=== PATIENT | male | born 1935 | race Caucasian/White ===

== ENCOUNTER → 2016-11-08 | Outpatient (CLI) | payer MEDICARE ==
--- NOTE | 2016-11-08 12:42 | REP ---
RIGHT FOOT SERIES: Four views. HISTORY: Pain and swelling 1st MCP joint. Redness. No comparison radiographs. FINDINGS: There is a moderate to marked hallux valgus deformity. Vascular calcification is noted. 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 There is a surgical clip in the distal calf soft tissues. Moderate osteoarthritis is seen at the midfoot and there is plantar calcaneal spurring. IMPRESSION: Vascular calcification. Midfoot osteoarthritis. Heel spur. 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 Signed by Manish Saavedra MD 11/08/2016 01:10 P
== END ==
LOC: M WUC 12:00
PROVIDERS: ATTEND Internal Medicine
DX: M77.31 Calcaneal spur, right foot (principal)

== ENCOUNTER → 2016-11-25 | Outpatient (REF) | payer MEDICARE ==
[2016-11-25 17:13] LABS: FOLATE 13.6 NG/ML
== END ==
LOC: M LAB REF 16:06
PROVIDERS: ATTEND Nurse Practitioner Family
DX: D52.8 Other folate deficiency anemias (principal)

== ENCOUNTER → 2016-12-20 | Outpatient (REF) | payer MEDICARE ==
[2016-12-20 12:55] LABS: URIC ACID 9.8 MG/DL (3.5-7.2)
== END ==
LOC: M LAB REF 11:58
PROVIDERS: ATTEND Nurse Practitioner Adult Health
DX: M10.9 Gout, unspecified (principal); R71.8 Other abnormality of red blood cells

== ENCOUNTER 2016-12-30 07:13 | Inpatient (IN) | payer MEDICARE ==
[~2016-12-30] VITALS: Ht 167.6 cm; Wt 72.1 kg
[~2016-12-30 07:13] MED LIST: HEPARIN 1,000 UNITS/ML 10ML VIAL (FOR RADIOLOGY& DIALYSIS ONLY) As Ordered ONE; ISOVUE-300 61% 50ML VIAL (Q9967) As Ordered ONE; MIDAZOLAM INJ 2 MG/2 ML VIAL (J2250) As Ordered ONE; fentaNYL 100 MCG/2 ML INJECTION (J3010) As Ordered ONE
--- NOTE | 2016-12-30 12:35 | REP ---
Clinical: Preoperative assessment. Technique: PA and lateral. Comparison: None. Findings: Cardiomegaly is appreciated with large left lower lobe infiltrate, bibasilar atelectasis, and pleural effusions (left greater than right). Underlying interstitial edema cannot be excluded as well. No pneumothorax. Impression: Cardiomegaly Left lower lobe consolidation, bibasilar atelectasis, and pleural effusions (left greater than right). Differential diagnosis includes multifocal pneumonia as well as CHF/pulmonary edema. Signed by Arsen Lester MD 12/30/2016 12:26 P
--- NOTE | 2016-12-30 13:45 | ECGEPIP ---
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
[2016-12-30 14:00] VITALS: BP 142/63
[2016-12-30 14:22] LABS: CALCIUM LEVEL 8.6 MG/DL (8.8-10.2); CREATININE FOR GFR 1.45 MG/DL (0.70-1.30); GLOMERULAR FILTRATION RATE 49.9 (>35); POTASSIUM SERUM 4.7 MEQ/L (3.5-5.1)
[2016-12-30] MEDS: PIPERACILLIN/TAZOBACTAM SOD 3.375 GM in D5W MINI-BAG PLUS 50 ML IV SCH ×2 (15:10→21:20)
[2016-12-30] MEDS: PERCOCET 5MG/325MG TAB PO PRN (18:00)
[2016-12-30] MEDS ORDERED: SANTYL OINT 30GM TOP SCH ×2 (18:00→21:00)
[2016-12-30] MEDS ORDERED: PHYTONADIONE 5 MG TAB PO ONE (18:45)
[2016-12-30] MEDS ORDERED: MORPHINE 2 MG/ML 1ML SYRINGE As Ordered ONE (18:48)
[2016-12-30] MEDS: MORPHINE 2 MG/ML 1ML SYRINGE IV PRN ×2 (18:51→23:05)
[2016-12-30] MEDS ORDERED: NITR4TASL SL (20:05)
[2016-12-30] MEDS ORDERED: WARF-23 PO (20:05)
[2016-12-30] MEDS ORDERED: ASPI81TA24 PO (20:05)
[2016-12-30] MEDS ORDERED: HYDR-3713 PO (20:05)
[2016-12-30] MEDS ORDERED: SANT250O8 TOP (20:05)
[2016-12-30] MEDS ORDERED: TORS20TA2 PO (20:05)
[2016-12-30] MEDS ORDERED: ATOR40TA75 PO (20:05)
[2016-12-30] MEDS ORDERED: WARF-18 PO (20:05)
[2016-12-30] MEDS ORDERED: ENTR1TAB PO (20:05)
[2016-12-30] MEDS ORDERED: METO1TAB32 PO (20:05)
[2016-12-30 22:00] VITALS: BP 135/58
[2016-12-30] MEDS ORDERED: NITROGLYCERIN 0.4 MG SUBL TABLET SL PRN (22:00)
[2016-12-30] MEDS: ENTRESTO 24-26MG TABLET (SACUBITRIL/VALSARTAN) PO SCH (23:06)
[2016-12-30] MEDS: METOPROLOL SUCC *XL* 25MG TAB (TopROL *XL*) PO SCH (23:06)
[2016-12-31] MEDS: PERCOCET 5MG/325MG TAB PO PRN ×2 (00:59→09:58)
[2016-12-31] MEDS: PIPERACILLIN/TAZOBACTAM SOD 3.375 GM in D5W MINI-BAG PLUS 50 ML IV SCH ×4 (03:24→21:56)
[2016-12-31] MEDS: MORPHINE 2 MG/ML 1ML SYRINGE IV PRN (04:17)
[2016-12-31 06:00] VITALS: BP 127/56
[2016-12-31 06:37] LABS: INR 3.04
[2016-12-31 06:40] LABS: ADD MORPHOLOGY? YES; BASO % 0.7 % (0.0-1.0); EOS # 0.1 K/mm3 (0.0-0.50); EOS % 1.9 % (0.0-3.0); LARGE UNSTAINED CELL # 0.1 K/mm3 (0.0-0.4); LARGE UNSTAINED CELL % 2.7 % (0.0-4.0); LYMPH # 0.7 K/mm3 (1.5-4.5); LYMPH % 12.4 % (24.0-44.0); MEAN CORPUSCULAR HEMOGLOBIN 36.2 pg (27.0-33.0); MEAN CORPUSCULAR VOLUME 109.9 fl (80.0-96.0); MONO # 0.5 K/mm3 (0.0-0.8); MONO % 10.6 % (0.0-5.0); NEUTROPHILS # 3.5 K/mm3 (1.8-7.7); NEUTROPHILS % 71.7 % (36.0-66.0); PLATELET COUNT, AUTOMATED 111 k/mm3 (150-450); RED CELL DISTRIBUTION WIDTH 15.5 % (11.5-14.5); WHITE BLOOD COUNT 4.8 K/mm3 (4.0-10.0)
[2016-12-31 06:48] LABS: ALBUMIN 2.7 GM/DL (3.2-5.2); ALBUMIN/GLOBULIN RATIO 0.77 (1.00-1.93); CREATININE FOR GFR 1.52 MG/DL (0.70-1.30); GLOMERULAR FILTRATION RATE 47.2 (>35); POTASSIUM SERUM 5.1 MEQ/L (3.5-5.1); TOTAL PROTEIN 6.2 GM/DL (6.4-8.2)
[2016-12-31 07:07] LABS: ANISOCYTOSIS 1+
[2016-12-31] MEDS: TORSEMIDE 20 MG TAB PO SCH (08:52)
[2016-12-31] MEDS: ENTRESTO 24-26MG TABLET (SACUBITRIL/VALSARTAN) PO SCH ×2 (08:53→21:55)
[2016-12-31] MEDS: ASPIRIN 81 MG ENTERIC TAB PO SCH (08:53)
[2016-12-31 14:00] VITALS: BP 143/85
[2016-12-31] MEDS: METOPROLOL SUCC *XL* 25MG TAB (TopROL *XL*) PO SCH (21:56)
[2016-12-31 22:00] VITALS: BP 115/67
--- NOTE | 2016-12-31 22:09 | IPNPDOC ---
Subjective Date Seen The patient was seen on 12/31/16. Subjective Chief Complaint/HPI The patient is a 81-year-old male admitted with a reason for visit of Artery Disease. General: Denies: ROS Unobtainable, Chills, Night Sweats, Fatigue, Malaise, Normal Appetite, Other Symptoms Constitutional: Denies: Chills, Fever, Malaise, Night Sweats, Weakness, Fatigue , Weight Loss, Lethargy, Other Eyes: Denies: Pain, Vision change, Conjunctivae inflammation, Eyelid inflammation, Redness, Other ENT: Denies: Head Aches, Ear Pain, Dysphagia, Sinus Congestion, Post Nasal Drip , Sore Throat, Epistaxis, Other Symptoms Skin: Denies: Rash, Lesions, Jaundice, Bruising, Itching, Dry, Breakdown, Nail Changes, Other Pulmonary: Denies: Dyspnea, Cough, Pleuritic Chest Pain, Other Symptoms Cardiovascular: Denies: Chest Pain, Palpitations, Orthopnea, Paroxysmal Noc. Dyspnea, Edema, Lt Headedness, Other Symptoms Gastrointestinal: Denies: Nausea, Vomiting, Abdominal Pain, Diarrhea, Constipation, Melena, Hematochezia, Other Symptoms Genitourinary: Denies: Dysuria, Frequency, Incontinence, Hematuria, Retention, Other Symptoms Hematologic: Denies: Bruising, Bleeding Excessively, Petecchia, Purpura, Enlarged Lymph Nodes, Other Hematologic Endocrine: Denies: Polydipsia, Polyphagia, Polyuria, Heat Intolerance, Cold Intolerance, Other Endocrine Sx Musculoskeletal: Denies: Neck Pain, Back Pain, Shoulder Pain, Arm Pain, Hand Pain, Leg Pain, Foot Pain, Joint Pain, Muscle Pain, Spasms, Other Symptoms Neurological: Denies: Weakness, Numbness, Incoordination, Change in speech, Confusion, Seizures, Other Symptoms Psych: Denies: Mood Normal, Anxiety, Depression, Memory Issues, Thoughts of Self Harm, Anger, Thoughts of Harming Other, Other Psych Objective Physical Examination General Exam: Positive: Alert, Mild Distress Neck Exam: Positive: Supple, +2 carotid pulse wo bruit Chest Exam: Positive: Clear to auscultation, Normal air movement Heart Exam: Positive: Rate Normal Abdomen Exam: Positive: Normal bowel sounds Extremity Exam: Positive: Tenderness Skin Exam: Positive: Nl turgor and temperature Neuro Exam: Positive: Normal Gait Psych Exam: Positive: Mental status NL Assessment /Plan Problems (1) Ischemia of foot Status: Acute (2) Ischemic foot ulcer due to atherosclerosis of [place] artery of limb Status: Acute Problem Text: Patient with severe atherosclerotic disease with popliteal artery occlusion on the right and reconstitution of the posterior tibial distally. Patient will require a femoral to posterior tibial artery bypass graft. Awaiting normalization of patient's INR at which point heparin will be started patient will be scheduled for surgery Monday or Monday pending clearance. Plan/VTE VTE Prophylaxis Ordered?: Yes VS, I&O, 24H, Fishbone Vital Signs/I&O Vital Signs Date Time Temp Pulse Resp B/P (MAP) Pulse Ox O2 Delivery O2 Flow Rate FiO2 12/31/16 21:56 83 115/67 12/31/16 19:56 Room Air 12/31/16 14:00 97.1 16 96 12/30/16 18:10 2.0 I&O- Last 24 Hours up to 6 AM 12/31/16 06:00 Intake Total 870 ml Output Total 375 ml Balance 495 ml Laboratory Data 24H LABS Laboratory Tests 2 12/31/16 06:03: White Blood Count 4.8, Red Blood Count 3.52L, Hemoglobin 12.8L, Hematocrit 38.7L , Mean Corpuscular Volume 109.9H, Mean Corpuscular Hemoglobin 36.2H, Mean Corpuscular Hemoglobin Concent 33.0, Red Cell Distribution Width 15.5H, Platelet Count 111L, Neutrophils (%) (Auto) 71.7H, Lymphocytes (%) (Auto) 12.4L , Monocytes (%) (Auto) 10.6H, Eosinophils (%) (Auto) 1.9, Basophils (%) (Auto) 0.7, Neutrophils # (Auto) 3.5, Lymphocytes # (Auto) 0.7L, Monocytes # (Auto) 0.5 , Eosinophils # (Auto) 0.1, Basophils # (Auto) 0.0, Large Unclassified Cells % 2.7, Large Unclassified Cells # 0.1, Platelet Estimate DECREASED, Anisocytosis 1 +, Macrocytosis 2+, Prothrombin Time 32.8H, Prothromb Time International Ratio 3.04, Anion Gap 9, Glomerular Filtration Rate 47.2, Blood Urea Nitrogen 52H, Creatinine 1.52H, Sodium Level 137, Potassium Level 5.1, Chloride Level 106, Carbon Dioxide Level 22, Calcium Level 8.0L, Aspartate Amino Transf (AST/SGOT) 34, Alanine Aminotransferase (ALT/SGPT) 21, Alkaline Phosphatase 191H, Total Bilirubin 1.0, Total Protein 6.2L, Albumin 2.7L, Albumin/Globulin Ratio 0.77L CBC/BMP Laboratory Tests 12/31/16 06:03 Red Blood Count 3.52 L, Mean Corpuscular Volume 109.9 H, Mean Corpuscular Hemoglobin 36.2 H, Mean Corpuscular Hemoglobin Concent 33.0, Red Cell Distribution Width 15.5 H, Neutrophils (%) (Auto) 71.7 H, Lymphocytes (%) (Auto ) 12.4 L, Monocytes (%) (Auto) 10.6 H, Eosinophils (%) (Auto) 1.9, Basophils (% ) (Auto) 0.7, Neutrophils # (Auto) 3.5, Lymphocytes # (Auto) 0.7 L, Monocytes # (Auto) 0.5, Eosinophils # (Auto) 0.1, Basophils # (Auto) 0.0, Calcium Level 8.0 L, Aspartate Amino Transf (AST/SGOT) 34, Alanine Aminotransferase (ALT/SGPT) 21 , Alkaline Phosphatase 191 H, Total Bilirubin 1.0, Total Protein 6.2 L, Albumin 2.7 L Benedict Vang MD Dec 31, 2016 22:09
[2017-01-01] MEDS: PERCOCET 5MG/325MG TAB PO PRN ×2 (02:10→11:26)
[2017-01-01] MEDS: PIPERACILLIN/TAZOBACTAM SOD 3.375 GM in D5W MINI-BAG PLUS 50 ML IV SCH ×4 (02:10→20:26)
[2017-01-01 06:00] VITALS: BP 121/65
[2017-01-01 06:47] LABS: INR 1.7
[2017-01-01] MEDS: SANTYL OINT 30GM TOP SCH (08:28)
[2017-01-01] MEDS: ENTRESTO 24-26MG TABLET (SACUBITRIL/VALSARTAN) PO SCH ×2 (08:28→20:26)
[2017-01-01] MEDS: ASPIRIN 81 MG ENTERIC TAB PO SCH (08:28)
[2017-01-01] MEDS: TORSEMIDE 20 MG TAB PO SCH (08:28)
[2017-01-01] MEDS ORDERED: HEPARIN (FLUSH) 100 UNITS in SODIUM CHLORIDE 0.45% 99 ML IV SCH (10:45)
[2017-01-01] MEDS ORDERED: HEPARIN DRIP 25,000 UNITS in APPROPRIATE DILUENT 1 EA IV SCH (10:45)
[2017-01-01] MEDS ORDERED: HEPARIN SOD (PORCINE) 5000 UNITS/ML VIAL IV ONE ×2 (10:45)
[2017-01-01] MEDS ORDERED: HEPARIN SOD (PORCINE) 5000 UNITS/ML VIAL IV PRN (10:45)
[2017-01-01 11:38] LABS: MEAN CORPUSCULAR HEMOGLOBIN 35.5 pg (27.0-33.0); MEAN CORPUSCULAR HGB CONC 31.6 g/dl (32.0-36.5); MEAN CORPUSCULAR VOLUME 112.3 fl (80.0-96.0); RED CELL DISTRIBUTION WIDTH 15.2 % (11.5-14.5); WHITE BLOOD COUNT 5.5 K/mm3 (4.0-10.0)
[2017-01-01 14:00] VITALS: BP 126/63
--- NOTE | 2017-01-01 18:07 | IPNPDOC ---
Date Seen The patient was seen on 01/01/17. Progress Note SUBJECTIVE: Patient has continued pain in his right foot. Denies any chest pain , shortness of breath, TIAs, amaurosis fugax, paralysis or paresis of extremity. OBJECTIVE PHYSICAL EXAMINATION: VITAL SIGNS: Please see below. GENERAL: Awake alert oriented x3 with no focal deficits HEENT: Normal CARDIOVASCULAR: Regular rate and rhythm. RESPIRATORY: Clear to auscultation bilaterally no rhonchi wheezes or crackles. ABDOMINAL: Soft nontender nondistended with no palpable pulsatile masses EXTREMITIES: No clubbing cyanosis or edema. Right lower extremity shows dependent rubor and cellulitic changes. NEUROLOGICAL: Awake alert oriented x3 with no focal deficits PSYCHOLOGICAL: Mood stable no suicidal ideation LABORATORY DATA: Please see below. MICROBIOLOGY: Please see below. IMAGING: No new imaging Echocardiogram: Echo from Dr. Camarena close office is in the chart.. DVT prophylaxis ordered?: Patient on a heparin drip ASSESSMENT AND PLAN: This is a 81-year-old white male with right lower extremity ischemia secondary to occlusion of his right below-knee popliteal artery. The patient has reconstitution of the posterior tibial artery distally. PROBLEMS: 1. right lower extremity ischemia: Patient will undergo a right femoral to posterior tibial artery bypass graft. Patient was discussed with Dr. Nicol wilson who states the patient recently had an nuclear stress test which showed no reversible lesions. Dr. Nicol wilson states the patient is intermediate risk and is cleared for right femoral to posterior tibial artery bypass grafting 2. atrial fibrillation: Patient was on Coumadin as an outpatient and pedis been started on a heparin drip with normalization of his INR. VS, I&O, [facility] Vital Signs/I&O Vital Signs Date Time Temp Pulse Resp B/P (MAP) Pulse Ox O2 Delivery O2 Flow Rate FiO2 01/01/17 11:56 14 01/01/17 10:18 Room Air 01/01/17 06:00 97.7 74 121/65 (83) 96 12/30/16 18:10 2.0 I&O- Last 24 Hours up to 6 AM 01/01/17 06:00 Intake Total 1530 ml Output Total 825 ml Balance 705 ml Laboratory Data 24H LABS Laboratory Tests 2 01/01/17 06:25: Prothrombin Time 20.5H, Prothromb Time International Ratio 1.70 01/01/17 11:08: Activated Partial Thromboplast Time 40.4H 01/01/17 17:17: CBC/BMP Laboratory Tests 01/01/17 11:08 Red Blood Count 3.81 L, Mean Corpuscular Volume 112.3 H, Mean Corpuscular Hemoglobin 35.5 H, Mean Corpuscular Hemoglobin Concent 31.6 L, Red Cell Distribution Width 15.2 H Benedict Vang MD Jan 01, 2017 18:07
[2017-01-01] MEDS: ATORVASTATIN 20 MG TAB PO SCH (20:26)
[2017-01-01] MEDS: METOPROLOL SUCC *XL* 25MG TAB (TopROL *XL*) PO SCH (21:04)
[2017-01-01 22:00] VITALS: BP 134/64
[2017-01-02] VITALS (21 sets, daily range): BP systolic 86–160; BP diastolic 47–116
[2017-01-02] MEDS: PERCOCET 5MG/325MG TAB PO PRN ×2 (00:27→05:30)
[2017-01-02] MEDS: PIPERACILLIN/TAZOBACTAM SOD 3.375 GM in D5W MINI-BAG PLUS 50 ML IV SCH ×4 (03:09→22:55)
[2017-01-02] MEDS: D5W/0.45% SODIUM CHLORIDE 1,000 ML IV SCH ×2 (04:10→22:55)
[2017-01-02 06:29] LABS: MEAN CORPUSCULAR HEMOGLOBIN 36.2 pg (27.0-33.0); MEAN CORPUSCULAR HGB CONC 32.5 g/dl (32.0-36.5); MEAN CORPUSCULAR VOLUME 111.3 fl (80.0-96.0); RED CELL DISTRIBUTION WIDTH 15.7 % (11.5-14.5); WHITE BLOOD COUNT 4.9 K/mm3 (4.0-10.0)
[2017-01-02 06:35] LABS: INR 1.75
[2017-01-02 06:50] LABS: CALCIUM LEVEL 8.5 MG/DL (8.8-10.2); CREATININE FOR GFR 1.83 MG/DL (0.70-1.30); POTASSIUM SERUM 4.9 MEQ/L (3.5-5.1)
[2017-01-02] MEDS: ASPIRIN 81 MG ENTERIC TAB PO SCH (09:49)
[2017-01-02] MEDS: TORSEMIDE 20 MG TAB PO SCH (09:49)
[2017-01-02] MEDS: ENTRESTO 24-26MG TABLET (SACUBITRIL/VALSARTAN) PO SCH ×2 (09:49→21:00)
--- NOTE | 2017-01-02 13:06 | IPNPDOC ---
Date Seen The patient was seen on 01/02/17. Progress Note SUBJECTIVE: Patient without complaints. Has continued pain in the right foot. Patient had a fall last night resulting in a contusion to his right forehead and loss of his left upper incisor. OBJECTIVE PHYSICAL EXAMINATION: VITAL SIGNS: Please see below. GENERAL: Awake alert no apparent distress HEENT: Normal. Site of the left upper incisor loss is without bleeding. CARDIOVASCULAR: Irregular. RESPIRATORY: Clear to auscultation bilaterally decreased breath sounds.. ABDOMINAL: Soft nontender nondistended with no palpable pulsatile mass EXTREMITIES: Both lower extremities show perfusion. The right large family shows dependent rubor. NEUROLOGICAL: Awake alert oriented x3 no focal deficits PSYCHOLOGICAL: Normal LABORATORY DATA: Please see below. MICROBIOLOGY: Please see below. IMAGING: Angiogram performed Monday shows occlusion of the popliteal artery at the knee joint with reconstitution of the posterior tibial artery distally. DVT prophylaxis ordered?: Patient on heparin drip and Coumadin. ASSESSMENT AND PLAN: This is a 82-year-old white male with ischemia of the right lower extremity and popliteal and tibioperoneal arterial occlusive disease which was not amenable to endovascular intervention. PROBLEMS: 1. right lower extremity ischemia and rest pain: Patient is scheduled for a right femoral to posterior tibial artery bypass graft today.. 2. fall: Patient is awake alert oriented x3 with no focal deficits patient did lose a left upper incisor during the fall and has a contusion to the right head. The patient's heparin was stopped at the time of the fall last evening. 3. coronary artery disease: Patient was discussed with his swatch clerk Dr. Nicol wilson who states the patient is cleared for the upcoming surgery.. DISPOSITION: Operating room today for right femoral to posterior tibial artery bypass grafting. VS, I&O, [facility], [facility] Vital Signs/I&O Vital Signs Date Time Temp Pulse Resp B/P (MAP) Pulse Ox O2 Delivery O2 Flow Rate FiO2 01/02/17 07:50 Room Air 01/02/17 06:19 16 01/02/17 06:00 98.8 85 120/72 (88) 94 12/30/16 18:10 2.0 I&O- Last 24 Hours up to 6 AM 01/02/17 06:00 Intake Total 620 ml Output Total 200 ml Balance 420 ml Laboratory Data 24H LABS Laboratory Tests 2 01/01/17 17:17: Activated Partial Thromboplast Time > 240.0*H 01/01/17 19:12: Activated Partial Thromboplast Time > 240.0*H 01/01/17 22:48: Activated Partial Thromboplast Time 59.2H 01/02/17 06:04: Prothrombin Time 21.0H, Prothromb Time International Ratio 1.75, Anion Gap 8, Glomerular Filtration Rate 38.0, Blood Urea Nitrogen 49H, Creatinine 1.83H, Sodium Level 136, Potassium Level 4.9, Chloride Level 107, Carbon Dioxide Level 21, Calcium Level 8.5L, B-Type Natriuretic Peptide 1980H CBC/BMP Laboratory Tests 01/02/17 06:04 Red Blood Count 3.62 L, Mean Corpuscular Volume 111.3 H, Mean Corpuscular Hemoglobin 36.2 H, Mean Corpuscular Hemoglobin Concent 32.5, Red Cell Distribution Width 15.7 H, Calcium Level 8.5 L Benedict Vang MD Jan 02, 2017 13:06
--- NOTE | 2017-01-02 13:28 | HPEPDOC ---
Medical History and Physical Date of Admission Dec 30, 2016 at 12:20 History and Physical PRIMARY CARE PROVIDER: Leo Donnelly M.D. ATTENDING: Benedict Vang MD CHIEF COMPLAINT: Right foot pain and ischemia HISTORY OF PRESENT ILLNESS: Patient is an 81-year-old male with severe pain in his right lower extremity who was evaluated and initially treated for gout and was subsequently found to have severe arterial insufficiency and ischemia of the right lower extremity. Patient denies any claudication or rest pain prior to the recent in symptoms in his right foot. Patient does have a history of gout and with his severe arterial insufficiency this most likely initiated as an flareup of gout which resulted and metabolic commands on the right foot which led to arterial ulceration due to his severe insufficiency. Patient denies any TIAs, amaurosis fugax, paralysis or paresis of the extremity, dysarthria, chest pain, or shortness of breath. Patient does acknowledge having an episode of chest pain on evening which was not relieved with nitroglycerin and spontaneously resolved and was most likely gastrointestinal in origin. PAST MEDICAL HISTORY: 1. hypertension. 2. peripheral arterial disease. 3. coronary artery disease. 4. atrial fibrillation. 5. Gout PAST SURGICAL HISTORY: 1. coronary artery bypass grafting x2. 2. carotid endarterectomy. 3. aortic valve replacement with bovine valve. 4. cholecystectomy. 5. Mitral valve repair 6. Tonsillectomy and adenoidectomy as a child SOCIAL HISTORY: Marital status: . Employment: Retired Tobacco use: Denies ETOH: Occasional with dinner Illicit drug use: Denies Tattoos done unprofessionally: Denies. IV drug use: Denies Other relevant social factors: Negative FAMILY HISTORY: Father: with a history of coronary artery disease Mother: with a history of cerebrovascular accident Siblings: One sister who is and has coronary artery disease Children: No significant medical problems Hereditary Diseases: None Unexpected deaths due to medical reasons: None ALLERGIES: Please see below. REVIEW OF SYSTEMS: CONSTITUTIONAL: Negative denies any weight loss. HEENT: Negative. CARDIOVASCULAR: Does acknowledge chest pain evening before presenting for his angiogram but this was not relieved with nitroglycerin and was most likely reflux. The patient was discussed with Dr. Moseley who states patient had a nuclear stress test which showed no reversible defects. RESPIRATORY: Denies. GASTROINTESTINAL: Reflux disease. GENITOURINARY: Denies. SKIN: Denies. MUSCULOSKELETAL: Gout. NEUROLOGICAL: Denies. PSYCHIATRIC: Denies. ENDOCRINE: Denies. HEMATOLOGIC/LYMPHATIC: Denies. HOME MEDICATIONS: Please see below. PHYSICAL EXAMINATION: VITAL SIGNS: Temperature 98.4, pulse 83, respiratory rate 14, blood pressure 136 /82, pulse oximetry 99% room air. GENERAL APPEARANCE: Well-nourished well-developed male in no apparent distress. HEENT: Normal. Neck is supple with no carotid bruits. CARDIOVASCULAR: Irregular. LUNGS: Clear to auscultation bilaterally. ABDOMEN: Soft nontender nondistended with no palpable pulsatile masses. MUSCULOSKELETAL: Normal. EXTREMITIES: Upper tremor showed 2+ brachial radial and ulnar pulses. Lower extremities show nonpalpable popliteal and dorsalis pedis and posterior tibial pulses. These are obtainable with Doppler. Patient has 2+ femoral pulses bilaterally. NEUROLOGICAL: Awake alert oriented x3 with no focal deficits. PSYCHIATRIC: Negative. SKIN no obvious masses or lesions Lymphatic no lymphadenopathy in the cervical axillary or inguinal regions LABORATORY DATA: See below. IMAGING: Right lower extremity angiogram shows occlusion of the popliteal artery with reconstitution of the posterior tibial distally, the anterior tibial and peroneal arteries are showed severely diseased MICROBIOLOGY: Please see below. ASSESSMENT: Patient is an 81-year-old male with severe atherosclerotic arterial occlusive disease in the popliteal and tibioperoneal vessels in the right lower extremity. The patient has rest pain and critical limb ischemia with arterial ulcers in the right foot. . PLAN: Patient will be admitted to the hospital undergo a preoperative evaluation and plan for a right femoral to posterior tibial artery bypass graft. The patient is on Coumadin for atrial fibrillation and will need to have his Coumadin reversed and be placed on a heparin drip. An EKG and echo will be ordered. Vital Signs Vital Signs Date Time Temp Pulse Resp B/P (MAP) Pulse Ox O2 Delivery O2 Flow Rate FiO2 01/02/17 07:50 Room Air 01/02/17 06:19 16 01/02/17 06:00 98.8 85 120/72 (88) 94 12/30/16 18:10 2.0 Laboratory Data Labs 24H Laboratory Tests 2 01/01/17 17:17: Activated Partial Thromboplast Time > 240.0*H 01/01/17 19:12: Activated Partial Thromboplast Time > 240.0*H 01/01/17 22:48: Activated Partial Thromboplast Time 59.2H 01/02/17 06:04: Prothrombin Time 21.0H, Prothromb Time International Ratio 1.75, Anion Gap 8, Glomerular Filtration Rate 38.0, Blood Urea Nitrogen 49H, Creatinine 1.83H, Sodium Level 136, Potassium Level 4.9, Chloride Level 107, Carbon Dioxide Level 21, Calcium Level 8.5L, B-Type Natriuretic Peptide 1980H CBC/BMP Laboratory Tests 01/02/17 06:04 Red Blood Count 3.62 L, Mean Corpuscular Volume 111.3 H, Mean Corpuscular Hemoglobin 36.2 H, Mean Corpuscular Hemoglobin Concent 32.5, Red Cell Distribution Width 15.7 H, Calcium Level 8.5 L Home Medications Scheduled Aspirin (Aspirin EC) 81 Mg Tab, 81 MG PO DAILY Atorvastatin Calcium (Atorvastatin Calcium) 40 Mg Tab, 40 MG PO Q2D TAKES AT HS Collagenase (Santyl) 250 Unit/Gm Oin, 1 DOSE TOP Q2D APPLY TO FOOT Metoprolol Succinate (Metoprolol Succinate ER) 25 Mg Tab, 25 MG PO QHS Sacubitril/Valsartan (Entresto 24-26 mg) 1 Tab Tab, 1 TAB PO BID Torsemide (Torsemide) 20 Mg Tab, 20 MG PO DAILY Warfarin Sod (Warfarin Sodium) 5 Mg Tab, 5 MG PO 6XWK QHS: MON, MON, TUES, THURS, FRI, SAT Warfarin Sod (Warfarin Sodium) 2.5 Mg Tab, 2.5 MG PO 1XWK QHS: MONDAY Scheduled PRN Acetaminophen/Hydrocodone (Hydrocodone/Acetaminophen 5-325 mg) 1 Tab Tab, 1 TAB PO Q6H PRN for PAIN Nitroglycerin (Nitrostat) 0.4 Mg Subl, 0.4 MG SL Q5MP PRN for CHEST PAIN Allergies Coded Allergies: No Known Allergies (Unverified , 12/30/16) Benedict Vang MD Jan 02, 2017 13:28
[2017-01-02] MEDS ORDERED: HEPARIN SOD (PORCINE) 5000 UNITS/ML VIAL As Ordered ONE ×2 (14:20→16:13)
[2017-01-02] MEDS ORDERED: CLINDAMYCIN INJ 900MG/6ML VIAL As Ordered ONE (14:20)
[2017-01-02] MEDS ORDERED: THROMBIN SOLN 20,000 UNITS KIT As Ordered ONE (14:20)
[2017-01-02] MEDS ORDERED: PROPOFOL 200 MG/20 ML VIAL As Ordered ONE (14:29)
[2017-01-02] MEDS ORDERED: ROCURONIUM BROMIDE 50 MG/5 ML VIAL/SYRINGE As Ordered ONE (14:29)
[2017-01-02] MEDS ORDERED: LIDOCAINE 2% INJ 100 MG/5 ML SDV (FOR ANES.) As Ordered ONE (14:29)
[2017-01-02] MEDS ORDERED: MIDAZOLAM INJ 2 MG/2 ML VIAL (J2250) As Ordered ONE (14:30)
[2017-01-02] MEDS ORDERED: fentaNYL 250 MCG/5 ML INJECTION (J3010) As Ordered ONE (14:30)
[2017-01-02] MEDS ORDERED: ETOMIDATE INJ 20MG/10ML VIAL As Ordered ONE (14:55)
[2017-01-02] MEDS ORDERED: ZOSYN 3.375 GM VIAL (J2543) As Ordered ONE (15:17)
[2017-01-02] MEDS ORDERED: ESMOLOL INJ 100MG/10ML VIAL As Ordered ONE (15:25)
[2017-01-02] MEDS ORDERED: PHENYLEPHRINE INJ 10MG/ML VIAL (J2370) As Ordered ONE ×2 (15:36→21:04)
[2017-01-02] MEDS ORDERED: ePHEDrine SULFATE 25 MG/5 ML(5MG/ML) SYRINGE As Ordered ONE (16:13)
[2017-01-02] MEDS ORDERED: dexameTHASONE 4 MG/ML 1ML VIAL (J1100) As Ordered ONE (16:50)
[2017-01-02] MEDS ORDERED: BACITRACIN OINT 30GM As Ordered ONE (17:44)
[2017-01-02] MEDS ORDERED: GLYCOPYRROLATE INJ 0.2 MG/ML 2 ML VIAL As Ordered ONE (17:45)
[2017-01-02] MEDS ORDERED: NEOSTIGMINE 1MG/ML 5 ML SYRINGE (J2710) As Ordered ONE (17:45)
[2017-01-02] MEDS ORDERED: BACITRACIN OINT 30GM ONE (17:45)
[2017-01-02] MEDS ORDERED: fentaNYL 100 MCG/2 ML INJECTION (J3010) IV PRN (18:45)
[2017-01-02] MEDS ORDERED: LR 250 ML IV SCH (18:45)
[2017-01-02] MEDS ORDERED: LR 1,000 ML IV SCH (18:45)
[2017-01-02] MEDS ORDERED: ONDANSETRON 4MG/2ML VIAL (J2405) IV PRN (18:45)
[2017-01-02] MEDS ORDERED: PERCOCET 5MG/325MG TAB PO PRN (18:45)
[2017-01-02] MEDS ORDERED: PHENYLEPHRINE INJ 10MG/ML VIAL (J2370) IV SCH (18:45)
[2017-01-02 18:51] LABS: MEAN CORPUSCULAR HEMOGLOBIN 35.9 pg (27.0-33.0); MEAN CORPUSCULAR HGB CONC 32.8 g/dl (32.0-36.5); MEAN CORPUSCULAR VOLUME 109.7 fl (80.0-96.0); RED CELL DISTRIBUTION WIDTH 17.6 % (11.5-14.5); WHITE BLOOD COUNT 6.3 K/mm3 (4.0-10.0)
[2017-01-02 19:04] LABS: CREATININE FOR GFR 1.79 MG/DL (0.70-1.30); POTASSIUM SERUM 4.4 MEQ/L (3.5-5.1)
[2017-01-02] MEDS: METOPROLOL SUCC *XL* 25MG TAB (TopROL *XL*) PO SCH (21:00)
[2017-01-02] MEDS: PHENYLEPHRINE HCL INJ 50 MG in D5W 500 ML IV SCH (22:56)
--- NOTE | 2017-01-02 23:44 | ROOPDOC ---
[facility] Report Of Operation Report of Operation DATE OF PROCEDURE: 01/02/17 PREPROCEDURE DIAGNOSES: Right foot and nonhealing ulcers. Superficial femoral popliteal and tibioperoneal arterial occlusive disease. Chronic renal insufficiency. Critical limb ischemia with rest pain in the right lower extremity. POSTPROCEDURE DIAGNOSES:Right foot and nonhealing ulcers. Superficial femoral popliteal and tibioperoneal arterial occlusive disease. Chronic renal insufficiency. Critical limb ischemia with rest pain in the right lower extremity. PROCEDURE: Redo right common femoral, superficial femoral and profunda femoris artery exploration. Right external iliac artery, right common femoral artery, right superficial femoral artery, and right profunda femoris artery endarterectomies with patch angioplasty with biologic patch. Repair of common femoral vein venotomy. INDICATION: Patient is an 82-year-old male with nonhealing ulcers of the right foot and severe arterial occlusive disease in the right lower extremity. Patient underwent angiography showed occlusion of his right popliteal artery with reconstitution of his distal posterior tibial artery. The patient also has extensive atherosclerotic disease in the common femoral superficial femoral arterial junction. Patient will undergo revascularization of the right lower extremity with a femoral to posterior tibial artery bypass graft. Risks benefits and alternative treatment options were discussed with the patient. Alternative treatment options included but were not limited to no intervention. Risks included but were not limited to infection, bleeding, renal failure requiring dialysis, possible need for further surgical intervention, cerebrovascular accident, myocardial infarction, pulmonary embolus, DVT, loss of limb, loss of weight, and poor outcome. The patient understands and accepts these risks and consents to proceed. Patient has had previous surgery and a right femoral artery with his mitral valve and aortic valve replacements. Patient's questions were answered and the patient agrees to proceed. SURGEON: Dr. Justin Vang MD BRASS RECLAIMER: None ANESTHESIA: Gen. endotracheal. ESTIMATED BLOOD LOSS: Approximately 2000 mL. COMPLICATIONS: None. REMARKS: IV fluids are 2100 cc of crystalloid 2 units of packed red blood cells. Urine output 600 cc via Simmons catheter Specimen: Right external iliac, right common femoral, right superficial femoral and right profunda femoris artery plaque. Implants: Xenosure biologic patch PROCEDURE NOTE: The patient was taken to the operating room and placed supine on the operating room table and prepped and draped in a standard surgical fashion. An incision was made obliquely in the inguinal region overlying the right common femoral artery. The common femoral superficial femoral profunda femoris and extra iliac artery were all sharply dissected free and encircled with a vessel loop. The section of the common femoral superficial femoral artery were redo dissections and during the dissection there was severe adhesions between the common femoral artery superficial femoral artery and common femoral vein. A small venotomy was made in the common femoral vein which was repaired with 6-0 Prolene suture in interrupted fashion. The patient was given heparin and the extra iliac artery profunda femoris artery and superficial femoral artery were clamped using vascular clamps. A arteriotomy was made with an 11 blade scalpel, this was elongated with pot scissors and then the endarterectomy of the external iliac artery, common femoral artery, superficial femoral artery, and profunda femoris artery were performed. The arteriotomy was then closed using a Xenosure biologic patch and 6 Prolene suture in running continuous fashion. Hemostasis was obtained with thrombin and Gelfoam. There was good flow noted in the common femoral superficial femoral and profunda femoris arterys with Doppler ultrasound evaluation. A second incision had been made longitudinally in the thigh for access to the superficial femoral artery and superficial femoral vein. Due to the high-grade stenosis in the femoral artery and the amount of blood loss secondary to the common femoral vein venotomy only a femoral endarterectomy was performed. There was good perfusion of the right lower extremity with endarterectomy alone and the bypass was not performed. The incisions were then closed using 2-0 Vicryl to reapproximate the deeper layers and caleb to approximate the skin. Dressings were applied. All instrument sponge and needle counts are correct at the end of the case. There were no complications. Dr. Vang was present for and directed the entire case. Patient was transferred to the recovery room awake alert extubated and in stable condition. Benedict Vang MD Jan 02, 2017 23:44
[2017-01-03] VITALS (74 sets, daily range): BP systolic 64–138; BP diastolic 33–88
[2017-01-03] MEDS: PERCOCET 5MG/325MG TAB PO PRN (04:22)
[2017-01-03] MEDS: PIPERACILLIN/TAZOBACTAM SOD 3.375 GM in D5W MINI-BAG PLUS 50 ML IV SCH ×4 (04:23→21:32)
[2017-01-03 05:09] LABS: MEAN CORPUSCULAR HEMOGLOBIN 33.7 pg (27.0-33.0); MEAN CORPUSCULAR HGB CONC 32.1 g/dl (32.0-36.5); MEAN CORPUSCULAR VOLUME 105.1 fl (80.0-96.0); RED CELL DISTRIBUTION WIDTH 17.9 % (11.5-14.5); WHITE BLOOD COUNT 6.5 K/mm3 (4.0-10.0)
[2017-01-03 05:36] LABS: CALCIUM LEVEL 8.1 MG/DL (8.8-10.2); CREATININE FOR GFR 1.81 MG/DL (0.70-1.30); GLOMERULAR FILTRATION RATE 38.5 (>35)
[2017-01-03 05:40] LABS: POTASSIUM SERUM 5.2 MEQ/L (3.5-5.1)
[2017-01-03 05:42] LABS: INR 1.69
[2017-01-03] MEDS: SANTYL OINT 30GM TOP SCH (09:00)
--- NOTE | 2017-01-03 09:06 | RO ---
DATE OF PROCEDURE: 12/30/2016 PREPROCEDURE DIAGNOSES: Chronic renal insufficiency, critical limb ischemia of right lower extremity, nonhealing right foot ulcers with ulcerations at the base of the first toe anteriorly and posteriorly at the base of the second, third, and fourth toes. There is also ischemia of the tip of the fourth toe. POSTPROCEDURE DIAGNOSES: Chronic renal insufficiency, critical limb ischemia of right lower extremity, nonhealing right foot ulcers with ulcerations at the base of the first toe anteriorly and posteriorly at the base of the second, third, and fourth toes. There is also ischemia of the tip of the fourth toe plus femoral, popliteal, and tibioperoneal arterial atherosclerotic occlusive disease. PROCEDURE: Aortogram, iliofemoral angiogram, selective right common femoral artery catheter placement with right lower extremity angiogram, selective right superficial femoral artery catheter placement and right lower extremity angiogram, selective right popliteal artery catheter placement, right lower extremity angiogram, Mynx closure of the left common femoral arteriotomy. SURGEON: Benedict Vang MD SUPERVISOR FERTILIZER: ANESTHESIA: Local with sedation with 2 mg of Versed, 100 mcg of Fentanyl and 10 mL of 2% lidocaine. ESTIMATED BLOOD LOSS: FLUOROSCOPY TIME: 9.7 minutes. CONTRAST: 12 mL SEDATION TIME: 8:23 a.m. to 9:10 a.m. with the sedation and cardiopulmonary monitoring performed by the nurse in the room under my direct supervision. I was present for and directed the entire case. COMPLICATIONS: None. DRAINS: None. SPECIMENS: None. IMPLANT: Left common femoral arteriotomy closure with a Mynx closure device. INDICATION: The patient is an 81-year-old male with severe ischemia of the right lower extremity with rest pain and arterial ulcerations who has nonpalpable pulses and will undergo angiography with possible angioplasty and/or stent. The patient has chronic renal insufficiency and is aware of the risks of contrast induced nephropathy. Risks, benefits, and alternative treatment options were discussed with the patient. Alternative treatment options, included but were not limited to no intervention. Risks included but were not limited to infection, bleeding, renal failure requiring hemodialysis, possible need for open surgical intervention, retroperitoneal hematoma, cerebrovascular accident, myocardial infarction, pulmonary embolism, deep vein thrombosis (DVT), loss of limb, loss of life, and poor outcome. The patient understands, accepts these risks and consents to proceed. DESCRIPTION OF PROCEDURE: The patient was taken to the angiography suite, placed supine on the angiography room table and then prepped and draped in a standard surgical fashion. A time out was performed confirming the appropriate procedure and patient, after which the left common femoral artery was cannulated with a micropuncture needle after anesthetizing the overlying skin with 1% lidocaine. The micropuncture wire was advanced through the micropuncture needle, which was upsized to a micropuncture sheath. A [employer] wire was advanced through the micropuncture sheath, which was upsized to a #5-Vietnamese sheath. An Omniflush catheter was placed in aorta and aortogram was performed. Catheter was pulled down to the level of the bifurcation of the iliac arteries and an iliofemoral angiogram was performed. The catheter was directed over the bifurcation of the iliac arteries, placed in the right common femoral artery, and a right lower extremity angiogram was performed. Catheter was advanced into the superficial femoral artery and a right lower extremity angiogram was performed. The catheter was further directed into the popliteal artery and right lower extremity angiography completed. Catheters and wires were then removed and a Mynx closure device was used to close the arteriotomy in the left common femoral artery with an additional 15 minutes of adjunctive pressure for hemostasis. Dressings were then applied. Patient tolerated the procedure well. All instrument, sponge and needle counts were correct at the end of the case. There were no complications. Dr. Vang was present for and directed the entire case. Patient was transferred to the holding area and subsequently admitted to the hospital for definitive revascularization of the right lower extremity. RADIOLOGIC SUPERVISION INTERPRETATION: The initial aortogram showed the aorta to be widely patent. The infrarenal aorta was patent, as well as the descending thoracic aorta. The superior mesenteric and celiac arteries were patent, as well as the renal arteries. The left common iliac artery, external and internal iliac arteries were patent. The left common femoral and proximal superficial femoral and profunda femoris arteries were patent as well. There was no visualization of the left lower extremity below the puncture site. The right common iliac artery was large in caliber and showed some calcific disease. The right internal iliac artery was not visualized well and was small in caliber. The right external iliac artery was patent, as well as the right common femoral artery. There was some calcific occlusive disease in the proximal superficial femoral artery shortly after the take-off from the common femoral artery, the right profunda femoris artery was patent. The remainder of the superficial femoral artery showed diffuse calcific plaquing along its course with no significant disease. The catheter was then advanced into the superficial femoral artery and angiogram was performed showing the superficial femoral artery being patent into the popliteal artery. The catheter was advanced into the popliteal artery and a selective popliteal artery angiogram was performed. There was diffuse calcific occlusive disease on the course of the popliteal and superficial femoral arteries. The selective popliteal artery angiogram showed occlusion of the popliteal artery at the knee joint with collaterals reconstituting the posterior tibial artery distally in the mid calf region. The anterior tibial and peroneal arteries were not visualized. The posterior tibial artery was patent into the foot. A Mynx closure device was then used to close the arteriotomy in the left common femoral artery.
[2017-01-03] MEDS: ENTRESTO 24-26MG TABLET (SACUBITRIL/VALSARTAN) PO SCH ×2 (09:09→21:31)
[2017-01-03] MEDS: ASPIRIN 81 MG ENTERIC TAB PO SCH (09:09)
[2017-01-03] MEDS: TORSEMIDE 20 MG TAB PO SCH (09:10)
--- NOTE | 2017-01-03 12:16 | IPNPDOC ---
Date Seen The patient was seen on 01/03/17. Progress Note SUBJECTIVE: Patient with minimal complaints of pain in the right foot. Patient states the pain is much improved since undergoing surgery. Patient denies chest pain or shortness of breath. Patient is also already questioning about possibly going home tomorrow. OBJECTIVE PHYSICAL EXAMINATION: VITAL SIGNS: Please see below. GENERAL: Awake alert oriented with no apparent distress HEENT: Normal CARDIOVASCULAR: Irregular. RESPIRATORY: Clear to auscultation bilaterally with decreased breath sounds at the bases. ABDOMINAL: Soft nontender nondistended with no palpable pulsatile masses EXTREMITIES: Both lower extremities are well-perfused the right foot shows significant improvement with capillary refill and coloration. The inguinal incisions are clean dry and intact. NEUROLOGICAL: Awake alert oriented x3 with no focal deficits PSYCHOLOGICAL: Normal LABORATORY DATA: Please see below. MICROBIOLOGY: Please see below. DVT prophylaxis ordered?: Patient is on Coumadin. ASSESSMENT AND PLAN: This is a 82-year-old white male with right lower extremity ischemia who underwent a right femoral endarterectomy with resulting in good perfusion to the right lower extremity. PROBLEMS: 1. right lower extremity atherosclerotic arterial occlusive disease: Patient has significantly improved perfusion after undergoing a right external iliac artery, femoral artery endarterectomy wounds on the right foot we'll continue with Santyl dressing.. 2. coronary artery disease: Patient is doing well postoperatively he had an elevated BNP prior to the surgery and his CK and MB are slightly elevated. Plan will be to recheck his BMP and his cardiac enzymes with a troponin. Will ask Dr. Moseley to see the patient. DISPOSITION: Patient will require another 24 hours of ICU care. VS, I&O, 24H, [place] Vital Signs/I&O Vital Signs Date Time Temp Pulse Resp B/P (MAP) Pulse Ox O2 Delivery O2 Flow Rate FiO2 01/03/17 08:31 90 103/49 (67) 98 01/03/17 08:01 98.1 18 Nasal Cannula 2.0 I&O- Last 24 Hours up to 6 AM 01/03/17 05:59 Intake Total 3168 ml Output Total 3035 ml Balance 133 ml Laboratory Data 24H LABS Laboratory Tests 2 01/02/17 18:31: Anion Gap 9, Glomerular Filtration Rate 39.0, Blood Urea Nitrogen 44H, Creatinine 1.79H, Sodium Level 139, Potassium Level 4.4, Chloride Level 108H, Carbon Dioxide Level 22, Calcium Level 8.0L, Total Creatine Kinase 71, Creatine Kinase MB 2.0, Creatine Kinase MB Relative Index 2.81, Troponin I 0.05 01/03/17 01:02: Bedside Glucose (Misc Panel) 141H 01/03/17 05:02: Anion Gap 9, Glomerular Filtration Rate 38.5, Blood Urea Nitrogen 42H, Creatinine 1.81H, Sodium Level 139, Potassium Level 5.2H, Chloride Level 108H, Carbon Dioxide Level 22, Calcium Level 8.1L, Total Creatine Kinase 88, Creatine Kinase MB 6.4H, Creatine Kinase MB Relative Index 7.27H, Prothrombin Time 20.4H , Prothromb Time International Ratio 1.69 CBC/BMP Laboratory Tests 01/02/17 18:31 Red Blood Count 3.32 L, Mean Corpuscular Volume 109.7 H, Mean Corpuscular Hemoglobin 35.9 H, Mean Corpuscular Hemoglobin Concent 32.8, Red Cell Distribution Width 17.6 H, Calcium Level 8.0 L, Total Creatine Kinase 71 01/03/17 05:02 Red Blood Count 3.66 L, Mean Corpuscular Volume 105.1 H, Mean Corpuscular Hemoglobin 33.7 H, Mean Corpuscular Hemoglobin Concent 32.1, Red Cell Distribution Width 17.9 H, Calcium Level 8.1 L, Total Creatine Kinase 88 Benedict Vang MD Jan 03, 2017 12:16
[2017-01-03] MEDS: WARFARIN SOD 5 MG TAB PO SCH (17:22)
[2017-01-03] MEDS: METOPROLOL SUCC *XL* 25MG TAB (TopROL *XL*) PO SCH (21:00)
[2017-01-03] MEDS: ATORVASTATIN 20 MG TAB PO SCH (21:31)
[2017-01-03] MEDS: CALCIUM CARBONATE 500 MG CHEW U/D PO PRN (23:25)
[2017-01-03] MEDS: PHENYLEPHRINE HCL INJ 50 MG in D5W 500 ML IV SCH (23:25)
[2017-01-04] VITALS (58 sets, daily range): BP systolic 74–147; BP diastolic 35–67
[2017-01-04] MEDS: PIPERACILLIN/TAZOBACTAM SOD 3.375 GM in D5W MINI-BAG PLUS 50 ML IV SCH ×4 (03:43→21:18)
[2017-01-04] MEDS: CALCIUM CARBONATE 500 MG CHEW U/D PO PRN (03:43)
[2017-01-04 04:52] LABS: MEAN CORPUSCULAR HEMOGLOBIN 34.4 pg (27.0-33.0); MEAN CORPUSCULAR HGB CONC 31.9 g/dl (32.0-36.5); MEAN CORPUSCULAR VOLUME 107.9 fl (80.0-96.0); RED CELL DISTRIBUTION WIDTH 18.3 % (11.5-14.5); WHITE BLOOD COUNT 11.3 K/mm3 (4.0-10.0)
[2017-01-04 04:56] LABS: INR 1.88
[2017-01-04 05:03] LABS: CALCIUM LEVEL 8.4 MG/DL (8.8-10.2); CREATININE FOR GFR 2.45 MG/DL (0.70-1.30); GLOMERULAR FILTRATION RATE 27.1 (>35); POTASSIUM SERUM 4.9 MEQ/L (3.5-5.1)
[2017-01-04] MEDS ORDERED: MAALOX 30 ML SUSP *UDC PO ONE (06:00)
[2017-01-04] MEDS ORDERED: PANTOPRAZOLE 40MG INJ (PROTONIX) (C9113) IV ONE (06:00)
[2017-01-04] MEDS ORDERED: FUROSEMIDE 40 MG/4 ML VIAL (J1940) IV ONE (06:00)
--- NOTE | 2017-01-04 08:09 | IPNPDOC ---
Date Seen The patient was seen on 01/04/17. Progress Note SUBJECTIVE: Patient has complaints of epigastric pain which is relieved with TUMS and Maalox. Denies any chest pain or shortness of breath. He does acknowledge that his belly is distended and has some mild nausea. OBJECTIVE PHYSICAL EXAMINATION: VITAL SIGNS: Please see below. GENERAL: Awake alert lying in bed with only minimal distress noted on moving HEENT: Normal CARDIOVASCULAR: Regular rate and rhythm. RESPIRATORY: Clear to auscultation with decreased breath sounds at the bases.. ABDOMINAL: Soft nontender, distended and tympanitic. Decreased bowel sounds noted. EXTREMITIES: Right lower extremity is well-perfused with good capillary refill and significant warmth of the right foot with better perfusion noted. Wounds are clean and show signs of healing. NEUROLOGICAL: Awake alert oriented x3 with no focal deficits. PSYCHOLOGICAL: Normal LABORATORY DATA: Please see below. MICROBIOLOGY: Please see below. DVT prophylaxis ordered?: Patient is on Coumadin ASSESSMENT AND PLAN: This is a 82-year-old white male with critical limb ischemia of the right foot with ulceration. The patient underwent a right external iliac artery, common femoral artery, superficial femoral artery and profunda femoris artery endarterectomy with patch angioplasty but significant improvement with perfusion to the right foot. The patient has required meal postoperatively and has had troponin which are trending up the most recent was 1.36. The patient also has increasing creatinine which has risen to 2.45 this morning. PROBLEMS: 1. right lower extremity arterial insufficiency: Patient has undergone revascularization of the right lower C with significant improvement in perfusion. 2. chronic renal insufficiency with acute renal failure: Patient's creatinine has risen to 2.45. The patient has baseline chronic renal insufficiency and nephrology has been consult for evaluation and treatment. 3. coronary artery disease: The patient's troponins had increased slightly and appeared to be peaking. Plan will be to obtain an EKG and echo. I have discussed the patient's condition with Dr. Cordova, his uptwist spinner, who recommended continued conservative management and aggressive medical therapy. He states that the patient has had an nuclear stress test recently which showed no reversible defects and the patient does not require intervention with cardiac catheterization. Plan will be to continue to trend his troponin levels and continued supportive medical management. Patient is currently on low-dose lida-and we will continue this with attempts to slowly wean him off the nail. 4. Postoperative ileus: Patient has reflux and distended abdomen and will continue with conservative management. Patient will take TUMS and Maalox when necessary for his indigestion. Protonix IV has been started. DISPOSITION: The patient requires continued ICU care.. VS, I&O, 24H, Fishbone Vital Signs/I&O Vital Signs Date Time Temp Pulse Resp B/P (MAP) Pulse Ox O2 Delivery O2 Flow Rate FiO2 01/04/17 06:16 88 103/52 (69) 95 Room Air 01/04/17 04:01 98.4 17 01/03/17 08:01 2.0 I&O- Last 24 Hours up to 6 AM 01/04/17 06:00 Intake Total 1993 ml Output Total 250 ml Balance 1743 ml Laboratory Data 24H LABS Laboratory Tests 2 01/03/17 12:25: Total Creatine Kinase 102, Creatine Kinase MB 7.2H, Creatine Kinase MB Relative Index 7.05H, Troponin I 1.32#H 01/03/17 19:52: Total Creatine Kinase 85, Creatine Kinase MB 5.5H, Creatine Kinase MB Relative Index 6.47H, Troponin I 1.36H 01/04/17 04:23: Prothrombin Time 22.2H, Prothromb Time International Ratio 1.88, Anion Gap 8, Glomerular Filtration Rate 27.1L, Blood Urea Nitrogen 53H, Creatinine 2.45H, Sodium Level 135L, Potassium Level 4.9, Chloride Level 102, Carbon Dioxide Level 25, Calcium Level 8.4L CBC/BMP Laboratory Tests 01/04/17 04:23 Red Blood Count 3.36 L, Mean Corpuscular Volume 107.9 H, Mean Corpuscular Hemoglobin 34.4 H, Mean Corpuscular Hemoglobin Concent 31.9 L, Red Cell Distribution Width 18.3 H, Calcium Level 8.4 L Benedict Vang MD Jan 04, 2017 08:09
[2017-01-04] MEDS: ENTRESTO 24-26MG TABLET (SACUBITRIL/VALSARTAN) PO SCH (09:00)
[2017-01-04] MEDS: ASPIRIN 81 MG ENTERIC TAB PO SCH (09:21)
[2017-01-04] MEDS: TORSEMIDE 20 MG TAB PO SCH (09:22)
[2017-01-04] MEDS ORDERED: SANTYL OINT 30GM TOP SCH (12:15)
[2017-01-04] MEDS: SANTYL OINT 30GM TOP SCH (12:30)
--- NOTE | 2017-01-04 14:49 | REP ---
REASON: Acute renal failure. COMPARISON: None. The right kidney measures 10.6 x 4.7 x 5.6 cm. The renal cortical echoes are within normal limits. Cortical medullary differentiation is preserved. There is, however, renal cortical thinning with increased renal sinus echoes due to increased adipose tissue. There are no cystic or solid masses. The left kidney measures 11.1 x 5.1 x 6.1 cm. The renal cortical echoes are within normal limits and cortical medullary differentiation is preserved, although there is renal cortical thinning and increased renal sinus echoes consistent with increased adipose tissue. There is no hydronephrosis. IMPRESSION: Bilateral renal cortical thinning and other findings as described above. Signed by Luis Carlos Senior DO 01/05/2017 09:03 A
[2017-01-04] MEDS: WARFARIN SOD 5 MG TAB PO SCH (16:23)
[2017-01-04 16:27] LABS: CALCIUM LEVEL 8.4 MG/DL (8.8-10.2); CREATININE FOR GFR 2.84 MG/DL (0.70-1.30); GLOMERULAR FILTRATION RATE 22.9 (>35)
[2017-01-04] MEDS: PERCOCET 5MG/325MG TAB PO PRN (16:57)
[2017-01-04] MEDS: METOPROLOL SUCC *XL* 25MG TAB (TopROL *XL*) PO SCH (21:00)
[2017-01-04] MEDS: PHENYLEPHRINE HCL INJ 50 MG in D5W 500 ML IV SCH (21:18)
[2017-01-04] MEDS: PANTOPRAZOLE 40MG INJ (PROTONIX) (C9113) IV SCH (21:18)
--- NOTE | 2017-01-04 21:50 | ECGEPIP ---
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 No significant change compared with 12/30/2016. Electronically Signed On 01-04-2017 21:50:31 EDT by Red Cordova
[2017-01-04] MEDS ORDERED: zolPIDEM TARTRATE 10MG TAB PO ONE (22:00)
--- NOTE | 2017-01-04 23:11 | CR ---
DATE OF CONSULTATION: 01/04/2017 REASON FOR CONSULTATION: Acute renal failure. Is acute renal failure. HISTORY OF PRESENT ILLNESS: Mr. Finn is an 82-year-old gentleman who was admitted to [facility] on December 30 due to right foot pain. He was felt to have ischemia and underwent vascular procedure by Dr. Vang with an angiogram. The patient also underwent endarterectomy of his right lower extremity. He has developed acute renal failure following the procedure. His creatinine was 1.8 on January 03 and increased to 2.45 today. On admission, his creatinine was 1.45 and then it leveled off at about 1.80. PAST MEDICAL AND SURGICAL HISTORY: Significant for: 1. History of coronary artery disease, status post coronary artery bypass graft (CABG). 2. Hyperlipidemia. 3. Peripheral vascular disease. 4. Hypertension. 5. Atrial fibrillation. 6. Gout. Past surgical history is significant for: 1. Coronary artery bypass surgery, 2. Carotid endarterectomy. 3. Aortic valve replacement with bovine valve. 4. Cholecystectomy. 5. Mitral valve repair. 6. Tonsillectomy. 7. Adenoidectomy in childhood. MEDICATIONS: His home medications include: - aspirin 81 mg daily - Lipitor 40 mg daily - metoprolol 25 mg at bedtime - Entresto 24/26 mg 1 tablet twice a day - torsemide 20 mg daily - Coumadin 5 mg 6 days a week and 2.5 mg 1 day a week. - He also takes Tylenol and hydrocodone as needed for pain. - Nitroglycerin 0.4 mg as needed for chest pain ALLERGIES: The patient has NO KNOWN DRUG ALLERGIES. PERSONAL AND SOCIAL HISTORY: The patient is and lives with his family. Does not smoke or drink. FAMILY HISTORY: Noncontributory and there is no family history for end-stage renal disease. REVIEW OF SYSTEMS: The patient denies any fever or chills. He is sitting in the chair at the time of my visit. His main complaint is acid reflux and abdominal pain. He denies any vomiting. Ears, nose and throat are unremarkable. Cardiovascular system is significant for coronary artery disease and atrial fibrillation. He did have an episode of chest pain. Respiratory system is negative for cough or hemoptysis. GI system is significant for gastroesophageal reflux disease. He reports epigastric area discomfort and poor appetite. There is no history of rectal bleeding or black colored stools. system is significant for decreased urine output. He does not have a Simmons catheter. He denies any dysuria or hematuria. Musculoskeletal system is significant for history of gout. He had right foot ischemia due to which he underwent angioplasty and endarterectomy. Endocrine system is negative for diabetes or thyroid problems. Hematological system is significant for chronic anticoagulation with Coumadin due to atrial fibrillation. Neurological system is negative for seizures or stroke. Psychosocial system is negative for depression or anxiety. Skin is negative for any generalized rash. PHYSICAL EXAMINATION: The patient is awake and alert sitting in the chair. Temperature is 98 degrees Fahrenheit, heart rate 90 per minute and respiratory rate 22 per minute. Blood pressure is now 101/51 mmHg while earlier it was as low as 74/39 mmHg. Oxygen saturation is 95% on room air. Head: Is atraumatic. Neck is supple and without jugular venous distention (JVD) or thyroid enlargement. Oral mucosa is moist and healthy. Pupils equal and reactive to light. Sclera is anicteric. Heart: Sounds are irregular in rhythm. Lungs with moderate bilateral air entry. Abdomen: Soft, somewhat full, but nontender. Bowel sounds are present. There is no palpable organomegaly. Extremities: Have no cyanosis or clubbing. Right foot is in the dressing. There is no peripheral edema. Neurologically, he is awake, alert and oriented times three. LABORATORY DATA: On admission BUN was 50 and creatinine 1.45. On January 02, BUN 44 and creatinine 1.79. January 03, BUN was 42 and creatinine 1.82. Sodium was 139 and potassium 5.2. Today's sodium is 135, potassium 4.9, BUN 53 and creatinine 2.45. Calcium level 8.4. His troponin has been 1.32, 1.36 and 0.92 respectively. CPK has been 88, 102, 85, 86. PROBLEMS: 1. Acute renal failure superimposed on chronic kidney disease. The patient seems to have baseline stage III of chronic kidney disease, which is probably hypertensive vascular in origin. Acute renal failure is most likely related to hypotension and radiocontrast dye as the patient required angiogram for acute ischemia of his right foot. At present, he is non oliguric. His blood pressure has improved and he has been on Phenylephrine due to hypotension. I suggest to avoid any more diuretics. I am also stopping his Entresto for now due to acute renal failure. Will get a renal ultrasound today to rule out any possibility of obstruction in view of his advanced age. 2. Hypotension. His blood pressure has been low in 70s and it has now improved. He did receive a dose of Lasix and torsemide today. I would not give him any more diuretic. Will also stop the Entresto and monitor his blood pressure as the patient seems to be relatively asymptomatic now. Should his blood pressure go down then we can give him a fluid bolus of normal saline. 3. Elevated troponin. The patient did have slight increase in his troponins with acute foot ischemia. His CPK remained within normal range. At present, he is asymptomatic and will continue to monitor closely. The patient remains on chronic anticoagulation. 4. History of gout. The patient does have history of gout and initially he was treated for gout of his right foot. We will get a serum uric acid level tomorrow. He is not on any uric acid lowering therapy so far. Depending upon his uric acid level, we will make further adjustments. I thank you for involving me in the care of Mr. Finn. I will follow him along with you.
[2017-01-05] VITALS (53 sets, daily range): BP systolic 65–154; BP diastolic 34–70
[2017-01-05] MEDS: PIPERACILLIN/TAZOBACTAM SOD 3.375 GM in D5W MINI-BAG PLUS 50 ML IV SCH ×4 (03:29→21:27)
[2017-01-05 06:06] LABS: MEAN CORPUSCULAR HEMOGLOBIN 34.3 pg (27.0-33.0); MEAN CORPUSCULAR HGB CONC 32.5 g/dl (32.0-36.5); MEAN CORPUSCULAR VOLUME 105.4 fl (80.0-96.0); RED CELL DISTRIBUTION WIDTH 17.9 % (11.5-14.5); WHITE BLOOD COUNT 8.1 K/mm3 (4.0-10.0)
[2017-01-05 06:11] LABS: INR 2.73
[2017-01-05 06:18] LABS: CALCIUM LEVEL 8.2 MG/DL (8.8-10.2); CREATININE FOR GFR 3.06 MG/DL (0.70-1.30); URIC ACID 8.7 MG/DL (3.5-7.2)
[2017-01-05 06:22] LABS: POTASSIUM SERUM 5.5 MEQ/L (3.5-5.1)
[2017-01-05] MEDS: PANTOPRAZOLE 40MG INJ (PROTONIX) (C9113) IV SCH ×2 (08:14→21:27)
[2017-01-05] MEDS: ASPIRIN 81 MG ENTERIC TAB PO SCH (08:14)
[2017-01-05] MEDS: SANTYL OINT 30GM TOP SCH (08:15)
[2017-01-05] MEDS: PERCOCET 5MG/325MG TAB PO PRN ×2 (10:30→19:42)
[2017-01-05] MEDS: DOBUTamine HCL 500,000 MCG in APPROPRIATE DILUENT 1 EA IV SCH (10:42)
[2017-01-05] MEDS: FUROSEMIDE injection 250 MG in D5W 225 ML IV SCH (10:42)
[2017-01-05] MEDS ORDERED: FEBUXOSTAT 40 MG TABLET (ULORIC) PO ONE (10:45)
[2017-01-05] MEDS: MORPHINE 2 MG/ML 1ML SYRINGE IV PRN ×2 (11:18→20:23)
[2017-01-05] MEDS: PHENYLEPHRINE HCL INJ 50 MG in D5W 500 ML IV SCH (12:45)
--- NOTE | 2017-01-05 13:15 | REP ---
IMAGES DURING ABDOMINAL AORTOGRAM AND RIGHT LOWER EXTREMITY ANGIOGRAM: Multiple images obtained during abdominal aortogram and right lower extremity angiogram. The abdominal aorta is visualized as well as the right lower extremity arterial system down to the right calf. 9.7 minutes fluoroscopy time utilized for the procedure. Signed by Tao Grullon MD 01/05/2017 03:57 P
--- NOTE | 2017-01-05 15:03 | ECHO ---
DATE OF PROCEDURE: 01/05/2017 REFERRING PHYSICIAN: Dr. Alfred Rodriguez INDICATION: Hypotension. HEIGHT: 168 cm. WEIGHT: 82 kg. MEASUREMENTS: Left atrium - 5.8 cm Ventricular septum - 1.29 cm Posterior wall - 1.20 cm Aortic root - 3.3 cm Inferior vena cava - 2.3 cm DOPPLER MEASUREMENTS: Moderate aortic regurgitation. No aortic stenosis. Peak aortic valve velocity - 250 cm/s Peak aortic valve gradient - 25 mmHg Mean aortic valve gradient - 16 mmHg LVOT velocity - 66.7 cm/s LVOT VTI - 12.6 cm Mitral E velocity (continuous wave) 192 cm/s Mean aortic mitral valve gradient - 6 mmHg Moderate tricuspid regurgitation. Estimated right ventricle systolic pressure - 52 mmHg Estimated right atrial pressure of 20 mmHg based on inferior vena cava plethora with reduced respiratory variation. Mild pulmonic regurgitation. Pulmonary artery systolic pressure 52 mmHg by pulmonary acceleration time method. DESCRIPTION: Image quality was adequate. Rhythm was atrial fibrillation with controlled ventricular response. This is a 2D, M mode, color flow Doppler and pulsed wave Doppler examination including mitral annular tissue Doppler. CONCLUSIONS: 1. Normal left ventricle internal and diastolic dimension. Mild focal hypertrophy of the basal anterior ventricular septum. Paradoxical septal motion involving the anteroseptal and inferoseptal segments from base to apex. Akinesis of the basal and mid and apical anterior segments. Hypokinesis of the basal, mid, and apical anterolateral inferolateral, and inferior LV segments. Hypokinesis of the apical cap segment. No LV thrombus. Severe reduction in overall LV systolic function. LVEF 25% by visual estimate. 2. Status post aortic valve replacement with bioprosthesis which is well seated. Mild focal thickening of some of the aortic cusps. No aortic stenosis. Moderate aortic regurgitation. 3. Well seated and normally functioning mitral valve bioprosthesis. No mitral stenosis or mitral regurgitation. 4. Severe left atrial dilatation. 5. Suggestive of moderate elevation of pulmonary artery systolic pressure (52 mmHg) and estimated right ventricle systolic pressure (52 mmHg). Normal right ventricle size and systolic function. At least mild right atrial dilatation. Inferior vena cava plethora suggestive of elevated central venous pressure of at least 20 mmHg. 6. Unable to assess LV diastolic function in the present of atrial fibrillation and status post mitral valve replacement with bioprosthesis. 7. Very small pericardial effusion. No diastolic chamber collapse. 8. Left pleural effusion.
[2017-01-05] MEDS: WARFARIN SOD 5 MG TAB PO SCH (17:08)
[2017-01-05] MEDS: ACETAMINOPHEN TAB 650MG DOSE (2X325MG) PO PRN (17:13)
[2017-01-05] MEDS ORDERED: SOD POLYSTYRENE SULFONATE SUSP 15 GM/60 ML UD PO ONE (19:00)
[2017-01-05] MEDS: METOPROLOL SUCC *XL* 25MG TAB (TopROL *XL*) PO SCH (21:00)
--- NOTE | 2017-01-05 21:12 | IPN ---
DATE: 01/05/2017 Mr. Finn was seen this morning on his bedside in intensive care unit. He remains very weak, however has been sitting in the chair. I did get him back in the bed which was significant exertion for him. He did get quite short of breath just during the process of transferring from chair to bed. He denies any chest pain. There is no nausea, vomiting or diarrhea. There is no fever or chills. He has been on phenylephrine drip due to hypotension. PHYSICAL EXAMINATION: Temperature 97.5 degrees Fahrenheit, heart rate 96 per minute and respiratory rate 24 per minute. Blood pressure 100/56 mmHg and oxygen saturation 92% on room air. Head: Is atraumatic. Oral mucosa is moist and healthy. Ears, nose and throat are unremarkable. Neck veins are distended about 8-9 cm above sternal angle. There is no thyroid enlargement. Heart: Sounds are irregular in rhythm with systolic murmur grade 2/6. Lungs with diminished breath sounds and bibasilar rales. Abdomen: Soft and nontender. Bowel sounds are present. There is no palpable organomegaly. Extremities: Have no cyanosis or clubbing. He has significant edema on lower extremities. Right foot is wrapped in dressing. Neurologically he is awake, alert and oriented times three. Intake and output records from yesterday showed total intake 1324 and output 380. Today he weighs 81.8 kg while his admission weight was 74 kg. Today's labs show WBC count 8.1, hemoglobin 11.4 and hematocrit 34.9. Platelets 120. Sodium 135 and potassium 5.5. BUN 57 and creatinine 3.06. Calcium level 8.2 and uric acid is 8.7. PROBLEMS: 1. Acute renal failure superimposed on chronic kidney disease. Most likely related to hypotension, congestive heart failure and radiocontrast dye. The patient is still oliguric. His blood pressure remains low and he has been on phenylephrine drip. We will try to diurese him with intravenous (IV) Lasix drip and dobutamine drip today. At present he does not have any uremic symptoms and there is no emergent indication for dialysis. 2. Hyperkalemia related to acute renal failure and oliguria. We will start him on IV Lasix drip. The patient is being placed on 2 grams potassium restriction in his diet. 3. Gout. The patient has history of gout with uric acid level 8.7. I am going to start him on Uloric 40 mg with first dose today. 4. Congestive heart failure and atrial fibrillation. The patient is decompensated significantly. He is being started on dobutamine drip 2.5 mcg/kg per hour. We will monitor his urine output as he is also being started on IV Lasix drip at 10 mg per hour. 5. Peripheral vascular disease. The patient underwent angioplasty and endarterectomy of his right lower extremity. He remains on Coumadin for his chronic atrial fibrillation.
[2017-01-05] MEDS: ATORVASTATIN 20 MG TAB PO SCH (21:27)
--- NOTE | 2017-01-05 22:38 | IPNPDOC ---
Date Seen The patient was seen on 01/05/17. Progress Note SUBJECTIVE: Patient has complaints of pain in the right groin, some shortness of breath and generalized weakness and overall discomforts. No chest pain, no nausea, no fevers, no chills. OBJECTIVE PHYSICAL EXAMINATION: VITAL SIGNS: Please see below. GENERAL: Lying in bed with mild distress HEENT: Normal CARDIOVASCULAR: Irregular rate and rhythm. RESPIRATORY: Decreased breath sounds at the bases some coarse breath sounds as well. ABDOMINAL: Soft nontender nondistended EXTREMITIES: Right lower extremity is well-perfused, wounds are clean, femoral incision is soft with good signs of healing. NEUROLOGICAL: Awake alert oriented x3 PSYCHOLOGICAL: Normal DVT prophylaxis ordered?: Patient therapeutic on Coumadin ASSESSMENT AND PLAN: This is a 82-year-old white male with acute on chronic renal failure, congestive heart failure, limb threatening right lower extremity ischemia who is status post right femoral endarterectomy with patch angioplasty. The postoperative course has been complicated by acute renal failure with decreased urine output and now with hyperkalemia and congestive heart failure.. PROBLEMS: 1. acute on chronic renal failure: The patient is being managed by Dr. Rodriguez 2. right lower extremity ischemia and arterial ulcerations: Right lower extremity is well-perfused arterial ulcerations or showing good signs of healing , we will continue with Santyl to the foot wounds. 3. congestive heart failure: Dr. Rodriguez is managing the patient, the patient has been discussed with Dr. Cordova who recommends conservative management with continued aggressive medical management.. DISPOSITION: Patient will require continued ICU care. VS, I&O, 24H, Fishbone Vital Signs/I&O Vital Signs Date Time Temp Pulse Resp B/P (MAP) Pulse Ox O2 Delivery O2 Flow Rate FiO2 01/05/17 21:00 76 96/53 01/05/17 20:33 20 01/05/17 18:15 95 Room Air 01/05/17 17:30 1.0 01/05/17 12:00 97.4 I&O- Last 24 Hours up to 6 AM 01/05/17 06:00 Intake Total 1057.9 ml Output Total 480 ml Balance 577.9 ml Laboratory Data 24H LABS Laboratory Tests 2 01/04/17 23:55: Urine Appearance CLOUDYH, Urine Color YELLOW, Urine pH 5.0, Urine Specific Dinosaur 1.019, Urine Protein NEGATIVE, Urine Glucose (UA) NEGATIVE, Urine Ketones NEGATIVE, Urine Urobilinogen 0.2, Urine Bilirubin NEGATIVE, Urine Leukocyte Esterase NEGATIVE, Urine Blood 2+H, Urine Nitrite NEGATIVE, Urine WBC (Auto) 3, Urine RBC (Auto) 23H, Urine Hyaline Casts (Auto) 0, Urine Bacteria ( Auto) NEGATIVE, Urine Squamous Epithelial Cells 0, Urine Sperm (Auto) SMALLH 01/05/17 05:43: Prothrombin Time 30.1H, Prothromb Time International Ratio 2.73, Anion Gap 7L, Glomerular Filtration Rate 21.0L, Uric Acid 8.7H, Blood Urea Nitrogen 57H, Creatinine 3.06H, Sodium Level 135L, Potassium Level 5.5H, Chloride Level 103, Carbon Dioxide Level 25, Calcium Level 8.2L CBC/BMP Laboratory Tests 01/05/17 05:43 Calcium Level 8.2 L 01/05/17 05:44 Red Blood Count 3.31 L, Mean Corpuscular Volume 105.4 H, Mean Corpuscular Hemoglobin 34.3 H, Mean Corpuscular Hemoglobin Concent 32.5, Red Cell Distribution Width 17.9 H Benedict Vang MD Jan 05, 2017 22:38
[2017-01-06] VITALS (45 sets, daily range): BP systolic 69–135; BP diastolic 36–87
[2017-01-06] MEDS: PIPERACILLIN/TAZOBACTAM SOD 3.375 GM in D5W MINI-BAG PLUS 50 ML IV SCH ×2 (03:41→09:42)
[2017-01-06 05:36] LABS: INR 4.36
[2017-01-06 05:39] LABS: MEAN CORPUSCULAR HEMOGLOBIN 34.4 pg (27.0-33.0); MEAN CORPUSCULAR HGB CONC 32.5 g/dl (32.0-36.5); MEAN CORPUSCULAR VOLUME 105.8 fl (80.0-96.0); RED CELL DISTRIBUTION WIDTH 17.8 % (11.5-14.5); WHITE BLOOD COUNT 5.2 K/mm3 (4.0-10.0)
[2017-01-06 05:40] LABS: CALCIUM LEVEL 7.8 MG/DL (8.8-10.2); CREATININE FOR GFR 4.03 MG/DL (0.70-1.30); GLOMERULAR FILTRATION RATE 15.3 (>35)
[2017-01-06 05:43] LABS: POTASSIUM SERUM 5.2 MEQ/L (3.5-5.1)
[2017-01-06] MEDS: PANTOPRAZOLE 40MG INJ (PROTONIX) (C9113) IV SCH ×2 (09:42→21:21)
[2017-01-06] MEDS: ASPIRIN 81 MG ENTERIC TAB PO SCH (09:43)
[2017-01-06] MEDS: FEBUXOSTAT 40 MG TABLET (ULORIC) PO SCH (09:43)
[2017-01-06] MEDS: SANTYL OINT 30GM TOP SCH (10:57)
[2017-01-06] MEDS: FUROSEMIDE injection 250 MG in D5W 225 ML IV SCH (11:12)
[2017-01-06] MEDS: MORPHINE 2 MG/ML 1ML SYRINGE IV PRN (11:13)
[2017-01-06] MEDS: PHENYLEPHRINE HCL INJ 50 MG in D5W 500 ML IV SCH (14:30)
[2017-01-06] MEDS: DOBUTamine HCL 500,000 MCG in APPROPRIATE DILUENT 1 EA IV SCH (14:33)
[2017-01-06] MEDS: PIPERACILLIN/TAZOBACTAM SOD 2.25 GM in D5W MINI-BAG PLUS 50 ML IV SCH (16:16)
[2017-01-06] MEDS: METOPROLOL SUCC *XL* 25MG TAB (TopROL *XL*) PO SCH (21:00)
[2017-01-06] MEDS: PERCOCET 5MG/325MG TAB PO PRN (21:22)
--- NOTE | 2017-01-06 23:22 | IPNPDOC ---
Date Seen The patient was seen on 01/06/17. Progress Note SUBJECTIVE: Patient continues to have pain in his right inguinal region. Denies any chest pain and only mild shortness of breath with exertion. OBJECTIVE PHYSICAL EXAMINATION: VITAL SIGNS: Please see below. GENERAL: Awake alert lying in bed in mild distress HEENT: Normal CARDIOVASCULAR: Irregular. RESPIRATORY: Decreased breath sounds at the bases otherwise clear. ABDOMINAL: Soft nontender nondistended EXTREMITIES: Right lower extremities well perfused. Femoral incisions are clean dry and intact. Right foot is well perfused, ulcerations are clean. NEUROLOGICAL: Awake alert oriented x3 with no focal deficits PSYCHOLOGICAL: Normal LABORATORY DATA: Please see below. MICROBIOLOGY: Please see below. DVT prophylaxis ordered?: Patient is currently therapeutic on Coumadin ASSESSMENT AND PLAN: This is a 82-year-old white male with a limb threatening ischemia of the right lower extremity who underwent a right femoral endarterectomy and now has good perfusion of the right foot. The patient has developed renal failure postoperatively. Patient also had filled out a mild form and Dr. Cordova's office and the patient's has brought a form in to the hospital which states the patient is a DNR/DNI. PROBLEMS: 1. acute on chronic renal failure: Patient is currently being managed by Dr. Rodriguez with regards to his renal function. 2. 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 The wounds will continue to undergo dressings with Santyl. Patient will follow up with Dr. Christensen as an outpatient. 3. congestive heart failure: Patient is on a dobutamine drip and being managed along with his renal fire by Dr. Rodriguez. DISPOSITION: Patient Lucila requires continued ICU care. VS, I&O, 24H, Fishbone Vital Signs/I&O Vital Signs Date Time Temp Pulse Resp B/P (MAP) Pulse Ox O2 Delivery O2 Flow Rate FiO2 01/06/17 21:53 110 108/53 (71) 93 01/06/17 21:52 18 01/06/17 21:22 Room Air 01/06/17 19:53 97.8 01/05/17 17:30 1.0 I&O- Last 24 Hours up to 6 AM 01/06/17 06:00 Intake Total 1698.4 ml Output Total 102 ml Balance 1596.4 ml Laboratory Data 24H LABS Laboratory Tests 2 01/06/17 04:49: Prothrombin Time 44.0H, Prothromb Time International Ratio 4.36, Anion Gap 11, Glomerular Filtration Rate 15.3L, Blood Urea Nitrogen 66H, Creatinine 4.03H, Sodium Level 131L, Potassium Level 5.2H, Chloride Level 100, Carbon Dioxide Level 20L, Calcium Level 7.8L CBC/BMP Laboratory Tests 01/06/17 04:49 Red Blood Count 2.95 L, Mean Corpuscular Volume 105.8 H, Mean Corpuscular Hemoglobin 34.4 H, Mean Corpuscular Hemoglobin Concent 32.5, Red Cell Distribution Width 17.8 H, Calcium Level 7.8 L Benedict Vang MD Jan 06, 2017 23:22
[2017-01-07] VITALS (57 sets, daily range): BP systolic 80–145; BP diastolic 36–98
[2017-01-07] MEDS: PIPERACILLIN/TAZOBACTAM SOD 2.25 GM in D5W MINI-BAG PLUS 50 ML IV SCH ×3 (01:06→17:42)
[2017-01-07 04:57] LABS: MEAN CORPUSCULAR HEMOGLOBIN 35.5 pg (27.0-33.0); MEAN CORPUSCULAR HGB CONC 33.5 g/dl (32.0-36.5); RED CELL DISTRIBUTION WIDTH 17.7 % (11.5-14.5); WHITE BLOOD COUNT 5.5 K/mm3 (4.0-10.0)
[2017-01-07 05:02] LABS: INR 4.89
[2017-01-07 05:08] LABS: CREATININE FOR GFR 4.9 MG/DL (0.70-1.30); GLOMERULAR FILTRATION RATE 12.2 (>35); POTASSIUM SERUM 5.1 MEQ/L (3.5-5.1)
[2017-01-07] MEDS: PANTOPRAZOLE 40MG INJ (PROTONIX) (C9113) IV SCH ×2 (08:42→20:33)
[2017-01-07] MEDS: ASPIRIN 81 MG ENTERIC TAB PO SCH (08:43)
[2017-01-07] MEDS: FEBUXOSTAT 40 MG TABLET (ULORIC) PO SCH (08:43)
[2017-01-07] MEDS: PERCOCET 5MG/325MG TAB PO PRN ×2 (09:35→15:12)
[2017-01-07] MEDS ORDERED: fentaNYL 100 MCG/2 ML INJECTION (J3010) As Ordered ONE (10:58)
[2017-01-07] MEDS ORDERED: MIDAZOLAM INJ 2 MG/2 ML VIAL (J2250) As Ordered ONE (10:58)
[2017-01-07] MEDS ORDERED: HEPARIN 1,000 UNITS/ML 10ML VIAL (FOR RADIOLOGY& DIALYSIS ONLY) XX ONE (11:00)
[2017-01-07] MEDS: FUROSEMIDE injection 250 MG in D5W 225 ML IV SCH ×2 (11:00→17:42)
[2017-01-07] MEDS ORDERED: HEPARIN 1,000 UNITS/ML 10ML VIAL (FOR RADIOLOGY& DIALYSIS ONLY) IV ONE (11:00)
[2017-01-07] MEDS ORDERED: LIDOCAINE 1% SDV INJ 30 ML VIAL As Ordered ONE (11:29)
[2017-01-07] MEDS ORDERED: BUPIVACAINE HCL 0.5% 30 ML VIAL As Ordered ONE (11:29)
--- NOTE | 2017-01-07 12:26 | ROOPDOC ---
[facility] Report Of Operation Report of Operation DATE OF PROCEDURE: 01/07/17 PREOPERATIVE DIAGNOSES: Acute renal failure requiring hemodialysis. POSTOPERATIVE DIAGNOSES: Acute renal failure requiring hemodialysis. PROCEDURE: Right internal jugular vein ultrasound and fluoroscopic guided 19 cm tip to cuff PermCath insertion. SURGEON: Dr. Justin Vang MD [employer]: None INDICATION:Patient is a 82-year-old male who has acute renal failure on top of chronic renal insufficiency who has now progressed to an urea and requires catheter placement for access for hemodialysis. Patient will undergo placement of a right internal jugular vein PermCath. Risks, benefits and alternative treatment options were discussed with the patient. Alternative treatment options included no intervention with continued conservative management. Risks included but were not limited to infection, bleeding, renal failure requiring hemodialysis, possible need for further open surgical intervention, cerebrovascular accident, myocardial infarction, pulmonary and was, DVT, loss of limb, loss of life, prolonged hospitalization and poor outcome. Patient's questions were answered, and patient agrees to proceed with a right internal jugular vein PermCath insertion ANESTHESIA: Local monitored anesthesia care. SEDATION TIME: None FLOURO TIME: 4 seconds CONTRAST: None IVF: None ESTIMATED BLOOD LOSS:Approximately 20 mL. HEPARIN: None PROTAMINE: None COMPLICATIONS: None DRAINS: None SPECIMENS: None IMPLANTS: 19 cm tip to cuff PermCath in the right internal jugular vein FINDINGS: Normal anatomy DESCRIPTION OF PROCEDURE: Patient was taken to the operating room, placed supine on the operating room table, and after performing a surgical timeout confirming the correct patient and procedure, the patient was prepped and draped in a standard surgical fashion. Ultrasound is used to evaluate the right internal jugular vein which was noted to be widely patent easily compressible and free of thrombus. The also was used to guide cannulation of the right internal jugular vein with an micro-puncture needle. The micro-puncture was advanced through the micropuncture needle which subsides to micropuncture sheath. An Amplatz wire was advanced through the micropuncture sheath. A 19 cm tip to cuff catheter was tunneled through a puncture wound in the right chest area and brought out through a puncture wound at the right internal jugular vein entry site after anesthetizing the overlying skin with 1% lidocaine mixed with half percent Marcaine. The right internal jugular vein was then sequentially dilated under fluoroscopic guidance, an introducer sheath was placed, and then the catheter was advanced through the introducer sheath which was peeled away and removed. Catheter was positioned with the tip in the superior vena cava right atrial junction. Both ports were aspirated noted to aspirate easily and then flushed with heparinized saline. Catheter was secured to the anterior chest wall using 2-0 Prolene suture after anesthetizing the overlying skin with 1% lidocaine mixed with half percent Marcaine. The puncture wound in the right neck was closed using 4-0 Monocryl suture in inverted interrupted fashion. Dressings were applied, patient tolerated the procedure well, SHE was once needle counts were correct at the end of the case, there were no complications, and Dr. Vang was present for and directed the entire case. Patient was transferred to the recovery room awake, alert, extubated and in stable condition. RADIOLOGIC SUPERVISION AND INTERPRETATION: The initial ultrasound of the right internal jugular vein showed leading to be widely patent easily compressible and free of thrombus. Ultrasound was used to guide cannulation of the right internal jugular vein with a hardcopy image preserved. The right internal jugular vein was sequentially dilated under fluoroscopic guidance. Catheter was positioned with the tip in the superior vena cava right atrial junction. Final fluoroscopic image showed the catheter to be in good position and good alignment with no pneumo or hemothorax noted. Catheter is stable for use for hemodialysis access. Benedict Vang MD Jan 07, 2017 12:26
[2017-01-07] MEDS: DOBUTamine HCL 500,000 MCG in APPROPRIATE DILUENT 1 EA IV SCH (12:28)
[2017-01-07] MEDS: PHENYLEPHRINE HCL INJ 50 MG in D5W 500 ML IV SCH (12:29)
[2017-01-07] MEDS ORDERED: NOREPINEPHRINE 4 MG/4 ML AMP As Ordered ONE (13:05)
[2017-01-07] MEDS ORDERED: NOREPINEPHRINE BITARTRATE 8 MG in D5W 500 ML IV SCH (13:30)
[2017-01-07] MEDS: MORPHINE 2 MG/ML 1ML SYRINGE IV PRN (15:52)
--- NOTE | 2017-01-07 17:30 | IPN ---
DATE: 01/07/2017 SUBJECTIVE: Mr. Finn is seen this morning on his bedside. He is sitting in the chair and did have a bowel movement earlier. He remains weak and complains of discomfort due to Simmons catheter and at the surgical site in his right groin. He has been anuric despite intravenous (IV) Lasix drip and dobutamine drip. He has no fever or chills at this point. PHYSICAL EXAMINATION: VITAL SIGNS: Temperature 97.5 degrees Fahrenheit, heart rate 120 per minute and respiratory rate 20 per minute. Blood pressure 92/55 mmHg and oxygen saturation 94% on two liters oxygen. Intake and output records from yesterday showed total intake 1800 and output only 82 mL. There is minimal blood-tinged urine in the Simmons catheter tube. HEAD/NECK: His head is atraumatic. Neck veins are markedly distended. Oral mucosa is moist and healthy. Pupils equal and reactive to light and sclerae are anicteric. CARDIAC: Heart sounds are irregular and tachycardiac. LUNGS: With diminished breath sounds at bases, more on the left than right. ABDOMEN: Soft and bowel sounds are present. Surgical incisions in right groin area are clean. EXTREMITIES: Have no cyanosis or clubbing. Lower extremity edema has increased to at least 3+. NEUROLOGIC: He is awake, alert and oriented times three. LABORATORY DATA: Today's labs show WBC count 5.5, hemoglobin 10.4 and hematocrit 31.2. Platelets 106. Sodium 128 and potassium 5.1. BUN 69 and creatinine 4.9. Calcium level 8.0. PROBLEMS: 1. Anuric acute renal failure superimposed on chronic kidney disease. The patient has not responded to IV Lasix drip and dobutamine drip. I have discussed with him once again this morning about need for dialysis and he has consented. I have requested Dr. Vang to place a dialysis catheter. 2. Hyponatremia. This is related to acute renal failure and congestive heart failure. This will be corrected with hemodialysis. The patient has not responded to diuretics. 3. Hyperkalemia. Potassium level has corrected and still high-normal range. We will use 2.0 mEq potassium bath for dialysis today. 4. Congestive heart failure and atrial fibrillation. The patient is known to have systolic congestive heart failure with ejection fraction of 25%. He remains on dobutamine drip and Lasix drip without significant urine output so far. His anuric renal failure is related to possible contrast nephropathy, and we are hoping that his kidney function will improve and urine output will improve over next few days. At this point will try to remove about 1.5 liters of fluid with hemodialysis today. 5. Hypotension. Blood pressure has been low despite Yves-Synephrine drip. The patient will be started on Levophed drip once we have a central line in place. Will continue with the pressors until his blood pressure is stabilized.
--- NOTE | 2017-01-07 17:31 | IPN ---
DATE: 01/07/2017 SUBJECTIVE: Mr. Finn was seen this afternoon again. I had seen him earlier this morning. Since then, he went to operating room and had a right internal jugular vein hemodialysis catheter placed and left internal jugular vein central line placed for medications. I had already ordered Levophed drip and his Yves-Synephrine drip has been stopped. Now his blood pressure has improved. The patient is currently being dialyzed in his room. On physical exam, his heart rate is in 120s. Temperature 97.6 degrees Fahrenheit and respiratory rate 20 per minute. Blood pressure 127/70 mmHg. The patient is tolerating dialysis treatment well. We are anticipating to remove about 1.5 liters of fluid. He is tolerating it well so far. We will continue to monitor his blood pressure closely and adjust the pressors as needed.
[2017-01-07] MEDS: METOPROLOL SUCC *XL* 25MG TAB (TopROL *XL*) PO SCH (18:55)
[2017-01-07] MEDS: ATORVASTATIN 20 MG TAB PO SCH (20:33)
--- NOTE | 2017-01-07 20:42 | IPNPDOC ---
Date Seen The patient was seen on 01/07/17. Progress Note SUBJECTIVE: Patient is status post hemodialysis catheter placement and a triple- lumen catheter. Patient has undergone hemodialysis and tolerated it well. Patient states he feels slightly better, but continues to have pain in the right femoral incision region. Patient denies any chest pain or shortness of breath. OBJECTIVE PHYSICAL EXAMINATION: VITAL SIGNS: Please see below. GENERAL: Awake alert lying in bed in no apparent distress HEENT: Normal CARDIOVASCULAR: Irregular. RESPIRATORY: Decreased breath sounds at the bases. ABDOMINAL: Soft nontender nondistended EXTREMITIES: The extremities are well-perfused right femoral incisions are clean and dry and intact, right lower extremity is well-perfused. Right foot wounds are stable. NEUROLOGICAL: Awake alert oriented x3 with no focal deficits PSYCHOLOGICAL: Normal LABORATORY DATA: Please see below. MICROBIOLOGY: Please see below. DVT prophylaxis ordered?: Patient is therapeutic on Coumadin. ASSESSMENT AND PLAN: This is a 82-year-old white male with right lower extremity ischemia and underwent a right femoral endarterectomy who developed acute on chronic renal failure postoperatively. The patient's right lower extremity is well-perfused and his wounds are healing. PROBLEMS: 1. acute on chronic renal failure: Patient underwent placement of a PermCath and initiation of hemodialysis per nephrology. 2. right lower extremity arterial atherosclerotic disease: is improve perfusion of the right lower extremity requires no further intervention at this time. The right foot wounds are clean and showed signs of healing and we will continue with collagenase dressings. 3. atrial fibrillation: Patient is therapeutic on Coumadin. DISPOSITION: Patient will retire require continued ICU care. VS, I&O, 24H, [facility] Vital Signs/I&O Vital Signs Date Time Temp Pulse Resp B/P (MAP) Pulse Ox O2 Delivery O2 Flow Rate FiO2 01/07/17 18:00 107 20 104/53 (70) 94 Nasal Cannula 2.0 01/07/17 16:02 97.6 I&O- Last 24 Hours up to 6 AM 01/07/17 06:00 Intake Total 1705.0 ml Output Total 117 ml Balance 1588.0 ml Laboratory Data 24H LABS Laboratory Tests 2 01/07/17 04:23: Prothrombin Time 48.3H, Prothromb Time International Ratio 4.89, Anion Gap 11, Glomerular Filtration Rate 12.2L, Blood Urea Nitrogen 69H, Creatinine 4.90H, Sodium Level 128L, Potassium Level 5.1, Chloride Level 97L, Carbon Dioxide Level 20L, Calcium Level 8.0L 01/07/17 10:40: CBC/BMP Laboratory Tests 01/07/17 04:23 Red Blood Count 2.94 L, Mean Corpuscular Volume 106.0 H, Mean Corpuscular Hemoglobin 35.5 H, Mean Corpuscular Hemoglobin Concent 33.5, Red Cell Distribution Width 17.7 H, Calcium Level 8.0 L Benedict Vang MD Jan 07, 2017 20:42
[2017-01-08] VITALS (57 sets, daily range): BP systolic 65–151; BP diastolic 39–82
[2017-01-08] MEDS: PIPERACILLIN/TAZOBACTAM SOD 2.25 GM in D5W MINI-BAG PLUS 50 ML IV SCH ×3 (00:08→17:15)
[2017-01-08] MEDS: PERCOCET 5MG/325MG TAB PO PRN ×2 (00:53→17:31)
[2017-01-08] MEDS: NOREPINEPHRINE BITARTRATE 8 MG in D5W 500 ML IV SCH ×2 (02:32→18:31)
[2017-01-08] MEDS: MORPHINE 2 MG/ML 1ML SYRINGE IV PRN (04:46)
[2017-01-08 04:54] LABS: INR 4.53
[2017-01-08 04:55] LABS: MEAN CORPUSCULAR HEMOGLOBIN 34.6 pg (27.0-33.0); MEAN CORPUSCULAR HGB CONC 32.7 g/dl (32.0-36.5); MEAN CORPUSCULAR VOLUME 105.8 fl (80.0-96.0); RED CELL DISTRIBUTION WIDTH 17.8 % (11.5-14.5); WHITE BLOOD COUNT 5.2 K/mm3 (4.0-10.0)
[2017-01-08 05:01] LABS: CALCIUM LEVEL 8.1 MG/DL (8.8-10.2); CREATININE FOR GFR 3.95 MG/DL (0.70-1.30); GLOMERULAR FILTRATION RATE 15.6 (>35); POTASSIUM SERUM 4.6 MEQ/L (3.5-5.1)
[2017-01-08] MEDS: PANTOPRAZOLE 40MG INJ (PROTONIX) (C9113) IV SCH ×2 (09:31→21:48)
[2017-01-08] MEDS: ASPIRIN 81 MG ENTERIC TAB PO SCH (09:31)
[2017-01-08] MEDS: FEBUXOSTAT 40 MG TABLET (ULORIC) PO SCH (09:31)
[2017-01-08] MEDS: SANTYL OINT 30GM TOP SCH ×2 (09:32→23:58)
[2017-01-08] MEDS: ACETAMINOPHEN TAB 650MG DOSE (2X325MG) PO PRN ×2 (11:17→23:56)
[2017-01-08] MEDS: FUROSEMIDE injection 250 MG in D5W 225 ML IV SCH (17:00)
[2017-01-08] MEDS: METOPROLOL SUCC *XL* 25MG TAB (TopROL *XL*) PO SCH (21:00)
--- NOTE | 2017-01-08 21:55 | IPN ---
DATE: 01/08/2017 SUBJECTIVE: Mr. Finn is seen this morning on his bedside. He underwent hemodialysis yesterday afternoon which he tolerated reasonably well. He was placed on Levophed which helped to maintain his blood pressure and we were able to remove about 1.5 liters fluid. This morning he has been off Levophed drip and maintaining his systolic blood pressure above 100 mmHg. The patient has complained of pain in his neck and reports that suprapubic and right groin area pain has resolved. PHYSICAL EXAMINATION His temperature is 98.2 degrees Fahrenheit, heart rate 110 per minute and respiratory rate 20 per minute. Blood pressure 120/54 mmHg and oxygen saturation 93% on two liters oxygen. He remains oliguric with only 50 mL urine output so far in the last eight hours. His head is atraumatic. Neck veins are distended at about 8-9 cm above sternal angle. He has a dialysis catheter right internal jugular vein and a central line in the left internal jugular vein. His heart sounds are irregular and tachycardiac. Lungs with diminished breath sounds at lower one half bilaterally with basilar rales. Abdomen soft and nontender. Bowel sounds are normal. Extremities without cyanosis or clubbing. Lower extremity edema is at least 3+. Neurologically he is awake, alert and oriented times three. LABORATORY DATA: Today's labs show WBC count 5.2, hemoglobin 10.1 and hematocrit 30.9. Platelets are 73,000. Sodium 131 and potassium 4.6. BUN 43 and creatinine 3.95. PROBLEMS: 1. Acute renal failure superimposed on chronic kidney disease. The patient remains anuric. He was dialyzed yesterday and he did tolerate dialysis treatment well. At present he remains on intravenous (IV) Lasix drip, though he is still oliguric. We will continue to monitor and reassess for further dialysis needs tomorrow. 2. Hyponatremia. Sodium level has improved though not completely resolved. We will continue to monitor electrolytes. At present his sodium level is likely to improve either with dialysis or diuresis if his kidney function improves. So far he has not responded to diuretics. 3. Acute on chronic systolic congestive heart failure. His ejection fraction is only 25%. The patient remains on dobutamine drip and will continue with the same. He is also on Lasix drip, but not responding so far due to acute tubular necrosis and acute renal failure. 4. Anemia. His anemia is stable and does not need any intervention at this point. 5. Peripheral vascular disease, status post right lower extremity endarterectomy. The patient has been doing well and his symptoms have improved. International normalized ratio (INR) today is 4.5. Coumadin has been stopped. 6. Gout. The patient remains on Uloric 40 mg daily.
[2017-01-09] VITALS (48 sets, daily range): BP systolic 68–139; BP diastolic 39–97
--- NOTE | 2017-01-09 00:11 | IPNPDOC ---
Date Seen The patient was seen on 01/08/17. Progress Note SUBJECTIVE: Patient with continued complaints of pain in the right groin area, but states that he feels better overall after undergoing dialysis. OBJECTIVE PHYSICAL EXAMINATION: VITAL SIGNS: Please see below. GENERAL: Sitting in bed in no apparent distress HEENT: Normal CARDIOVASCULAR: Irregular. RESPIRATORY: Regular to auscultation bilaterally. ABDOMINAL: Soft nontender nondistended EXTREMITIES: Right lower extremities well perfused incisions are clean dry and intact ulcerations are clean. NEUROLOGICAL: Awake alert oriented x3 with no focal deficits PSYCHOLOGICAL: Normal LABORATORY DATA: Please see below. MICROBIOLOGY: Please see below. 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 The postoperative course is complicated by acute on chronic renal failure and the patient has required dialysis due to an urinary. PROBLEMS: 1. renal failure: Managed by Dr. Rodriguez. 2. right lower extremity arterial ulcerations with atherosclerotic arterial occlusive disease: The right lower extremity is significantly improved with perfusion after undergoing a right femoral endarterectomy. The wounds on the foot are showing good signs of healing. Plan will be to continue with Santyl dressings for the ulcers on the right foot. DISPOSITION: Patient requires continued ICU care. VS, I&O, 24H, [facility] Vital Signs/I&O Vital Signs Date Time Temp Pulse Resp B/P (MAP) Pulse Ox O2 Delivery O2 Flow Rate FiO2 01/08/17 18:31 71/39 01/08/17 18:01 18 01/08/17 16:00 Room Air 01/08/17 16:00 98.6 109 93 2.0 I&O- Last 24 Hours up to 6 AM 01/09/17 05:59 Intake Total 808.8 ml Balance 808.8 ml Laboratory Data 24H LABS Laboratory Tests 2 01/08/17 04:37: Prothrombin Time 45.4H, Prothromb Time International Ratio 4.53, Anion Gap 10, Glomerular Filtration Rate 15.6L, Blood Urea Nitrogen 43H, Creatinine 3.95H, Sodium Level 131L, Potassium Level 4.6, Chloride Level 98, Carbon Dioxide Level 23, Calcium Level 8.1L CBC/BMP Laboratory Tests 01/08/17 04:37 Red Blood Count 2.93 L, Mean Corpuscular Volume 105.8 H, Mean Corpuscular Hemoglobin 34.6 H, Mean Corpuscular Hemoglobin Concent 32.7, Red Cell Distribution Width 17.8 H, Calcium Level 8.1 L Benedict Vang MD Jan 09, 2017 00:11
[2017-01-09] MEDS: PIPERACILLIN/TAZOBACTAM SOD 2.25 GM in D5W MINI-BAG PLUS 50 ML IV SCH ×3 (01:11→17:43)
[2017-01-09 05:16] LABS: MEAN CORPUSCULAR HGB CONC 33.3 g/dl (32.0-36.5); MEAN CORPUSCULAR VOLUME 105.1 fl (80.0-96.0); RED CELL DISTRIBUTION WIDTH 17.5 % (11.5-14.5); WHITE BLOOD COUNT 6.6 K/mm3 (4.0-10.0)
[2017-01-09 05:22] LABS: INR 4.25
[2017-01-09] MEDS: DOBUTamine HCL 500,000 MCG in APPROPRIATE DILUENT 1 EA IV SCH (05:37)
[2017-01-09 05:56] LABS: CREATININE FOR GFR 4.82 MG/DL (0.70-1.30); GLOMERULAR FILTRATION RATE 12.4 (>35); POTASSIUM SERUM 4.6 MEQ/L (3.5-5.1)
[2017-01-09] MEDS: NOREPINEPHRINE BITARTRATE 8 MG in D5W 500 ML IV SCH ×2 (07:28→20:54)
[2017-01-09] MEDS: FEBUXOSTAT 40 MG TABLET (ULORIC) PO SCH (08:58)
[2017-01-09] MEDS: PANTOPRAZOLE 40MG INJ (PROTONIX) (C9113) IV SCH ×2 (08:58→19:57)
[2017-01-09] MEDS: ASPIRIN 81 MG ENTERIC TAB PO SCH (09:00)
--- NOTE | 2017-01-09 09:02 | IPN ---
DATE: 01/06/2017 Mr. Finn is seen this morning in intensive care unit. He was seen initially for acute renal failure following angiogram and endarterectomy of his right lower extremity. He has been oliguric and yesterday he could not void at all. Last evening, Simmons catheter was placed however, urine output has been minimal. The patient also has been persistently hypotensive and has required pressors. He has known history of systolic congestive heart failure. A repeat echocardiogram was done yesterday which showed ejection fraction of only about 25%. We have started him on dobutamine drip since yesterday along with Lasix drip. However, so far his urine output has been minimal. Phenylephrine drip is in progress due to persistent hypotension. PHYSICAL EXAMINATION: Temperature 98.3 degrees Fahrenheit, heart rate 107 per minute and respiratory rate 18 per minute. Blood pressure 104/55 mmHg and oxygen saturation is 96% on room air. Intake and output records from yesterday showed total intake 1556 and output only 177 ml. Today urine output is only 40 mL so far. Head is atraumatic. Neck veins are about 9 to 10 cm above sternal angle. Oral mucosa is moist and healthy. Pupils equal and reactive to light and sclera is anicteric. Heart sounds are irregular in rhythm. Lungs with diminished breath sounds and bibasilar rales. Abdomen soft and nontender. Bowel sounds are normal and there is no palpable organomegaly. Surgical incisions in right inguinal area are clean and without any evidence of infection. Neurologically, the patient is awake and able to answer questions appropriately. He has no focal deficit. Today's labs show white blood cell count (WBC) 5.2, hemoglobin 10.1 and hematocrit 31.2. Platelets 88,000. Sodium 131 and potassium 5.2. CO2 20, BUN 66 and creatinine 4.03. Glucose 108 and calcium 7.8. PROBLEMS: 1. Oliguric acute renal failure. This is most likely result of contrast nephropathy and persistent hypotension with cardiorenal syndrome. The patient remains oligoanuria. We will continue our efforts to improve his hemodynamics and try to diurese him with Lasix drip. So far he has not responded well. Renal ultrasound has already been done and it did not show any evidence of hydronephrosis. He has a Simmons catheter with minimal urine output. I have discussed with the patient and his on the bedside about potential need for dialysis. At this point, we will wait until tomorrow and the patient seems to be agreeable for dialysis at this point. 2. Systolic congestive heart failure and hypotension. His blood pressure remains low requiring pressors. We do not have a central line so only phenylephrine is being used. The patient remains on dobutamine drip and systolic blood pressure is mostly about 100 mmHg now. 3. Hyperkalemia. Potassium level was 5.5 yesterday and we gave him one dose of Kayexalate 15 grams last evening. Today, potassium level has improved to 5.2. We will recheck his electrolytes tomorrow morning. He is likely to require dialysis in next 24 hours. 4. Hyponatremia related to congestive heart failure and acute renal failure. The patient is already on limited fluid intake. We will continue to monitor his electrolytes and without intervention. This will be corrected with dialysis unless he starts to respond to diuretic drip. 5. Anemia and thrombocytopenia. His anemia is stable. Platelets are slightly lower than yesterday. He has no active bleeding at this point.
[2017-01-09] MEDS ORDERED: HEPARIN 1,000 UNITS/ML 10ML VIAL (FOR RADIOLOGY& DIALYSIS ONLY) IV ONE (10:15)
[2017-01-09] MEDS: ACETAMINOPHEN TAB 650MG DOSE (2X325MG) PO PRN ×2 (10:29→14:45)
[2017-01-09 12:23] LABS: HEPATITIS B SURFACE ANTIBODY NEGATIVE (POSITIVE)
[2017-01-09] MEDS: FUROSEMIDE injection 250 MG in D5W 225 ML IV SCH (15:15)
[2017-01-09] MEDS: METOPROLOL SUCC *XL* 25MG TAB (TopROL *XL*) PO SCH (19:56)
[2017-01-09] MEDS: ATORVASTATIN 20 MG TAB PO SCH (19:56)
[2017-01-09] MEDS: PERCOCET 5MG/325MG TAB PO PRN (19:59)
--- NOTE | 2017-01-09 20:18 | IPN ---
DATE: 01/09/2017 SUBJECTIVE: The patient was seen and examined at the bedside today in the morning in the intensive care unit (ICU). The patient is awake and alert, but he continues to be on two pressors, dobutamine and Levophed at this time. He is also on Lasix drip. The patient is still relatively oliguric at this time. I got the bedside CVP done today, morning; it is still 15 at this time. REVIEW OF SYSTEMS: The patient denies any fever, chills, rigors, headache, nausea, vomiting or chest pain. The patient reports feeling very thirst with dry mouth. He denies any chest pain, palpitations or shortness of breath. The patient reports that he does not have a good urine output at this time. He denies any pain in abdomen, constipation or diarrhea. He reports that his legs are feeling very heavy and reports lower extremity edema. The rest of the review of systems is negative. OBJECTIVE: VITAL SIGNS: Temperature is 98 degrees Fahrenheit, blood pressure is 117/54, pulse is 108, respiratory rate of 16, saturating 91% on room air. INTAKE/OUTPUT: Urine output recorded as 175 mL yesterday. Urine output recorded today is 525 mL. Weight on the bed scale is 83.3 kg. PHYSICAL EXAMINATION: GENERAL: The patient is awake, alert, oriented times three, laying in bed, currently on two pressors but otherwise able to communicate. HEAD AND NECK EXAM: Extraocular muscles intact. Pupils equally round and reactive to light. Mucous membranes are dry. Neck is supple. There is no jugular venous distention (JVD). The patient has a right IJ tunneled hemodialysis catheter, and he has a left IJ triple lumen catheter. CARDIOVASCULAR: S1, S2, tachycardia. No murmur, rub or gallop. RESPIRATORY: Chest is clear to auscultation bilaterally. Bilateral equal air entry. No rales or rhonchi. ABDOMEN: Abdomen is soft. Positive bowel sounds. Nontender. No ascites. No organomegaly. The patient has surgical caleb in the right groin and in the right leg. MUSCULOSKELETAL: The patient has 1+ edema of the bilateral lower extremities. No clubbing or cyanosis. CENTRAL NERVOUS SYSTEM: No focal neurological deficit. Power is 5/5 in bilateral upper extremities. PSYCHIATRIC: Normal mood and affect. LAB REVIEW: CBC showed a WBC of 6.6, hemoglobin 10.4, platelets are 95. BMP showed sodium 130, potassium is 4.6, chloride 94, bicarbonate is 20, BUN 52, creatinine is 4.8; it was 3.9 yesterday. Calcium is 8. CURRENT INPATIENT MEDICATIONS: The patient's medications were all reviewed by me. He continues to be on IV Lasix drip, IV Levophed, IV dobutamine. There is no change in the medications today as compared with yesterday. ASSESSMENT: An 82-year-old male with acute oliguric renal failure, acute decompensated systolic congestive heart failure and status post right femoral endarterectomy during this admission. PLAN: 1. Acute oliguric renal failure. The patient continues to be oliguric despite dobutamine, Lasix drip at this time. The patient will be dialyzed again with the pressors. We shall try to do an ultrafiltration of 2 liters as tolerated by his blood pressure. The patient is still slightly fluid overloaded. CVP is 15 as done by the RN today at the bedside. 2. Acute decompensated systolic congestive heart failure and hypotension. The patient's baseline blood pressure is systolic of 90. He is currently requiring Levophed and dobutamine. Try to maintain a systolic blood pressure of around 90. Continue the Lasix drip at this time, and we shall do further ultrafiltration with hemodialysis. 3. Hyponatremia. Hyponatremia secondary to hypervolemia. Sodium is 130. It is expected to improve with hemodialysis and ultrafiltration. 4. Metabolic acidosis. It is secondary to acute renal failure. Acidosis is expected to improve with hemodialysis. 5. Anemia and thrombocytopenia. The patient's hemoglobin is above 10 at this time. No need of Aranesp administration or blood transfusion at this time. Platelet count is 95, which is acceptable. 6. Supratherapeutic international normalized ratio (INR). The patient's INR is 4.25 today. He will be given a dose of vitamin K if the INR stays high. There is no active bleeding at this time. The plan of care was discussed with the patient's RN at the bedside and with the dialysis nurse. The patient will be dialyzed in the afternoon.
--- NOTE | 2017-01-09 23:29 | IPNPDOC ---
Date Seen The patient was seen on 01/09/17. Progress Note SUBJECTIVE: Patient with minimal complaints. Patient still has some discomfort in his right femoral wounds but this is improving. Patient denies any pain in his right foot. Patient denies any chest pain or shortness of breath. OBJECTIVE PHYSICAL EXAMINATION: VITAL SIGNS: Please see below. GENERAL: Lying in bed in no apparent distress HEENT: Normal CARDIOVASCULAR: Irregular. RESPIRATORY: Clear to auscultation with decreased breath sounds at the bases. ABDOMINAL: Soft nontender nondistended EXTREMITIES: Right lower extremity is well-perfused there is some mild edema secondary to reperfusion. The femoral incisions are clean with no signs of infection. The right foot wounds are healing well. NEUROLOGICAL: Awake alert oriented x3 with no focal deficits PSYCHOLOGICAL: Normal LABORATORY DATA: Please see below. MICROBIOLOGY: Please see below. IMAGING: None Echocardiogram: None. DVT prophylaxis ordered?: Patient therapeutic on Coumadin ASSESSMENT AND PLAN: This is a 82-year-old white male with limb threatening ischemia of the right lower extremity and ulceration of the right foot who underwent a right femoral endarterectomy with patch angioplasty. The patient's postoperative course was complicated by acute on chronic renal failure requiring hemodialysis and heart failure. PROBLEMS: 1. right lower extremity atherosclerotic arterial occlusive disease: Agents right lower extremity is well-perfused after right femoral endarterectomy. Right foot wounds are healing well and we'll continue with Santyl dressing. 2. acute on chronic renal failure: Patient is being monitored and treated by Dr. Rodriguez and his team. DISPOSITION: Patient requires continued ICU monitoring. [facility] Vital Signs Date Time Temp Pulse Resp B/P (MAP) Pulse Ox O2 Delivery O2 Flow Rate FiO2 01/09/17 20:54 98.3 111 16 104/51 95 Room Air 01/08/17 16:00 2.0 I&O- Last 24 Hours up to 6 AM 01/09/17 06:00 Intake Total 1300.5 ml Output Total 250 ml Balance 1050.5 ml Laboratory Data 24H LABS Laboratory Tests 2 01/09/17 05:00: Prothrombin Time 43.1H, Prothromb Time International Ratio 4.25 01/09/17 05:01: Anion Gap 16, Glomerular Filtration Rate 12.4L, Blood Urea Nitrogen 52H, Creatinine 4.82H, Sodium Level 130L, Potassium Level 4.6, Chloride Level 94L, Carbon Dioxide Level 20L, Calcium Level 8.0L CBC/BMP Laboratory Tests 01/09/17 05:01 Red Blood Count 2.96 L, Mean Corpuscular Volume 105.1 H, Mean Corpuscular Hemoglobin 35.0 H, Mean Corpuscular Hemoglobin Concent 33.3, Red Cell Distribution Width 17.5 H, Calcium Level 8.0 L Benedict Vang MD Jan 09, 2017 23:29
[2017-01-10] VITALS (34 sets, daily range): BP systolic 69–115; BP diastolic 40–70
[2017-01-10] MEDS: PIPERACILLIN/TAZOBACTAM SOD 2.25 GM in D5W MINI-BAG PLUS 50 ML IV SCH ×3 (01:34→17:06)
[2017-01-10] MEDS: PERCOCET 5MG/325MG TAB PO PRN ×3 (01:36→21:26)
[2017-01-10 05:55] LABS: MEAN CORPUSCULAR HEMOGLOBIN 34.3 pg (27.0-33.0); MEAN CORPUSCULAR HGB CONC 33.1 g/dl (32.0-36.5); MEAN CORPUSCULAR VOLUME 103.6 fl (80.0-96.0); RED CELL DISTRIBUTION WIDTH 17.7 % (11.5-14.5); WHITE BLOOD COUNT 5.7 K/mm3 (4.0-10.0)
[2017-01-10 06:05] LABS: INR 2.75
[2017-01-10 06:20] LABS: CALCIUM LEVEL 7.7 MG/DL (8.8-10.2); CREATININE FOR GFR 2.96 MG/DL (0.70-1.30); GLOMERULAR FILTRATION RATE 21.8 (>35); POTASSIUM SERUM 3.7 MEQ/L (3.5-5.1)
[2017-01-10] MEDS: PANTOPRAZOLE 40MG INJ (PROTONIX) (C9113) IV SCH ×2 (09:50→21:23)
[2017-01-10] MEDS: SANTYL OINT 30GM TOP SCH (09:51)
[2017-01-10 13:07] LABS: CENTRAL VEN BASE EXCESS -0.2; CENTRAL VEN O2 SATURATION 42.1 %; CENTRAL VEN PARTL PRESSURE CO2 41.4 mmHg; CENTRAL VEN PARTL PRESSURE O2 25.9 mmHg; CENTRAL VEN STANDARD HCO3 23.3 MEQ/L; CENTRAL VEN TOTAL CO2 25.9 MEQ/L; CENTRAL VENOUS HCO3 24.7 MEQ/L; CENTRAL VENOUS PH 7.393 UNITS
--- NOTE | 2017-01-10 13:39 | IPN ---
DATE: 01/10/2017 SUBJECTIVE: The patient was seen and examined at the bedside today in the morning in the intensive care unit (ICU). He continues to be on IV Levophed at 8 mcg and IV dobutamine infusion at 2.4 mcg per kg per minute. Overnight shift tried to wean off the Levophed, but the patient's blood pressure dropped to 60s and 70s. The patient is otherwise awake and alert. He is responding well to the IV Lasix drip. Urine output is almost 700 mL overnight. REVIEW OF SYSTEMS: The patient denies any fever, chills, rigors, headache. He reports that his tongue is very dry. He denies any chest pain or shortness of breath. He denies any pain in the abdomen or constipation. The patient reports severe pain in the right thigh surgical site. The rest of the review of systems is negative. OBJECTIVE: VITAL SIGNS: Temperature is 98 degrees Fahrenheit, blood pressure is 98/44, pulse is 107, respiratory rate of 18, saturating 91% on room air. INTAKE/OUTPUT: Urine output recorded as 775 mL yesterday and 700 mL so far today since overnight. Weight on the bed scale is 80.7 kg. PHYSICAL EXAMINATION: GENERAL: The patient is awake, alert, oriented times three, laying in bed, currently on two pressors but otherwise he is able to communicate well. HEAD AND NECK EXAM: Extraocular muscles intact. Pupils equally round and reactive to light. Mucous membranes are very dry. Neck is supple. There is no jugular venous distention (JVD). The patient has a right IJ tunneled hemodialysis catheter and left IJ triple lumen catheter. CARDIOVASCULAR: S1, S2, slightly tachycardic. No murmur, rub or gallop. RESPIRATORY: Chest is clear to auscultation bilaterally. Bilateral equal air entry. No rales or rhonchi. ABDOMEN: Abdomen is soft. Positive bowel sounds. Nontender. No ascites. No organomegaly. The patient has surgical caleb in the right groin, in the right thigh region. MUSCULOSKELETAL: The patient has 1+ edema of the bilateral lower extremities. The patient has tenderness in the right thigh area. CENTRAL NERVOUS SYSTEM: No focal neurological deficit. Power is 5/5 in bilateral upper extremities. The patient follows commands. LAB REVIEW: CBC showed a WBC of 5.7, hemoglobin 9.3, platelets are 60. INR is 2.7. BMP showed sodium 133, potassium is 3.7, chloride 97, bicarbonate is 25, BUN 26, creatinine is 2.9, calcium 7.7. CURRENT INPATIENT MEDICATIONS: The patient's medications were all reviewed by me. I have stopped the patient's dobutamine at this time. He continues to be on IV Lasix drip and IV Levophed at this time. ASSESSMENT: An 82-year-old male with acute oliguric renal failure, acute decompensated systolic congestive heart failure and status post right femoral endarterectomy during this admission. PLAN: 1. Acute oliguric renal failure. The patient continues to be on IV dobutamine and Lasix drip. I have stopped the dobutamine at this time. I will continue the Lasix at this time. I will continue to monitor the creatinine trend in hemodialysis sessions. The patient has about 700 mL of urine output with the Lasix drip at this time. 2. Acute decompensated systolic congestive heart failure and hypotension. The patient's baseline systolic blood pressure is in the 90s. He is currently requiring Levophed and dobutamine. I have stopped the dobutamine at this time. I am going to do the next venous oxygen from the central line to assess the cardiac failure at this time. 3. Hyponatremia. The patient has hypervolemic hyponatremia. Sodium is up to 133 now with hemodialysis and ultrafiltration. Sodium level is expected to further improve with diuresis and hemodialysis. 4. Metabolic acidosis. Bicarbonate level improved to 25 today after dialysis. Acidosis will be managed with hemodialysis for now. 5. Anemia and thrombocytopenia. The patient's aspirin has been held now. Hemoglobin is 9.3. No urgent need of blood transfusion at this time. Decision to do platelets transfusion is up to the surgical team.
[2017-01-10] MEDS: NOREPINEPHRINE BITARTRATE 8 MG in D5W 500 ML IV SCH (14:49)
[2017-01-10] MEDS: FUROSEMIDE injection 250 MG in D5W 225 ML IV SCH (15:22)
[2017-01-10] MEDS ORDERED: SODIUM CHLORIDE 0.9% INJ 10 ML SYR IV PRN (18:30)
[2017-01-10] MEDS ORDERED: SLF 3 ML SYR IV PRN (18:30)
[2017-01-10] MEDS: METOPROLOL SUCC *XL* 25MG TAB (TopROL *XL*) PO SCH (21:22)
[2017-01-10] MEDS: SODIUM CHLORIDE 0.9% INJ 10 ML SYR IV SCH (21:23)
[2017-01-10] MEDS: SLF 3 ML SYR IV SCH (21:23)
[2017-01-10] MEDS: zolPIDEM TARTRATE 10MG TAB PO PRN (21:26)
--- NOTE | 2017-01-10 23:20 | IPNPDOC ---
Date Seen The patient was seen on 01/10/17. Progress Note SUBJECTIVE: Patient without complaints. Pain in the right groin has improved. Losing from the permacath exit site has slowed to almost stopped. OBJECTIVE PHYSICAL EXAMINATION: VITAL SIGNS: Please see below. GENERAL: Lying in bed sleeping in no apparent distress HEENT: Normal CARDIOVASCULAR: Regular. RESPIRATORY: Decreased breath sounds at the bases. ABDOMINAL: Soft nontender nondistended EXTREMITIES: Well perfused. The ulcers on the right foot are clean and showed signs of healing. NEUROLOGICAL: Alert oriented x3 with no focal deficits PSYCHOLOGICAL: Normal LABORATORY DATA: Please see below. MICROBIOLOGY: Please see below. DVT prophylaxis ordered?: Patient therapeutic on Coumadin with an INR of 2.75 today ASSESSMENT AND PLAN: This is a 82-year-old white well with congestive heart failure, acute on chronic renal failure, and right lower extremity limb threatening ischemia who underwent a right femoral endarterectomy with patch angioplasty. The postoperative course was complicated by acute renal failure requiring hemodialysis and heart failure. PROBLEMS: 1. acute renal failure and congestive heart failure: Patient is being monitored and managed by the nephrology team. Patient has started to make more urine, and the dobutamine was DC'd PER nephrology today.. 2. right lower extremity atherosclerotic arterial occlusive disease with limb threatening ischemia: The right lower extremity is well-perfused the ulcers are showing signs of healing and the incisions in the right thigh and groin are healing well. DISPOSITION: Patient required requires continued ICU care. VS, [facility]&O, [facility]I&O Vital Signs Date Time Temp Pulse Resp B/P (MAP) Pulse Ox O2 Delivery O2 Flow Rate FiO2 01/10/17 21:56 101 16 90/53 90 Room Air 01/10/17 21:26 98.3 01/08/17 16:00 2.0 I&O- Last 24 Hours up to 6 AM 01/10/17 06:00 Intake Total 2017 ml Output Total 3150 ml Balance -1133 ml Laboratory Data 24H LABS Laboratory Tests 2 01/10/17 05:41: Prothrombin Time 30.3H, Prothromb Time International Ratio 2.75, Anion Gap 11, Glomerular Filtration Rate 21.8L, Blood Urea Nitrogen 26H, Creatinine 2.96H, Sodium Level 133L, Potassium Level 3.7, Chloride Level 97L, Carbon Dioxide Level 25, Calcium Level 7.7L 01/10/17 13:00: Central Line Venous O2 Saturation 42.1 CBC/BMP Laboratory Tests 01/10/17 05:41 Red Blood Count 2.72 L, Mean Corpuscular Volume 103.6 H, Mean Corpuscular Hemoglobin 34.3 H, Mean Corpuscular Hemoglobin Concent 33.1, Red Cell Distribution Width 17.7 H, Calcium Level 7.7 L Microbiology Microbiology 01/10/17 Clostridium difficile (PCR) - Final, Complete Benedict Vang MD Jan 10, 2017 23:20
[2017-01-11] VITALS (24 sets, daily range): BP systolic 80–130; BP diastolic 40–68
[2017-01-11] MEDS: NOREPINEPHRINE BITARTRATE 8 MG in D5W 500 ML IV SCH (03:56)
[2017-01-11] MEDS: SODIUM CHLORIDE 0.9% INJ 10 ML SYR IV SCH ×3 (05:59→21:39)
[2017-01-11] MEDS: SLF 3 ML SYR IV SCH ×3 (06:00→21:39)
[2017-01-11 06:18] LABS: INR 1.86
[2017-01-11 06:20] LABS: MEAN CORPUSCULAR HEMOGLOBIN 34.3 pg (27.0-33.0); MEAN CORPUSCULAR HGB CONC 32.9 g/dl (32.0-36.5); MEAN CORPUSCULAR VOLUME 104.1 fl (80.0-96.0); RED CELL DISTRIBUTION WIDTH 17.4 % (11.5-14.5); WHITE BLOOD COUNT 6.4 K/mm3 (4.0-10.0)
[2017-01-11 06:22] LABS: CALCIUM LEVEL 8.2 MG/DL (8.8-10.2); CREATININE FOR GFR 3.12 MG/DL (0.70-1.30); GLOMERULAR FILTRATION RATE 20.5 (>35); POTASSIUM SERUM 3.8 MEQ/L (3.5-5.1)
[2017-01-11] MEDS: PANTOPRAZOLE 40MG INJ (PROTONIX) (C9113) IV SCH ×2 (09:42→21:39)
[2017-01-11] MEDS: PIPERACILLIN/TAZOBACTAM SOD 2.25 GM in D5W MINI-BAG PLUS 50 ML IV SCH ×4 (09:42→17:29)
[2017-01-11] MEDS ORDERED: HEPARIN 1,000 UNITS/ML 10ML VIAL (FOR RADIOLOGY& DIALYSIS ONLY) XX ONE (12:00)
--- NOTE | 2017-01-11 12:33 | IPN ---
DATE: 01/11/2017 SUBJECTIVE: Patient was seen and examined at the bedside today morning in the intensive care unit (ICU). He is sitting up in the bed and getting his breakfast today morning. His dobutamine was stopped yesterday. He continues to be on IV Levophed at 2 mcg. He is hemodynamically stable. Mixed venous O2 done today morning is better at 78%, however, there is no improvement in the renal function. Creatinine continues to trend up in-between hemodialysis sessions but he is responding well to IV Lasix drip. REVIEW OF SYSTEMS: Patient denies any fevers, chills, rigors, headache, nausea, vomiting or chest pain. He reports mild shortness of breath. Patient reports that he has dry tongue and feels thirsty. He denies any pain in abdomen or constipation. He reports right leg pain at the surgical site and difficulty in walking. The rest of review of system is negative. OBJECTIVE: Vital signs: Temperature is 98.2 degree Fahrenheit, blood pressure is 97/53, pulse is 100, respiratory rate of 18, saturating 94% on room air. Intake and output: Urine output recorded as 1150 mL yesterday, 525 mL so far today since overnight. Weight on the bed scale is 79.9 kg. PHYSICAL EXAMINATION: General: Patient is awake, alert, oriented times three, sitting in bed, no apparent distress. Head and neck exam: Extraocular muscles intact. Pupils equally round and reactive to light. Mucous membranes are dry. Neck is supple. There is mildly elevated jugular venous distention (JVD). Patient has a right IJ tunneled hemodialysis catheter and left IJ triple lumen catheter. Cardiovascular: S1, S2. Tachycardic with some irregularly irregular pulse rate. No murmur, rub or gallop. Respiratory: Mildly decreased breath sounds in the bases with mild crepitations on deep inspiration. Otherwise bilateral equal air entry. Abdomen: Soft, positive bowel sounds, nontender, no ascites, no organomegaly. Patient has caleb in the right groin and right thigh endarterectomy region. Musculoskeletal: Patient has 1+ edema of the bilateral lower extremities and he has tenderness in the right thigh. Otherwise no clubbing or cyanosis. Central nervous system: No focal neurological defect. Power is 5/5 in bilateral upper extremities. Psych: Normal mood and affect. LAB REVIEW: CBC showed WBC 6.4, hemoglobin 9.6, platelets are 75. Mixed venous O2 is 78.7% today morning. BMP done today morning showed sodium 132, potassium 3.8, chloride 96, bicarbonate 26, BUN 32, creatinine is 3.1. Calcium 8.2. CURRENT INPATIENT MEDICATIONS: Patient's medications are all reviewed by me. He continues to be on IV Lasix infusion and IV Levophed but Levophed dose is at 2 mcg at this time. Dobutamine has been stopped. Metoprolol was also stopped because patient has not been receiving it at this time. ASSESSMENT: 82-year-old male with acute oliguric renal failure, acute decompensated systolic congestive heart failure with cardiogenic shock and status post right femoral endarterectomy during this admission. PLAN: 1. Acute oliguric renal failure. Patient is currently on IV Lasix drip. He is non-oliguric at this time. Urine output was 1 liter yesterday with the Lasix drip. Dobutamine was stopped yesterday. Creatinine continues to rise in-between hemodialysis sessions. Patient will get another session of hemodialysis today. We shall try to remove about 2 kg of fluid as tolerated by his blood pressure. 2. Cardiogenic shock secondary to acute decompensated systolic congestive heart failure. Patient was requiring dobutamine and Levophed both. Dobutamine was stopped yesterday. Mixed venous O2 sat has improved as compared with yesterday. Continue the low dose of Levophed. Try to maintain a map of above 60. Continue the IV Lasix drip to keep the patient euvolemic between hemodialysis sessions. 3. Hyponatremia. Sodium is 132. Sodium level is expected to further improve after hemodialysis and ultrafiltration. 4. Anemia and thrombocytopenia. Hemoglobin is stable in mid 9s. Platelets are 75. Continue to monitor for now. No need of blood transfusion at this time. 5. Status post right femoral endarterectomy for right limb ischemia. Management is as per vascular surgery.
[2017-01-11] MEDS: PERCOCET 5MG/325MG TAB PO PRN ×2 (13:54→21:52)
--- NOTE | 2017-01-11 14:47 | IPNPDOC ---
Date Seen The patient was seen on 01/11/17. Progress Note SUBJECTIVE: Patient is without complaints. Right groin incision is with minimal tenderness right lower extremity is with minimal tenderness. OBJECTIVE PHYSICAL EXAMINATION: VITAL SIGNS: Please see below. GENERAL: Awake alert lying in bed in no apparent distress HEENT: Normal CARDIOVASCULAR: Irregular. RESPIRATORY: Clear to auscultation with decreased breath sounds at the bases. ABDOMINAL: Soft nontender nondistended no palpable pulsatile masses EXTREMITIES: Right lower extremity is well-perfused ulcers are healing well right groin incisions have some minor serosanguineous drainage but are clean with no signs of infection. NEUROLOGICAL: Awake alert oriented x3 with no focal deficits PSYCHOLOGICAL: Normal LABORATORY DATA: Please see below. MICROBIOLOGY: Please see below. DVT prophylaxis ordered?: Patient is therapeutic on Coumadin ASSESSMENT AND PLAN: This is a 82-year-old white male with right lower extremity critical limb ischemia requiring a right femoral endarterectomy. The postoperative course was completed by acute oliguric renal failure and congestive heart failure. Patient has been undergoing hemodialysis and is starting to have improved urine output and continues to require dialysis. PROBLEMS: 1. right lower extremity arterial insufficiency with arterial ulceration of the right foot: The right lower extremity is well-perfused the ulcers are healing well and we will continue with Santyl dressing to the ulcerations on the right foot.. 2. renal failure and congestive heart failure: Patient is under the consultation of the renal service who is managing his hemodialysis and treatment for his congestive heart failure. DISPOSITION: Patient requires continued ICU care. VS, I&O, 24H, Fishbone Vital Signs/I&O Vital Signs Date Time Temp Pulse Resp B/P (MAP) Pulse Ox O2 Delivery O2 Flow Rate FiO2 01/11/17 14:00 93 20 103/51 (68) 95 Nasal Cannula 2.0 01/11/17 12:00 98.4 I&O- Last 24 Hours up to 6 AM 01/11/17 06:00 Intake Total 1021 ml Output Total 1000 ml Balance 21 ml Laboratory Data 24H LABS Laboratory Tests 2 01/11/17 05:58: Prothrombin Time 22.0H, Prothromb Time International Ratio 1.86, Anion Gap 10, Glomerular Filtration Rate 20.5L, Blood Urea Nitrogen 32H, Creatinine 3.12H, Sodium Level 132L, Potassium Level 3.8, Chloride Level 96L, Carbon Dioxide Level 26, Calcium Level 8.2L 01/11/17 11:15: Central Line Venous O2 Saturation 78.7 CBC/BMP Laboratory Tests 01/11/17 05:58 Red Blood Count 2.79 L, Mean Corpuscular Volume 104.1 H, Mean Corpuscular Hemoglobin 34.3 H, Mean Corpuscular Hemoglobin Concent 32.9, Red Cell Distribution Width 17.4 H, Calcium Level 8.2 L Microbiology Microbiology 01/10/17 Clostridium difficile (PCR) - Final, Complete Benedict Vang MD Jan 11, 2017 14:47
[2017-01-11] MEDS: FUROSEMIDE injection 250 MG in D5W 225 ML IV SCH (16:22)
[2017-01-11] MEDS: WARFARIN SOD 7.5 MG TAB PO SCH (17:29)
[2017-01-11] MEDS: ATORVASTATIN 20 MG TAB PO SCH (21:39)
[2017-01-11] MEDS: zolPIDEM TARTRATE 10MG TAB PO PRN (23:17)
[2017-01-12] VITALS (22 sets, daily range): BP systolic 85–155; BP diastolic 43–115
[2017-01-12] MEDS: PIPERACILLIN/TAZOBACTAM SOD 2.25 GM in D5W MINI-BAG PLUS 50 ML IV SCH ×3 (00:56→16:49)
[2017-01-12] MEDS: NOREPINEPHRINE BITARTRATE 8 MG in D5W 500 ML IV SCH ×4 (02:43→03:27)
[2017-01-12] MEDS: SLF 3 ML SYR IV SCH ×3 (05:52→21:11)
[2017-01-12] MEDS: SODIUM CHLORIDE 0.9% INJ 10 ML SYR IV SCH ×3 (05:52→21:11)
[2017-01-12] MEDS: SANTYL OINT 30GM TOP SCH (10:22)
[2017-01-12] MEDS: PANTOPRAZOLE 40MG INJ (PROTONIX) (C9113) IV SCH ×2 (10:22→21:11)
[2017-01-12 10:44] LABS: MEAN CORPUSCULAR HEMOGLOBIN 35.6 pg (27.0-33.0); MEAN CORPUSCULAR HGB CONC 33.7 g/dl (32.0-36.5); MEAN CORPUSCULAR VOLUME 105.5 fl (80.0-96.0); WHITE BLOOD COUNT 6.1 K/mm3 (4.0-10.0)
[2017-01-12 10:53] LABS: INR 1.62
[2017-01-12] MEDS: PERCOCET 5MG/325MG TAB PO PRN (11:01)
[2017-01-12] MEDS: FUROSEMIDE 100 MG/10 ML VIAL (J1940) IV SCH ×2 (11:08→16:49)
[2017-01-12 11:35] LABS: ALBUMIN 2.3 GM/DL (3.2-5.2); CALCIUM LEVEL 8.2 MG/DL (8.8-10.2); CREATININE FOR GFR 2.57 MG/DL (0.70-1.30); GLOMERULAR FILTRATION RATE 25.7 (>35); POTASSIUM SERUM 3.8 MEQ/L (3.5-5.1)
[2017-01-12] MEDS: WARFARIN SOD 7.5 MG TAB PO SCH (16:50)
[2017-01-12] MEDS: zolPIDEM TARTRATE 10MG TAB PO PRN (21:11)
--- NOTE | 2017-01-12 23:08 | IPNPDOC ---
Date Seen The patient was seen on 01/12/17. Progress Note SUBJECTIVE: Patient is without complaints except for occasional shooting pain in the right groin area. OBJECTIVE PHYSICAL EXAMINATION: VITAL SIGNS: Please see below. GENERAL: Awake alert lying in bed in no apparent distress HEENT: Normal CARDIOVASCULAR: Irregular. RESPIRATORY: Clear to auscultation bilaterally. ABDOMINAL: Soft nontender nondistended with no palpable or pulsatile masses EXTREMITIES: Well-perfused right foot wounds are healing well right groin incisions also healing well. NEUROLOGICAL: Alert oriented x3 with no focal deficits PSYCHOLOGICAL: Normal LABORATORY DATA: Please see below. MICROBIOLOGY: Please see below. DVT prophylaxis ordered?: Subtherapeutic on Coumadin ASSESSMENT AND PLAN: This is a 82-year-old white male with right lower extremity limb threatening ischemia who underwent revascularization with postoperative renal failure and congestive heart failure. PROBLEMS: 1. acute renal failure and congestive heart failure: Agent is being managed by the nephrology team with regards to his hemodialysis, renal failure and congestive heart failure. 2. right lower extremity ischemia and ulceration: Has good perfusion of the right lower extremity, rest pain has resolved, and ulcers are healing well. 3. : . DISPOSITION: . VS, I&O, 24H, [facility] Vital Signs/I&O Vital Signs Date Time Temp Pulse Resp B/P (MAP) Pulse Ox O2 Delivery O2 Flow Rate FiO2 01/12/17 18:00 95 20 90/51 (64) 94 Room Air 01/12/17 16:00 98.1 01/12/17 06:30 2.0 I&O- Last 24 Hours up to 6 AM 01/12/17 06:00 Intake Total 720.8 ml Output Total 2300 ml Balance -1579.2 ml Laboratory Data 24H LABS Laboratory Tests 2 01/12/17 10:26: Prothrombin Time 19.7H, Prothromb Time International Ratio 1.62, Central Line Venous O2 Saturation 79.3, Blood Urea Nitrogen 24H, Creatinine 2.57H, Sodium Level 137, Potassium Level 3.8, Chloride Level 101, Carbon Dioxide Level 28, Anion Gap 8, Glomerular Filtration Rate 25.7L, Calcium Level 8.2L, Phosphorus Level 3.0, Albumin 2.3L CBC/BMP Laboratory Tests 01/12/17 10:26 Red Blood Count 2.72 L, Mean Corpuscular Volume 105.5 H, Mean Corpuscular Hemoglobin 35.6 H, Mean Corpuscular Hemoglobin Concent 33.7, Red Cell Distribution Width 18.0 H, Anion Gap 8 Microbiology Microbiology 01/10/17 Clostridium difficile (PCR) - Final, Complete Benedict Vang MD Jan 12, 2017 23:08
[2017-01-13] VITALS: BP 107/59
[2017-01-13] MEDS: PIPERACILLIN/TAZOBACTAM SOD 2.25 GM in D5W MINI-BAG PLUS 50 ML IV SCH ×3 (01:30→16:42)
[2017-01-13 04:00] VITALS: BP 120/52
[2017-01-13] MEDS: SODIUM CHLORIDE 0.9% INJ 10 ML SYR IV SCH ×3 (05:39→21:07)
[2017-01-13] MEDS: SLF 3 ML SYR IV SCH ×3 (05:39→21:07)
[2017-01-13 07:00] VITALS: BP 102/57
[2017-01-13 07:41] VITALS: BP 118/53
[2017-01-13] MEDS: FUROSEMIDE 100 MG/10 ML VIAL (J1940) IV SCH ×2 (09:00→18:26)
[2017-01-13] MEDS: MORPHINE 2 MG/ML 1ML SYRINGE IV PRN ×2 (10:05→16:42)
[2017-01-13] MEDS ORDERED: DARBEPOETIN 100 MCG/0.5 ML *DIALYSIS* SYRINGE (J0882) IV SCH (13:15)
[2017-01-13] MEDS: PANTOPRAZOLE 40MG INJ (PROTONIX) (C9113) IV SCH ×2 (13:57→21:07)
[2017-01-13] MEDS ORDERED: HEPARIN 1,000 UNITS/ML 10ML VIAL (FOR RADIOLOGY& DIALYSIS ONLY) XX ONE (14:30)
[2017-01-13] MEDS: WARFARIN SOD 7.5 MG TAB PO SCH (16:44)
[2017-01-13] MEDS: ATORVASTATIN 20 MG TAB PO SCH (21:07)
[2017-01-13 22:00] VITALS: BP 107/60
--- NOTE | 2017-01-13 22:12 | IPNPDOC ---
Date Seen The patient was seen on 01/13/17. Progress Note SUBJECTIVE: Patient is without complaints. OBJECTIVE PHYSICAL EXAMINATION: VITAL SIGNS: Please see below. GENERAL: Awake alert and in bed with no apparent distress HEENT: Normal CARDIOVASCULAR: Irregular. RESPIRATORY: Clear to auscultation. ABDOMINAL: Soft nontender nondistended EXTREMITIES: Right lower extremity well-perfused, right inguinal incisions healing well. NEUROLOGICAL: Awake alert oriented x3 with no focal deficits PSYCHOLOGICAL: Normal LABORATORY DATA: Please see below. MICROBIOLOGY: Please see below. DVT prophylaxis ordered?: Patient on Coumadin ASSESSMENT AND PLAN: This is a 82-year-old white male with acute renal failure on chronic renal failure and congestive heart failure status post right femoral endarterectomy. PROBLEMS: 1. renal failure and heart failure: Patient is improving and being monitored and treated by nephrology.. 2. right lower extremity ischemia and ulceration: Right foot is well perfused wounds are healing well. DISPOSITION: Patient is stable and no longer requires ICU care [facility] VS, I&O, 24H, Fishbone Vital Signs/I&O Vital Signs Date Time Temp Pulse Resp B/P (MAP) Pulse Ox O2 Delivery O2 Flow Rate FiO2 01/13/17 16:52 18 01/13/17 16:09 Room Air 01/13/17 07:41 106 118/53 (74) 01/13/17 04:00 98.2 97 2.0 I&O- Last 24 Hours up to 6 AM 01/13/17 06:00 Intake Total 748.9 ml Output Total 450 ml Balance 298.9 ml Laboratory Data Microbiology Microbiology 01/10/17 Clostridium difficile (PCR) - Final, Complete Benedict Vang MD Jan 13, 2017 22:12
--- NOTE | 2017-01-14 00:35 | IPN ---
DATE: 01/12/2017 SUBJECTIVE: The patient was seen and examined at the bedside today, morning, in the intensive care unit (ICU). He feels much better. The patient was sitting on the sofa. He was getting ready to eat his breakfast when I saw him. The patient is off the pressors at this time. He is hemodynamically stable. He was dialyzed yesterday. He tolerated the hemodialysis procedure well. REVIEW OF SYSTEMS: The patient denies any fever, chills, rigors, headache, nausea, vomiting, chest pain. The patient denies shortness of breath. He still reports some weakness and inability to walk around independently. He denies any pain in the abdomen, constipation or diarrhea. He reports that the right groin pain is improving. The rest of the review of systems is negative. OBJECTIVE: VITAL SIGNS: Temperature is 97.8 degrees Fahrenheit, blood pressure is 97/53, pulse is 99, respiratory rate of 18, saturating 94% on room air. INTAKE/OUTPUT: Urine output recorded yesterday 650 mL. Ultrafiltration with hemodialysis was 2 liters. Weight on the bed scale is 79.9 kg yesterday and 77.4 kg today. PHYSICAL EXAMINATION: GENERAL: The patient is awake, alert, oriented times three, sitting on the sofa, in no apparent distress. HEAD AND NECK EXAM: Extraocular muscles intact. Pupils equally round and reactive to light. Mucous membranes are moist today. Neck is supple. There is upstroke of jugular venous distention (JVD) even in sitting position. He has a right internal jugular (IJ) tunneled hemodialysis catheter and left IJ triple lumen catheter. CARDIOVASCULAR: S1, S2, irregularly irregular pulse; otherwise no murmur, rub or gallop. RESPIRATORY: Clear to auscultation bilaterally. Bilateral equal air entry. No rales or rhonchi. ABDOMEN: Abdomen is soft. Positive bowel sounds. Nontender. No ascites. No organomegaly. The patient has caleb in the right groin and right thigh, endarterectomy site. MUSCULOSKELETAL: The patient has 1+ edema of the bilateral lower extremities; otherwise no clubbing or cyanosis. CENTRAL NERVOUS SYSTEM: No focal neurological deficit. Power is 5/5 in bilateral upper extremities. PSYCHIATRIC: Normal mood and affect. LAB REVIEW: CBC showed a WBC of 6.1, hemoglobin 9.7, platelets are 55. INR is 1.6. Venous oxygen saturation today is 79.3%. BMP showed sodium of 137, potassium 3.8 , chloride 101, bicarbonate 28, BUN 24, creatinine is 2.5, calcium 8.2, phosphorus 3, albumin 2.3. CURRENT INPATIENT MEDICATIONS: The patient's medications are all reviewed by me. He continues to be on IV Zosyn. I have started the patient on Lasix 60 mg IV twice a day. IV Levophed is on hold. Protonix has been changed to 40 mg IV twice a day. The patient has been restarted on Coumadin 3.75 mg by mouth daily. There is no other change in medications today. ASSESSMENT: An 82-year-old male with acute oliguric renal failure and acute decompensated systolic congestive heart failure, along with cardiogenic shock and status post right femoral endarterectomy during this admission. PLAN: 1. Acute oliguric renal failure. The patient continues to be oliguric at this time. However, volume status is being managed with hemodialysis. I started the patient on IV Lasix 60 mg twice a day to keep him euvolemic between hemodialysis sessions. Lasix dose will be adjusted according to his diuretic response. The patient is still dialysis dependent. Last hemodialysis session was yesterday, no urgent need of hemodialysis today. Next hemodialysis will be done tomorrow. 2. Cardiogenic shock secondary to acute decompensated systolic congestive heart failure. Patient's next venous O2 has improved. He is off of dobutamine and Levophed at this time. He is hemodynamically stable. Blood pressure is stable with systolic of 90s, which is his baseline. Continue diuresis and hemodialysis for now. 3. Hyponatremia. Sodium has improved to 137 with hemodialysis and ultrafiltration. 4. Anemia and thrombocytopenia. Patient's hemoglobin is 9.7, which is stable. However, platelet count has dropped to 55. I recommend holding patient's anticoagulation at this time. The rest of the management is as per surgical service. 5. Status post right femoral endarterectomy for right limb ischemia. Limb is perfusing well at this time. The rest of the management is as per Dr. Vang from vascular surgery. It is OK to downgrade the patient out of the intensive care unit (ICU) to the progressive care unit (PCU) at this time. [facility]ITALCand[facility]
[2017-01-14] MEDS: PIPERACILLIN/TAZOBACTAM SOD 2.25 GM in D5W MINI-BAG PLUS 50 ML IV SCH ×3 (02:29→17:07)
[2017-01-14 06:00] VITALS: BP 111/75
[2017-01-14] MEDS: SLF 3 ML SYR IV SCH ×3 (06:00→20:19)
[2017-01-14] MEDS: SODIUM CHLORIDE 0.9% INJ 10 ML SYR IV SCH ×3 (06:10→20:19)
[2017-01-14] MEDS: PERCOCET 5MG/325MG TAB PO PRN ×2 (06:11→14:08)
[2017-01-14 06:39] LABS: MEAN CORPUSCULAR HEMOGLOBIN 35.1 pg (27.0-33.0); MEAN CORPUSCULAR HGB CONC 32.3 g/dl (32.0-36.5); MEAN CORPUSCULAR VOLUME 108.7 fl (80.0-96.0); RED CELL DISTRIBUTION WIDTH 18.6 % (11.5-14.5); WHITE BLOOD COUNT 7.1 K/mm3 (4.0-10.0)
[2017-01-14 06:58] LABS: CALCIUM LEVEL 8.3 MG/DL (8.8-10.2); CREATININE FOR GFR 2.82 MG/DL (0.70-1.30); GLOMERULAR FILTRATION RATE 23.1 (>35); POTASSIUM SERUM 4.4 MEQ/L (3.5-5.1)
[2017-01-14 07:08] LABS: INR 1.66
[2017-01-14] MEDS: PANTOPRAZOLE 40MG INJ (PROTONIX) (C9113) IV SCH (08:46)
[2017-01-14] MEDS: FUROSEMIDE 100 MG/10 ML VIAL (J1940) IV SCH (08:47)
[2017-01-14] MEDS: SANTYL OINT 30GM TOP SCH (08:49)
--- NOTE | 2017-01-14 09:06 | IPN ---
DATE: 01/13/2017 SUBJECTIVE: The patient was seen and examined at the bedside today morning during hemodialysis procedure. The patient was tolerating the hemodialysis procedure well. He was complaining of pain in the right groin. The patient is otherwise hemodynamically stable at this time. REVIEW OF SYSTEMS: The patient denies any fever, chills, rigors, headache, nausea, vomiting, chest pain or shortness of breath. His only complaint is severe pain in the right groin at this time. The rest of the review of systems is negative. OBJECTIVE: VITAL SIGNS: Temperature is 98.2 degrees Fahrenheit, blood pressure is 118/53, pulse is 106, respiratory rate of 18, saturating 97% on room air. INTAKE/OUTPUT: Urine output recorded as 250 mL yesterday and 200 mL so far today since overnight. Weight on the bed scale is 76.3. PHYSICAL EXAMINATION: GENERAL: The patient is awake, alert, oriented times three, laying in bed getting hemodialysis done, in moderate but painful distress at this time. HEAD AND NECK EXAM: Extraocular muscles intact. Pupils equally round and reactive to light. Mucous membranes are slightly dry. Neck is supple. There is slightly elevated jugular venous distention. The patient has a right internal jugular (IJ) tunneled hemodialysis catheter and a left IJ triple lumen catheter. CARDIOVASCULAR: S1, S2, tachycardia. Some irregular beats in between the regular rate. No murmur, rub or gallop. RESPIRATORY: Chest is clear to auscultation bilaterally. Bilateral equal air entry. No rales or rhonchi. ABDOMEN: Abdomen is soft. Positive bowel sounds. Nontender. No ascites. No organomegaly. The patient has a dressing on the right lower quadrant of the abdomen and the right groin. MUSCULOSKELETAL: The patient has 1+ edema of the bilateral lower extremities. He has tenderness on the right thigh. CENTRAL NERVOUS SYSTEM: No focal neurological deficit. Power is 5/5 in bilateral upper extremities. LAB REVIEW: CBC showed a WBC of 6.1, hemoglobin 9.7 and platelets of 55. BMP showed sodium of 137, potassium 3.8, chloride 101, bicarbonate 28, BUN 24, creatinine 2.5. These labs are from yesterday. CURRENT INPATIENT MEDICATIONS: The patient's medications were all reviewed by me. He continues to be on IV antibiotics at this time. There is no change in the medications today as compared with yesterday. ASSESSMENT: 82-year-old male with acute oliguric renal failure, acute decompensated systolic congestive heart failure and status post right femoral endarterectomy during this admission. PLAN: 1. Acute oliguric renal failure. The patient continues to be oliguric despite IV Lasix. He is still hemodialysis dependent. The patient most likely has progressed to end stage renal disease. He will continue to get acute dialysis and would wait for his renal function to improve. 2. Acute decompensated systolic congestive heart failure. The patient is out of shock at this time. He is not requiring any pressors. Volume status is being optimized with hemodialysis. 3. Anemia and thrombocytopenia. The patient's hemoglobin is 9.7 yesterday which is acceptable at this time. No need of blood transfusion. I am going to start the patient on Aranesp administration. 4. Severe pain in the right groin. The patient will be given a dose of morphine 2 mg IV with hemodialysis today. 5. Status post right femoral endarterectomy for right limb ischemia. Management is as per vascular surgery.
[2017-01-14] MEDS: WARFARIN SOD 7.5 MG TAB PO SCH (17:07)
[2017-01-15] MEDS: PIPERACILLIN/TAZOBACTAM SOD 2.25 GM in D5W MINI-BAG PLUS 50 ML IV SCH ×2 (02:22→08:42)
[2017-01-15 06:00] VITALS: BP 114/50
[2017-01-15] MEDS: SLF 3 ML SYR IV SCH ×3 (06:00→20:49)
[2017-01-15] MEDS: SODIUM CHLORIDE 0.9% INJ 10 ML SYR IV SCH ×3 (06:24→20:50)
[2017-01-15] MEDS: PERCOCET 5MG/325MG TAB PO PRN (06:37)
[2017-01-15 06:48] LABS: MEAN CORPUSCULAR HGB CONC 32.3 g/dl (32.0-36.5); MEAN CORPUSCULAR VOLUME 108.4 fl (80.0-96.0); RED CELL DISTRIBUTION WIDTH 18.9 % (11.5-14.5); WHITE BLOOD COUNT 8.4 K/mm3 (4.0-10.0)
[2017-01-15 06:50] LABS: INR 1.86
[2017-01-15 07:09] LABS: CALCIUM LEVEL 8.8 MG/DL (8.8-10.2); CREATININE FOR GFR 3.88 MG/DL (0.70-1.30); POTASSIUM SERUM 4.3 MEQ/L (3.5-5.1)
[2017-01-15] MEDS: PANTOPRAZOLE 40MG TAB (PROTONIX) PO SCH (08:41)
--- NOTE | 2017-01-15 10:22 | IPN ---
DATE: 01/14/2017 SUBJECTIVE: Patient was seen and examined at the bedside today morning. Patient reports that his pain is optimized. He was dialyzed yesterday. He tolerated the hemodialysis procedure well. Patient continues to be oliguric at this time, and there are no signs of renal improvement at this time. REVIEW OF SYSTEMS: Patient denies any fever, chills, rigors, headache, nausea, vomiting, chest pain or shortness of breath. His does report a moderate amount of pain in the right groin and right thigh surgical site area, which is optimized with oral pain medication. Rest of the review of system is negative. OBJECTIVE: VITAL SIGNS: Temperature is 97.6 degrees Fahrenheit. Blood pressure is 11/65. Pulse is 100. Respiratory rate of 18. Saturating 98% on nasal cannula at 2 liters. INTAKE AND OUTPUT: Urine output recorded as 200 mL yesterday. There is no urine output recorded today. PHYSICAL EXAMINATION: GENERAL: Patient is awake, alert, oriented times three, laying in bed, in no apparent distress. HEAD AND NECK EXAM: Extraocular muscles intact. Pupils equally round and reactive to light. Mucous membranes are slightly dry. Neck is supple. There is no jugular venous distention (JVD). Patient has a right internal jugular (IJ) tunneled hemodialysis catheter, left IJ triple lumen catheter. CARDIOVASCULAR: S1, S2, regular rate. No murmur, rub or gallop. RESPIRATORY: Chest is clear to auscultation bilaterally. Bilateral equal air entry. No rales or rhonchi. ABDOMEN: Is soft. Positive bowel sounds. Mildly tender in the right lower quadrant at the surgical site. MUSCULOSKELETAL: Patient has 1+ edema of the bilateral lower extremities. He has dressing in the right groin and moderate amount of tenderness in the right thigh. CENTRAL NERVOUS SYSTEM ([facility] OF [facility]ISTED [facility]IVING): No focal neurological deficit. Power is 5/5 in bilateral upper extremities. PSYCHIATRIC: Normal mood and affect. LABORATORY REVIEW: CBC showed a WBC of 7.1, hemoglobin 9.7, platelets of 46. INR is 1.6. BMP showed sodium 134, potassium 4.4, chloride 99, bicarbonate 29, BUN is 25, creatinine is 2.8, calcium 8.3. Heparin induced antibody is pending. CURRENT INPATIENT MEDICATIONS: Patient's medications were all reviewed by me. His Lasix was stopped today morning because of oliguria. Patient was started on Aranesp 200 mcg IV yesterday. ASSESSMENT: 82-year-old male with acute oliguric renal failure, recently recovered from acute decompensated systolic congestive heart failure and status post right femoral endarterectomy. PLAN: 1. Acute oliguric renal failure. Patient has progressed to end-stage renal disease. He is hemodialysis dependent. I do not see any signs of improvement at this time. If we plan to dialyze the patient, he will need outpatient hemodialysis placement. 2. Systolic congestive heart failure. Patient is significantly better. I have stopped IV diuretics because he does not good urine output with the IV diuretics. Volume status will be managed with hemodialysis at this time. 3. Anemia and thrombocytopenia. Hemoglobin is stable at this time. Patient will be dialyzed without heparin. Heparin induced antibodies are pending. Patient got a dose of Aranesp yesterday. I also stopped the patient's twice a day dose of Protonix and decreased the Protonix to 40 mg by mouth daily. 4. Status post right femoral endarterectomy for right limb ischemia. Patient is improving being managed by vascular surgery. He is currently on IV Zosyn. Today is day #8 of antibiotics. I will get in touch with surgery if we can stop the antibiotics.
[2017-01-15] MEDS: WARFARIN SOD 7.5 MG TAB PO SCH (16:06)
[2017-01-15] MEDS: ATORVASTATIN 20 MG TAB PO SCH (20:49)
[2017-01-15 22:00] VITALS: BP 96/66
--- NOTE | 2017-01-15 22:13 | IPNPDOC ---
Date Seen The patient was seen on 01/14/17. Progress Note SUBJECTIVE: Patient is without complaints. OBJECTIVE PHYSICAL EXAMINATION: VITAL SIGNS: Please see below. GENERAL: Resting in bed comfortably HEENT: Normal CARDIOVASCULAR: Irregular. RESPIRATORY: Clear to auscultation. ABDOMINAL: Soft nontender nondistended EXTREMITIES: Right lower extremity is well-perfused ulcerations are clean and showing signs and healing. NEUROLOGICAL: Awake alert oriented x3 with no focal deficits PSYCHOLOGICAL: Normal LABORATORY DATA: Please see below. MICROBIOLOGY: Please see below. DVT prophylaxis ordered?: Patient on Coumadin ASSESSMENT AND PLAN: This is a 82-year-old white male with critical ischemia of the right lower extremity status post right femoral endarterectomy with postoperative course complicated by acute on chronic renal failure and heart failure. PROBLEMS: 1. acute renal failure and heart failure: Managed by the nephrology team. 2. arterial insufficiency right lower extremity: Right lower extremity is well- perfused with good healing of the ulcerations in the right foot. 3. DISPOSITION: Patient will begin aggressive physical therapy and occupational therapy and undergo evaluation for possible short-term rehabilitation versus discharge to home in the near future. VS, I&O, 24H, Fishbone Vital Signs/I&O Vital Signs Date Time Temp Pulse Resp B/P (MAP) Pulse Ox O2 Delivery O2 Flow Rate FiO2 01/15/17 18:39 Room Air 01/15/17 07:30 14 01/15/17 06:00 97.6 100 114/50 (71) 98 01/14/17 20:10 2.0 I&O- Last 24 Hours up to 6 AM 01/15/17 05:59 Intake Total 1240 ml Output Total 0 ml Balance 1240 ml Laboratory Data 24H LABS Laboratory Tests 01/14/17 05:55 Red Blood Count 2.78 L, Mean Corpuscular Volume 108.7 H, Mean Corpuscular Hemoglobin 35.1 H, Mean Corpuscular Hemoglobin Concent 32.3, Red Cell Distribution Width 18.6 H, Calcium Level 8.3 L Microbiology Microbiology 01/10/17 Clostridium difficile (PCR) - Final, Complete Benedict Vang MD Jan 15, 2017 22:13
--- NOTE | 2017-01-15 22:17 | IPNPDOC ---
Date Seen The patient was seen on 01/15/17. Progress Note SUBJECTIVE: Patient is resting comfortably without complaints OBJECTIVE PHYSICAL EXAMINATION: VITAL SIGNS: Please see below. GENERAL: Asleep in bed easily arousable and comfortable. HEENT: Normal CARDIOVASCULAR: Irregular. RESPIRATORY: Clear to auscultation bilaterally. ABDOMINAL: Soft nontender nondistended EXTREMITIES: Right lower extremity well perfused, ulcerations healing well. Incisions are clean dry and intact. NEUROLOGICAL: Awake alert oriented x3 with no focal deficits PSYCHOLOGICAL: Normal LABORATORY DATA: Please see below. MICROBIOLOGY: Please see below. DVT prophylaxis ordered?: Patient on Coumadin ASSESSMENT AND PLAN: This is a 82-year-old white male with acute renal failure and congestive heart failure status post right femoral endarterectomy for limb threatening right lower extremity ischemia and arterial ulceration. PROBLEMS: 1. acute renal failure on chronic renal insufficiency and heart failure: Patient is improving slowly and is being followed closely by the nephrology team who is managing his renal failure and congestive heart failure. 2. 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 Ulcerations are healing well with Santyl dressing changes.. DISPOSITION: Patient will continue to work towards discharge to either a short- term rehabilitation facility or possibly to home with home physical therapy. VS, I&O, 24H, Fishbone Vital Signs/I&O Vital Signs Date Time Temp Pulse Resp B/P (MAP) Pulse Ox O2 Delivery O2 Flow Rate FiO2 01/15/17 18:39 Room Air 01/15/17 07:30 14 01/15/17 06:00 97.6 100 114/50 (71) 98 01/14/17 20:10 2.0 I&O- Last 24 Hours up to 6 AM 01/15/17 05:59 Intake Total 1240 ml Output Total 0 ml Balance 1240 ml Laboratory Data 24H LABS Laboratory Tests 2 01/15/17 06:34: Prothrombin Time 22.0H, Prothromb Time International Ratio 1.86, Anion Gap 11, Glomerular Filtration Rate 16.0L, Blood Urea Nitrogen 34H, Creatinine 3.88H, Sodium Level 134L, Potassium Level 4.3, Chloride Level 98, Carbon Dioxide Level 25, Calcium Level 8.8 CBC/BMP Laboratory Tests 01/15/17 06:34 Red Blood Count 2.84 L, Mean Corpuscular Volume 108.4 H, Mean Corpuscular Hemoglobin 35.0 H, Mean Corpuscular Hemoglobin Concent 32.3, Red Cell Distribution Width 18.9 H, Calcium Level 8.8 Microbiology Microbiology 01/10/17 Clostridium difficile (PCR) - Final, Complete Benedict Vang MD Jan 15, 2017 22:17
[2017-01-16 05:26] LABS: MEAN CORPUSCULAR HEMOGLOBIN 35.2 pg (27.0-33.0); MEAN CORPUSCULAR HGB CONC 32.4 g/dl (32.0-36.5); MEAN CORPUSCULAR VOLUME 108.9 fl (80.0-96.0); RED CELL DISTRIBUTION WIDTH 20.2 % (11.5-14.5); WHITE BLOOD COUNT 6.9 K/mm3 (4.0-10.0)
[2017-01-16 05:31] LABS: INR 2.29
[2017-01-16] MEDS: SLF 3 ML SYR IV SCH ×3 (05:35→22:00)
[2017-01-16 05:42] LABS: CALCIUM LEVEL 7.9 MG/DL (8.8-10.2); CREATININE FOR GFR 4.27 MG/DL (0.70-1.30); GLOMERULAR FILTRATION RATE 14.3 (>35); POTASSIUM SERUM 4.3 MEQ/L (3.5-5.1)
[2017-01-16] MEDS: PANTOPRAZOLE 40MG TAB (PROTONIX) PO SCH (05:47)
[2017-01-16] MEDS: SODIUM CHLORIDE 0.9% INJ 10 ML SYR IV SCH ×3 (05:47→22:41)
[2017-01-16 06:00] VITALS: BP 110/54
[2017-01-16] MEDS: PERCOCET 5MG/325MG TAB PO PRN ×2 (07:25→22:47)
[2017-01-16] MEDS: SANTYL OINT 30GM TOP SCH (09:42)
--- NOTE | 2017-01-16 10:39 | IPN ---
DATE: 01/15/2017 SUBJECTIVE: Patient was seen and examined at the bedside today morning. He feels much better. He is hemodynamically stable. There is no significant urine output at this time. The patient remains oliguric. REVIEW OF SYSTEMS: Patient denies any fever, chills, rigors, headache, nausea, vomiting, chest pain or shortness of breath, pain in the abdomen, constipation, or diarrhea. He reports that the right groin pain is optimized at this time. Rest of the review of system is negative. OBJECTIVE: VITAL SIGNS: Temperature is 97.6 degrees Fahrenheit. Blood pressure is 114/50, pulse is 100, respiratory rate of 18, saturating 98% on room air. Intake and output: Urine output is not recorded at this time. Weight on the bed scale is 82.8 kg. PHYSICAL EXAMINATION: GENERAL: Patient is awake, alert, oriented times three, laying in bed, in no apparent distress. HEAD AND NECK EXAM: Extraocular muscles intact. Pupils equally round and reactive to light. Mucous membranes are moist. Neck is supple. There is no jugular venous distention (JVD). Patient has a right internal jugular (IJ) tunneled hemodialysis catheter, left IJ triple lumen catheter. CARDIOVASCULAR: S1, S2, regular rate. No murmur, rub or gallop. RESPIRATORY: Chest is clear to auscultation bilaterally. Bilateral equal air entry. No rales or rhonchi. ABDOMEN: Is soft. Positive bowel sounds. Positive dressing in the right lower quadrant. Otherwise, no organomegaly. MUSCULOSKELETAL: Patient has 1+ edema of the bilateral lower extremities. He has dressing in the right thigh from the recent endarterectomy site and right thigh is mildly tender to deep palpation. CENTRAL NERVOUS SYSTEM (TANK CREWMEMBER): No focal neurological deficit. Power is 5/5 in all extremities. PSYCHIATRIC: Normal mood and affect. LABORATORY REVIEW: CBC showed a WBC of 8.4, hemoglobin 9.9, platelets of 64. BMP showed sodium 134, potassium 4.3, chloride 98, bicarbonate 25, BUN is 34, creatinine is 3.8, it was 2.8 yesterday, calcium 8.8. CURRENT INPATIENT MEDICATIONS: Patient's medications were all reviewed by me. Today is day 10 of IV Zosyn. I have stopped the IV Zosyn after discussing with surgical service. His Lasix was stopped today morning because of oliguria. Patient was started on Aranesp 200 mcg IV yesterday. ASSESSMENT: 82-year-old male with acute oliguric renal failure, and recent admission to intensive care unit (ICU) for cardiogenic shock. He is status post right femoral endarterectomy for acute right limb ischemia. PLAN: 1. Acute oliguric renal failure. Patient has progressed to end-stage renal disease. He continues to be oliguric. We need to place him for outpatient hemodialysis while we wait for recovery of his acute renal failure. It might take him a few weeks to recover. If the patient does not recover from acute renal failure then we would need to place an AV fistula for long-term hemodialysis. 2. Systolic congestive heart failure. Volume status is optimized at this time. He was oliguric. I have stopped the diuretic. Volume will be managed with hemodialysis now. 3. Anemia and thrombocytopenia. Hemoglobin is 9.9, which is acceptable at this time. Continue the Aranesp with hemodialysis. He continues to be thrombocytopenic. Anticoagulation is as per surgical service. INR is 1.8 right now. He is getting dialysis without heparin. 4. Status post right femoral endarterectomy for right limb ischemia. His ischemia is improving. Right leg pain is improving. Ulcers are healing. IV Zosyn was stopped. He has received ten days of IV antibiotics.
[2017-01-16] MEDS ORDERED: HEPARIN 1,000 UNITS/ML 10ML VIAL (FOR RADIOLOGY& DIALYSIS ONLY) XX ONE (11:00)
[2017-01-16 14:00] VITALS: BP 92/59
--- NOTE | 2017-01-16 17:00 | IPN ---
DATE: 01/16/2017 SUBJECTIVE: Patient was seen and examined at the bedside today morning during hemodialysis procedure. His blood pressure is borderline in 90s but he is tolerating the hemodialysis procedure well. REVIEW OF SYSTEMS: Patient denies any fever, chills, rigors, headache, nausea, vomiting. He reports mild shortness of breath. He denies any pain in abdomen or constipation. Patient reports right thigh pain and swelling of the leg and he feels that his legs are heavy and he reports edema. Rest of review of systems is negative. OBJECTIVE: VITAL SIGNS: Temperature is 97.5 degrees Fahrenheit, blood pressure is 110/54, pulse is 92, respiratory rate of 18, saturating 98% on nasal cannula. During hemodialysis, his systolic blood pressure is in low 90s. INTAKE and OUTPUT: Urine output is not recorded, all I see is three voids yesterday and one void today. His weight in the bed scale is 80.4 kg. PHYSICAL EXAMINATION: GENERAL: Patient is awake, alert, oriented times three, laying in bed getting hemodialysis done. No current distress. HEAD and NECK EXAM: Extraocular muscles intact. Pupils equally round and reactive to light. Mucous membranes are moist. Neck is supple. There is no jugular venous distention (JVD). ARTERIOVENOUS (AV) ACCESS: Patient has a right internal jugular (IJ) tunneled hemodialysis catheter and a left IJ triple lumen catheter. CARDIOVASCULAR: S1, S2, regular rate. No murmur, rub or gallop. RESPIRATORY: Chest is clear to auscultation bilaterally. Bilateral equal air entry. No rales or rhonchi. ABDOMEN: Is soft. Positive bowel sounds. He has a dressing in the right lower quadrant from a recent surgical site. MUSCULOSKELETAL: Patient has 1+ edema of the right lower extremity, 2+ edema of the left lower extremity and he has trace edema of the bilateral upper extremities as well. Patient has a dressing in the right thigh from the recent endarterectomy site. CENTRAL NERVOUS SYSTEM ([employer] REPA[employer] TECHNICIAN): No focal neurological deficit. Power is 5/5 in all extremities. PSYCHIATRIC: Normal mood and affect. LABORATORY REVIEW: CBC showed a WBC of 6.9, hemoglobin 9.7, platelets of 63. INR is 2.2 today. BMP showed sodium 132, potassium 4.3, chloride 97, bicarbonate 27, BUN 41, creatinine is 4.2, calcium 7.9. CURRENT INPATIENT MEDICATIONS: Patient's medications were all reviewed by me. There is no change in the medications today as compared with yesterday. ASSESSMENT: 82-year-old male with acute oliguric renal failure and systolic congestive heart failure. He is status post right femoral endarterectomy for acute right limb ischemia. PLAN: 1. Acute oliguric renal failure which has progressed to end-stage renal disease now. Patient is dialysis dependent. He is oliguric at this time, however urine output is not very accurately being monitored. I have ordered the urine output to be monitored every shift. Creatinine continues to rise in between hemodialysis sessions. I would continue to dialyze the patient on a Monday, Monday, Monday schedule for now and patient needs placement as outpatient for acute start hemodialysis. 2. Systolic congestive heart failure. Patient's diuretics have been stopped. He was not responding very well to high dosed diuretics orally. Volume status will be managed with the hemodialysis for now. Patient will probably need another session of ultrafiltration tomorrow morning as well because he has a lot of edema and his blood pressure stays in low 90s and it is very difficult to do large ultrafiltration in one hemodialysis session. 3. Anemia and thrombocytopenia. Hemoglobin is acceptable. Continue current dose of Aranesp. INR is therapeutic at this time. Warfarin anticoagulation is as per primary team. 4. Status post right femoral endarterectomy. Patient still complains of difficulty with ambulation at this time. However, ischemia has improved. Rest of the management is as per vascular surgery. Pain is being optimized with oxycodone.
[2017-01-16] MEDS ORDERED: diphenhydrAMINE 25 MG CAP PO SCH (18:00)
[2017-01-16] MEDS: WARFARIN SOD 7.5 MG TAB PO SCH (18:54)
[2017-01-16 22:00] VITALS: BP 99/56
--- NOTE | 2017-01-16 22:59 | IPNPDOC ---
Date Seen The patient was seen on 01/16/17. Progress Note SUBJECTIVE: Patient is without complaints OBJECTIVE PHYSICAL EXAMINATION: VITAL SIGNS: Please see below. GENERAL: No apparent distress HEENT: Normal CARDIOVASCULAR: Irregular. RESPIRATORY: Clear to auscultation. ABDOMINAL: Soft nontender nondistended EXTREMITIES: Right lower extremity well perfused, incisions clean dry and intact , right foot wound healing well. NEUROLOGICAL: Awake alert oriented x3 with no focal deficits PSYCHOLOGICAL: Normal LABORATORY DATA: Please see below. MICROBIOLOGY: Please see below. DVT prophylaxis ordered?: Therapeutic on Coumadin ASSESSMENT AND PLAN: This is a 82-year-old white male with end-stage real disease, right lower extremity limb threatening ischemia and heart failure. PROBLEMS: 1. renal failure: Patient continues on dialysis and will require an outpatient dialysis spot for continued dialysis until possible recover the kidneys. 2. heart failure: Patient followed and monitored by the nephrology team. 3. right lower extremity arterial insufficiency: Right lower extremity is well perfused after undergoing a right femoral endarterectomy, the wounds on the right foot are healing well. DISPOSITION: Patient is working towards discharge to his short-term rehabilitation and will require continued dialysis as an outpatient. VS, I&O, 24H, [facility] Vital Signs/I&O Vital Signs Date Time Temp Pulse Resp B/P (MAP) Pulse Ox O2 Delivery O2 Flow Rate FiO2 01/16/17 22:47 20 99 Nasal Cannula 2.0 01/16/17 14:00 97.8 86 92/59 (70) I&O- Last 24 Hours up to 6 AM 01/16/17 06:00 Intake Total 570 ml Balance 570 ml Laboratory Data 24H LABS Laboratory Tests 2 01/16/17 05:06: Prothrombin Time 26.1H, Prothromb Time International Ratio 2.29, Anion Gap 8, Glomerular Filtration Rate 14.3L, Blood Urea Nitrogen 41H, Creatinine 4.27H, Sodium Level 132L, Potassium Level 4.3, Chloride Level 97L, Carbon Dioxide Level 27, Calcium Level 7.9L CBC/BMP Laboratory Tests 01/16/17 05:06 Red Blood Count 2.76 L, Mean Corpuscular Volume 108.9 H, Mean Corpuscular Hemoglobin 35.2 H, Mean Corpuscular Hemoglobin Concent 32.4, Red Cell Distribution Width 20.2 H, Calcium Level 7.9 L Microbiology Microbiology 01/10/17 Clostridium difficile (PCR) - Final, Complete Benedict Vang MD Jan 16, 2017 22:58
[2017-01-17] MEDS: SODIUM CHLORIDE 0.9% INJ 10 ML SYR IV SCH ×2 (05:26→14:00)
[2017-01-17] MEDS: SLF 3 ML SYR IV SCH ×3 (05:26→22:27)
[2017-01-17 05:58] LABS: INR 2.45
[2017-01-17 06:00] VITALS: BP 97/51
[2017-01-17 06:10] LABS: MEAN CORPUSCULAR HEMOGLOBIN 35.9 pg (27.0-33.0); MEAN CORPUSCULAR HGB CONC 32.6 g/dl (32.0-36.5); MEAN CORPUSCULAR VOLUME 110.1 fl (80.0-96.0); RED CELL DISTRIBUTION WIDTH 20.3 % (11.5-14.5)
[2017-01-17 06:44] LABS: CALCIUM LEVEL 8.3 MG/DL (8.8-10.2); CREATININE FOR GFR 3.4 MG/DL (0.70-1.30); GLOMERULAR FILTRATION RATE 18.6 (>35)
[2017-01-17] MEDS: PANTOPRAZOLE 40MG TAB (PROTONIX) PO SCH (08:51)
[2017-01-17] MEDS: MIDODRINE 5 MG TAB PO SCH (11:45)
--- NOTE | 2017-01-17 14:42 | IPNPDOC ---
Date Seen The patient was seen on 01/17/17. Progress Note SUBJECTIVE: Patient had an episode of garbled speech and near syncopal episode during being shaved by the nurse this morning. Patient is now seen on hemodialysis and is awake alert and oriented 3 with no focal deficits and no residual defects. Patient denies any TIAs or amaurosis fugax, no dysarthria, no paralysis or paresis of an extremity, no chest pain, no shortness of breath. OBJECTIVE PHYSICAL EXAMINATION: VITAL SIGNS: Please see below. GENERAL: Patient lying in bed undergoing hemodialysis and without distress or neurologic deficit. HEENT: Normal. Neck is supple with no carotid bruits. CARDIOVASCULAR: Irregular. RESPIRATORY: Clear to auscultation bilaterally. ABDOMINAL: Soft nontender nondistended EXTREMITIES: Right lower shoulder is well perfused. Ulcers are healing well. NEUROLOGICAL: Awake alert oriented 3 with no focal deficits. PSYCHOLOGICAL: Patient is without abnormality. LABORATORY DATA: Please see below. MICROBIOLOGY: Please see below. DVT prophylaxis ordered?: Patient is therapeutic on Coumadin ASSESSMENT AND PLAN: This is a 82-year-old white male with limb threatening ischemia who underwent a right femoral endarterectomy. Postoperatively the patient developed acute on chronic renal failure requiring hemodialysis and congestive heart failure. Patient had an episode of garbled speech and near syncopal episode this morning while sitting in the chair and being shaved by the nurse. PROBLEMS: 1. Garbled speech and syncopal episode: The patient may have had a vasovagal response due to manipulation of the neck during shaving he may also have carotid artery stenosis. Plan will be to obtain a bilateral carotid artery duplex to evaluate for stenosis and possible source of TIA. Patient recovered instantaneously and has no focal neurologic deficits and at this point does not require any further evaluation with MRI or CT of the head. 2. Renal failure: And is now on hemodialysis and being followed by the nephrology team. 3. Heart Failure: Patient is currently on dialysis attempting removal of fluid and will undergo further hemodialysis tomorrow in attempt to remove more fluid. DISPOSITION: Patient will be transferred to the PCU for monitoring. VS, I&O, 24H, Fishbone Vital Signs/I&O Vital Signs Date Time Temp Pulse Resp B/P (MAP) Pulse Ox O2 Delivery O2 Flow Rate FiO2 01/17/17 08:00 98 Room Air 0.0 01/17/17 06:00 97.2 86 16 97/51 (66) I&O- Last 24 Hours up to 6 AM 01/17/17 06:00 Intake Total 600 ml Output Total 2000 ml Balance -1400 ml Laboratory Data 24H LABS Laboratory Tests 2 01/17/17 05:25: Prothrombin Time 27.6H, Prothromb Time International Ratio 2.45, Anion Gap 7L, Glomerular Filtration Rate 18.6L, Blood Urea Nitrogen 24H, Creatinine 3.40H, Sodium Level 134L, Potassium Level 4.0, Chloride Level 99, Carbon Dioxide Level 28, Calcium Level 8.3L CBC/BMP Laboratory Tests 01/17/17 05:25 Red Blood Count 2.70 L, Mean Corpuscular Volume 110.1 H, Mean Corpuscular Hemoglobin 35.9 H, Mean Corpuscular Hemoglobin Concent 32.6, Red Cell Distribution Width 20.3 H, Calcium Level 8.3 L Microbiology Microbiology 01/10/17 Clostridium difficile (PCR) - Final, Complete Benedict Vang MD Jan 17, 2017 14:42
[2017-01-17 16:30] VITALS: BP 103/58
[2017-01-17] MEDS ORDERED: WARFARIN SOD 2.5 MG TAB PO SCH (17:00)
--- NOTE | 2017-01-17 17:04 | IPN ---
DATE: 01/17/2017 SUBJECTIVE: The patient was seen and examined today, morning. He was getting ready to get his physical therapy done when I saw the patient. The patient was afebrile, hemodynamically stable. REVIEW OF SYSTEMS: The patient denies any fever, chills, rigors, headache, nausea, vomiting, chest pain, shortness of breath, pain in abdomen, constipation or diarrhea. He still reports some weakness. He has been using a walker to walk around with the help of physical therapy. OBJECTIVE: VITAL SIGNS: Temperature is 97.2 degrees Fahrenheit, blood pressure is 97/51, pulse is 86, respiratory rate of 16, saturating 98% on nasal cannula at 2 liters. INTAKE/OUTPUT: Urine output is not recorded. Hemodialysis was done yesterday; 2 liters of ultrafiltration was done. Weight on the bed scale is not available. PHYSICAL EXAMINATION: GENERAL: The patient is awake, alert, oriented times three, in no apparent distress. HEAD AND NECK EXAM: Extraocular muscles intact. Pupils equally round and reactive to light. Mucous membranes are moist. Neck is supple. There is no jugular venous distention (JVD). AV ACCESS: The patient has a right IJ tunneled hemodialysis catheter, left IJ triple lumen catheter. CARDIOVASCULAR: S1, S2, irregularly irregular rate. No murmur, rub or gallop. RESPIRATORY: Chest is clear to auscultation bilaterally. Bilateral equal air entry. No rales or rhonchi. ABDOMEN: Abdomen is soft. Positive bowel sounds. The patient has a right lower quadrant dressing. MUSCULOSKELETAL: The patient has 2+ edema of the bilateral lower extremities and 1+ edema of the bilateral upper extremities. Pulses are 2+. The patient has a dressing on the right thigh from the recent surgical site. CENTRAL NERVOUS SYSTEM: No focal neurological deficit. Power is 5/5 in all extremities. PSYCHIATRIC: Normal mood and affect. LAB REVIEW: CBC showed a WBC of 7, hemoglobin 9.7, platelets are 34. INR is 2.4. BMP showed sodium 134, potassium is 4, chloride 99, bicarbonate 28, BUN 24, creatinine is 3.4, calcium 8.3. CURRENT INPATIENT MEDICATIONS: The patient's medications were all reviewed by me. The patient has been started on midodrine 10 mg by mouth with hemodialysis for low blood pressures during hemodialysis. He continues to be on Coumadin for atrial fibrillation. ASSESSMENT: An 82-year-old male with acute oliguric renal failure, currently hemodialysis dependent, systolic congestive heart failure and status post right femoral endarterectomy for right lower limb ischemia. PLAN: 1. Acute oliguric renal failure, which has progressed to end-stage renal disease. The patient was dialyzed yesterday. He continues to be oliguric. Electrolytes are within acceptable range. Continue the Monday, Monday, Monday hemodialysis schedule. 2. Systolic congestive heart failure. The patient's diuretics were stopped because he was not having good response to the diuretics. Volume status is being managed with hemodialysis. The patient is going again for ultrafiltration, and I shall try to remove about 2 kg of fluid because the patient still has persistent lower extremity and upper extremity edema. 3. Anemia and thrombocytopenia. The patient's hemoglobin is responding well to Aranesp. Platelets are still low at 34. Heparin-induced antibody is pending. 4. Status post right femoral endarterectomy. The patient is improving now. Antibiotics have been stopped. He has started walking with the help of a walker.
[2017-01-17 20:00] VITALS: BP 92/43
[2017-01-17] MEDS: ATORVASTATIN 20 MG TAB PO SCH (22:26)
[2017-01-18] VITALS (11 sets, daily range): BP systolic 87–124; BP diastolic 40–64; O2SAT 90–98
[2017-01-18] MEDS: PERCOCET 5MG/325MG TAB PO PRN (04:55)
[2017-01-18] MEDS: SLF 3 ML SYR IV SCH ×3 (05:38→21:58)
[2017-01-18] MEDS: SODIUM CHLORIDE 0.9% INJ 10 ML SYR IV SCH ×4 (05:38→22:00)
[2017-01-18 06:17] LABS: MEAN CORPUSCULAR HEMOGLOBIN 36.1 pg (27.0-33.0); MEAN CORPUSCULAR HGB CONC 32.1 g/dl (32.0-36.5); MEAN CORPUSCULAR VOLUME 112.6 fl (80.0-96.0); RED CELL DISTRIBUTION WIDTH 21.1 % (11.5-14.5); WHITE BLOOD COUNT 6.2 K/mm3 (4.0-10.0)
[2017-01-18 06:19] LABS: INR 2.79
[2017-01-18 06:30] LABS: CALCIUM LEVEL 8.6 MG/DL (8.8-10.2); CREATININE FOR GFR 4.3 MG/DL (0.70-1.30); GLOMERULAR FILTRATION RATE 14.2 (>35)
[2017-01-18] MEDS: PANTOPRAZOLE 40MG TAB (PROTONIX) PO SCH (07:36)
[2017-01-18] MEDS: MIDODRINE 5 MG TAB PO SCH (09:04)
[2017-01-18] MEDS ORDERED: HEPARIN 1,000 UNITS/ML 10ML VIAL (FOR RADIOLOGY& DIALYSIS ONLY) XX ONE (13:15)
[2017-01-18] MEDS: SANTYL OINT 30GM TOP SCH (18:01)
--- NOTE | 2017-01-18 18:49 | REP ---
CAROTID DUPLEX ULTRASOUND: 01/18/2017: Clinical history: TIA symptoms. Technologist notes the exam was limited due to the bandage from central line access in the neck on the right side and patient's inability to hold still. Comparison: 10/19/2012. Findings: Standard duplex techniques utilized. There is some intimal thickening in the right common carotid. There is some mixed plaque distally in the common carotid and bulb plaque extending the proximal ECA and ICA. The left common carotid artery shows some intimal thickening. The distal CCA end bulb obscured by shadowing from bandage overlying the neck. Some minimal plaque in the proximal ICA and ECA visible. Doppler tracings do show occasional arrhythmia with significant spectral broadening or filling in of the systolic window. Showed some mild spectral broadening with partial filling of the systolic window. CCA systolic right: 1.06 m/s CCA systolic left: 0.93 m/s ICA systolic right: 1.05 m/s ICA systolic left: 1.07 m/s ICA diastolic right: 0.26 m/s ICA diastolic left: 0.22 m/s ECA systolic right: 0.43 m/s ECA systolic left: 0.81 m/s ICA/CCA ratio: right 0.99 m/s left ICA/CCA ratio: 1.15 m/s Cranial direction of flow in the right vertebral artery. The left vertebral artery was not visible on this examination. Impression: 1. Less than 50% stenosis by velocity criteria with the bilateral internal carotid arteries. No hemodynamically significant or flow restricting lesion noted. Technically challenging exam for reasons stated above. 2. Cranial direction of flow in the right vertebral artery, left vertebral not seen. Signed by Pa Perla MD 01/18/2017 08:19 P
[2017-01-19] VITALS (11 sets, daily range): BP systolic 80–111; BP diastolic 32–60; O2SAT 93–99
[2017-01-19] MEDS: SODIUM CHLORIDE 0.9% INJ 10 ML SYR IV SCH ×3 (05:31→21:42)
[2017-01-19] MEDS: SLF 3 ML SYR IV SCH ×3 (05:31→21:42)
--- NOTE | 2017-01-19 08:58 | IPN ---
DATE: 01/18/2017 SUBJECTIVE: Patient was seen and examined today morning, getting hemodialysis procedure. He tolerated the hemodialysis procedure well. Patient was brought to the dialysis center yesterday for ultrafiltration as well; 2 liter of ultrafiltration was done and he tolerated the procedure well. REVIEW OF SYSTEMS: Patient denies any fever, chills, rigors, headache, nausea, vomiting, chest pain, shortness of breath, pain in abdomen, constipation or diarrhea. He reports that his leg edema is improving and he has been walking with the help of a walker with a physical therapist. The rest of review of system is negative. OBJECTIVE: VITAL SIGNS: Temperature is 98.1 degrees Fahrenheit. Blood pressure is 109/50. Pulse is 85. Respiratory rate of 18. Saturating 97% on nasal cannula at 2 liters. INTAKE AND OUTPUT: Urine output recorded as 150 mL so far today, since overnight. During ultrafiltration process yesterday was 2 liters. Weight on the bed scale is 75.1 kg. PHYSICAL EXAMINATION: GENERAL: Patient is awake, alert, oriented times three, sitting in the chair, getting hemodialysis done, no apparent distress. HEAD AND NECK EXAM: Extraocular muscles intact. Pupils equally round and reactive to light. Mucous membranes are moist. Neck is supple. There is no jugular venous distention (JVD). AV ACCESS: Patient has a right internal jugular (IJ) tunneled hemodialysis catheter and a left IJ triple lumen catheter. CARDIOVASCULAR: S1, S2, irregularly irregular rate. No murmur, rub or gallop. RESPIRATORY: Chest is clear to auscultation bilaterally. Bilaterally equal air entry. No rales or rhonchi. ABDOMEN: Is soft, positive bowel sounds, nontender. Patient has a right lower quadrant dressing. MUSCULOSKELETAL: Patient has 2+ edema of the bilateral lower extremities. Pulses are 2+. He has dressing on the right thigh from a recent endarterectomy surgical site. CENTRAL NERVOUS SYSTEM (WIRE WINDER): No focal neurological deficit. Power is 5/5 in all extremities. PSYCHIATRIC: Normal mood and affect. LABORATORY REVIEW: CBC showed WBC 6.2, hemoglobin 9.2. Platelets are 22. BMP showed sodium 131. Potassium is 4,chloride 96, bicarbonate 26, BUN 32. Creatinine is 4.3. Calcium is 8.6. Heparin induced antibody is positive. CURRENT INPATIENT MEDICATIONS: Patient's medications were all reviewed by me. His Percocet dose has been increased to every 4 hourly. Patient is not on any heparin at this time. However, patient is on Coumadin for anticoagulation. ASSESSMENT: 82-year-old male with acute oliguric renal failure, currently hemodialysis dependent, systolic congestive heart failure and status post right femoral endarterectomy during this admission for right lower limb ischemia. PLAN: 1. Acute oliguric renal failure. Patient has progressed to end-stage renal disease. He continues to be oliguric at this time. Continue the Midodrine prior to hemodialysis at this time. 2. Systolic congestive heart failure. It is secondary to acute renal failure and oliguria. Patient was not responding well to oral diuretics. He got an extra session of ultrafiltration yesterday. 2 liters of fluid was removed. I will try to remove another 2 kg of fluid during hemodialysis today. Volume status will be optimized with hemodialysis. 3. Anemia and thrombocytopenia. Patient has heparin-induced thrombocytopenia, antibody positive. He is not on heparin at this time. Platelets are down to 22. However, there is no active bleeding. For anemia, patient is receiving Aranesp 200 mcg IV with hemodialysis. Hemoglobin is 9.2,whis acceptable. No need of blood transfusion at this time. 4. Chronic atrial fibrillation (AFib). Patient is currently on Coumadin. His international normalized ratio (INR) is therapeutic. However, given severe thrombocytopenia, I would get in touch with vascular surgery and stop his Coumadin. MTDD
[2017-01-19] MEDS: MIDODRINE 5 MG TAB PO SCH (11:53)
[2017-01-19] MEDS ORDERED: HEPARIN 1,000 UNITS/ML 10ML VIAL (FOR RADIOLOGY& DIALYSIS ONLY) XX ONE (16:00)
[2017-01-19] MEDS: ATORVASTATIN 20 MG TAB PO SCH (21:41)
--- NOTE | 2017-01-19 22:57 | IPNPDOC ---
Date Seen The patient was seen on 01/18/17. Progress Note SUBJECTIVE: Patient is without complaints OBJECTIVE PHYSICAL EXAMINATION: VITAL SIGNS: Please see below. GENERAL: No apparent distress HEENT: Normal CARDIOVASCULAR: Regular. RESPIRATORY: Clear to auscultation. ABDOMINAL: Soft nontender nondistended EXTREMITIES: Perfused wounds healing well. NEUROLOGICAL: Awake alert oriented x3 with no focal deficits PSYCHOLOGICAL: Normal LABORATORY DATA: Please see below. MICROBIOLOGY: Please see below. IMAGING: Carotid duplex shows less than 50% stenosis bilaterally DVT prophylaxis ordered?: Patient therapeutic on Coumadin ASSESSMENT AND PLAN: This is a 82-year-old white male with acute renal failure, congestive heart failure, right lower extremity limb threatening ischemia.. PROBLEMS: 1. congestive heart failure and renal failure: is improving and these are being monitored and treated by the nephrology team. 2. right lower extremity is critical limb ischemia: Status post right femoral and neurectomy and is recovering well. 3. garbled speech with possible TIA: Carotid artery duplex shows no significant stenosis in the bilateral carotid arteries, there is antegrade flow noted in the right vertebral artery the left vertebral artery was visualized. The episode may have been secondary to vasovagal episode during shaving. There is no evidence of carotid artery stenosis and no intervention at is required at this time and the patient has had no further symptoms. DISPOSITION: Patient is stable and requires continued monitoring.. VS, I&O, 24H, Fishbone Vital Signs/I&O Vital Signs Date Time Temp Pulse Resp B/P (MAP) Pulse Ox O2 Delivery O2 Flow Rate FiO2 01/19/17 19:38 Room Air 01/19/17 19:37 99.6 87 18 94/51 (65) 96 01/19/17 11:46 I&O- Last 24 Hours up to 6 AM 01/19/17 06:00 Intake Total 840 ml Output Total 2250 ml Balance -1410 ml Laboratory Data Microbiology Microbiology 01/10/17 Clostridium difficile (PCR) - Final, Complete Benedict Vang MD Jan 19, 2017 22:57
--- NOTE | 2017-01-19 23:01 | IPNPDOC ---
Date Seen The patient was seen on 01/19/17. Progress Note SUBJECTIVE: Patient is without complaints OBJECTIVE PHYSICAL EXAMINATION: VITAL SIGNS: Please see below. GENERAL: No apparent distress sitting in a chair watching TV HEENT: Normal CARDIOVASCULAR: Irregular. RESPIRATORY: Clear to auscultation bilaterally. ABDOMINAL: Soft nontender nondistended EXTREMITIES: Right lower extremity is well-perfused incisions are healing well ulcerations in the right foot are stable and showing signs of healing. NEUROLOGICAL: Awake alert oriented x3 with no focal deficits PSYCHOLOGICAL: Normal LABORATORY DATA: Please see below. MICROBIOLOGY: Please see below. DVT prophylaxis ordered?: Patient's platelets are low and the patient is therapeutic on Coumadin. ASSESSMENT AND PLAN: This is a 82-year-old white male with acute renal failure requiring hemodialysis, congestive heart failure and status post right femoral endarterectomy due to critical ischemia in the right lower extremity.. PROBLEMS: 1. renal failure and congestive heart failure: Patient is being followed and monitored by the nephrology team. 2. right lower extremity critical ischemia: Patient is status post right femoral endarterectomy and is well-perfused in the right lower extremity, the right foot wounds are showing good signs of healing. 3. garbled speech with questionable TIA: Patient has had no recent episodes of neurologic symptoms or TIAs and the carotid artery duplex shows no significant internal carotid artery disease bilaterally. The etiology of the symptoms may been related to vasovagal and secondary to manipulation of the neck and carotid arteries during shaving. DISPOSITION: Patient is improving and will undergo possible transfer to the floor in the next 24 hours. VS, I&O, 24H, Fishbone Vital Signs/I&O Vital Signs Date Time Temp Pulse Resp B/P (MAP) Pulse Ox O2 Delivery O2 Flow Rate FiO2 01/19/17 19:38 Room Air 01/19/17 19:37 99.6 87 18 94/51 (65) 96 01/19/17 11:46 I&O- Last 24 Hours up to 6 AM 01/19/17 06:00 Intake Total 840 ml Output Total 2250 ml Balance -1410 ml Laboratory Data Microbiology Microbiology 01/10/17 Clostridium difficile (PCR) - Final, Complete Benedict Vang MD Jan 19, 2017 23:01
[2017-01-20] VITALS (12 sets, daily range): BP systolic 96–110; BP diastolic 49–57; O2SAT 94–97
[2017-01-20] MEDS: SLF 3 ML SYR IV SCH ×3 (04:49→22:00)
[2017-01-20] MEDS: SODIUM CHLORIDE 0.9% INJ 10 ML SYR IV SCH (04:50)
[2017-01-20] MEDS ORDERED: SODIUM CHLORIDE 0.9% INJ 10 ML SYR IV PRN (05:00)
[2017-01-20 05:24] LABS: MEAN CORPUSCULAR HEMOGLOBIN 35.6 pg (27.0-33.0); MEAN CORPUSCULAR VOLUME 111.3 fl (80.0-96.0); WHITE BLOOD COUNT 5.8 K/mm3 (4.0-10.0)
[2017-01-20 05:28] LABS: ALBUMIN 2.3 GM/DL (3.2-5.2); CALCIUM LEVEL 8.3 MG/DL (8.8-10.2); CREATININE FOR GFR 3.36 MG/DL (0.70-1.30); GLOMERULAR FILTRATION RATE 18.9 (>35); PHOSPHORUS LEVEL 2.8 MG/DL (2.5-4.9)
[2017-01-20] MEDS: MIDODRINE 5 MG TAB PO SCH (08:44)
[2017-01-20] MEDS: SANTYL OINT 30GM TOP SCH (16:32)
[2017-01-21] VITALS: BP 101/55
[2017-01-21 04:00] VITALS: BP 113/55
--- NOTE | 2017-01-21 06:13 | IPN ---
DATE OF SERVICE: 01/20/2017 Mr. Finn is seen this morning during hemodialysis. He underwent ultrafiltration yesterday and we removed 2 liters of fluid which he tolerated reasonably well. This morning, he is feeling good and denies any dyspnea, chest pain, nausea or vomiting. His legs are still quite swollen and weak. PHYSICAL EXAMINATION: Temperature 98.5 degrees Fahrenheit, heart rate 86 per minute and respiratory rate 18 per minute. Blood pressure 109/50 mmHg and oxygen saturation 97% on 1 liter oxygen. His urine output yesterday was only 50 mL and 2 liters were removed with hemodialysis. He weighed 73.6 kg today, which is 1.3 kg less than yesterday. On 01/15, he weighed 82.8 kg, so he has lost about 9 kg in the last 5 days. His neck veins are still moderately distended. Right internal jugular vein dialysis catheter is intact. He has no oral thrush or ulcers. Head is atraumatic and neck is supple. Heart sounds are irregular in rhythm. Lungs with diminished breath sounds at bases. Abdomen is soft and nontender and without palpable organomegaly. Bowel sounds are normal. Extremities have no cyanosis or clubbing. He has 3+ leg edema bilaterally. Today's labs show WBC count 5.8, hemoglobin 9.5 and hematocrit 29.6. Platelets are 17,000. Sodium 138 and potassium 4.0. BUN 27 and creatinine 3.36. PROBLEMS: 1. Acute anuric renal failure. The patient remains anuric and dialysis dependent. He is being dialyzed today. He is tolerating his dialysis treatment well so far. 2. Congestive heart failure and hypervolemia. His volume status remains decompensated. We removed 2 liters of fluid yesterday with ultrafiltration and two more liters are being removed today. We will plan to do another ultrafiltration again tomorrow. 3. Thrombocytopenia. The patient has heparin-induced antibodies. No heparin is being used today during dialysis at all. He is being monitored closely. We also changed the dialyzer and will continue to monitor. 4. Anemia. His anemia is stable without any active bleeding. Will continue to monitor. He will be treated with Aranesp once a week during dialysis. No other intervention is needed at this point. 5. Generalized weakness and deconditioning. The patient will continue with physical therapy. We hope that improvement in the leg edema will help him to ambulate better.
[2017-01-21] MEDS: SLF 3 ML SYR IV SCH ×3 (06:56→21:25)
[2017-01-21 07:08] LABS: MEAN CORPUSCULAR HEMOGLOBIN 36.4 pg (27.0-33.0); MEAN CORPUSCULAR HGB CONC 32.2 g/dl (32.0-36.5); MEAN CORPUSCULAR VOLUME 113.2 fl (80.0-96.0); RED CELL DISTRIBUTION WIDTH 21.9 % (11.5-14.5); WHITE BLOOD COUNT 5.4 K/mm3 (4.0-10.0)
[2017-01-21 07:27] LABS: ALBUMIN 2.5 GM/DL (3.2-5.2); CALCIUM LEVEL 8.4 MG/DL (8.8-10.2); CREATININE FOR GFR 2.86 MG/DL (0.70-1.30); GLOMERULAR FILTRATION RATE 22.7 (>35); PHOSPHORUS LEVEL 2.9 MG/DL (2.5-4.9)
[2017-01-21 08:00] VITALS: BP 121/56
[2017-01-21 12:00] VITALS: BP 115/54
[2017-01-21] MEDS: PERCOCET 5MG/325MG TAB PO PRN (13:45)
[2017-01-21 15:04] VITALS: BP 117/68
[2017-01-21] MEDS: ATORVASTATIN 20 MG TAB PO SCH (21:25)
[2017-01-21 22:00] VITALS: BP 97/52
--- NOTE | 2017-01-21 22:36 | IPNPDOC ---
Date Seen The patient was seen on 01/20/17. Progress Note SUBJECTIVE: Patient is without complaints OBJECTIVE PHYSICAL EXAMINATION: VITAL SIGNS: Please see below. GENERAL: No apparent distress HEENT: Normal CARDIOVASCULAR: Irregular. RESPIRATORY: Clear to auscultation. ABDOMINAL: Soft nontender nondistended EXTREMITIES: Right lower extremity well-perfused, wound healing. NEUROLOGICAL: Awake alert oriented x3 PSYCHOLOGICAL: Normal LABORATORY DATA: Please see below. MICROBIOLOGY: Please see below. ASSESSMENT AND PLAN: This is a 82-year-old white male with right lower extremity critical limb ischemia who underwent a right femoral endarterectomy with postoperative renal failure requiring hemodialysis and congestive heart failure. PROBLEMS: 1. right lower extremity critical limb ischemia: Right lower extremity is well- perfused wounds are healing. 2. acute renal failure requiring hemodialysis and congestive heart failure: Patient has been undergoing hemodialysis and having removal of fluid with good result patient is under the care of the nephrology team for his renal failure and congestive heart failure. DISPOSITION: Patient is improving and will be transferred out of the PCU within the next 24 hours. [facility] Vital Signs Date Time Temp Pulse Resp B/P (MAP) Pulse Ox O2 Delivery O2 Flow Rate FiO2 01/21/17 15:04 98.7 89 19 117/68 (84) 94 Room Air 01/21/17 13:45 2.0 I&O- Last 24 Hours up to 6 AM 01/21/17 06:00 Intake Total 1020 ml Output Total 2100 ml Balance -1080 ml Laboratory Data 24H LABS Laboratory Tests 2 01/21/17 06:53: Blood Urea Nitrogen 23H, Creatinine 2.86H, Sodium Level 138, Potassium Level 4.0 , Chloride Level 101, Carbon Dioxide Level 28, Anion Gap 9, Glomerular Filtration Rate 22.7L, Calcium Level 8.4L, Phosphorus Level 2.9, Albumin 2.5L CBC/BMP Laboratory Tests 01/21/17 06:53 Red Blood Count 2.73 L, Mean Corpuscular Volume 113.2 H, Mean Corpuscular Hemoglobin 36.4 H, Mean Corpuscular Hemoglobin Concent 32.2, Red Cell Distribution Width 21.9 H, Anion Gap 9 Benedict Vang MD Jan 21, 2017 22:36
--- NOTE | 2017-01-21 22:41 | IPNPDOC ---
Date Seen The patient was seen on 01/21/17. Progress Note SUBJECTIVE: Patient is without complaints. Patient is seen on dialysis. Patient states he is feeling stronger and improving. OBJECTIVE PHYSICAL EXAMINATION: VITAL SIGNS: Please see below. GENERAL: No apparent distress HEENT: Normal CARDIOVASCULAR: Irregular RESPIRATORY: Clear to auscultation bilaterally. ABDOMINAL: Soft nontender nondistended EXTREMITIES: Right lower extremity is well-perfused incisions are healing well wounds on the right foot are showing signs of granulation with no signs of infection. NEUROLOGICAL: Awake alert oriented x3 with no focal deficits PSYCHOLOGICAL: Normal LABORATORY DATA: Please see below. MICROBIOLOGY: Please see below. ASSESSMENT AND PLAN: This is a 82-year-old white male with right lower extremity critical limb ischemia who underwent a right femoral endarterectomy with postoperative renal failure and congestive heart failure. PROBLEMS: 1. right lower extremity critical limb ischemia: Right lower extremity is well- perfused after undergoing a right femoral endarterectomy. The wounds on the right foot are showing signs of healing with no infection. 2. renal failure and congestive heart failure: A she continues to undergo hemodialysis with good result and has been tolerating removal of fluid during dialysis. Patient is hemodynamically stable. 3. heparin-induced some cytopenia: Patient continues to dialyze without use of heparin and has not restarted his Coumadin due to his thrombocytopenia. DISPOSITION: Patient will require outpatient hemodialysis and placement of a rehabilitation center prior to going home. VS, I&O, 24H, Fishbone Vital Signs/I&O Vital Signs Date Time Temp Pulse Resp B/P (MAP) Pulse Ox O2 Delivery O2 Flow Rate FiO2 01/21/17 15:04 98.7 89 19 117/68 (84) 94 Room Air 01/21/17 13:45 2.0 I&O- Last 24 Hours up to 6 AM 01/21/17 06:00 Intake Total 1020 ml Output Total 2100 ml Balance -1080 ml Laboratory Data 24H LABS Laboratory Tests 2 01/21/17 06:53: Blood Urea Nitrogen 23H, Creatinine 2.86H, Sodium Level 138, Potassium Level 4.0 , Chloride Level 101, Carbon Dioxide Level 28, Anion Gap 9, Glomerular Filtration Rate 22.7L, Calcium Level 8.4L, Phosphorus Level 2.9, Albumin 2.5L CBC/BMP Laboratory Tests 01/21/17 06:53 Red Blood Count 2.73 L, Mean Corpuscular Volume 113.2 H, Mean Corpuscular Hemoglobin 36.4 H, Mean Corpuscular Hemoglobin Concent 32.2, Red Cell Distribution Width 21.9 H, Anion Gap 9 Benedict Vang MD Jan 21, 2017 22:41
--- NOTE | 2017-01-22 04:44 | IPN ---
DATE OF SERVICE: 01/21/2017 Mr. Finn is seen this morning on his bedside. He is feeling much better, though he reports that he did not sleep well last night. He is trying to take a nap now. He denies any nausea or vomiting. Does have some dyspnea, particularly on exertion. He has significant lower extremity edema. He did undergo hemodialysis yesterday and 2 liters of fluid was removed which he tolerated well. PHYSICAL EXAMINATION: Temperature 98 degrees Fahrenheit, heart rate 91 per minute and respiratory rate 18 per minute. Blood pressure 120/56 mmHg and oxygen saturation 98% on 2 liters of oxygen. His urine output is still minimal and yesterday he had only 100 mL output. 2000 mL was removed with hemodialysis. He weighed 80.4 kg on 01/16, while on 01/15 he was 82.8 kg, which is his maximum weight during this hospitalization. Today, his weight is down to 69.3. His neck veins are still markedly distended up to the angle of his jaw. He has a dialysis catheter which is intact without any bleeding in right internal jugular vein. He has no oral thrush or ulcers. Pupils are equal and reactive to light and sclera is clear. Heart sounds are irregular in rhythm. Lungs with diminished breath sounds at bases. Abdomen: Soft and nontender and bowel sounds are normal. There is no palpable organomegaly. Extremities: Have no cyanosis or clubbing. Skin has no rash or ulcers. Lower extremity edema is at least 3+ bilaterally. Neurologically, he is awake, alert and oriented times three. Today's labs show WBC count 5.4, hemoglobin 10.0, hematocrit 30.9. Platelets are up to 33,000. Sodium 138 and potassium 4.0. BUN 23 and creatinine 2.86. Albumin 2.5 and calcium 8.4. PROBLEMS: 1. Oliguric acute renal failure superimposed on chronic kidney disease. The patient remains oliguric or anuric most on the time. He has minimal urine output. He is dialysis dependent and was dialyzed yesterday. His regular next dialysis will be scheduled for Monday. 2. Congestive heart failure and decompensated volume status. This is related to severe systolic dysfunction, atrial fibrillation and oliguric acute renal failure. His volume status has improved, though still significantly decompensated. We will continue with fluid removal on almost daily basis with hemodialysis. He will have another session of ultrafiltration early this afternoon and will remove another 2 liters of fluid. 3. Anemia. His anemia is stable and he does not have any evidence of bleeding. He receives Aranesp once a week during dialysis. 4. Thrombocytopenia related to heparin-induced antibodies. He is not receiving any heparin during dialysis. His platelet count has improved since yesterday. We will continue to monitor without any intervention. Nursing staff in dialysis has been advised not to use any heparin at all even for his catheter. 5. Generalized weakness and deconditioning. The patient should continue with physical rehabilitation. Now his lower extremity edema is improving and he has a better chance for ambulating.
[2017-01-22 05:32] LABS: MEAN CORPUSCULAR HEMOGLOBIN 36.8 pg (27.0-33.0); MEAN CORPUSCULAR HGB CONC 32.4 g/dl (32.0-36.5); MEAN CORPUSCULAR VOLUME 113.8 fl (80.0-96.0); WHITE BLOOD COUNT 6.1 K/mm3 (4.0-10.0)
[2017-01-22 06:00] VITALS: BP 107/73
[2017-01-22] MEDS: SLF 3 ML SYR IV SCH ×3 (06:00→22:00)
[2017-01-22] MEDS: SANTYL OINT 30GM TOP SCH (12:14)
[2017-01-22 14:00] VITALS: BP 135/61
[2017-01-22] MEDS ORDERED: BUMETANIDE 1 MG TAB PO ONE (14:00)
--- NOTE | 2017-01-22 19:19 | IPN ---
DATE: 01/22/2017 SUBJECTIVE: Mr. Finn is seen this morning on his bedside. He reports generally feeling well. However, he felt somewhat depressed this morning. He does get some pain in his right foot. He denies any nausea or vomiting. He has no dyspnea or chest pain. He reports that he did ambulate with the physical therapist; however, over the weekend nobody helped him to walk. PHYSICAL EXAMINATION: Temperature 97.8 degrees Fahrenheit, heart rate 85 per minute and respiratory rate 18 per minute. Blood pressure 107/73 mmHg and oxygen saturation 96% on room air. Head is atraumatic. Neck veins are still elevated at about 7-8 cm above sternal angle. He has no thyroid enlargement. Ears, nose and throat are unremarkable. Dialysis catheter is intact in right upper chest. He also has a central line in left internal jugular vein. His heart sounds are irregular in rhythm. Lungs with slightly diminished breath sounds but no wheezing and no rales. Abdomen is soft and nontender. Bowel sounds are normal. Extremities have no cyanosis or clubbing. Lower extremity edema is at least 2+. Neurologically, he is awake, alert and oriented times three. LABORATORY DATA: Today's labs show WBC count 6.1, hemoglobin 10.5 and hematocrit 32.4. Platelets 45,000. He did not have any chemistry today. PROBLEMS: 1. Congestive heart failure with severe systolic dysfunction. The patient remains oliguric and dialysis dependent. His volume status is still decompensated. We have been removing fluid with hemodialysis and have made significant progress. He does seem to have increased urine output. I am going to give him a dose of Bumex 1 mg today and see if he responds. Otherwise, we have a plan to dialyze him tomorrow and will try to remove at least two liters of fluid. 2. Anuric acute renal failure. The patient has been dialysis dependent. He is feeling somewhat discouraged and I had discussed with him at length about his risks for renal failure and prognosis. He feels better after our conversation. At present he is dialysis dependent and will be scheduled for hemodialysis tomorrow. 3. Thrombocytopenia. The patient has heparin-induced antibodies and he has not received heparin for the last 2-3 days. His platelets are improving nicely. His complete blood count (CBC) will be checked again tomorrow morning. 4. Anemia. His anemia is stable at this point and we will continue to monitor closely. He receives Aranesp once a week during dialysis. 5. Deconditioning and weakness. I have encouraged the patient to walk with the help of walker and also have nursing staff accompany him when the physical therapist is not available. I feel that he should walk at least 2-3 times a day in the hallway. He can also be considered for acute rehabilitation if possible.
[2017-01-22 22:00] VITALS: BP 116/70
--- NOTE | 2017-01-22 23:27 | IPNPDOC ---
Date Seen The patient was seen on 01/22/17. Progress Note SUBJECTIVE: Patient is without complaints OBJECTIVE PHYSICAL EXAMINATION: VITAL SIGNS: Please see below. GENERAL: Lying in bed in no apparent distress HEENT: Normal CARDIOVASCULAR: Irregular. RESPIRATORY: Clear to auscultation bilaterally. ABDOMINAL: Soft nontender nondistended EXTREMITIES: Well-perfused. Right foot ulcer is healing. Right inguinal incisions healing. NEUROLOGICAL: Awake alert oriented x3 with no focal deficits PSYCHOLOGICAL: Normal LABORATORY DATA: Please see below. MICROBIOLOGY: Please see below. DVT prophylaxis ordered?: Patient with heparin-induced thrombocytopenia and decreased platelets ASSESSMENT AND PLAN: This is a 82-year-old white now with limb threatening ischemia who underwent a right femoral endarterectomy with postoperative acute on chronic renal failure who is now hemodialysis dependent. PROBLEMS: 1. right lower extremity ischemia: Right lower extremity is well-perfused and wounds are healing.. 2. renal failure: Patient is currently on hemodialysis and is renal replacement therapy is managed by the nephrology team. DISPOSITION: Patient is improving and working towards transfer to a rehabilitation unit with plans for subsequent discharged to home after attending rehabilitation. VS, I&O, 24H, Fishbone Vital Signs/I&O Vital Signs Date Time Temp Pulse Resp B/P (MAP) Pulse Ox O2 Delivery O2 Flow Rate FiO2 01/22/17 14:00 99.6 90 18 135/61 (85) 94 01/22/17 06:00 Room Air 01/21/17 13:45 2.0 I&O- Last 24 Hours up to 6 AM 01/22/17 06:00 Intake Total 1440 ml Output Total 2200 ml Balance -760 ml Laboratory Data CBC/BMP Laboratory Tests 01/22/17 05:00 Red Blood Count 2.85 L, Mean Corpuscular Volume 113.8 H, Mean Corpuscular Hemoglobin 36.8 H, Mean Corpuscular Hemoglobin Concent 32.4, Red Cell Distribution Width 22.0 H Benedict Vang MD Jan 22, 2017 23:27
[2017-01-23] MEDS: CALCIUM CARBONATE 500 MG CHEW U/D PO PRN (01:20)
[2017-01-23] MEDS: ACETAMINOPHEN TAB 650MG DOSE (2X325MG) PO PRN (05:58)
[2017-01-23] MEDS: SLF 3 ML SYR IV SCH ×3 (05:58→21:20)
[2017-01-23 06:00] VITALS: BP 104/50
[2017-01-23 06:21] LABS: MEAN CORPUSCULAR HEMOGLOBIN 36.4 pg (27.0-33.0); MEAN CORPUSCULAR HGB CONC 31.9 g/dl (32.0-36.5); MEAN CORPUSCULAR VOLUME 114.3 fl (80.0-96.0); RED CELL DISTRIBUTION WIDTH 21.7 % (11.5-14.5); WHITE BLOOD COUNT 5.3 K/mm3 (4.0-10.0)
[2017-01-23 06:32] LABS: ALBUMIN 2.5 GM/DL (3.2-5.2); CALCIUM LEVEL 8.3 MG/DL (8.8-10.2); CREATININE FOR GFR 3.02 MG/DL (0.70-1.30); GLOMERULAR FILTRATION RATE 21.3 (>35); PHOSPHORUS LEVEL 3.1 MG/DL (2.5-4.9)
[2017-01-23] MEDS: MIDODRINE 5 MG TAB PO SCH (09:00)
--- NOTE | 2017-01-23 14:24 | IPN ---
DATE OF VISIT: 01/23/2017 Mr. Finn is seen this morning during hemodialysis. He remains oliguric, though he did have slight increase in the urine output yesterday with Bumex. Today, he is being ultrafiltrated for 2 hours and 2 liters of fluid removal. He reports that he did not sleep well last night; but otherwise, he is feeling well. He denies any dyspnea, chest pain, nausea, or vomiting. His lower extremity edema is gradually improving. On physical examination, temperature 97.7 degrees Fahrenheit, heart rate 90 per minute, and respiratory rate 20 per minute. Blood pressure 104/50 mmHg and oxygen saturation 95% on room air. This morning his weight is recorded at 73 kg. Yesterday his urine output was about 300 mL. His neck veins are still about 7-8 cm above sternal angle. Head is atraumatic, and there is no thyroid enlargement. Neck is supple. Heart sounds are irregular in rhythm. Lungs are with slightly diminished breath sounds and bibasilar rales. Abdomen: Soft and nontender and without any palpable organomegaly. Bowel sounds are normal. Extremities have no cyanosis or clubbing. Lower extremity edema is at least 2+. Neurologically, he is awake, alert, and oriented times three. Today's laboratories show WBC count 5.3, hemoglobin 10.3, and hematocrit 32.3. Platelets are up to 47,000. Sodium is 137 and potassium 4.0. BUN 38 and creatinine 3.02. PROBLEMS: 1. Oliguric acute renal failure. The patient has been dialysis dependent. He was last dialyzed on Monday and will plan his regular hemodialysis tomorrow. Electrolytes are all within normal range. 2. Congestive heart failure with severe cardiomyopathy and oliguric renal failure. The patient is dialysis dependent; and currently, he is undergoing ultrafiltration; and we are trying to remove about 2 liters of fluid today. Blood pressure runs low, so he is not able to tolerate any more fluid removal than 2 liters and one session. 3. 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 He has no active bleeding and will continue to monitor closely. 4. Anemia. His anemia is stable, and he receives Aranesp 200 mcg once a week. 5. Hypotension. This is a chronic issue and he receives midodrine 10 mg before each dialysis. We may have to increase the dose to three times a day if his blood pressure remains low. 6. Chronic atrial fibrillation. Ventricular rate has been reasonably well-controlled. He is not on any anticoagulation at this point. 7. Generalized weakness and deconditioning. The patient should continue with physical therapy and rehabilitation. I have encouraged him to get up and walk with assistance from nursing staff. MARTINA
[2017-01-23] MEDS: ATORVASTATIN 20 MG TAB PO SCH (21:20)
[2017-01-23] MEDS: zolPIDEM TARTRATE 10MG TAB PO PRN (21:20)
[2017-01-23 22:00] VITALS: BP 143/63
[2017-01-24] MEDS: SLF 3 ML SYR IV SCH ×3 (05:19→20:53)
[2017-01-24 06:00] VITALS: BP 148/65
[2017-01-24] MEDS ORDERED: SODIUM CHLORIDE 0.9% INJ 10 ML SYR IV PRN (07:00)
[2017-01-24 08:36] LABS: ALBUMIN 2.7 GM/DL (3.2-5.2); CALCIUM LEVEL 8.6 MG/DL (8.8-10.2); CREATININE FOR GFR 2.77 MG/DL (0.70-1.30); GLOMERULAR FILTRATION RATE 23.6 (>35); PHOSPHORUS LEVEL 3.4 MG/DL (2.5-4.9); POTASSIUM SERUM 4.8 MEQ/L (3.5-5.1)
[2017-01-24 08:39] LABS: MEAN CORPUSCULAR HEMOGLOBIN 36.4 pg (27.0-33.0); MEAN CORPUSCULAR HGB CONC 31.5 g/dl (32.0-36.5); MEAN CORPUSCULAR VOLUME 115.6 fl (80.0-96.0); RED CELL DISTRIBUTION WIDTH 21.3 % (11.5-14.5); WHITE BLOOD COUNT 5.1 K/mm3 (4.0-10.0)
[2017-01-24] MEDS: SANTYL OINT 30GM TOP SCH (09:40)
[2017-01-24] MEDS: MIDODRINE 5 MG TAB PO SCH (13:05)
[2017-01-24] MEDS: SODIUM CHLORIDE 0.9% INJ 10 ML SYR IV SCH ×2 (18:11→20:53)
--- NOTE | 2017-01-24 21:49 | IPN ---
DATE: 01/24/2017 Mr. Finn is seen this morning on his bedside. He is sitting at the edge of bed and feels well. He is in good spirits today. He underwent hemodialysis yesterday, which he tolerated well. He reports that he walked with a physical therapist in the hallway this morning. He denies any dyspnea, chest pain, nausea or vomiting. PHYSICAL EXAMINATION: Temperature 98.3 degrees Fahrenheit, heart rate 65 per minute and respiratory rate 16 per minute. Blood pressure 148/65 mmHg and oxygen saturation 99% on room air. Head: Atraumatic. Neck is supple and jugular venous distention (JVD) is only mildly elevated above sternal angle. Right internal jugular vein hemodialysis catheter is intact. Ears, nose and throat are unremarkable. Heart sounds are irregular in rhythm. Lungs have diminished breath sounds at bases but without any wheezing or rales. Abdomen: Soft and nontender. Bowel sounds are normal. Extremities: Have 3+ edema on lower extremities. There is no cyanosis or clubbing. Skin has no rash or ulcers. Neurologically, he is awake, alert and oriented times three. Today's labs show WBC count 5.1, hemoglobin 11.9 and hematocrit 37.8. Platelets are 62,000 today. Sodium 136 and potassium 4.8, BUN 44 and creatinine 2.77. Serum albumin is 2.7. PROBLEM #1: Oliguric renal failure. The patient has been dialysis dependent and was dialyzed yesterday. So far, he has minimal urine output and will continue to monitor his kidney function. PROBLEM #2: Systolic congestive heart failure in the setting of oliguric acute renal failure. The patient remains volume overloaded with significant edema on lower extremities. We are removing about 2 liters of fluid every day with hemodialysis or ultrafiltration. He will go for ultrafiltration later this afternoon and we will try to remove another 2 liters today. Leg edema is improving only gradually. 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 Gradually his platelet count is improving, and he is not receiving any heparin during dialysis. PROBLEM #4: Anemia. His anemia has improved significantly, and we will hold off on Aranesp dose until his hemoglobin goes below 11.0. PROBLEM #5: Generalized weakness and deconditioning. The patient continues with physical therapy and started to ambulate. DISPOSITION: The patient is likely to require hemodialysis as an outpatient until his kidney function improves. Once he is medically stable from medical and surgical issues, then he can probably be discharged home and continue dialysis as an outpatient.
[2017-01-24 22:00] VITALS: BP 143/67
--- NOTE | 2017-01-24 23:03 | IPNPDOC ---
Date Seen The patient was seen on 01/24/17. Progress Note SUBJECTIVE: Patient is without complaints. Patient states his ambulating is improving and increasing and distance. OBJECTIVE PHYSICAL EXAMINATION: VITAL SIGNS: Please see below. GENERAL: Awake alert in no apparent distress HEENT: Normal CARDIOVASCULAR: Irregular. RESPIRATORY: Clear to auscultation bilaterally. ABDOMINAL: Soft nontender nondistended with no palpable pulsatile mass EXTREMITIES: Right lower extremity is well-perfused. Right foot ulcers are stable with signs of healing with good granulation tissue. NEUROLOGICAL: Awake alert oriented x3 with no focal deficits PSYCHOLOGICAL: Normal LABORATORY DATA: Please see below. MICROBIOLOGY: Please see below. ASSESSMENT AND PLAN: This is a 82-year-old white male with acute renal failure and congestive heart status post right femoral endarterectomy for limb threatening right lower extremity ischemia. PROBLEMS: 1. congestive heart failure: Patient is stable.. 2. renal failure: Patient is requiring hemodialysis and will require hemodialysis upon discharge. 3. right lower extremity ischemia: Right lower extremity is well-perfused status post right femoral endarterectomy wounds are healing. DISPOSITION: The patient is progressing towards discharge and will require rehabilitation after discharge from the hospital. VS, I&O, 24H, Fishbone Vital Signs/I&O Vital Signs Date Time Temp Pulse Resp B/P (MAP) Pulse Ox O2 Delivery O2 Flow Rate FiO2 01/24/17 22:00 100.6 100 16 143/67 (92) 99 Room Air 01/21/17 13:45 2.0 I&O- Last 24 Hours up to 6 AM 01/24/17 06:00 Intake Total 480 ml Output Total 2000 ml Balance -1520 ml Laboratory Data 24H LABS Laboratory Tests 2 01/24/17 07:43: Blood Urea Nitrogen 44H, Creatinine 2.77H, Sodium Level 136, Potassium Level 4.8 , Chloride Level 101, Carbon Dioxide Level 25, Anion Gap 10, Glomerular Filtration Rate 23.6L, Calcium Level 8.6L, Phosphorus Level 3.4, Albumin 2.7L CBC/BMP Laboratory Tests 01/24/17 07:43 Red Blood Count 3.27 L, Mean Corpuscular Volume 115.6 H, Mean Corpuscular Hemoglobin 36.4 H, Mean Corpuscular Hemoglobin Concent 31.5 L, Red Cell Distribution Width 21.3 H, Anion Gap 10 Benedict Vang MD Jan 24, 2017 23:03
--- NOTE | 2017-01-24 23:08 | IPNPDOC ---
Date Seen The patient was seen on 01/23/17. Progress Note SUBJECTIVE: Patient is without complaints. OBJECTIVE PHYSICAL EXAMINATION: VITAL SIGNS: Please see below. GENERAL: Normal HEENT: Normal CARDIOVASCULAR: Irregular. RESPIRATORY: Clear to auscultation. ABDOMINAL: Soft nontender nondistended EXTREMITIES: Right lower extremity is well-perfused incisions are clean. Pulses are strong signs of healing. NEUROLOGICAL: Awake alert oriented x3 with no focal deficits PSYCHOLOGICAL: Normal LABORATORY DATA: Please see below. MICROBIOLOGY: Please see below. ASSESSMENT AND PLAN: This is a 82-year-old white male with acute renal failure and congestive heart failure status post right femoral endarterectomy for right lower extremity critical limb ischemia. PROBLEMS: 1. renal failure: She continues on hemodialysis per the renal team. 2. congestive heart failure: Resolving. 3. right lower extremity arterial insufficiency: Wounds are healing and right lower extremity is well-perfused after undergoing a right femoral endarterectomy. DISPOSITION: Patient will require outpatient hemodialysis and is progressing towards discharge to a real rehabilitation unit. VS, I&O, 24H, Fishbone Vital Signs/I&O Vital Signs Date Time Temp Pulse Resp B/P (MAP) Pulse Ox O2 Delivery O2 Flow Rate FiO2 01/24/17 22:00 100.6 100 16 143/67 (92) 99 Room Air 01/21/17 13:45 2.0 I&O- Last 24 Hours up to 6 AM 01/24/17 06:00 Intake Total 480 ml Output Total 2000 ml Balance -1520 ml Laboratory Data 24H LABS Laboratory Tests 2 01/24/17 07:43: Blood Urea Nitrogen 44H, Creatinine 2.77H, Sodium Level 136, Potassium Level 4.8 , Chloride Level 101, Carbon Dioxide Level 25, Anion Gap 10, Glomerular Filtration Rate 23.6L, Calcium Level 8.6L, Phosphorus Level 3.4, Albumin 2.7L CBC/BMP Laboratory Tests 01/24/17 07:43 Red Blood Count 3.27 L, Mean Corpuscular Volume 115.6 H, Mean Corpuscular Hemoglobin 36.4 H, Mean Corpuscular Hemoglobin Concent 31.5 L, Red Cell Distribution Width 21.3 H, Anion Gap 10 Benedict Vang MD Jan 24, 2017 23:08
[2017-01-25] MEDS: zolPIDEM TARTRATE 10MG TAB PO PRN (00:06)
[2017-01-25] MEDS: SODIUM CHLORIDE 0.9% INJ 10 ML SYR IV SCH ×3 (05:35→21:41)
[2017-01-25] MEDS: SLF 3 ML SYR IV SCH ×3 (05:35→21:41)
[2017-01-25 06:00] VITALS: BP 138/67
[2017-01-25] MEDS: MIDODRINE 5 MG TAB PO SCH (09:02)
[2017-01-25] MEDS: PERCOCET 5MG/325MG TAB PO PRN ×2 (11:13→21:41)
[2017-01-25 14:00] VITALS: BP 117/58
[2017-01-25] MEDS: ATORVASTATIN 20 MG TAB PO SCH (21:40)
[2017-01-25 22:00] VITALS: BP 133/57
--- NOTE | 2017-01-25 23:17 | IPN ---
DATE: 01/25/2017 Mr. Finn is seen this morning on his bedside. He is sitting in the chair and doing his occupational therapy. He denies any dyspnea or chest pain at rest. However, does get short of breath on minimal exertion. He has no nausea or vomiting and reports a good appetite. There is no fever or chills at present. Last night he had a temperature of 100.6 degrees Fahrenheit. On physical exam today his temperature is 97.8 degrees Fahrenheit, heart rate 68 per minute and respiratory rate 16 per minute. Blood pressure 138/67 mmHg and oxygen saturation 93% on room air. Head: Is atraumatic. Neck veins are still abnormally distended and visible above clavicle even sitting upright. Ears, nose and throat are unremarkable. Heart: Sounds are irregular in rhythm. There is no pericardial friction rub. Lungs: With few basilar rales and diminished breath sounds. Abdomen: Soft and nontender and without a palpable organomegaly. Extremities: Have no cyanosis or clubbing. Lower extremity edema is at least 3+ extending up to the thighs. Neurologically he is awake, alert and oriented times three. The patient did not have any new labs today. PROBLEMS: 1. Oliguric acute renal failure superimposed on chronic kidney disease. The patient has only minimal urine output so far and no recovery of kidney function. He has been dialysis dependent and received his regular dialysis treatment yesterday. His next dialysis will be performed on January 26. 2. Congestive heart failure with decompensated volume status. The patient remains volume overloaded with significant lower extremity edema and dyspnea on exertion. He will be ultrafiltrated today again and 2 liters of fluid will be removed. He has made significant progress so far and has lost at least 10 kg of weight in the last 10 days. 3. Hypotension. This is a chronic issue and he receives midodrine 10 mg before each dialysis. 4. Thrombocytopenia. This is related to heparin-induced antibodies and has been gradually improving. There is no active bleeding. His CBC will be checked again tomorrow. 5. Anemia. His anemia has improved and does not need any further intervention. We will hold off on Aranesp during dialysis. DISPOSITION. From a renal standpoint, the patient can be discharged to home whenever he is cleared by physical therapy. Unfortunately, he is going to require outpatient dialysis until his kidney function improves. The patient asked me about his prognosis for renal improvement. I have informed him that only time will tell when his kidneys will improve. At this point, he has minimal urine output and we will continue to monitor.
[2017-01-26 05:52] LABS: MEAN CORPUSCULAR HEMOGLOBIN 36.3 pg (27.0-33.0); MEAN CORPUSCULAR HGB CONC 31.8 g/dl (32.0-36.5); MEAN CORPUSCULAR VOLUME 114.2 fl (80.0-96.0); RED CELL DISTRIBUTION WIDTH 21.2 % (11.5-14.5); WHITE BLOOD COUNT 5.7 K/mm3 (4.0-10.0)
[2017-01-26] MEDS: SODIUM CHLORIDE 0.9% INJ 10 ML SYR IV SCH ×3 (05:53→20:45)
[2017-01-26] MEDS: SLF 3 ML SYR IV SCH ×3 (05:53→20:45)
[2017-01-26 06:00] VITALS: BP 90/50
[2017-01-26 06:01] LABS: ALBUMIN 2.5 GM/DL (3.2-5.2); CREATININE FOR GFR 2.61 MG/DL (0.70-1.30); GLOMERULAR FILTRATION RATE 25.2 (>35); PHOSPHORUS LEVEL 3.2 MG/DL (2.5-4.9); POTASSIUM SERUM 4.4 MEQ/L (3.5-5.1)
[2017-01-26] MEDS: MIDODRINE 5 MG TAB PO SCH (08:43)
[2017-01-26] MEDS: SANTYL OINT 30GM TOP SCH (08:44)
[2017-01-26 14:00] VITALS: BP 93/54
[2017-01-26] MEDS: PERCOCET 5MG/325MG TAB PO PRN ×2 (16:03→21:52)
--- NOTE | 2017-01-26 21:27 | IPNPDOC ---
Date Seen The patient was seen on 01/25/17. Progress Note SUBJECTIVE: Patient is without complaints. Patient states he has been ambulating and feels stronger. OBJECTIVE PHYSICAL EXAMINATION: VITAL SIGNS: Please see below. GENERAL: Sitting in the chair visiting with his family in no apparent distress. HEENT: Normal CARDIOVASCULAR: Irregularly irregular. RESPIRATORY: Clear to auscultation bilaterally. ABDOMINAL: Soft nontender nondistended with no palpable pulsatile masses EXTREMITIES: Extremities are well-perfused. Right foot wounds are showing good signs of healing. Right femoral incision is healing well. NEUROLOGICAL: Awake alert oriented x3 with no focal deficits PSYCHOLOGICAL: R Amy LABORATORY DATA: Please see below. MICROBIOLOGY: Please see below. IMAGING: None Echocardiogram: None. DVT prophylaxis ordered?: Patient has heparin-induced from cytopenia and decreased dysfunctional platelets and is ambulating regularly. ASSESSMENT AND PLAN: This is a 82-year-old white male with acute renal failure on hemodialysis after undergoing a right femoral endarterectomy for critical limb ischemia of the right lower extremity and nonhealing arterial ulcers. PROBLEMS: 1. acute renal failure: Patient is starting to make some urine and continues on hemodialysis per the nephrology team. 2. congestive heart failure: Stable. 3. right lower extremity arterial insufficiency: The right lower extremity is well-perfused, the wounds are showing good signs of healing and the patient is without pain in the right lower extremity. DISPOSITION: Patient is improving and progressing towards discharge to a rehabilitation facility. Patient will also require outpatient dialysis which will need to be set up prior to discharge. VS, I&O, 24H, Fishbone Vital Signs/I&O Vital Signs Date Time Temp Pulse Resp B/P (MAP) Pulse Ox O2 Delivery O2 Flow Rate FiO2 01/26/17 16:45 18 01/26/17 14:00 97.7 93 93/54 (67) 96 01/26/17 07:47 Room Air 01/21/17 13:45 2.0 I&O- Last 24 Hours up to 6 AM 01/26/17 06:00 Intake Total 360 ml Output Total 2200 ml Balance -1840 ml Laboratory Data 24H LABS Laboratory Tests 2 01/26/17 05:32: Blood Urea Nitrogen 36H, Creatinine 2.61H, Sodium Level 135L, Potassium Level 4.4, Chloride Level 99, Carbon Dioxide Level 27, Anion Gap 9, Glomerular Filtration Rate 25.2L, Calcium Level 8.0L, Phosphorus Level 3.2, Albumin 2.5L CBC/BMP Laboratory Tests 01/26/17 05:32 Red Blood Count 3.00 L, Mean Corpuscular Volume 114.2 H, Mean Corpuscular Hemoglobin 36.3 H, Mean Corpuscular Hemoglobin Concent 31.8 L, Red Cell Distribution Width 21.2 H, Anion Gap 9 Benedict Vang MD Jan 26, 2017 21:27
--- NOTE | 2017-01-26 21:37 | IPNPDOC ---
Date Seen The patient was seen on 01/26/17. Progress Note SUBJECTIVE: Patient is without complaints. OBJECTIVE PHYSICAL EXAMINATION: VITAL SIGNS: Please see below. GENERAL: Patient is lying in bed watching TV and in no apparent distress. HEENT: Normal CARDIOVASCULAR: Irregularly irregular. RESPIRATORY: Decreased breath sounds bilaterally otherwise clear to auscultation. ABDOMINAL: Soft nontender nondistended EXTREMITIES: Lower extremities are well-perfused. Right lower extremity well- perfused. Right foot wound healing. Right inguinal incision healing well. NEUROLOGICAL: Awake alert oriented x3 with no focal deficits PSYCHOLOGICAL: Normal LABORATORY DATA: Please see below. MICROBIOLOGY: Please see below. IMAGING: None Echocardiogram: None. DVT prophylaxis ordered?: Patient has heparin-induced from cytopenia with decreased platelets which are returning to normal patient also has atrial fibrillation for which she was on anticoagulations previously and will need to restart his anticoagulation at some point. ASSESSMENT AND PLAN: This is a 82-year-old white male with right lower extremity critical limb ischemia and nonhealing ulcers due to arterial insufficiency. Acute on chronic renal failure requiring hemodialysis. Congestive heart failure. Atrial fibrillation. PROBLEMS: 1. right lower extremity limb threatening ischemia: He is status post right femoral endarterectomy with good perfusion of his right lower extremity and healing of his right foot wounds.. 2. congestive heart failure: H is stable and improving and will continue to undergo removal of fluid with hemodialysis. 3. acute on chronic renal failure: Patient is currently undergoing hemodialysis daily under the direction of the nephrology team. Patient will require outpatient hemodialysis until his kidney function returns. 4. Atrial fibrillation: Patient will require anticoagulations and is currently not anticoagulated secondary to his heparin-induced from cytopenia and risks of bleeding. Patient was previously on Coumadin and may be better suited with Eliquis for his atrial fibrillation anticoagulations. We will discuss anticoagulations with the nephrology team prior to initiating therapy. DISPOSITION: Patient is improving and from a nephrology point of view is stable for discharge area patient will require either short-term rehabilitation or nursing facility placement for continued recuperation. Patient will also require outpatient hemodialysis. VS, I&O, 24H, Fishbone Vital Signs/I&O Vital Signs Date Time Temp Pulse Resp B/P (MAP) Pulse Ox O2 Delivery O2 Flow Rate FiO2 01/26/17 16:45 18 01/26/17 14:00 97.7 93 93/54 (67) 96 01/26/17 07:47 Room Air 01/21/17 13:45 2.0 I&O- Last 24 Hours up to 6 AM 01/26/17 06:00 Intake Total 360 ml Output Total 2200 ml Balance -1840 ml Laboratory Data 24H LABS Laboratory Tests 2 01/26/17 05:32: Blood Urea Nitrogen 36H, Creatinine 2.61H, Sodium Level 135L, Potassium Level 4.4, Chloride Level 99, Carbon Dioxide Level 27, Anion Gap 9, Glomerular Filtration Rate 25.2L, Calcium Level 8.0L, Phosphorus Level 3.2, Albumin 2.5L CBC/BMP Laboratory Tests 01/26/17 05:32 Red Blood Count 3.00 L, Mean Corpuscular Volume 114.2 H, Mean Corpuscular Hemoglobin 36.3 H, Mean Corpuscular Hemoglobin Concent 31.8 L, Red Cell Distribution Width 21.2 H, Anion Gap 9 Benedict Vang MD Jan 26, 2017 21:37
[2017-01-26 22:00] VITALS: BP 99/42
--- NOTE | 2017-01-26 23:20 | IPN ---
DATE: 01/26/2017 Mr. Puente is seen this morning during hemodialysis. He underwent ultrafiltration yesterday and 2 liters of fluid was removed. Today, he is feeling much better and is in good spirits. He denies any dyspnea, chest pain, nausea or vomiting. He does get short of breath on exertion. He has no fever or chills. He reports that he has been walking with a walker and physical therapist. PHYSICAL EXAMINATION: Temperature 98.9 degrees Fahrenheit, heart rate 100 per minute and respiratory rate 14 per minute. Blood pressure 109/56 mmHg and oxygen saturation 93% on room air. Head: Is atraumatic. Neck is supple and jugular venous distention (JVD) is still elevated up to angle of the jaw. Right internal jugular vein hemodialysis catheter is intact. He also has a central line in the left side of his neck. Ears, nose and throat are unremarkable. Heart: Sounds are irregular in rhythm and tachycardiac. Lungs: Clear to auscultation. Abdomen: Soft and nontender and without palpable organomegaly. Extremities: Have no cyanosis or clubbing. Lower extremity edema has improved significantly though not completely resolved. Today's labs show WBC count 5.7, hemoglobin 10.9 and hematocrit 34.3. Platelets 74,000. Sodium 135, potassium 4.4. BUN 36 and creatinine 2.61. PROBLEMS: 1. Acute renal failure superimposed on chronic kidney disease. The patient remains anuric and dialysis dependent. He is being dialyzed today. Will plan next dialysis on Monday. 2. Congestive heart failure and decompensated volume status. Volume status has improved significantly though he still has some leg edema. We have removed at least 12 liters of fluid with hemodialysis or ultrafiltration. Today we are removing only 1 liter due to low blood pressure. 3. Hypotension. The patient receives midodrine 10 mg prior to dialysis. So far his blood pressure has been reasonably well maintained. 4. 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 No intervention is indicated at this point. DISPOSITION: From a renal standpoint, the patient is ready for discharge. He is likely to require dialysis as an outpatient until his kidney function improves. I have discussed with the nursing staff on the floor and have suggested to get the discharge planners start working on arrangements.
[2017-01-27] MEDS: SLF 3 ML SYR IV SCH ×3 (05:46→23:34)
[2017-01-27] MEDS: SODIUM CHLORIDE 0.9% INJ 10 ML SYR IV SCH ×3 (05:46→23:35)
[2017-01-27] MEDS: PERCOCET 5MG/325MG TAB PO PRN ×2 (05:54→21:08)
[2017-01-27 06:00] VITALS: BP 105/54
[2017-01-27 14:00] VITALS: BP 120/56
[2017-01-27] MEDS: ATORVASTATIN 20 MG TAB PO SCH (21:08)
[2017-01-27 22:00] VITALS: BP 127/60
--- NOTE | 2017-01-27 22:49 | IPNPDOC ---
Date Seen The patient was seen on 01/27/17. Progress Note SUBJECTIVE: Patient is without complaints OBJECTIVE PHYSICAL EXAMINATION: VITAL SIGNS: Please see below. GENERAL: Sitting in the chair with no apparent at stress or abnormalities HEENT: Normal CARDIOVASCULAR: Irregularly irregular. RESPIRATORY: Decreased breath sounds at the bases otherwise clear. ABDOMINAL: Soft nontender nondistended EXTREMITIES: Right lower extremity is well-perfused wounds are healing well NEUROLOGICAL: Awake alert oriented x3 with no focal deficits PSYCHOLOGICAL: Normal LABORATORY DATA: Please see below. MICROBIOLOGY: Please see below. ASSESSMENT AND PLAN: This is a 82-year-old white male with critical limb threatening right lower extremity ischemia who underwent a right femoral endarterectomy for reperfusion of the right lower extremity. Patient's postoperative course was complicated by acute on chronic renal flare which subsequently required hemodialysis and congestive heart failure. PROBLEMS: 1. renal failure: Patient is currently dialyzing and under the care of the nephrology team. 2. congestive heart failure: Table lysed and the patient continues to undergo removal of fluid during hemodialysis. 3. critical limb ischemia right lower extremity: Patient is well-perfused after undergoing a right femoral artery endarterectomy. The wounds in the right foot are showing signs of healing albeit slowly. DISPOSITION: Patient is clinically improving and progressing towards discharge to a short-term rehabilitation, patient will require outpatient hemodialysis. VS, I&O, 24H, Fishbone Vital Signs/I&O Vital Signs Date Time Temp Pulse Resp B/P (MAP) Pulse Ox O2 Delivery O2 Flow Rate FiO2 01/27/17 21:08 17 01/27/17 14:00 98.2 89 120/56 (77) 95 01/27/17 09:00 Room Air 01/21/17 13:45 2.0 I&O- Last 24 Hours up to 6 AM 01/27/17 05:59 Intake Total 1380 ml Output Total 1000 ml Balance 380 ml Benedict Vang MD Jan 27, 2017 22:49
[2017-01-28] MEDS: zolPIDEM TARTRATE 10MG TAB PO PRN (00:09)
[2017-01-28] MEDS: SLF 3 ML SYR IV SCH ×3 (05:57→22:00)
[2017-01-28] MEDS: SODIUM CHLORIDE 0.9% INJ 10 ML SYR IV SCH ×3 (05:57→21:29)
[2017-01-28 06:00] VITALS: BP 128/75
[2017-01-28] MEDS: SANTYL OINT 30GM TOP SCH (09:00)
[2017-01-28] MEDS: MIDODRINE 5 MG TAB PO SCH (09:14)
[2017-01-28] MEDS: PERCOCET 5MG/325MG TAB PO PRN ×3 (09:53→22:27)
--- NOTE | 2017-01-28 12:20 | IPN ---
DATE OF SERVICE: 01/27/2017 SUBJECTIVE: The patient was seen and examined at the bedside today morning. He was sitting in the sofa getting ready to get his physical therapy done. The patient got the ultrafiltration done yesterday. He tolerated the procedure well. The patient denies any active complaints today. REVIEW OF SYSTEMS: The patient denies any fever, chills, rigors, headache, nausea, vomiting, chest pain, shortness of breath, pain abdomen, constipation. The rest of review of system is negative. OBJECTIVE: VITAL SIGNS: Temperature is 98.1 degrees Fahrenheit. Blood pressure is 105/54. Pulse is 92. Respiratory rate of 16. Saturating 94% on room air. INTAKE AND OUTPUT: Urine output is not recorded today. Yesterday, it was around 100 mL. Ultrafiltration with hemodialysis was 1 liter yesterday. Weight in the bed scale is 74.6 kg. PHYSICAL EXAMINATION: GENERAL: The patient is awake, alert, oriented times three, sitting in the sofa, in no apparent distress. HEAD AND NECK EXAMINATION: Extraocular muscles are intact. Pupils equally round and reactive to light. Mucous membranes are moist. Neck is supple. There is no jugular venous distention (JVD). AV ACCESS: The patient has a right internal jugular (IJ) tunneled hemodialysis catheter, and he has a left internal jugular (IJ) triple-lumen catheter. CARDIOVASCULAR: S1, S2, irregularly irregular heart rate. No murmur, rub, and gallop. RESPIRATORY: Chest is clear to auscultation bilaterally. Bilateral equal air entry. No rales or rhonchi. ABDOMEN: Is soft, positive bowel sounds, nontender. No ascites. No organomegaly. MUSCULOSKELETAL: The patient has 1+ edema of the bilateral lower extremities. Pulses are 2+. No clubbing or cyanosis. CENTRAL NERVOUS SYSTEM (LADLER): No focal neurological deficit. Power is 5/5 in all extremities. PSYCHIATRIC: Normal mood and affect. LABORATORY REVIEW: CBC showed a WBC of 5.7, hemoglobin was 10.9, and these laboratories are from yesterday. There are no new laboratories available from today. CURRENT INPATIENT MEDICATIONS: The patient's medications were all reviewed by me. There is no new change in the medications today as compared with yesterday. ASSESSMENT: An 82-year-old male with acute renal failure during this admission that has progressed to end-stage renal disease requiring hemodialysis. The patient also has systolic congestive heart failure. The patient is status post right femoral endarterectomy during this admission. PLAN: 1. Acute renal failure, which has progressed to end-stage renal disease. The patient is dialysis dependent. He got [id number] hemodialysis and ultrafiltration over the last 4 days for fluid overload. I would give him a dialysis holiday today. Next hemodialysis session will be done tomorrow. 2. Decompensated systolic congestive heart failure. The patient's volume status is improving after sazt-tu-[id number] ultrafiltration for the last 4 days. His weight is down to 74 kg now. He still has some edema. We shall to do more ultrafiltration tomorrow during hemodialysis. 3. Hypotension. Continue current dose of midodrine 10 mg by mouth before hemodialysis on hemodialysis days. 4. Anemia in end-stage renal disease. Continue current dose of Aranesp 200 mcg intravenous (IV) with hemodialysis. Hemoglobin is optimal at this time. 5. 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 The patient's platelet is up to 74 right now. No heparin during hemodialysis. Platelet count is improving. No active bleeding or bruising at this time. DISCHARGE PLANNING: It is okay to discharge the patient from nephrology standpoint whenever he is cleared from physical therapy. The patient would need placement for outpatient hemodialysis three times a week.
[2017-01-28 14:00] VITALS: BP 95/48
[2017-01-28 22:00] VITALS: BP 122/55
[2017-01-29] MEDS: PERCOCET 5MG/325MG TAB PO PRN ×2 (03:40→21:10)
[2017-01-29] MEDS: SODIUM CHLORIDE 0.9% INJ 10 ML SYR IV SCH ×3 (05:52→20:25)
[2017-01-29 06:00] VITALS: BP 123/82
[2017-01-29 06:13] LABS: MEAN CORPUSCULAR HEMOGLOBIN 36.6 pg (27.0-33.0); MEAN CORPUSCULAR HGB CONC 31.8 g/dl (32.0-36.5); MEAN CORPUSCULAR VOLUME 115.1 fl (80.0-96.0); RED CELL DISTRIBUTION WIDTH 19.9 % (11.5-14.5)
[2017-01-29 14:00] VITALS: BP 138/58
--- NOTE | 2017-01-29 20:18 | IPN ---
DATE: 01/28/2017 SUBJECTIVE: The patient was seen and examined at the bedside today morning during hemodialysis procedure. Patient is tolerating the hemodialysis procedure well. He denies having any active complaints at this time. REVIEW OF SYSTEMS: The patient denies any fever, chills, rigors, headache, nausea, vomiting, chest pain, shortness of breath, pain in abdomen, constipation or diarrhea. The rest of review of systems is negative. OBJECTIVE: VITAL SIGNS: Temperature is 97.8 degrees Fahrenheit, blood pressure is 128/75, pulse is 109, respiratory rate of 18, saturating 94% on room air. INTAKE AND OUTPUT: Urine output is not recorded. Weight in the bed scale is 76 kg today. PHYSICAL EXAMINATION: GENERAL: The patient is awake, alert, oriented times three, sitting in the bed, in no apparent distress, getting hemodialysis done. HEAD and NECK EXAM: Extraocular muscles are intact. Pupils equally round and reactive to light. Mucous membranes are moist. Neck is supple. There is no jugular venous distention (JVD). CARDIOVASCULAR: S1, S2, irregularly irregular heart rate. No murmur, rub, or gallop. RESPIRATORY: Chest is clear to auscultation bilaterally. Bilateral equal air entry. No rales or rhonchi. ABDOMEN: Soft. Positive bowel sounds. Nontender. No organomegaly. MUSCULOSKELETAL: The patient has 2+ pitting edema of the bilateral lower extremities. No clubbing or cyanosis at this time. CENTRAL NERVOUS SYSTEM (ACTUARY MANAGER): No focal neurological deficit. Power is 5/5 in all extremities. PSYCHIATRIC: Normal mood and affect. LABORATORY REVIEW: CBC showed a WBC of 5.7, hemoglobin was 10.9, and that was on 01/26/2017, and today morning BMP is not available. CURRENT INPATIENT MEDICATIONS: The patient's medications were all reviewed by me. There is no change in the medications today. ASSESSMENT: 82-year-old male with acute renal failure, he is currently dialysis dependent, decompensated systolic heart failure, and status post right femoral endarterectomy during this admission for right limb ischemia. PLAN: 1. Acute renal failure progressed to end-stage renal disease, currently hemodialysis dependent. The patient is being dialyzed according to his regular schedule today. We shall try to remove about 2.5 liters of fluid as tolerated by his blood pressure. 2. Systolic congestive heart failure. The patient is decompensated. He required poyr-gf-vzam ultrafiltration and hemodialysis for four consecutive days for fluid removal. Volume status is being optimized at this time with hemodialysis only. Patient does not have significant urine output. 2.5 liters of ultrafiltration will be targeted today. 3. Chronic hypotension. Continue midodrine 10 mg by mouth before hemodialysis. 4. Thrombocytopenia. I do not have the latest complete blood count (CBC) from this patient, however we have stopped giving the patient heparin during hemodialysis or even in the catheter and we have also changed the dialyzer membrane during hemodialysis as well.
[2017-01-29] MEDS: ATORVASTATIN 20 MG TAB PO SCH (20:24)
--- NOTE | 2017-01-29 20:51 | IPNPDOC ---
Date Seen The patient was seen on 01/28/17. Progress Note SUBJECTIVE: Patient is without complaints OBJECTIVE PHYSICAL EXAMINATION: VITAL SIGNS: Please see below. GENERAL: No apparent distress HEENT: Normal CARDIOVASCULAR: Irregularly irregular. RESPIRATORY: Clear to auscultation bilaterally. ABDOMINAL: Soft nontender nondistended EXTREMITIES: Right lower extremities well perfused wounds are healing. NEUROLOGICAL: Alert oriented x3 with no focal deficits PSYCHOLOGICAL: Normal LABORATORY DATA: Please see below. MICROBIOLOGY: Please see below. ASSESSMENT AND PLAN: This is a 82-year-old white male with critical ischemia of the right lower extremity status post right femoral endarterectomy with postoperative renal failure and congestive heart failure.. PROBLEMS: 1. renal failure: Continues on hemodialysis. 2. congestive heart failure: Stable and improving. 3. right lower extremity critical limb ischemia: Low extremities well perfused wounds are healing.. DISPOSITION: Working towards discharge to a rehabilitation facility and will require outpatient hemodialysis chair. VS, I&O, 24H, Fishbone Vital Signs/I&O Vital Signs Date Time Temp Pulse Resp B/P (MAP) Pulse Ox O2 Delivery O2 Flow Rate FiO2 01/29/17 14:00 97.7 87 18 138/58 (84) 95 Room Air I&O- Last 24 Hours up to 6 AM 01/29/17 05:59 Intake Total 240 ml Output Total 2500 ml Balance -2260 ml Laboratory Data CBC/BMP Laboratory Tests 01/29/17 05:50 Red Blood Count 3.05 L, Mean Corpuscular Volume 115.1 H, Mean Corpuscular Hemoglobin 36.6 H, Mean Corpuscular Hemoglobin Concent 31.8 L, Red Cell Distribution Width 19.9 H Benedict Vang MD Jan 29, 2017 20:51
--- NOTE | 2017-01-29 20:55 | IPNPDOC ---
Date Seen The patient was seen on 01/29/17. Progress Note SUBJECTIVE: Patient is without complaints. Patient states he is ambulating and feels he is regaining his strength and mobility. OBJECTIVE PHYSICAL EXAMINATION: VITAL SIGNS: Please see below. GENERAL: No apparent distress HEENT: Normal CARDIOVASCULAR: Irregularly irregular. RESPIRATORY: Clear to auscultation with decreased breath sounds at the bases. ABDOMINAL: Soft nontender nondistended EXTREMITIES: Right lower extremities well-perfused, wounds are healing. NEUROLOGICAL: Awake alert oriented x3 with no focal deficits PSYCHOLOGICAL: Normal LABORATORY DATA: Please see below. MICROBIOLOGY: Please see below. ASSESSMENT AND PLAN: This is a 82-year-old white male with critical limb ischemia and nonhealing ulcers of the right lower extremity who underwent a right femoral endarterectomy with postoperative renal failure and congestive heart failure.. PROBLEMS: 1. renal failure: She continues on hemodialysis and has shown minimal signs of recovery of renal function.. 2. congestive heart failure: Stable and improving. 3. right lower extremity ischemia and arterial ulcerations: H is status post right femoral endarterectomy which is providing good perfusion to the right lower extremity. Wounds are showing signs of healing.. DISPOSITION: Patient is working towards discharge to short-term rehabilitation unit with outpatient hemodialysis. VS, I&O, 24H, Fishbone Vital Signs/I&O Vital Signs Date Time Temp Pulse Resp B/P (MAP) Pulse Ox O2 Delivery O2 Flow Rate FiO2 01/29/17 14:00 97.7 87 18 138/58 (84) 95 Room Air I&O- Last 24 Hours up to 6 AM 01/29/17 05:59 Intake Total 240 ml Output Total 2500 ml Balance -2260 ml Laboratory Data CBC/BMP Laboratory Tests 01/29/17 05:50 Red Blood Count 3.05 L, Mean Corpuscular Volume 115.1 H, Mean Corpuscular Hemoglobin 36.6 H, Mean Corpuscular Hemoglobin Concent 31.8 L, Red Cell Distribution Width 19.9 H Benedict Vang MD Jan 29, 2017 20:55
[2017-01-29 22:00] VITALS: BP 125/88
[2017-01-30] VITALS (8 sets, daily range): BP systolic 91–145; BP diastolic 45–79
[2017-01-30] MEDS: SODIUM CHLORIDE 0.9% INJ 10 ML SYR IV SCH ×3 (06:24→21:14)
--- NOTE | 2017-01-30 09:16 | IPN ---
DATE: 01/29/2017 SUBJECTIVE: The patient was seen and examined at the bedside today morning. He reports no active complaints at this time. The patient was dialyzed yesterday. He tolerated the hemodialysis procedure well. REVIEW OF SYSTEMS: The patient denies any fevers, chills, rigors, headache, nausea, vomiting, chest pain, shortness of breath. He reports mild weakness and he walks with the help of the walker. The rest of review of systems is negative. OBJECTIVE: VITAL SIGNS: Temperature is 97.8 degrees Fahrenheit. Blood pressure is 133/82, pulse is 83, respiratory rate of 18, saturating 96% on room air. Intake and output: Ultrafiltration with hemodialysis was 2.5 liters yesterday. Urine output is 100 mL overnight. Weight in the bed scale is 74.2 kg. PHYSICAL EXAMINATION: GENERAL: The patient is awake, alert and oriented times three, sitting in bed in no apparent distress. HEAD AND NECK EXAM: Extraocular muscles intact. Pupils equally round and reactive to light. Mucous membranes are moist. Neck is supple. There is no jugular venous distension (JVD). CARDIOVASCULAR: S1, S2 irregularly irregular heart rate. No murmur, rub or gallop. RESPIRATORY: Chest is clear to auscultation bilaterally. Bilateral equal air entry. No rales or rhonchi. AV ACCESS: The patient has a right internal jugular (IJ) tunnel hemodialysis catheter and left internal jugular (IJ) triple lumen catheter. ABDOMEN: Soft. Positive bowel sounds. Nontender. No ascites. No organomegaly. MUSCULOSKELETAL: The patient has 1+ edema of the bilaterally lower extremities. Pulses are 2+. No clubbing or cyanosis. CENTRAL NERVOUS SYSTEM: No focal neurological deficit. Power is 5/5 in all extremities. PSYCHIATRIC: Normal mood and affect. LABORATORY REVIEW: Complete blood count (CBC) showed a white blood count (WBC) of 5, hemoglobin 11.2, platelets are 78. Basic metabolic panel (BMP) is not available today. CURRENT INPATIENT MEDICATION: The patient's medications are all reviewed by me. There is no change in the medications today as compared with yesterday. ASSESSMENT: 82-year-old male status post right femoral endarterectomy during this admission. Hematocrit complicated by acute renal failure, which is hemodialysis dependent at this time and systolic congestive heart failure. PLAN: 1. Acute renal failure, which has progressed to end-stage renal disease. The patient is dialysis dependent. Continue three times a week hemodialysis for now. Last hemodialysis sessions was yesterday. The patient will be evaluated on Monday for the need to do extra ultrafiltration for congestive heart failure. 2. Decompensated systolic congestive heart failure. The patient is polyuric at this time. His volume status is being optimize with hemodialysis and ultrafiltration sessions. His weight is down to 74 kg, which would be at his estimated dry weight at this time. 3. Hypotension. Blood pressure is acceptable at this time. Continue midodrine 10 mg by mouth before hemodialysis sessions. 4. Anemia and end-stage renal disease. Continue current dose of Aranesp. Hemoglobin level is acceptable at this time. 5. Thrombocytopenia. The patient's platelet count has increased to 78, thus is stopping heparin and changing his dialysis filter. Continue to monitor for now.
[2017-01-30] MEDS: SANTYL OINT 30GM TOP SCH (09:52)
[2017-01-30] MEDS: MIDODRINE 5 MG TAB PO SCH (10:30)
[2017-01-30 12:41] LABS: ADD MORPHOLOGY? YES; BASO % 0.3 % (0.0-1.0); EOS # 0.1 K/mm3 (0.0-0.50); LARGE UNSTAINED CELL # 0.1 K/mm3 (0.0-0.4); LARGE UNSTAINED CELL % 1.3 % (0.0-4.0); LYMPH # 0.6 K/mm3 (1.5-4.5); LYMPH % 9.1 % (24.0-44.0); MEAN CORPUSCULAR HEMOGLOBIN 36.2 pg (27.0-33.0); MEAN CORPUSCULAR HGB CONC 31.4 g/dl (32.0-36.5); MEAN CORPUSCULAR VOLUME 115.4 fl (80.0-96.0); MONO # 0.2 K/mm3 (0.0-0.8); NEUTROPHILS # 5.9 K/mm3 (1.8-7.7); NEUTROPHILS % 84.3 % (36.0-66.0); RED CELL DISTRIBUTION WIDTH 19.4 % (11.5-14.5)
[2017-01-30 12:45] LABS: INR 1.35
[2017-01-30 13:02] LABS: ABG BASE EXCESS -1.2 (-2.0-2.0); ABG HCO3 23.2 MEQ/L (22.0-26.0); ABG PARTIAL PRESSURE CO2 38.1 mmHg (35.0-45.0); ABG PARTIAL PRESSURE O2 124.4 mmHg (75.0-100.0); ABG STANDARD HCO3 23.5 MEQ/L (22.0-26.0); ABG TOTAL CO2 24.4 MEQ/L (23.0-31.0); ABG pH (ARTERIAL) 7.403 UNITS (7.350-7.450)
[2017-01-30 13:13] LABS: ALBUMIN 2.6 GM/DL (3.2-5.2); ALBUMIN/GLOBULIN RATIO 0.58 (1.00-1.93); CALCIUM LEVEL 8.4 MG/DL (8.8-10.2); CREATININE FOR GFR 1.54 MG/DL (0.70-1.30); FREE T4 1.32 NG/DL (0.76-1.46); GLOMERULAR FILTRATION RATE 46.4 (>35); MAGNESIUM LEVEL 2.3 MG/DL (1.8-2.4); PHOSPHORUS LEVEL 2.6 MG/DL (2.5-4.9); TOTAL PROTEIN 7.1 GM/DL (6.4-8.2)
--- NOTE | 2017-01-30 13:20 | REP ---
PORTABLE CHEST: AP portable view of the chest is performed and compared to prior study of 12/30/2016. There is again cardiomegaly with bibasilar infiltrates/atelectasis and bilateral effusions, left greater than right. The findings are similar to the prior exam. Multiple sternal wires and mediastinal clips are present. There is a right sided double lumen central venous catheter with the tip in the superior vena cava. There is also placement of a left central venous catheter with tip in the superior vena cava. IMPRESSION: Bibasilar infiltrates/atelectasis and pleural effusions left greater than right. There is no change since prior study of 12/30/2016, except for placement of bilateral central venous catheters. Signed by Tao Grullon MD 01/31/2017 08:40 A
--- NOTE | 2017-01-30 13:21 | IPN ---
DATE: 01/30/2017 SUBJECTIVE: The patient was seen and examined at the bedside today morning during hemodialysis. The patient was tolerating the hemodialysis procedure well. He is hemodynamically stable. REVIEW OF SYSTEMS: The patient denies any fevers, chills, rigors, headache, nausea, vomiting, or chest pain. He does report mild shortness of breath. He is requiring a nasal cannula at this time. He denies any pain in the abdomen, constipation or diarrhea. The rest of review of systems is negative. OBJECTIVE: VITAL SIGNS: Temperature is 97.3 degrees Fahrenheit. Blood pressure is 145/66, pulse is 101, respiratory rate of 18, saturating 93% on room air. INTAKE AND OUTPUT: Urine output recorded as only 200 mL overnight. Weight on the bed scale is 73.9 kg. PHYSICAL EXAMINATION: GENERAL: The patient is awake, alert and oriented times three, laying in bed getting hemodialysis done. HEAD AND NECK EXAM: Extraocular muscles intact. Pupils equally round and reactive to light. Mucous membranes are moist. Neck is supple. There is mildly elevated jugular venous distension (JVD). CARDIOVASCULAR: S1, S2 irregularly irregular heart rate. No murmur, rub or gallop. RESPIRATORY: Chest is clear to auscultation bilaterally. Bilateral equal air entry. No rales or rhonchi. AV ACCESS: The patient has a right internal jugular (IJ) tunneled hemodialysis catheter which is being used for dialysis. ABDOMEN: Soft. Positive bowel sounds. Nontender. No ascites. No organomegaly. MUSCULOSKELETAL: No clubbing or cyanosis. Patient has 1+ pitting edema of the bilaterally lower extremities. CENTRAL NERVOUS SYSTEM: No focal neurological deficit. Power is 5/5 in all extremities. PSYCHIATRIC: Normal mood and affect. LABORATORY REVIEW: CBC showed a WBC of 5 and hemoglobin was 11.2 yesterday, platelets were 78. His BMP is not available today. ASSESSMENT: 82-year-old male status post right femoral endarterectomy during this admission. Hospital course complicated by acute renal failure. He is hemodialysis dependent at this time and patient also has decompensated systolic congestive heart failure. PLAN: 1. Acute renal failure. Patient has progressed to end-stage renal disease. He is currently dialysis dependent. There are no signs of recovery at this time. He is only making 200 mL of urine. Outpatient hemodialysis placement has been done. The patient has Monday, Monday, and Monday spot as an outpatient. 2. Decompensated systolic congestive heart failure. The patient's volume status is being optimize with hemodialysis. I shall try to do an ultrafiltration of about 2.5 liters as tolerated by his blood pressure. 3. Anemia and end-stage renal disease. The patient's hemoglobin was more than 11. No need of Aranesp at this time. 4. Thrombocytopenia. The patient's platelet count is improving with a change in the dialysis filter and stopping the heparin because he had HIT antibody positive. 5. Hypotension. Blood pressure is acceptable at this time. Continue midorine 10 mg before hemodialysis sessions.
[2017-01-30 13:33] LABS: PLATELET COUNT, AUTOMATED 27 k/mm3 (150-450)
[2017-01-30 13:36] LABS: ANISOCYTOSIS 2+
[2017-01-30 14:37] LABS: MEAN CORPUSCULAR HGB CONC 31.7 g/dl (32.0-36.5); MEAN CORPUSCULAR VOLUME 113.9 fl (80.0-96.0); RED CELL DISTRIBUTION WIDTH 19.8 % (11.5-14.5)
--- NOTE | 2017-01-30 14:38 | CR.PDOC ---
[facility] Consultation Consultation CONSULTATION REPORT FOR: Dr Vang REASON FOR CONSULTATION: Medical Management DATE OF VISIT: 01/30/17 ATTENDING: Dr. Middleton Pediatric Surgeon: Dr Rodriguez HPI: 82year oldM with a past medical history significant for ESRD, on HD who was undergoing HD today when he began to feel SOB. He was noted to have NS VTach. Pt c/o SOB and RAT was called. The Pt was given IV Amiodarone and spontaneously returned to SR. The pt was transferred for further care to ICU. Cardiology consulted. Denies any fevers, chills, weakness, fatigue, Headache, Chest Pain, Shortness of breath, cough, palpitations, abdominal pain, N/V/D or changes in bowel or bladder habits. PMHx: CAD/CABG Hyperlipidemia PVD Hypertension, recent h/o chronic hypotension Atrial fibrillation Gout PVD/PAD PSHX: CABG Carotid endarterectomy Aortic valve replacement, bovine valve Cholecystectomy MVR bioprosthetic Tonsillectomy Adenoidectomy Rt femoral endarterectomy SOCHX: Resides: , lives with family Marital Status: Tobacco use: None ETOH:None ROS: As noted in HPI, otherwise 11pt ROS of systems reviewed and remarkable only for SOB occurring in HD today. PE: GEN: 82yoM, appears stated age. Alert and oriented x 3. HEENT: Normocephalic, atraumatic. Sclera are nonicteric. Conjunctiva without injection. Nose midline. Nasal turbinates without bogginess. No facial asymmetry. Moist mucous membranes. Pharynx moist. trachea midline. CHEST: +S1, +S2 irreg irreg LUNGS:dec BS bilaterally. No wheezes, rales, or rhonchi. ABD: Round, soft, non-tender, non-distended. +Bowel sounds throughout. No rebound or guarding. No costovertebral angle tenderness. EXT: No lower extremity edema appreciated. SKIN: No rashes. NEURO: No focal deficits appreciated. TTE 01/05/17 EF 25%, status post aortic valve replacement bioprosthetic, mitral valve bioprosthesis, severe left atrial dilatation, LA 5.8 cm A&P:82year oldM with a past medical history significant for ESRD, on HD who was undergoing HD today when he began to feel SOB. He was noted to have NS VTach. Pt c/o SOB and RAT was called. The Pt was given IV Amiodarone and spontaneously returned to SR. The pt was transferred for further care to ICU. Cardiology consulted. The Pt is discussed with Dr Austyn Elizondo. The Pt will be followed by Dr Middleton. 1. NS V Tach. S/P Amiodarone IV. Currently SR as per TM. Labs are pending including CMP/Mag/CBC/BNP/Cardiac markers/LA/TFT. BC x 2 pending. CXR pending. EKG pending. Dr Mcgarry consulted and will see Pt. INR pending. Coumadin on hold related to thrombocytopenia. 2. H/O A Fib. Coumdin on hold as above. 3. ESRD. HD as per Nephrology. 4. CAD/CABG. ICU/TM. EKG pending. Serial CIP/Trop pending. Continue statin. prn SL NTG. 5. CHF, systolic. EF 25% TTE 01/09. HD mgmt as per nephrology. 6. Chronic Anemia secondary to CKD. Aranesp as per Nephrology. 7. Hypotension. Chronic. Receives Midodrine prior to HD. 8. RLE ischemia/Rt femoral endarterectomy. As per Dr Vang. Pain control/wound mgmt as per Dr Vang. 9. Thrombocytopenia. Heparin on hold. Coumadin on hold. HIT Ab pos. Plt trend has been improving. CBC pending. Thank you for your consultation. We will continue to follow along with you. Vital Signs/I&O Vital Signs Date Time Temp Pulse Resp B/P (MAP) Pulse Ox O2 Delivery O2 Flow Rate FiO2 01/30/17 06:00 97.3 101 20 145/66 (92) 93 Room Air I&O- Last 24 Hours up to 6 AM 01/30/17 05:59 Intake Total 840 ml Output Total 200 ml Balance 640 ml Laboratory Data Labs 24H Labs pending Allergies Coded Allergies: Heparin (Verified Allergy, Intermediate, 01/31/17) Heparin Induced Thrombocytopenia Unclassified Drugs (Verified Allergy, Unknown, OPTI 180 DIALYZER, 01/31/17) Home Medications Scheduled Amiodarone HCl (Amiodarone HCl) 200 Mg Tab, 400 MG PO BID, #60 BID for 12 additional days, then decrease to once daily from then on Atorvastatin Calcium (Atorvastatin Calcium) 40 Mg Tab, 40 MG PO Q2D, (Reported) TAKES AT HS Bumetanide (Bumetanide) 1 Mg Tab, 2 MG PO BID@0900,1700, #60 Collagenase (Santyl) 250 Unit/Gm Oin, 1 DOSE TOP Q2D, (Reported) APPLY TO FOOT Scheduled PRN Acetaminophen/Hydrocodone (Hydrocodone/Acetaminophen 5-325 mg) 1 Tab Tab, 1 TAB PO Q6H PRN for PAIN, (Reported) Nitroglycerin (Nitrostat) 0.4 Mg Subl, 0.4 MG SL Q5MP PRN for CHEST PAIN, ( Reported) Zolpidem Tartrate (Ambien) 10 Mg Tab, 5 MG PO QHSP PRN for INSOMNIA, #4 Sunitha Laureano Jan 30, 2017 14:01 RADHA ELIZONDO MD Feb 06, 2017 02:00
[2017-01-30] MEDS: PERCOCET 5MG/325MG TAB PO PRN ×2 (15:52→23:07)
--- NOTE | 2017-01-30 18:22 | IPN ---
DATE: 01/30/2017 RAPID RESPONSE NOTE Rapid response called at dialysis center at 12:00 noon. The patient was seen in the dialysis center. The patient is alert. Rapid response called for tachycardia. Patient's vital signs were done. The patient was hooked up to the monitor. Vital signs show a blood pressure of 140/80 and a heart rate of 150. Monitor shows wide complex tachycardia consistent with ventricular tachycardia. The patient has mild tachypnea but still alert, responsive, follows commands. Amiodarone was requested from the nursing staff and 150 mg of amiodarone was given along with magnesium 1 gram, magnesium sulfate, and in between the process, the patient converted back to narrow complex sinus tachycardia with stable vital signs. The patient was transferred to the intensive care unit (ICU). Nursing keypunch operators supervisor, Susan, has attempted to contact Dr. Vang, patient's attending, for further instructions. In the meantime, cardiology, Dr. Mcgarry, was called. The patient just received midodrine prior to dialysis and further information gathered showing the patient has an ejection fraction of 25%. The patient was moved to the ICU. EKG was done. Stat labs were ordered. EKG shows atrial fibrillation with a rate of 109. PHYSICAL EXAMINATION: VITAL SIGNS: Temperature 98.2, pulse 112, respirations 18, blood pressure 129/60, pulse oximetry 96% on room air. GENERAL: Patient comfortable, mildly tachypneic, no acute distress. HEENT: Normocephalic, atraumatic. PULMONARY: Decreased breath sounds bilaterally. No wheeze, rales or rhonchi. CARDIAC: Irregularly irregular tachycardia. ABDOMEN: Soft, nontender, positive bowel sounds. EXTREMITIES: No edema bilateral lower extremities. ASSESSMENT AND PLAN: This is an 82-year-old male patient with underlying medical history of congestive heart failure (CHF) with ejection fraction of 25%, end-stage renal disease, on hemodialysis. Rapid response called for ventricular tachycardia during dialysis, patient was given midodrine prior to dialysis, possibly due to midodrine had increased workload of the heart, subsequently inducing ventricular tachycardia. Amiodarone dose was given. Cardiology, Dr. Mcgarry, was called. The patient is currently in atrial fibrillation with a ventricular rate of 110s. Will further monitor in ICU. Patient will need further cardiology workup, possibly need automatic implantable cardioverter defibrillator (AICD). Further recommendation as per survey rodman and further anticoagulation recommendation as per survey rodman. ESTIMATED CRITICAL TIME: 30 minutes.
[2017-01-30] MEDS ORDERED: MAGNESIUM SULFATE 1 GM/100 ML D5W BAG (10MG/ML) (J3475) ONE (20:34)
[2017-01-30] MEDS ORDERED: AMIODARONE 150MG/3ML INJ (J0282) ONE (20:34)
--- NOTE | 2017-01-30 23:30 | IPNPDOC ---
Date Seen The patient was seen on 01/30/17. Progress Note SUBJECTIVE: Patient is without complaints. Patient developed hypotension, atrial fibrillation with rapid ventricular response and required a rapid response from hemodialysis today. Patient states he has no complaints at this time. OBJECTIVE PHYSICAL EXAMINATION: VITAL SIGNS: Please see below. GENERAL: Lying in pain in no apparent distress. HEENT: Normal CARDIOVASCULAR: Irregularly irregular. RESPIRATORY: Clear to auscultation with decreased breath sounds at the bases. ABDOMINAL: Soft nontender nondistended with no palpable pulsatile masses EXTREMITIES: Right lower extremity is well-perfused wounds are stable and healing slowly. NEUROLOGICAL: Awake alert oriented x3 with no focal deficits PSYCHOLOGICAL: Normal LABORATORY DATA: Please see below. MICROBIOLOGY: Please see below. ASSESSMENT AND PLAN: This is a 82-year-old white male with right lower extremity limb threatening ischemia who underwent a right femoral endarterectomy and postoperatively developed acute renal failure and congestive of heart failure. During dialysis today the patient had hypotension, atrial fibrillation with rapid ventricular response and required rapid response for treatment of his condition. PROBLEMS: 1. right lower extremity critical limb ischemia: Patient is status post right femoral endarterectomy with improve perfusion to his right lower extremity. Right foot wounds are healing albeit slowly. 2. renal failure: Patient is currently on dialysis and being followed by the nephrology team. 3. congestive heart failure: Patient had a rapid response today due to hypotension, atrial fibrillation with rapid ventricular response. Patient also has a decrease in his platelets, which were initially improving but have now decreased significantly. I've asked the medical team to take over the medical management of this patient as his surgical issues are under control and the patient continues to have multiple medical issues which require treatment by the hospitalists. They have agreed to transfer Mr. Hassan to their service. VS, I&O, 24H, Fishbone Vital Signs/I&O Vital Signs Date Time Temp Pulse Resp B/P (MAP) Pulse Ox O2 Delivery O2 Flow Rate FiO2 01/30/17 23:07 18 01/30/17 22:00 81 91/50 (64) 01/30/17 20:00 98.0 95 Room Air 01/30/17 13:00 1.0 I&O- Last 24 Hours up to 6 AM 01/30/17 05:59 Intake Total 840 ml Output Total 200 ml Balance 640 ml Laboratory Data 24H LABS Laboratory Tests 2 01/30/17 12:00: White Blood Count 7.0, Red Blood Count 3.41L, Hemoglobin 12.3L, Hematocrit 39.4L , Mean Corpuscular Volume 115.4H, Mean Corpuscular Hemoglobin 36.2H, Mean Corpuscular Hemoglobin Concent 31.4L, Red Cell Distribution Width 19.4H, Platelet Count 27*L, Neutrophils (%) (Auto) 84.3H, Lymphocytes (%) (Auto) 9.1L, Monocytes (%) (Auto) 3.0, Eosinophils (%) (Auto) 2.0, Basophils (%) (Auto) 0.3, Neutrophils # (Auto) 5.9, Lymphocytes # (Auto) 0.6L, Monocytes # (Auto) 0.2, Eosinophils # (Auto) 0.1, Basophils # (Auto) 0.0, Large Unclassified Cells % 1.3 , Large Unclassified Cells # 0.1, Platelet Estimate MARKED DECREASE, Anisocytosis 2+, Macrocytosis 2+, Anion Gap 10, Glomerular Filtration Rate 46.4 , Blood Urea Nitrogen 24H, Creatinine 1.54H, Sodium Level 139, Potassium Level 4.0, Chloride Level 104, Carbon Dioxide Level 25, Calcium Level 8.4L, Phosphorus Level 2.6, Aspartate Amino Transf (AST/SGOT) 48H, Alanine Aminotransferase (ALT/SGPT) 31, Total Creatine Kinase 45, Alkaline Phosphatase 204H, Total Bilirubin 1.0, Total Protein 7.1, Albumin 2.6L, Magnesium Level 2.3 , Creatine Kinase MB 2.3, Creatine Kinase MB Relative Index 5.11H, Troponin I 0.07, Albumin/Globulin Ratio 0.58L, Thyroid Stimulating Hormone (TSH) 2.580, Free Thyroxine 1.32, Total Triiodothyronine 78.9 01/30/17 12:24: Prothrombin Time 17.0H, Prothromb Time International Ratio 1.35, Activated Partial Thromboplast Time 40.1H, Lactic Acid Level 1.8 01/30/17 12:55: Blood Gas Bicarbonate Standard 23.5, Arterial Blood pH 7.403, Arterial Blood Partial Pressure CO2 38.1, Arterial Blood Partial Pressure O2 124.4H, Arterial Blood Total CO2 24.4, Arterial Blood HCO3 23.2, Arterial Blood Base Excess -1.2 , Arterial Blood Oxygen Saturation 98.9 01/30/17 16:23: Total Creatine Kinase 44, Creatine Kinase MB 2.7, Creatine Kinase MB Relative Index 6.13H, Troponin I 0.07 CBC/BMP Laboratory Tests 01/30/17 12:00 Red Blood Count 3.41 L, Mean Corpuscular Volume 115.4 H, Mean Corpuscular Hemoglobin 36.2 H, Mean Corpuscular Hemoglobin Concent 31.4 L, Red Cell Distribution Width 19.4 H, Neutrophils (%) (Auto) 84.3 H, Lymphocytes (%) (Auto ) 9.1 L, Monocytes (%) (Auto) 3.0, Eosinophils (%) (Auto) 2.0, Basophils (%) ( Auto) 0.3, Neutrophils # (Auto) 5.9, Lymphocytes # (Auto) 0.6 L, Monocytes # ( Auto) 0.2, Eosinophils # (Auto) 0.1, Basophils # (Auto) 0.0, Calcium Level 8.4 L , Phosphorus Level 2.6, Aspartate Amino Transf (AST/SGOT) 48 H, Alanine Aminotransferase (ALT/SGPT) 31, Total Creatine Kinase 45, Alkaline Phosphatase 204 H, Total Bilirubin 1.0, Total Protein 7.1, Albumin 2.6 L 01/30/17 14:11 Red Blood Count 3.17 L, Mean Corpuscular Volume 113.9 H, Mean Corpuscular Hemoglobin 36.0 H, Mean Corpuscular Hemoglobin Concent 31.7 L, Red Cell Distribution Width 19.8 H Microbiology Microbiology 01/30/17 Blood Culture, Received Pending 01/30/17 Blood Culture, Received Pending Benedict Vang MD Jan 30, 2017 23:30
[2017-01-31] VITALS (12 sets, daily range): BP systolic 85–159; BP diastolic 50–69
[2017-01-31 05:58] LABS: MEAN CORPUSCULAR HEMOGLOBIN 35.7 pg (27.0-33.0); MEAN CORPUSCULAR HGB CONC 30.9 g/dl (32.0-36.5); MEAN CORPUSCULAR VOLUME 115.3 fl (80.0-96.0); RED CELL DISTRIBUTION WIDTH 19.9 % (11.5-14.5); WHITE BLOOD COUNT 5.1 K/mm3 (4.0-10.0)
[2017-01-31] MEDS: SODIUM CHLORIDE 0.9% INJ 10 ML SYR IV SCH ×3 (06:00→21:13)
[2017-01-31 06:17] LABS: ALBUMIN 2.7 GM/DL (3.2-5.2); ALBUMIN/GLOBULIN RATIO 0.64 (1.00-1.93); BILIRUBIN,TOTAL 0.9 MG/DL (0.2-1.0); CALCIUM LEVEL 8.6 MG/DL (8.8-10.2); CREATININE FOR GFR 2.2 MG/DL (0.70-1.30); GLOMERULAR FILTRATION RATE 30.7 (>35); POTASSIUM SERUM 4.5 MEQ/L (3.5-5.1); TOTAL PROTEIN 6.9 GM/DL (6.4-8.2)
[2017-01-31] MEDS: AMIODARONE 200 MG TAB (PACERONE) PO SCH ×2 (09:23→21:12)
--- NOTE | 2017-01-31 13:34 | IPN ---
DATE: 01/31/2017 SUBJECTIVE: The patient tells me that he feels well today and has no complaints. He tells me that yesterday during the episode he felt very unwell and felt weak, lightheaded. OBJECTIVE: VITAL SIGNS: Temperature 98.1, pulse 92 and irregular, respiratory rate 18, blood pressure 159/69, oxygen saturation 98% on room air. GENERAL: He is an elderly, man sitting in his bed upright. He does not appear to be in any acute distress whatsoever. HEENT: He is wearing glasses. He has moist mucous membranes. He does have some elevation in central venous pressure. CARDIOVASCULAR EXAMINATION: S1, S2. Irregularly irregular. RESPIRATORY EXAM: Diminished at the bases. ABDOMINAL EXAM: Obese. Bowel sounds present. The abdomen is soft. EXTREMITIES: He has 2 to 3+ edema bilaterally. LABORATORY STUDIES: WBC 5.1, hemoglobin 11.1, hematocrit 36, platelet count 38, up from 31. Chemistry panel: Sodium 137, potassium 4.5, chloride 103, bicarbonate 27, BUN 35, creatinine 2.2. INR yesterday was 1.3. Heparin induced thrombocytopenia (HIT) antibody is times two elevated. Hepatitis panel has been negative. Microbiology: Blood cultures are negative after 24 hours. Clostridium (C.) difficile is negative from the 18th. IMAGING: The patient had a chest x-ray yesterday that revealed bibasilar infiltrates and atelectasis and pleural effusions, left greater than right, but no change since the prior study on 12/30/2016. ASSESSMENT AND PLAN: This is an 82-year-old man status post rapid assessment yesterday during hemodialysis. 1. Nonsustained ventricular tachycardia. The patient was underlying hemodialysis yesterday when he began to have shortness of breath. On the monitor, he was felt to be in stable NSVT. Rapid assessment was called. The patient is a DO NOT RESUSCITATE. He was given amiodarone times one and spontaneously returned to sinus rhythm. He was transferred to the medical/intensive care unit. A cardiology consultation was placed with Dr. Mcgarry, who agreed to see the patient. Unfortunately, it turned out that he was not this patient's primary client resource specialist. The patient normally follows with DR. Cordova. I did have the chance to speak with Dr. Cordova today, who felt that given the patient is a DO NOT RESUSCITATE, he is not a candidate for AICD and felt that he had nothing to add to the case and suggested that nitrates as blood pressure would tolerate would be best, as well as beta jose if his blood pressure could support it. At this time, I have discontinued the patient's midodrine, which was a new medication for him and started him on amiodarone 400 mg twice a day. I did discuss with the patient that he has had an arrhythmia and that give his severe systolic congestive heart failure (CHF) that he is at risk for repeat arrhythmias and sudden cardiac . At this time, he remains a DO NOT RESUSCITATE, but he will think long and hard about it and discuss further with Dr. Cordova. He did express to me that he has not had a lengthy discussion with Dr. Cordova regarding this. Dr. Cordova informed me that he did have this discussion many times in the past. This morning, the patient's potassium is optimized. His magnesium was adequate yesterday. 2. History of atrial fibrillation. The patient has been started on amiodarone. He is not requiring any rate controlling agents. He was previously on Coumadin, which has been on hold. We will continue to monitor his INR. He is thrombocytopenic. 3. Thrombocytopenia. I did discuss with Dr. Rothman, who has informed me that he feels that this is related to the dialyzer filter. We will attempt to change his dialyzer membrane. Continue to monitor his platelets daily. 4. End stage renal disease on hemodialysis, schedule as per nephrology. Their help is greatly appreciated. 5. Anemia. Likely related to renal disease. He has been started on Aranesp. As per nephrology. 6. Coronary artery disease with ischemic cardiomyopathy and systolic congestive heart failure (CHF). The patient was not tolerating hemodialysis. As such, he was recently tried on midodrine. At this time, we will discontinue this. We will attempt hemodialysis without antihypertensives. Should he become hypertensive, we will consider starting hydralazine and nitrates as per Dr. Cordova's recommendation. He has been started on amiodarone today. We will gently add these medications. He is on Lipitor. We will see if he is able to tolerate beta jose. 7. Right lower extremity ischemia and peripheral arterial disease. He is status post endarterectomy and was most recently on Dr. Vang's vascular surgery service, however, we have taken him onto the hospitalist service given the multitude of medical problems, which are active. 8. Deep vein thrombosis (DVT) prophylaxis. Sequential compression device (SCD) and TEDs. No pharmacological agents secondary to thrombocytopenia. 9. Insomnia. Continue with Ambien as needed. MTDD
[2017-01-31] MEDS: PERCOCET 5MG/325MG TAB PO PRN (15:33)
--- NOTE | 2017-01-31 18:42 | CCN ---
DATE: 01/31/2017 SUBJECTIVE: The patient was seen and examined at the bedside today morning. Last 24 hour events were noted. Patient had gotten about 1 hour of dialysis yesterday, when during dialysis he became short of breath and tachycardiac. The patient was found to have nonsustained ventricular tachycardia. He was given a dose of amiodarone 150 mg IV times one dose that converted him back into sinus rhythm. Patient was transferred to intensive care unit (ICU). Patient reports that he feels better now. He is currently in atrial fibrillation, but otherwise hemodynamically stable. Also noted during the labs done during the response, patient had a significant drop in the platelet count right after discontinuation of the dialysis, his platelet count dropped from a morning level of 78-27. Patient had been started on amiodarone by the primary team at this time. REVIEW OF SYSTEMS: Patient denies any fevers, chills, rigors, headache, nausea, vomiting, chest pain, palpitations, pain in abdomen, constipation, diarrhea. He still reports lower extremity edema and reports some weakness and he has to walk with the help of a walker. The rest of the review of systems is negative. OBJECTIVE: VITAL SIGNS: Temperature is 98.4 degrees Fahrenheit, blood pressure is 145/60, pulse is 89, respiratory rate of 16, saturating 97% on room air. INTAKE and OUTPUT: Urine output recorded yesterday is 275 mL. Ultrafiltration with hemodialysis was 335 mL. Weight in the bed scale is 70.9 kg. PHYSICAL EXAMINATION: GENERAL: Patient is awake, alert, oriented times three, sitting in the bed in no apparent distress. HEAD and NECK EXAM: Extraocular muscles intact. Pupils equally round and reactive to light. Mucous membranes are moist. Neck is supple. There is a mild elevation of jugular venous distension (JVD). CARDIOVASCULAR: S1, S2, irregularly irregular heart rate. No murmur, rub or gallop. RESPIRATORY: Chest is clear to auscultation bilaterally. Bilateral equal air entry. No rales or rhonchi. ARTERIOVENOUS (AV) ACCESS: Patient has a right internal jugular (IJ) tunneled hemodialysis catheter. ABDOMEN: Soft. Positive bowel sounds. Nontender. No ascites. No organomegaly. MUSCULOSKELETAL: No clubbing or cyanosis. Patient has 1+ pitting edema of the bilateral lower extremities up to knees. CENTRAL NERVOUS SYSTEM: No focal neurological deficit. Power is 5/5 in all extremities. PSYCHIATRIC: Normal mood and affect. SKIN: No rashes or ulcers. LABORATORY REVIEW: CBC showed a WBC of 5.1, hemoglobin 11.1, platelets are 38. INR is 1.35. BMP done today morning showed sodium 137, potassium 4.5, chloride 103, bicarbonate 27, BUN 35, creatinine is 2.2, calcium 8.6, albumin is 2.7, TSH 2.5, free T4 1.3. MICROBIOLOGY: Blood cultures drawn yesterday during dialysis are negative so far. IMAGING: Patient got a chest x-ray done yesterday which showed bibasilar infiltrates or atelectasis, pleural effusions, left greater than right. CURRENT INPATIENT MEDICATIONS: Patient's medications were all reviewed by me. His midodrine has been stopped. Patient has been started on amiodarone 400 mg by mouth twice a day. There is no other change in the medications today as compared with yesterday. ASSESSMENT: 82-year-old male with a prolonged hospitalization. He is status post right femoral endarterectomy during this admission and after that he went into cardiogenic shock along with renal failure. He was initially on pressors. His shock improved after hemodialysis and ultrafiltration. The patient is currently hemodialysis dependent at this time. The patient had an episode of nonsustained ventricular tachycardia during hemodialysis yesterday and he was transferred to intensive care unit (ICU). PLAN: 1. Central venous system (PRODUCT MANAGEMENT CONSULTANT). No acute central nervous system (PRODUCT MANAGEMENT CONSULTANT) issues. Patient is oriented times three at this time. 2. Cardiovascular: --> Patient has systolic congestive heart failure with left ventricular (LV) ejection fraction around 25%. Volume status is being optimized with hemodialysis. Patient will need another episode of ultrafiltration today in the intensive care unit (ICU). We shall try to remove about 2 to 2.5 liters of fluid as tolerated by his blood pressure. -->HFrEF: The patient has low ejection fraction. He is DO NOT RESUSCITATE. He is not a candidate for automatic implantable cardioverter defibrillator (AICD) as recommended by cardiology. However, I agree with starting the patient on amiodarone 400 mg by mouth twice a day for 2 weeks and then it can be lowered to 200 mg by mouth daily. That would help with the patient's chronic history of atrial fibrillation. However, patient is not a candidate for anticoagulation at this time because of thrombocytopenia. 4. Respiratory. The patient is stable on room air. No significant fluid overload at this time. 5. Renal. Patient has progressed to end-stage renal disease. He is hemodialysis dependent. Last hemodialysis was done yesterday, but it was terminated early because of arrhythmia. Patient will get another session of ultrafiltration today and next full hemodialysis session will be done tomorrow as per his Monday, Monday, Monday schedule. 6. Hematologic/oncologic. The patient has anemia of end-stage renal disease. Continue current dose of Aranesp. Hemoglobin is 11.1 which is acceptable at this time. 7. Thrombocytopenia. I see a trend in his platelet drop after hemodialysis. Patient is most likely allergic to Optiflux 180 dialyzer membrane. I have added this filter to one of his allergies and I have started the patient dialyzing with Exeltra 170 filter now. 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 We are not giving the patient any heparin. 8. Musculoskeletal. The patient is status post right femoral endarterectomy during this admission. Right leg ischemia has improved. The patient is getting physical therapy and he walks with the help of a walker now. The plan of care was discussed with the hospitalist, Dr. Josefa Garcia. I spent a total of 45 minutes in the critical care of this patient. MARTINA
[2017-01-31] MEDS: ATORVASTATIN 20 MG TAB PO SCH (21:12)
--- NOTE | 2017-01-31 23:44 | IPNPDOC ---
Date Seen The patient was seen on 01/31/17. Progress Note SUBJECTIVE: Patient is without complaints. OBJECTIVE PHYSICAL EXAMINATION: VITAL SIGNS: Please see below. GENERAL: Lying in bed in no apparent distress HEENT: Normal CARDIOVASCULAR: Irregularly irregular. RESPIRATORY: Clear to auscultation bilaterally. ABDOMINAL: Soft nontender nondistended EXTREMITIES: Right lower extremity is well-perfused. Right foot wounds are healing slowly. Right femoral incision site is healing well. NEUROLOGICAL: Awake alert oriented x3 with no focal deficits PSYCHOLOGICAL: Normal LABORATORY DATA: Please see below. MICROBIOLOGY: Please see below. ASSESSMENT AND PLAN: This is a 82-year-old white male with right lower extremity critical limb ischemia and nonhealing ulcerations who underwent a right femoral endarterectomy with postoperative renal failure and congestive heart failure. Patient has had a complicated postoperative course with multiple medical issues. PROBLEMS: 1. right lower extremity arterial insufficiency: Patient is doing well postoperatively from a right femoral endarterectomy with healing of the wounds in the right foot and resolution of his critical limb ischemia and rest pain. 2. renal failure requiring hemodialysis: Patient is being followed and undergoing dialysis per the nephrology team. 3. congestive heart failure: Patient is transferred to the hospitalist service for medical management. DISPOSITION: . VS, I&O, 24H, [facility] Vital Signs/I&O Vital Signs Date Time Temp Pulse Resp B/P (MAP) Pulse Ox O2 Delivery O2 Flow Rate FiO2 01/31/17 20:00 96.9 82 20 125/51 (75) 96 Room Air 01/30/17 13:00 1.0 I&O- Last 24 Hours up to 6 AM 01/31/17 06:00 Intake Total 555 ml Output Total 610 ml Balance -55 ml Laboratory Data 24H LABS Laboratory Tests 2 01/31/17 05:38: Anion Gap 7L, Glomerular Filtration Rate 30.7L, Blood Urea Nitrogen 35H, Creatinine 2.20H, Sodium Level 137, Potassium Level 4.5, Chloride Level 103, Carbon Dioxide Level 27, Calcium Level 8.6L, Aspartate Amino Transf (AST/SGOT) 50H, Alanine Aminotransferase (ALT/SGPT) 34, Alkaline Phosphatase 217H, Total Bilirubin 0.9, Total Protein 6.9, Albumin 2.7L, Albumin/Globulin Ratio 0.64L CBC/BMP Laboratory Tests 01/31/17 05:38 Red Blood Count 3.12 L, Mean Corpuscular Volume 115.3 H, Mean Corpuscular Hemoglobin 35.7 H, Mean Corpuscular Hemoglobin Concent 30.9 L, Red Cell Distribution Width 19.9 H, Calcium Level 8.6 L, Aspartate Amino Transf (AST/SGOT ) 50 H, Alanine Aminotransferase (ALT/SGPT) 34, Alkaline Phosphatase 217 H, Total Bilirubin 0.9, Total Protein 6.9, Albumin 2.7 L Microbiology Microbiology 01/30/17 Blood Culture - Preliminary, Resulted No growth after 24 hours . All specim... 01/30/17 Blood Culture - Preliminary, Resulted No growth after 24 hours . All specim... Benedict Vang MD Jan 31, 2017 23:44
[2017-02-01] VITALS (7 sets, daily range): BP systolic 90–129; BP diastolic 48–59
[2017-02-01] MEDS: zolPIDEM TARTRATE 10MG TAB PO PRN (02:37)
[2017-02-01] MEDS: SODIUM CHLORIDE 0.9% INJ 10 ML SYR IV SCH ×3 (05:16→21:25)
[2017-02-01 06:14] LABS: MEAN CORPUSCULAR HEMOGLOBIN 36.1 pg (27.0-33.0); MEAN CORPUSCULAR HGB CONC 31.7 g/dl (32.0-36.5); MEAN CORPUSCULAR VOLUME 113.7 fl (80.0-96.0); RED CELL DISTRIBUTION WIDTH 18.6 % (11.5-14.5); WHITE BLOOD COUNT 5.1 K/mm3 (4.0-10.0)
[2017-02-01 06:19] LABS: INR 1.31
[2017-02-01 06:27] LABS: CALCIUM LEVEL 8.6 MG/DL (8.8-10.2); CREATININE FOR GFR 2.48 MG/DL (0.70-1.30); GLOMERULAR FILTRATION RATE 26.8 (>35); POTASSIUM SERUM 4.7 MEQ/L (3.5-5.1)
[2017-02-01] MEDS: AMIODARONE 200 MG TAB (PACERONE) PO SCH ×2 (06:27→21:24)
[2017-02-01] MEDS: SANTYL OINT 30GM TOP SCH (10:30)
[2017-02-01] MEDS: BUMETANIDE 1 MG TAB PO SCH ×2 (12:17→17:00)
--- NOTE | 2017-02-01 13:14 | IPN ---
DATE: 02/01/2017 SUBJECTIVE: The patient tells me that he feeling tired, but otherwise feels well and has no complaints. He denies palpitations, lightheadedness, dizziness, chest pressure, shortness of breath, nausea, vomiting, diarrhea. OBJECTIVE: VITAL SIGNS: Temperature 97.5, pulse 95, respiratory rate 18, blood pressure 129/57, oxygen saturation 97% on room air. GENERAL: He is a pleasant elderly man sleeping peacefully as I enter the room, but easily arousable to verbal stimuli. He is awake, alert and oriented times three. Does not appear to be in any acute distress whatsoever, laying flat. HEENT: Cranial nerves II through XII are grossly intact. He has moist mucous membranes. He does have some elevation in central venous pressure. CARDIOVASCULAR EXAMINATION: S1, S2. Irregularly irregular. RESPIRATORY EXAM: Clear. ABDOMINAL EXAM: Bowel sounds present. The abdomen is soft. EXTREMITIES: There is 2 to 3+ edema bilaterally. LABORATORY STUDIES: WBC 5.1, hemoglobin 11.1, platelet count 46, up from 38. Chemistry panel: Sodium 137, potassium 4.7, chloride 104, bicarbonate 24, BUN 43, creatinine 2.4, up slightly from 2.2 yesterday. INR today is 1.3. Blood cultures are negative after 24 hours. No new imaging. ASSESSMENT AND PLAN: This is an 82-year-old man status post rapid assessment with nonsustained V-tach. 1. Nonsustained V-tach. The patient is a DO NOT RESUSCITATE. I did revisit this with him in the setting of his recent arrhythmia and his low ejection fraction, he does wish to remain a DNR and as such he is not a candidate for an AICD and this was discussed at length with him by myself. He has been started on amiodarone 400 mg twice a day. We will continue this for 13 more days and then taper him down to once a day dosing. His blood pressure did tolerate ultrafiltration yesterday. We will see how he does with hemodialysis today before starting any hydralazine or nitrates as per Dr. Cordova's verbal recommendations over the phone. 2. Congestive heart failure (CHF) and cardiogenic shock. The patient was see previously in the ICU on dobutamine drip. At the present time he is still volume overloaded. His volume status is being optimized via hemodialysis. Dr. Rothman started him on Bumex today. 3. Acute renal failure. Likely multifactorial in nature related to his procedure, <<2:35>> contrast, congestive heart failure (CHF), acute on chronic kidney disease. At this time he is hemodialysis dependent, although his renal function does appear to be slowly improving. He has been started on Bumex today. Nephrology's help is greatly appreciated. 4. History of atrial fibrillation. The patient has been started on amiodarone. He is not requiring any rate controlling agents. He was previously anticoagulated with Coumadin, but this is on hold secondary to thrombocytopenic. 5. Thrombocytopenia. Max to be related to his dialysis filter. His platelet functions are rising with the a change in the filter. Will continue to monitor. 6. Anemia. Likely related to renal disease. He has been started on Aranesp as per nephrology. 7. Right lower extremity ischemia status post femoral endarterectomy by Dr. Vang. The patient was previously on the vascular surgery service. We have taken him on the hospitalist as his acute issues are medical. 8. Insomnia. The patient is continued on Ambien. 9. Coronary artery disease. Patient is on a statin. He is not on a beta-jose. I would introduce his blood pressure adjust could like to be done in the outpatient setting via his asset specialist along with hydralazine and nitrates. Will start Coumadin when his platelets are greater than 100. For the time being, I would not start him on his aspirin given his thrombocytopenia. 10. Deep vein thrombosis (DVT) prophylaxis. Sequentials and thromboembolic deterrent stockings (TEDS). No pharmacological agents secondary to thrombocytopenia. DISPOSITION: Physical therapy and occupational therapy pending. Likely subacute rehab. At this time, he is a DO NOT RESUSCITATE. After lengthy discussions he is at risk for sudden cardiac but is aware of this. He is medically stable for transfer to medical/surgical floor.
[2017-02-01] MEDS: PERCOCET 5MG/325MG TAB PO PRN ×2 (15:55→21:25)
--- NOTE | 2017-02-01 16:23 | IPN ---
DATE: 02/01/2017 SUBJECTIVE: Patient was seen and examined at the bedside today morning. He feels much better as compared to yesterday. He has been downgraded from intensive care unit (ICU). He was dialyzed yesterday. Two liters of fluid was removed. Patient is hemodynamically stable at this time. There are no new episodes of ventricular tachycardia, and he was started on amiodarone yesterday. REVIEW OF SYSTEMS: Patient denies any fevers, chills, rigors, headache, nausea, vomiting, chest pain, shortness of breath, palpitations, pain in abdomen, constipation, or diarrhea. Rest of review of systems is negative. OBJECTIVE: Vital signs: Temperature is 97.6 degrees Fahrenheit, blood pressure is 90/51, pulse is 89, respiratory rate of 18, saturating 92% on room air. Intake and output: Urine output is not recorded. Weight in the bed scale is 68.2 kg yesterday. Ultrafiltration with hemodialysis was 2 liters. PHYSICAL EXAMINATION: GENERAL: Patient is awake, alert, oriented times three, sitting in the bed. No apparent distress. HEAD AND NECK: Extraocular muscles intact. Pupils are equally round and reactive to light. Mucous membranes are moist. Neck is supple. There is mildly elevated jugular venous distention (JVD). CARDIOVASCULAR: S1, S2, with irregularly irregular heart rate. No murmur, rub, or gallop. RESPIRATORY: Chest is clear to auscultation bilaterally. Bilateral equal air entry. No rales or rhonchi. AV ACCESS: Patient has a right internal jugular (IJ) tunneled hemodialysis catheter, and he has a left IJ triple-lumen catheter. ABDOMEN: Soft. Positive bowel sounds. Nontender. No ascites. No organomegaly. MUSCULOSKELETAL: Patient has no clubbing or cyanosis. Patient has 1+ pitting edema of the bilateral lower extremities up to knees. CENTRAL NERVOUS SYSTEM: No focal neurological deficit. Power is 5/5 in all extremities. PSYCHIATRIC: Normal mood and affect. SKIN: No rashes or ulcers. LABORATORY REVIEW: CBC showed a WBC 5.1, hemoglobin 11.1, platelets are 46. BMP showed sodium 137, potassium 4.7, chloride 104, bicarbonate 23, BUN is 10, creatinine is 2.4, calcium 8.6. CURRENT INPATIENT MEDICATIONS: Patient's medications were all reviewed by me. He is currently on amiodarone 400 mg by mouth twice a day, which was started yesterday. Morphine has been stopped. I also started him on Bumex 2 mg by mouth twice a day. There is no other change in the medications today. ASSESSMENT: An 82-year-old male with past medical history of congestive heart failure with reduced ejection fraction who has refused automatic implantable cardioverter-defibrillator (AICD) in the past. He has had prolonged hospitalization at this time. He was initially admitted with a right leg ischemia, status post right femoral endarterectomy. He went into cardiogenic shock and acute renal failure after that. Patient is hemodialysis dependent, and he was again admitted to intensive care unit (ICU) because of nonsustained ventricular tachycardia during hemodialysis session. Patient is stable at this time. PLAN: 1. Acute renal failure, which has progress to end-stage renal disease. I see that patient's creatinine is slowly going up between hemodialysis sessions. It was 2.2 yesterday, 2.48 today. Patient is still dialysis dependent; however, I am going to do a bladder scan on the patient to see if he is holding any urine, and I am going to start the patient on Bumex 2 mg by mouth twice a day to help improve his volume status. I will continue to monitor the patient for improvement of renal function. 2. Decompensated systolic congestive heart failure. Patient's volume status is being optimized with hemodialysis. Patient is going to need another session of ultrafiltration to remove more fluid. Patient's outpatient dialysis schedule is Monday, Monday, Monday, so he will get hemodialysis and ultrafiltration today as per his outpatient schedule. 3. Thrombocytopenia. It is most likely secondary to reaction to [employer] Opti 180 dialyzer filter membrane. He is being dialyzed with Exeltra 170 filter, and platelet count is slowly coming up. 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 4. History of chronic atrial fibrillation. Patient is currently on amiodarone, which will control his heart rate. At the same, because of the history of reduced ejection fraction and congestive heart failure, it would prevent further arrhythmias as well. He is not a candidate for anticoagulation at this time because of severe thrombocytopenia. 5. Right lower extremity [place], status post right femoral endarterectomy. Patient is significantly improving. Vascular surgery has transferred the patient under the care of the hospitalist service at this time. 6. Anemia and end-stage renal disease. Hemoglobin is acceptable at 11.1 now. I am going to hold the Aranesp at this time. It will be restarted if hemoglobin drops below 10. MTDD
--- NOTE | 2017-02-01 21:41 | ECGEPIP ---
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 : [id number] Requested By: DAVID CERVANTES Order Number: [id number] Reading MD: Rigo Burns Measurements Intervals [place] Rate: 102 P: NE: 0 QRS: 90 QRSD: 130 T: 262 QT: 389 QTc: 508 Interpretive Statements ATRIAL FIBRILLATION WITH RAPID VENTRICULAR RESPONSE WITH ABERRANT CONDUCTION OR VENTRICULAR PREMATURE COMPLEXES POSSIBLE ANTEROSEPTAL MYOCARDIAL INFARCTION, OF INDETERMINATE AGE ST DEVIATION AND MODERATE T-WAVE ABNORMALITY, CONSIDER ISCHEMIA COMPARED TO THE LAST 2 TRACINGS IN THE SYSTEM, NO SIGNIFICANT CHANGES BUT HEART RATE IS NOW FASTER Electronically Signed On 02-01-2017 21:40:59 EDT by Rigo Burns
--- NOTE | 2017-02-01 22:10 | IPNPDOC ---
Date Seen The patient was seen on 02/01/17. Progress Note SUBJECTIVE: Patient is without complaints, no pain in the right lower extremity. OBJECTIVE PHYSICAL EXAMINATION: VITAL SIGNS: Please see below. GENERAL: Lying in bed and appears comfortable. HEENT: Normal CARDIOVASCULAR: Irregularly irregular. RESPIRATORY: Clear to auscultation bilaterally with decreased breath sounds at the bases. ABDOMINAL: Soft nontender nondistended EXTREMITIES: Lower extremities well perfused. Right foot ulcers are clean with some granulation tissue. NEUROLOGICAL: Awake alert oriented x3 PSYCHOLOGICAL: Normal LABORATORY DATA: Please see below. MICROBIOLOGY: Please see below. ASSESSMENT AND PLAN: This is a 82-year-old white male with right lower extremity arterial insufficiency with ulcerations and critical limb ischemia and was underwent a right femoral endarterectomy with postoperative acute on chronic renal failure and decompensated congestive heart failure. Patient has had multiple setbacks with prolonged hospitalization due to multiple medical problems. PROBLEMS: 1. right lower extremity arterial insufficiency with ulceration of the right foot: Right lower extremity is well-perfused status post a right femoral endarterectomy. 2. acute on chronic renal failure: Patient is hemodialysis dependent and renal replacement therapy is being directed by the nephrology team. 3. decompensated congestive heart failure and nonsustained ventricular tachycardia: Patient has been transferred to the hospitalist service for management of his acute medical issues. [facility]&O Vital Signs Date Time Temp Pulse Resp B/P (MAP) Pulse Ox O2 Delivery O2 Flow Rate FiO2 02/01/17 21:57 20 02/01/17 20:21 119/59 (79) 02/01/17 19:55 99.5 84 96 Room Air 01/30/17 13:00 1.0 I&O- Last 24 Hours up to 6 AM 02/01/17 05:59 Intake Total 750 ml Output Total 2000 ml Balance -1250 ml Laboratory Data 24H LABS Laboratory Tests 2 02/01/17 05:55: Prothrombin Time 16.6H, Prothromb Time International Ratio 1.31, Anion Gap 10, Glomerular Filtration Rate 26.8L, Blood Urea Nitrogen 43H, Creatinine 2.48H, Sodium Level 137, Potassium Level 4.7, Chloride Level 104, Carbon Dioxide Level 23, Calcium Level 8.6L CBC/BMP Laboratory Tests 02/01/17 05:55 Red Blood Count 3.09 L, Mean Corpuscular Volume 113.7 H, Mean Corpuscular Hemoglobin 36.1 H, Mean Corpuscular Hemoglobin Concent 31.7 L, Red Cell Distribution Width 18.6 H, Calcium Level 8.6 L Microbiology Microbiology 01/30/17 Blood Culture - Preliminary, Resulted No Growth after 48 hours. All Specime... 01/30/17 Blood Culture - Preliminary, Resulted No Growth after 48 hours. All Specime... Benedict Vang MD Feb 01, 2017 22:10
[2017-02-02 04:00] VITALS: BP 105/55
[2017-02-02] MEDS: SODIUM CHLORIDE 0.9% INJ 10 ML SYR IV SCH ×3 (04:06→21:04)
[2017-02-02 07:00] LABS: MEAN CORPUSCULAR HEMOGLOBIN 35.8 pg (27.0-33.0); MEAN CORPUSCULAR HGB CONC 31.4 g/dl (32.0-36.5); MEAN CORPUSCULAR VOLUME 114.2 fl (80.0-96.0); RED CELL DISTRIBUTION WIDTH 19.4 % (11.5-14.5); WHITE BLOOD COUNT 4.8 K/mm3 (4.0-10.0)
[2017-02-02 07:03] LABS: INR 1.34
[2017-02-02 07:11] LABS: CALCIUM LEVEL 7.9 MG/DL (8.8-10.2); CREATININE FOR GFR 2.36 MG/DL (0.70-1.30); GLOMERULAR FILTRATION RATE 28.3 (>35); POTASSIUM SERUM 4.2 MEQ/L (3.5-5.1)
[2017-02-02 08:00] VITALS: BP 116/56
[2017-02-02] MEDS: BUMETANIDE 1 MG TAB PO SCH ×2 (08:13→16:26)
[2017-02-02] MEDS: AMIODARONE 200 MG TAB (PACERONE) PO SCH ×2 (08:14→21:04)
[2017-02-02 10:35] VITALS: BP 120/59
--- NOTE | 2017-02-02 13:16 | IPN ---
DATE: 02/02/2017 SUBJECTIVE: The patient today is restless. He did not sleep well last night. He is frustrated with being in the hospital and having been here for so long. He is eager to leave the hospital. He denies any pain, palpitations, lightheadedness, dizziness, nausea, vomiting, or diarrhea. OBJECTIVE: VITAL SIGNS: Temperature 98.2, pulse 81, respiratory rate 18, blood pressure 116/56 oxygen saturation 96% on room air. GENERAL: He is a pleasant elderly man lying in bed. He does not appear to be in any acute distress. HEENT: Cranial nerves II through XII are grossly intact. Moist mucous membranes. Some mild elevation in central venous pressure. CARDIOVASCULAR EXAMINATION: S1, S2. Irregularly irregular. RESPIRATORY EXAM: Fairly clear. ABDOMINAL EXAM: Benign. EXTREMITIES: There is 1+ edema bilaterally, significantly improved from previous day. LABORATORY STUDIES: WBC 4.8, hemoglobin 11.3, platelet count 54, up from 46. Chemistry panel: Sodium 135, potassium 4.2, chloride 101, bicarbonate 24, BUN 30, creatinine 2.6, INR is 1.3. No new imaging. Microbiology is negative thus far. ASSESSMENT AND PLAN: This is an 82-year-old man status post rapid assessment with nonsustained V-tach. 1. Nonsustained V-tach. The patient is a DO NOT RESUSCITATE. This was revisited with him. He does not wish to be evaluated for an AICD at this time. He may reconsider in the future. Will discuss further with his grape pruner, Dr. Cordova. He has a low ejection fraction, 25%, and is aware that he is at risk for sudden cardiac . He will be continued on amiodarone 40 mg twice a day for 12 additional days and then titrate down to once a day dosing. 2. Decompensated systolic congestive heart failure (CHF) and cardiogenic shock. His cardiogenic shock is resolved. His blood pressure is stable. He is no longer on a dobutamine drip. He is still somewhat decompensated but volume status is being optimized via hemodialysis. Dr. Rothman has also started him on Bumex. He is much more stable and his volume status is improving every day. 3. Acute renal failure. Likely multifactorial in nature. He is dialysis dependent. He has also been started on Bumex. Nephrology's help is greatly appreciated. 4. Atrial fibrillation. He is on amiodarone. He does not require any other rate controlling agents prior to this. He was previously anticoagulated with Coumadin, which is on hold secondary to thrombocytopenia. 5. Thrombocytopenia. [place] to be an allergic reaction to his dialysis filter. He is improving now that this has been changed. Continue to monitor. Consider reinitiating Coumadin once his platelets are greater than 100. 6. Anemia. Likely related to renal disease. He is on Aranesp as per nephrology. This is on hold given that his anemia is mild. 7. Right lower extremity ischemia. He is status post femoral endarterectomy by Dr. Vang. He appears to be recovering well. He was working with physical therapy (PT) and felt to be safe for subacute rehabilitation. We are currently seeking placement for him. 8. Insomnia. The patient is continued on Ambien. 9. Coronary artery disease. The patient is on a statin. His blood pressure could not tolerate a beta-jose. When able, recommend starting hydralazine and nitrate should his blood pressure be able to tolerate it. He is not on an aspirin given his thrombocytopenia. He should have close followup with his grape pruner, Dr. Cordova. 10. Deep vein thrombosis (DVT) prophylaxis. Sequentials and thromboembolic deterrent stockings (TEDS). No pharmacological agents secondary to thrombocytopenia. DISPOSITION: He is a DO NOT RESUSCITATE. Awaiting placement in subacute rehabilitation.
[2017-02-02 14:00] VITALS: BP 106/49
--- NOTE | 2017-02-02 17:34 | IPN ---
DATE: 02/02/2017 SUBJECTIVE: Patient was seen and examined at the bedside today morning. He is feeling better. Patient got hemodialysis done. He tolerated the hemodialysis procedure well. He is afebrile and hemodynamically stable at this time. REVIEW OF SYSTEMS: Patient denies any fevers, chills, rigors, headache, nausea, vomiting, chest pain, shortness of breath. He does report lower extremity edema and weakness, and he needs to walk with the help of a walker. Rest of review of systems is negative. OBJECTIVE: Vital signs: Temperature is 98.2 degrees Fahrenheit, blood pressure is 116/56, pulse is 90, respiratory rate of 18, saturating 96% on room air. Intake and output: Urine output recorded is only 150 mL. Ultrafiltration with hemodialysis was 2 liters yesterday. Weight in the bed scale is 68 kg. PHYSICAL EXAMINATION: GENERAL: Patient is awake, alert, oriented times three, sitting in the bed. No apparent distress. HEAD AND NECK: Extraocular muscles intact. Pupils equally round and reactive to light. Mucous membranes are moist. Neck is supple. There is no jugular venous distention (JVD). CARDIOVASCULAR: S1, S2, irregularly irregular heart rate. No murmur, rub, or gallop. RESPIRATORY: Chest is clear to auscultation bilaterally. Bilateral equal air entry. No rales or rhonchi. AV ACCESS: Patient has a right internal jugular (IJ) tunneled hemodialysis catheter. left IJ triple-lumen catheter has been removed. ABDOMEN: Soft. Positive bowel sounds. Nontender. No ascites. No organomegaly. MUSCULOSKELETAL: Patient has no clubbing or cyanosis. He has 1+ pitting edema of the bilateral lower extremities. CENTRAL NERVOUS SYSTEM: No focal neurological deficit. Power is 5/5 in all extremities. PSYCHIATRIC: Patient is frustrated at this time. He wants to get out of the hospital. SKIN: No rashes or ulcers. LABORATORY REVIEW: CBC showed a WBC 4.8, hemoglobin 11.3, platelets are 54, which is improving. BMP showed sodium 135, potassium 4.2, chloride 101, bicarbonate 26, BUN 30, creatinine is 2.3, calcium 7.9. CURRENT INPATIENT MEDICATIONS: Patient's medications were all reviewed by me. He was started on Bumex 2 mg by mouth twice a day to help increase his urine output and keep him euvolemic in between hemodialysis sessions. ASSESSMENT: An 82-year-old male with past medical history of congestive heart failure with reduced ejection fraction. He refused automatic implantable cardioverter-defibrillator (AICD) placement in the past. Prolonged hospitalization this time. Initially he was admitted with right leg ischemia status post right femoral endarterectomy. Patient has developed end-stage renal disease during this hospitalization. He is currently hemodialysis dependent. Patient also has history of atrial fibrillation. PLAN: 1. Acute renal failure progressed to end-stage renal disease at this time. No significant urine output at this time. Patient was started on Bumex 2 mg p twice a day. Continue to monitor creatinine in between hemodialysis session. Patient is currently hemodialysis dependent. Continue the Monday, Monday, Monday hemodialysis for now. Patient is allergic to Opti 180 dialyzer. He is being dialyzed with Exeltra 170. 2. Decompensated systolic congestive heart failure. Patient's volume status is being optimized with hemodialysis and ultrafiltration sessions. His weight has decreased down to 68 kg now. He was started on Bumex to help with diuresis and keep him euvolemic between hemodialysis sessions. 3. Thrombocytopenia. Patient is allergic to [employer] Opti 180 dialyzer filter membrane. His dialyzer has been changed to Exeltra 170. Platelet count is slowly coming up. 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 4. History of chronic atrial fibrillation and systolic congestive heart failure. Patient has been started on amiodarone, and heart rate is controlled at this time. Not a candidate of anticoagulation because of thrombocytopenia. 5. Anemia and end-stage renal disease. Patient's hemoglobin is 11.3. Aranesp has been stopped. 6. Status post right femoral endarterectomy for right leg ischemia. Patient is getting physical therapy. Ischemia has improved. Ulcers have healed. Rest of the management as per vascular surgery.
[2017-02-02] MEDS: ATORVASTATIN 20 MG TAB PO SCH (21:04)
[2017-02-02] MEDS: zolPIDEM TARTRATE 10MG TAB PO PRN (21:17)
--- NOTE | 2017-02-02 23:34 | IPNPDOC ---
Date Seen The patient was seen on 02/02/17. Progress Note SUBJECTIVE: Patient is without complaints. OBJECTIVE PHYSICAL EXAMINATION: VITAL SIGNS: Please see below. GENERAL: Lying in bed in no apparent distress. HEENT: Normal CARDIOVASCULAR: Irregularly irregular. RESPIRATORY: Clear to auscultation. ABDOMINAL: Soft nontender nondistended EXTREMITIES: Right lower extremities well perfused. Right foot ulcers are healing slowly. NEUROLOGICAL: Awake alert oriented x3 PSYCHOLOGICAL: Normal LABORATORY DATA: Please see below. MICROBIOLOGY: Please see below. ASSESSMENT AND PLAN: This is a 82-year-old white male with a limb threatening critical ischemia in the right lower extremity and nonhealing right foot ulcers with rest pain who underwent right femoral endarterectomy with postoperative cardiogenic shock, congestive heart failure and acute on chronic renal failure which resulted in requiring hemodialysis. PROBLEMS: 1. right lower extremity critical limb ischemia: Patient's right foot is better perfused after undergoing a right femoral endarterectomy and his wounds are healing slowly. VS, I&O, 24H, Fishbone Vital Signs/I&O Vital Signs Date Time Temp Pulse Resp B/P (MAP) Pulse Ox O2 Delivery O2 Flow Rate FiO2 02/02/17 14:00 97.4 76 16 106/49 (68) 93 Room Air 01/30/17 13:00 1.0 I&O- Last 24 Hours up to 6 AM 02/02/17 06:00 Intake Total 1040 ml Output Total 2150 ml Balance -1110 ml Laboratory Data 24H LABS Laboratory Tests 2 02/02/17 06:13: Prothrombin Time 16.9H, Prothromb Time International Ratio 1.34, Anion Gap 10, Glomerular Filtration Rate 28.3L, Blood Urea Nitrogen 30H, Creatinine 2.36H, Sodium Level 135L, Potassium Level 4.2, Chloride Level 101, Carbon Dioxide Level 24, Calcium Level 7.9L 02/02/17 11:52: Bedside Glucose (Misc Panel) 137H 02/02/17 21:16: Bedside Glucose (Misc Panel) 122H CBC/BMP Laboratory Tests 02/02/17 06:13 Red Blood Count 3.16 L, Mean Corpuscular Volume 114.2 H, Mean Corpuscular Hemoglobin 35.8 H, Mean Corpuscular Hemoglobin Concent 31.4 L, Red Cell Distribution Width 19.4 H, Calcium Level 7.9 L Microbiology Microbiology 01/30/17 Blood Culture - Preliminary, Resulted No Growth after 72 hours. All specime... 01/30/17 Blood Culture - Preliminary, Resulted No Growth after 72 hours. All specime... Benedict Vang MD Feb 02, 2017 23:34
[2017-02-03] MEDS: SODIUM CHLORIDE 0.9% INJ 10 ML SYR IV SCH ×4 (06:33→21:40)
[2017-02-03 07:14] LABS: MEAN CORPUSCULAR HEMOGLOBIN 35.3 pg (27.0-33.0); MEAN CORPUSCULAR HGB CONC 31.3 g/dl (32.0-36.5); MEAN CORPUSCULAR VOLUME 112.7 fl (80.0-96.0); RED CELL DISTRIBUTION WIDTH 18.9 % (11.5-14.5); WHITE BLOOD COUNT 6.2 K/mm3 (4.0-10.0)
[2017-02-03 07:23] LABS: CALCIUM LEVEL 8.4 MG/DL (8.8-10.2); CREATININE FOR GFR 2.79 MG/DL (0.70-1.30); GLOMERULAR FILTRATION RATE 23.4 (>35); POTASSIUM SERUM 4.4 MEQ/L (3.5-5.1)
[2017-02-03 07:29] LABS: INR 1.31
[2017-02-03] MEDS ORDERED: BUME1TA PO (08:27)
[2017-02-03] MEDS ORDERED: AMIO200T PO (08:27)
[2017-02-03] MEDS ORDERED: AMBI10TA PO (08:27)
[2017-02-03] MEDS: SANTYL OINT 30GM TOP SCH (09:05)
[2017-02-03] MEDS: PERCOCET 5MG/325MG TAB PO PRN ×3 (09:05→21:34)
[2017-02-03] MEDS: AMIODARONE 200 MG TAB (PACERONE) PO SCH ×2 (09:05→21:34)
[2017-02-03] MEDS: BUMETANIDE 1 MG TAB PO SCH (09:06)
--- NOTE | 2017-02-03 11:45 | REP ---
RIGHT ELBOW, FOUR VIEWS: HISTORY: Fall. There is no acute fracture or dislocation. There is narrowing of the joint space. An osteophyte is present on the ulna. IMPRESSION: There is no acute fracture or dislocation. Signed by Diego Pimentel MD 02/03/2017 11:53 A
--- NOTE | 2017-02-03 11:47 | REP ---
RIGHT SHOULDER, THREE VIEWS: HISTORY: Fall. COMPARISON: 01/05/2009. There is no acute fracture or dislocation. There is narrowing of the joint spaces with associated osteophyte formation. IMPRESSION: There is no acute fracture or dislocation. Signed by Diego Pimentel MD 02/03/2017 11:53 A
--- NOTE | 2017-02-03 11:49 | REP ---
RIGHT HIP, ONE VIEW: HISTORY: Fall. There is no acute fracture or dislocation. There is narrowing of the joint space with associated osteophyte formation. IMPRESSION: There is no acute fracture or dislocation. Signed by Diego Pimentel MD 02/03/2017 11:53 A
[2017-02-03] MEDS: ACETAMINOPHEN TAB 650MG DOSE (2X325MG) PO PRN (12:18)
--- NOTE | 2017-02-03 17:02 | IPN ---
DATE: 02/03/2017 SUBJECTIVE: Patient was seen and examined at the bedside today morning. Patient reports no active complaints at this time. He is afebrile, hemodynamically stable. I was told by the primary team that patient is ready to be discharged to subacute rehabilitation today. REVIEW OF SYSTEMS: Patient denies any fevers, chills, rigors, headache, nausea, vomiting, chest pain, shortness of breath. Rest of review of systems is negative. OBJECTIVE: Vital signs: Temperature is 97.4 degrees Fahrenheit, blood pressure is 106/49, pulse is 76, respiratory rate of 16, saturating 93% on room air. Intake and output: There is no significant urine output recorded at this time. Urine output was 150 mL overnight. Weight in the bed scale is stable at 68 kg. PHYSICAL EXAMINATION: GENERAL: Patient is awake, alert, oriented times three, sitting in the bed. No apparent distress. HEAD AND NECK: Extraocular muscles intact. Pupils equally round and reactive to light. Mucous membranes are moist. Neck is supple. There is no jugular venous distention (JVD). CARDIOVASCULAR: S1, S2, irregularly irregular heart rate. No murmur, rub, or gallop. RESPIRATORY: Chest is clear to auscultation bilaterally. Bilateral equal air entry. No rales or rhonchi. AV ACCESS: Patient has a right internal jugular (IJ) tunneled hemodialysis catheter. ABDOMEN: Soft. Positive bowel sounds. Nontender. No ascites. No organomegaly. MUSCULOSKELETAL: Patient has no clubbing or cyanosis. He has 1+ pitting edema of the bilateral lower extremities. CENTRAL NERVOUS SYSTEM: No focal neurological deficit. Power is 5/5 in all extremities. PSYCHIATRIC: Normal mood and affect. LABORATORY REVIEW: CBC showed a WBC 6.2, hemoglobin 11.2, platelets are 64. BMP showed sodium 135, potassium 4.4, chloride 101, bicarbonate 23, BUN 44, creatinine is 2.7, calcium 8.4. CURRENT INPATIENT MEDICATIONS: Patient's medications were all reviewed by me. I have stopped his Bumex, because he is not having any good diuretic response to diuretics. Tums has been stopped as well. There is no other change in the medications today as compared with yesterday. ASSESSMENT: An 82-year-old male with past medical history of congestive heart failure with reduced ejection fraction. No automatic implantable cardioverter-defibrillator (AICD) because he refused in the past. Prolonged hospitalization at this time. He is status post a right femoral endarterectomy during this admission. Patient has developed renal failure during this admission. He is dialysis dependent at this time. PLAN: 1. Acute renal failure progressed to end-stage renal disease. Patient is currently dialysis dependent. His outpatient schedule for dialysis is Monday, Monday, Monday at 3 p.m. Patient will be dialyzed as outpatient today according to his schedule. 2. Systolic congestive heart failure. Patient's volume status is being optimized with hemodialysis. Further ultrafiltration will be done during hemodialysis today as outpatient. I am stopping the Bumex, because patient is not responding well to the diuretics. 3. Thrombocytopenia. Patient is allergic to [employer]ius Opti 180 dialyzer filter membrane. He will be dialyzed as outpatient with Exeltra 170 filter. 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 4. History of chronic atrial fibrillation and systolic congestive heart failure (CHF) with low ejection fraction. Patient is currently on amiodarone. Heart rate is well controlled. No anticoagulation because of thrombocytopenia. 5. Status post right femoral endarterectomy. Patient is being sent to subacute rehabilitation. He will continue his physical therapy over there. It is okay to discharge the patient from nephrology standpoint. The plan of care was discussed the hospitalist, Dr. Josefa Garcia. I have informed the outpatient dialysis center about patient's discharge today. Most recent dry weight and orders were sent to the center.
[2017-02-03] MEDS: zolPIDEM TARTRATE 10MG TAB PO PRN (21:34)
[2017-02-03 22:00] VITALS: BP 117/66
--- NOTE | 2017-02-03 22:52 | IPNPDOC ---
Date Seen The patient was seen on 02/03/17. Progress Note SUBJECTIVE: Patient is without complaints OBJECTIVE PHYSICAL EXAMINATION: VITAL SIGNS: Please see below. GENERAL: Lying in bed comfortably HEENT: Normal CARDIOVASCULAR: Irregularly irregular. RESPIRATORY: Clear to auscultation bilaterally. ABDOMINAL: Soft nontender nondistended EXTREMITIES: Right lower extremity is well-perfused. Right foot wounds are healing. NEUROLOGICAL: Awake alert oriented x3 PSYCHOLOGICAL: Normal LABORATORY DATA: Please see below. MICROBIOLOGY: Please see below. ASSESSMENT AND PLAN: This is a 82-year-old white male with right lower extremity critical limb ischemia and arterial ulcerations who underwent a right femoral endarterectomy with postoperative renal failure and congestive heart failure. PROBLEMS: 1. renal failure: The patient is currently on hemodialysis and is under the care of the nephrology team for his renal replacement therapy. 2. 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 DISPOSITION: Patient is in the process of being discharged to a subacute rehabilitation. Patient should followup with myself in 5-7 days. Patient should followup up with Dr. Christensen for outpatient wound care. VS, I&O, [facility] Vital Signs/I&O Vital Signs Date Time Temp Pulse Resp B/P (MAP) Pulse Ox O2 Delivery O2 Flow Rate FiO2 02/03/17 22:05 18 02/03/17 12:47 Room Air 02/02/17 14:00 97.4 76 106/49 (68) 93 01/30/17 13:00 1.0 I&O- Last 24 Hours up to 6 AM 02/03/17 06:00 Intake Total 600 ml Output Total 100 ml Balance 500 ml Laboratory Data 24H LABS Laboratory Tests 2 02/03/17 06:51: Prothrombin Time 16.6H, Prothromb Time International Ratio 1.31, Anion Gap 11, Glomerular Filtration Rate 23.4L, Blood Urea Nitrogen 44H, Creatinine 2.79H, Sodium Level 135L, Potassium Level 4.4, Chloride Level 101, Carbon Dioxide Level 23, Calcium Level 8.4L 02/03/17 11:38: Bedside Glucose (Misc Panel) 123H CBC/BMP Laboratory Tests 02/03/17 06:51 Red Blood Count 3.18 L, Mean Corpuscular Volume 112.7 H, Mean Corpuscular Hemoglobin 35.3 H, Mean Corpuscular Hemoglobin Concent 31.3 L, Red Cell Distribution Width 18.9 H, Calcium Level 8.4 L Microbiology Microbiology 01/30/17 Blood Culture - Preliminary, Resulted No Growth after 72 hours. All specime... 01/30/17 Blood Culture - Preliminary, Resulted No Growth after 72 hours. All specime... Benedict Vang MD Feb 03, 2017 22:52
--- NOTE | 2017-02-03 23:40 | DSES ---
DATE OF ADMISSION: 12/30/2016 DATE OF DISCHARGE: DISCHARGE DIAGNOSIS: Cardiogenic shock. SECONDARY DIAGNOSES: 1. Acute renal failure on chronic hemodialysis. 2. Nonsustained ventricular tachycardia. 3. Atrial fibrillation. 4. Right lower extremity ischemia. 5. Peripheral arterial disease. 6. Thrombocytopenia. 7. Anemia. 8. Insomnia. 9. Coronary artery disease. 10. Systolic congestive heart failure, decompensated. HOSPITAL COURSE: The patient had a long and tumultuous hospital course mostly on the vascular surgery service beginning with admission greater than 34 days ago. At that time, the patient had right foot pain and ischemia. The patient did undergo femoral posterior tibial artery bypass graft. His Coumadin was reversed and he was placed on a heparin drip. Patient was seen in consultation by Dr. Rodriguez and Dr. Rothman of nephrology who managed his cardiogenic shock in the medical intensive care unit postoperatively. Surprisingly, he was not seen by his group therapist throughout his entire stay despite his numerous cardiac issues. The patient's acute renal failure was felt to be related to hypotension, congestive heart failure, radiocontrast dye. He was on a phenylephrine drip and dobutamine, as well as a Lasix drip postoperatively. He was initiated on hemodialysis and his volume status did improve. After he was weaned from his pressors and sent out to the medical/surgical floor, during hemodialysis he was found to be hypotensive and was started on midodrine. Shortly thereafter during hemodialysis session he did have a rapid assessment called where he went into what was believed to be nonsustained ventricular tachycardia. He did receive amiodarone times one and spontaneously converted back into a sinus rhythm. The patient is DO NOT RESUSCITATE. We revisited with him his code status and he wished to remain a DO NOT RESUSCITATE and had no interest in automatic implantable cardioverter-defibrillator (AICD) despite his known risk of sudden cardiac given his poor ejection fraction. He was followed closely by the vascular surgery service throughout his hospitalization and nephrology. At this time, the patient is still dialysis dependent, medically stable for discharge to subacute rehabilitation as per physical therapy (PT) recommendations. SUBJECTIVE: The patient is eager to leave the hospital. He has been here for greater than a month. He has no complaints whatsoever. OBJECTIVE: VITAL SIGNS: Temperature 98.2, pulse 93, respiratory rate 15, blood pressure 120/59, oxygen saturation 94% on room air. GENERAL: He is a pleasant, elderly man sleeping, but easily arousable to verbal stimuli. He does not appear to be in any acute distress. HEENT: Cranial nerves II-XII are grossly intact. He has moist mucous membranes. No elevation of central venous pressure (CVP). CARDIOVASCULAR EXAMINATION: S1, S2, irregularly irregular. He has hemodialysis catheter in place. ABDOMINAL EXAMINATION: Benign. EXTREMITIES: No clubbing, cyanosis. His edema is 1+, markedly improved from previous day's exam. RESPIRATORY EXAMINATION: Clear. LABORATORY STUDIES: WBC 6.2, hemoglobin 11.2, platelet count 54, continues to trend upwards. Chemistry panel: Sodium 135, potassium 4.4, chloride 101, bicarbonate 23, BUN 44, creatinine 2.7. During his stay, the patient did have a heparin-induced antibody, which was positive on two occasions. ASSESSMENT AND PLAN: This is an 82-year-old man with an ischemic lower extremity status post intervention with postoperative period complicated by cardiogenic shock, acute renal failure and nonsustained ventricular tachycardia. 1. Decompensated systolic congestive heart failure and cardiogenic shock, resolved. Postoperatively, he was in the intensive care unit (ICU) with phenylephrine, dobutamine. As well he was started on dialysis and his volume status was optimized. Dr. Rothman's and Dr. Rodriguez's help is greatly appreciated. At this time, he is continued on dialysis Monday, Monday, Monday. He will have outpatient dialysis today. He has also been started on Bumex. 2. Nonsustained ventricular tachycardia. He is a DO NOT RESUSCITATE, not a candidate for an automatic implantable cardioverter-defibrillator (AICD). He has been started on amiodarone 400 mg twice a day for 12 additional days and then he will be titrated down to once a day dosing. He should followup with his group therapist regarding this. 3. Atrial fibrillation. He is on amiodarone. He does not require any other rate controlling agents. He is not anticoagulated secondary to his significant thrombocytopenia. His group therapist should resume him on Coumadin when his platelets are greater than 100. 4. Thrombocytopenia. Allergic reaction related to the dialysis filter. It does appear to be improving at this time. May continue to trend upward. 5. Coronary artery disease. The patient is on a statin. His blood pressure cannot tolerate a beta jose at the present time. May want to start hydralazine or nitrates once he is seen in followup. He is not on an aspirin secondary to his thrombocytopenia. He should have close followup with his group therapist, Dr. Cordova. 6. Insomnia. He is continued on Ambien. 7. Right lower extremity ischemia. He is status post femoral endarterectomy by Dr. Vang. He is recovering well. He is medically stable for discharge to subacute rehabilitation at [facility]) today. 8. Anemia. Likely related to renal disease. It has improved. He was on Aranesp during the stay. 9. Deep venous thrombosis (DVT) prophylaxis. Sequentials and thromboembolism deterrent stockings (TEDS). No pharmacological agents secondary to thrombocytopenia. DISPOSITION: The patient is being discharged to [facility] subacute rehabilitation. He is to followup with his primary care provider (PCP) within 7 days. Followup with his group therapist within [address] Vang within 2 weeks. Followup with his regularly scheduled hemodialysis today. His activity is as tolerated. His diet is a renal diet. MEDICATIONS: At the time of discharge: - amiodarone 400 mg twice a day for 12 days, then decrease to once daily from then on - Bumex 2 mg twice a day - Ambien 5 mg nightly - hydrocodone/acetaminophen 5/325 one tablet every 6 hours as needed for pain - atorvastatin 40 mg every 2 days - collagenase topically every 2 days to the foot - Nitrostat 0.4 mg sublingually every 5 minutes as needed for chest pain Greater than 30 minutes spent organizing disposition.
[2017-02-04] MEDS ORDERED: BISACODYL 5 MG TAB PO ONE (02:30)
[2017-02-04] MEDS ORDERED: SENNA 8.6 MG TAB (SENOKOT) PO PRN (02:30)
[2017-02-04] MEDS: PERCOCET 5MG/325MG TAB PO PRN (04:07)
[2017-02-04] MEDS: SODIUM CHLORIDE 0.9% INJ 10 ML SYR IV SCH (04:13)
[2017-02-04 06:00] VITALS: BP 120/58
[2017-02-04 06:44] LABS: INR 1.35
[2017-02-04 06:53] LABS: MEAN CORPUSCULAR HEMOGLOBIN 35.8 pg (27.0-33.0); MEAN CORPUSCULAR HGB CONC 31.4 g/dl (32.0-36.5); MEAN CORPUSCULAR VOLUME 114.3 fl (80.0-96.0); RED CELL DISTRIBUTION WIDTH 19.2 % (11.5-14.5); WHITE BLOOD COUNT 6.1 K/mm3 (4.0-10.0)
[2017-02-04 06:58] LABS: CALCIUM LEVEL 8.7 MG/DL (8.8-10.2); CREATININE FOR GFR 2.29 MG/DL (0.70-1.30); GLOMERULAR FILTRATION RATE 29.3 (>35); POTASSIUM SERUM 4.2 MEQ/L (3.5-5.1)
[2017-02-04] MEDS ORDERED: MOM 30ML SUSPENSION UDC PO PRN (08:30)
[2017-02-04] MEDS: AMIODARONE 200 MG TAB (PACERONE) PO SCH (08:54)
--- NOTE | 2017-02-05 13:25 | DSES ---
DATE OF ADMISSION: 12/30/2016 DATE OF DISCHARGE: 02/04/2017 ADDENDUM: Please note that the patient remained in the hospital for an additional evening after sliding out of a chair and landing on his right side. X-rays were obtained. The patient has full range of motion. No evidence of trauma. No evidence of fracture. At this time, the patient is being discharged as previously outlined with no other changes to previously dictated discharge summary.
== END 2017-02-04 09:12 | DRG 270 ==
LOC: M IRPRO 07:13 → M MS5PR 12:20 → M PCU 01-02 18:10 → M ICU 01-02 19:07 → M MS5PR 01-13 15:15 → M PCU 01-17 14:45 → M MS5PR 01-21 14:58 → M ICU 01-30 12:14 → M PCU 01-31 23:42 → M MS5PR 02-02 10:23
PROVIDERS: ADMIT Surgery Vascular Surgery; ATTEND Internal Medicine
PROC: 04CK0ZZ Extirpation of Matter from Right Femoral Artery, Open Approach (ICD-10-PCS; 2017-01-02)
PROC: 04UK0KZ Supplement Right Femoral Artery with Nonautologous Tissue Substitute, Open Approach (ICD-10-PCS; 2017-01-02)
PROC: 30233N1 Transfusion of Nonautologous Red Blood Cells into Peripheral Vein, Percutaneous Approach (ICD-10-PCS; 2017-01-02)
PROC: 04CH0ZZ Extirpation of Matter from Right External Iliac Artery, Open Approach (ICD-10-PCS; principal; 2017-01-02 08:41)
PROC: 05HM33Z Insertion of Infusion Device into Right Internal Jugular Vein, Percutaneous Approach (ICD-10-PCS; 2017-01-07)
PROC: 5A1D60Z (ICD-10-PCS; 2017-01-07)
PROC: B513ZZA Fluoroscopy of Right Jugular Veins, Guidance (ICD-10-PCS; 2017-01-09)
PROC: B543ZZA Ultrasonography of Right Jugular Veins, Guidance (ICD-10-PCS; 2017-01-09)
DX: I70.235 Atherosclerosis of native arteries of right leg with ulceration of other part of foot (principal); R57.0 Cardiogenic shock; I50.23 Acute on chronic systolic (congestive) heart failure; N18.6 End stage renal disease; N17.9 Acute kidney failure, unspecified; K56.7 Ileus, unspecified; I13.2 Hypertensive heart and chronic kidney disease with heart failure and with stage 5 chronic kidney disease, or end stage renal disease; E87.1 Hypo-osmolality and hyponatremia; E87.2 Acidosis; I47.2 Ventricular tachycardia; I70.221 Atherosclerosis of native arteries of extremities with rest pain, right leg; L97.519 Non-pressure chronic ulcer of other part of right foot with unspecified severity; I77.1 Stricture of artery; L97.411 Non-pressure chronic ulcer of right heel and midfoot limited to breakdown of skin; I48.2 Chronic atrial fibrillation; G47.00 Insomnia, unspecified; I25.10 Atherosclerotic heart disease of native coronary artery without angina pectoris; Z66 Do not resuscitate; D63.1 Anemia in chronic kidney disease; Z79.899 Other long term (current) drug therapy; M10.9 Gout, unspecified; Z95.2 Presence of prosthetic heart valve; Z79.82 Long term (current) use of aspirin; E87.5 Hyperkalemia; D75.82 Heparin induced thrombocytopenia (HIT); I95.9 Hypotension, unspecified

== ENCOUNTER → 2017-02-09 | Outpatient (CLI) | payer MEDICARE, OTHER ==
[~2017-02-09] MED LIST changes: +ACET1TAB17 PO; +AMBI10TA PO; +AMIO200T PO; +AMIO400T; +ASPI81TA24 PO; +ATOR40TA75 PO; +BISA10SU4 PR; +BUME1TA PO; +BUME2TAB PO; +ENEM1ENE4 PR; +ENEMENE16 PR; +ENTR1TAB PO; -HEPARIN 1,000 UNITS/ML 10ML VIAL (FOR RADIOLOGY& DIALYSIS ONLY) As Ordered ONE; +HYDR-3713 PO; -ISOVUE-300 61% 50ML VIAL (Q9967) As Ordered ONE; +MELA3TAB; +METO1TAB32 PO; -MIDAZOLAM INJ 2 MG/2 ML VIAL (J2250) As Ordered ONE; +MIDO5TA; +NEPRLIQ3 PO; +NEUR100C PO; +NITR0.4S14; +NITR4TASL SL; +SANT250O8 TOP; +SENN8.6C PO; +SENN8.6T7 PO; +TORS20TA2 PO; +WARF-18 PO; +WARF-23 PO; +ZOLP5TAB PO; +ZOSY1SOL4 IV; -fentaNYL 100 MCG/2 ML INJECTION (J3010) As Ordered ONE
--- NOTE | 2017-02-09 14:59 | REP ---
Bilateral lower extremity Duplex Doppler venous ultrasound: Real time compression and duplex Doppler interrogation of the bilateral lower extremity deep venous system is performed. Bilaterally, the common femoral, superficial femoral and popliteal veins are fully compressible with transducer pressure and demonstrate normal spontaneous and phasic flow, without evidence of deep venous thrombosis. Impression: No evidence of deep venous thrombosis of the bilateral lower extremity femoral popliteal venous system. There appears to be a hematoma in the right proximal thigh medially measuring 12.7 x 3.9 x 4.2 cm. Signed by Tao Grullon MD 02/09/2017 02:51 P
== END ==
LOC: M RAD 13:12
PROVIDERS: ATTEND Physician Assistant
DX: I48.91 Unspecified atrial fibrillation (principal); R26.81 Unsteadiness on feet; M62.81 Muscle weakness (generalized)

== ENCOUNTER → 2017-02-14 | Outpatient (REF) | payer MEDICARE ==
[2017-02-14 11:24] LABS: MEAN CORPUSCULAR HEMOGLOBIN 35.6 pg (27.0-33.0); MEAN CORPUSCULAR HGB CONC 31.6 g/dl (32.0-36.5); MEAN CORPUSCULAR VOLUME 112.8 fl (80.0-96.0); RED CELL DISTRIBUTION WIDTH 17.7 % (11.5-14.5); WHITE BLOOD COUNT 6.6 K/mm3 (4.0-10.0)
[2017-02-14 11:56] LABS: CALCIUM LEVEL 8.3 MG/DL (8.8-10.2); CREATININE FOR GFR 2.92 MG/DL (0.70-1.30); GLOMERULAR FILTRATION RATE 22.2 (>35); POTASSIUM SERUM 3.6 MEQ/L (3.5-5.1)
== END ==
PROVIDERS: ATTEND Internal Medicine
DX: I48.91 Unspecified atrial fibrillation (principal)

== ENCOUNTER → 2017-02-16 | Outpatient (REF) ==
--- NOTE | 2017-02-16 16:46 | REP ---
Chest x-ray: Erect AP view. History: CHF. Hypoxic episodes. Comparison study: January 30, 2017. Findings: Upright chest radiograph demonstrates bilateral pleural effusions, left apparently larger than right. Left hemidiaphragm is somewhat elevated. Effusions appear more prominent bilaterally than on the January 30, 2017 prior study. Indwelling central venous catheter is noted, unchanged. Moderate cardiomegaly is observed. Pulmonary vascular congestion is seen. Impression: Moderate bilateral pleural effusions, increased from the January 30, 2017 study. Vascular congestion and cardiomegaly again noted. Signed by Manish Saavedra MD 02/17/2017 08:29 A
[2017-02-16 17:21] LABS: CALCIUM LEVEL 8.4 MG/DL (8.8-10.2); CREATININE FOR GFR 2.8 MG/DL (0.70-1.30); GLOMERULAR FILTRATION RATE 23.3 (>35); POTASSIUM SERUM 3.7 MEQ/L (3.5-5.1)
== END ==
PROVIDERS: ATTEND Internal Medicine
DX: I50.9 Heart failure, unspecified (principal)

== ENCOUNTER → 2017-02-23 | Outpatient (CLI) | payer MEDICARE ==
--- NOTE | 2017-02-23 13:10 | REP ---
BILATERAL LOWER EXTREMITY DUPLEX VEINS. HISTORY: Leg pain. There are no filling defects in the deep venous system. The deep venous system is patent. A mixed echogenic area is present in the right groin. This represents a hematoma. The hematoma measures 6.4 x 3.4 x 6.6 cm. IMPRESSION: 1. There is no deep venous thrombosis. 2. 6.6 cm right groin hematoma. LEFT LOWER EXTREMITY: There are no filling defects in the deep venous system. The deep venous system is patent. IMPRESSION: There is no deep venous thrombosis. Signed by Diego Pimentel MD 02/23/2017 01:29 P
== END ==
LOC: M RAD 11:57
PROVIDERS: ATTEND Physician Assistant
DX: M79.651 Pain in right thigh (principal)

== ENCOUNTER 2017-03-01 17:07 | Inpatient (IN) | payer MEDICARE ==
[~2017-03-01] VITALS: Ht 165.1 cm; Wt 71.0 kg
[~2017-03-01 17:07] MED LIST changes: -ACET1TAB17 PO; -AMIO400T; -BISA10SU4 PR; -BUME2TAB PO; -ENEM1ENE4 PR; -ENEMENE16 PR; -MELA3TAB; -MIDO5TA; -NEPRLIQ3 PO; -NEUR100C PO; -NITR0.4S14; -SENN8.6C PO; -SENN8.6T7 PO; -ZOLP5TAB PO; -ZOSY1SOL4 IV
[2017-03-01 17:15] VITALS: BP 122/58
[2017-03-01] MEDS ORDERED: BISA10SU4 PR (19:13)
[2017-03-01] MEDS ORDERED: ACET1TAB17 PO (19:13)
[2017-03-01] MEDS ORDERED: METO1TAB32 PO (19:13)
[2017-03-01] MEDS ORDERED: ENEM1ENE4 PR (19:13)
[2017-03-01] MEDS ORDERED: HYDR-3713 PO (19:13)
[2017-03-01] MEDS ORDERED: SENN8.6C PO (19:13)
[2017-03-01] MEDS ORDERED: BISACODYL 5 MG TAB PO PRN (19:30)
[2017-03-01] MEDS ORDERED: ACETAMINOPHEN TAB 650MG DOSE (2X325MG) PO PRN (19:30)
[2017-03-01] MEDS ORDERED: BISACODYL 10 MG SUPP PR PRN (19:30)
[2017-03-01] MEDS: SENOKOT S TAB PO SCH (20:16)
[2017-03-01 20:19] LABS: ADD MORPHOLOGY? YES; BASO % 0.6 % (0.0-1.0); EOS # 0.1 K/mm3 (0.0-0.50); EOS % 3.1 % (0.0-3.0); LARGE UNSTAINED CELL # 0.1 K/mm3 (0.0-0.4); LARGE UNSTAINED CELL % 2.6 % (0.0-4.0); LYMPH # 0.6 K/mm3 (1.5-4.5); LYMPH % 12.2 % (24.0-44.0); MEAN CORPUSCULAR HEMOGLOBIN 36.3 pg (27.0-33.0); MEAN CORPUSCULAR HGB CONC 32.7 g/dl (32.0-36.5); MONO # 0.4 K/mm3 (0.0-0.8); MONO % 8.1 % (0.0-5.0); NEUTROPHILS # 3.4 K/mm3 (1.8-7.7); NEUTROPHILS % 73.3 % (36.0-66.0); PLATELET COUNT, AUTOMATED 115 k/mm3 (150-450); RED CELL DISTRIBUTION WIDTH 16.8 % (11.5-14.5); WHITE BLOOD COUNT 4.6 K/mm3 (4.0-10.0)
[2017-03-01] MEDS ORDERED: zolPIDEM TARTRATE 5 MG TAB PO PRN (20:30)
[2017-03-01 20:34] LABS: CALCIUM LEVEL 8.5 MG/DL (8.8-10.2); CREATININE FOR GFR 3.45 MG/DL (0.70-1.30); GLOMERULAR FILTRATION RATE 18.3 (>35); POTASSIUM SERUM 4.6 MEQ/L (3.5-5.1)
[2017-03-01] MEDS: NORCO, ANEXSIA 5/325MG TABLET (HYDROcodone/ACETAMINOPHEN) PO PRN (20:52)
[2017-03-01] MEDS ORDERED: SENN8.6T7 PO (21:55)
[2017-03-01] MEDS ORDERED: BUME2TAB PO (21:55)
[2017-03-01] MEDS ORDERED: ENEMENE16 PR (21:55)
[2017-03-01] MEDS ORDERED: NEPRLIQ3 PO (21:55)
[2017-03-01] MEDS ORDERED: ZOLP5TAB PO (21:55)
[2017-03-01 22:00] VITALS: BP 131/58
[2017-03-01] MEDS: PIPERACILLIN/TAZOBACTAM SOD 2.25 GM in D5W MINI-BAG PLUS 50 ML IV SCH (23:09)
[2017-03-02] MEDS: PIPERACILLIN/TAZOBACTAM SOD 2.25 GM in D5W MINI-BAG PLUS 50 ML IV SCH ×3 (05:07→20:07)
[2017-03-02 06:00] VITALS: BP 126/52
[2017-03-02] MEDS ORDERED: NORCO, ANEXSIA 5/325MG TABLET (HYDROcodone/ACETAMINOPHEN) PO PRN (07:30)
[2017-03-02] MEDS ORDERED: BISACODYL 10 MG SUPP PR PRN (07:30)
[2017-03-02] MEDS ORDERED: FLEET ENEMA PR PRN (07:30)
[2017-03-02] MEDS ORDERED: NITROGLYCERIN 0.4 MG SUBL TABLET SL PRN (07:30)
[2017-03-02] MEDS: SENOKOT S TAB PO SCH ×2 (08:09→20:05)
[2017-03-02] MEDS: NORCO, ANEXSIA 5/325MG TABLET (HYDROcodone/ACETAMINOPHEN) PO PRN ×2 (08:11→20:06)
[2017-03-02] MEDS ORDERED: METOPROLOL SUCC *XL* 25MG TAB (TopROL *XL*) PO SCH (09:00)
[2017-03-02] MEDS ORDERED: BUMETANIDE 1 MG TAB PO SCH (09:00)
[2017-03-02] MEDS ORDERED: NORCO, ANEXSIA 5/325MG TABLET (HYDROcodone/ACETAMINOPHEN) PO SCH (09:00)
[2017-03-02 11:55] LABS: MEAN CORPUSCULAR HEMOGLOBIN 35.3 pg (27.0-33.0); MEAN CORPUSCULAR HGB CONC 31.8 g/dl (32.0-36.5); MEAN CORPUSCULAR VOLUME 111.1 fl (80.0-96.0); WHITE BLOOD COUNT 6.8 K/mm3 (4.0-10.0)
[2017-03-02 11:56] LABS: RED CELL DISTRIBUTION WIDTH 16.8 % (11.5-14.5)
[2017-03-02 12:04] LABS: CREATININE FOR GFR 3.34 MG/DL (0.70-1.30); POTASSIUM SERUM 4.6 MEQ/L (3.5-5.1)
[2017-03-02 12:05] LABS: ALBUMIN 2.4 GM/DL (3.2-5.2); ALBUMIN/GLOBULIN RATIO 0.56 (1.00-1.93); BILIRUBIN,TOTAL 0.6 MG/DL (0.2-1.0); CALCIUM LEVEL 8.1 MG/DL (8.8-10.2); TOTAL PROTEIN 6.7 GM/DL (6.4-8.2)
[2017-03-02] MEDS: ACETAMINOPHEN TAB 650MG DOSE (2X325MG) PO PRN (12:30)
[2017-03-02 14:00] VITALS: BP 83/53
--- NOTE | 2017-03-02 15:28 | REP ---
Clinical: Shortness of breath. Comparison: 02/16/2017. Findings: Large left and moderate right pleural effusions with underlying cardiomegaly and suspected interstitial edema is similar to prior examination. No pneumothorax. Double lumen central catheter with tip in the SVC. The skeletal structures intact. Impression: [id number] bilateral pleural effusions (left greater than right) with cardiomegaly and interstitial edema unchanged from prior examination. Signed by Arsen Lester MD 03/02/2017 03:20 P
[2017-03-02 16:20] VITALS: BP 83/39
[2017-03-02 18:08] VITALS: BP 97/53
[2017-03-02 20:00] VITALS: BP 115/53
[2017-03-02] MEDS: ATORVASTATIN 20 MG TAB PO SCH (20:05)
[2017-03-02] MEDS ORDERED: SENOKOT S TAB PO SCH (21:00)
--- NOTE | 2017-03-02 21:45 | IPNPDOC ---
Date Seen The patient was seen on 03/02/17. Progress Note SUBJECTIVE: Patient is with complaints of left lower extremity pain. OBJECTIVE PHYSICAL EXAMINATION: VITAL SIGNS: Please see below. GENERAL: Sitting in the wheelchair eating breakfast comfortably HEENT: Normal CARDIOVASCULAR: Irregularly irregular. RESPIRATORY: Decreased breath sounds at the bases. ABDOMINAL: Soft nontender nondistended EXTREMITIES: Left low tremor shows cellulitis from the knee down into the foot with some mild superficial ulceration and edema. Right lower extremity shows adequate perfusion in the right foot wounds are clean with some fibrinous exudate. NEUROLOGICAL: Awake alert oriented x3 PSYCHOLOGICAL: Normal LABORATORY DATA: Please see below. MICROBIOLOGY: Please see below. ASSESSMENT AND PLAN: This is an 82-year-old male with cellulitis of his left lower extremity secondary to venous insufficiency and atherosclerotic arterial occlusive disease. Patient also has a history of atrophic fibrillation, end- stage renal disease, and congestive heart failure. PROBLEMS: 1. left lower extremity cellulitis: Patient will undergo elevation of his left lower extremity and is on antibiotic therapy for the left lower extremity cellulitis. Patient will undergo arterial duplex of his left lower extremity to evaluate for possible arterial occlusive disease as well. Patient is high risk and unable to go any interventions at this time. 2. end-stage renal disease: Patient underwent dialysis today and had hypotension during dialysis and after discussing with Dr. Starks the recommendation was made to transfer the patient to PCU. 3. congestive heart failure: Patient stable at this time and satting well on room air with no complaints of shortness of breath. DISPOSITION: . VS, I&O, 24H, [facility] Vital Signs/I&O Vital Signs Date Time Temp Pulse Resp B/P (MAP) Pulse Ox O2 Delivery O2 Flow Rate FiO2 03/02/17 20:36 18 03/02/17 20:00 Room Air 03/02/17 20:00 97.7 78 115/53 (73) 98 I&O- Last 24 Hours up to 6 AM 03/02/17 06:00 Intake Total 340 ml Output Total 0 ml Balance 340 ml Laboratory Data 24H LABS Laboratory Tests 2 03/02/17 10:05: Lactic Acid Level 1.0 03/02/17 10:11: Anion Gap 6L, Glomerular Filtration Rate 19.0L, Blood Urea Nitrogen 57H, Creatinine 3.34H, Sodium Level 136, Potassium Level 4.6, Chloride Level 100, Carbon Dioxide Level 30, Calcium Level 8.1L, Aspartate Amino Transf (AST/SGOT) 38H, Alanine Aminotransferase (ALT/SGPT) 40, Alkaline Phosphatase 252H, Total Bilirubin 0.6, Total Protein 6.7, Albumin 2.4L, Albumin/Globulin Ratio 0.56L CBC/BMP Laboratory Tests 03/02/17 10:11 Red Blood Count 3.31 L, Mean Corpuscular Volume 111.1 H, Mean Corpuscular Hemoglobin 35.3 H, Mean Corpuscular Hemoglobin Concent 31.8 L, Red Cell Distribution Width 16.8 H, Calcium Level 8.1 L, Aspartate Amino Transf (AST/SGOT ) 38 H, Alanine Aminotransferase (ALT/SGPT) 40, Alkaline Phosphatase 252 H, Total Bilirubin 0.6, Total Protein 6.7, Albumin 2.4 L Benedict Vang MD Mar 02, 2017 21:45
[2017-03-02] MEDS: zolPIDEM TARTRATE 5 MG TAB PO PRN (23:10)
[2017-03-03] VITALS (9 sets, daily range): BP systolic 93–126; BP diastolic 42–58
[2017-03-03] MEDS: PIPERACILLIN/TAZOBACTAM SOD 2.25 GM in D5W MINI-BAG PLUS 50 ML IV SCH ×3 (04:19→21:08)
[2017-03-03 06:26] LABS: ALBUMIN 2.4 GM/DL (3.2-5.2); ALBUMIN/GLOBULIN RATIO 0.55 (1.00-1.93); BILIRUBIN,TOTAL 0.8 MG/DL (0.2-1.0); CALCIUM LEVEL 8.6 MG/DL (8.8-10.2); CREATININE FOR GFR 3.01 MG/DL (0.70-1.30); GLOMERULAR FILTRATION RATE 21.4 (>35); POTASSIUM SERUM 4.4 MEQ/L (3.5-5.1); TOTAL PROTEIN 6.8 GM/DL (6.4-8.2)
[2017-03-03] MEDS: SENOKOT S TAB PO SCH ×2 (09:08→21:08)
[2017-03-03] MEDS: METOPROLOL SUCC *XL* 12.5MG PER 1/2 TAB (TopROL *XL*) PO SCH (09:08)
--- NOTE | 2017-03-03 11:13 | CR ---
DATE OF CONSULTATION: 03/02/2017 REQUESTING PHYSICIAN: Dr. Vang. REASON FOR CONSULT: Management of end stage renal disease. HISTORY OF PRESENT ILLNESS: This is an 82-year-old male with a past medical history of acute renal failure superimposed on chronic kidney disease stage III in December 2016 with resulting dialysis dependence, history of coronary artery disease status post coronary artery bypass graft (CABG), atrial fibrillation, peripheral arterial disease, systolic congestive heart failure, hypertension, carotid endarterectomy, femoral endarterectomy of the right lower extremity, aortic valve replacement with bovine valve, mitral valve repair. The patient was admitted in December with right lower extremity critical limb ischemia and arterial ulceration. He underwent a right femoral arterectomy. He had prolonged and complicated postoperative course with renal failure resulting in dialysis dependence and congestive heart failure requiring a prolonged stay in the intensive care unit. He was subsequently discharged to rehabilitation and has been there since. He has been receiving dialysis on a Monday, Monday, Monday schedule. His last hemodialysis was on Monday. He is now admitted for left lower extremity cellulitis secondary to venous insufficiency and atherosclerotic arterial occlusive disease. Patient is seen this morning on dialysis. Patient became hypotensive within 10 minutes of being on dialysis. He was unable to tolerate ultra filtration. His systolic fell to the 70s. He received a 3 hour treatment with only 300 mL removed. A lactic acid was sent and came back normal. The patient complains of lower extremity pain and requests pain medications. He notes chronic shortness of breath not worsened from baseline. PAST MEDICAL HISTORY: Coronary artery disease status post coronary artery bypass graft. Hyperlipidemia. Peripheral arterial disease. Hypertension. Atrial fibrillation. Gout. Systolic cardiomyopathy. PAST SURGICAL HISTORY: Right lower extremity femoral posterior tibial artery bypass graft. Coronary artery bypass surgery. Carotid endarterectomy. Aortic valve replacement with bovine valve. Cholecystectomy. Mitral valve repair. Tonsillectomy. Adenoidectomy in childhood. ALLERGIES: HEPARIN. SOCIAL HISTORY: Patient has been in rehabilitation for the past month. Denies smoking or drinking. FAMILY HISTORY: No family history for end stage renal disease. HOME MEDICATIONS: - acetaminophen as needed - atorvastatin 40 mg daily - Bumex 2 mg by mouth twice daily - metoprolol 25 mg by mouth daily - Nepro with carb steady - Ambien as needed REVIEW OF SYSTEMS: Patient denies headache, lightheadedness, chest pain, palpitations. He complains of chronic shortness of breath, currently not worse from baseline. Denies nausea, vomiting, diarrhea. He still produces urine. Positive for cellulitis of the left lower extremity and peripheral edema. Remainder of review of systems is negative. VITAL SIGNS: Temperature 97.2, pulse 71, respiratory rate 18, blood pressure 126/52, saturating 94% on room air. Intake and output: Hemodialysis today removed 300 mL ultra filtration. Patient was unable to tolerate further fluid removal. PHYSICAL EXAMINATION: General: Seen on hemodialysis in bed, frail body habitus, in mild distress from pain. HEENT: Moist mucous membranes. Extraocular muscles intact. Right IJ Perm-a-cath. Respiratory: Decreased breath sounds at the bases. Abdomen: Soft, nontender. Chest: Irregularly irregular. 2+ radial pulse. Pitting edema present in the lower extremities to the thigh. Neurologic: Oriented times three. Appropriately interactive and conversational. Psychiatric: Appropriate mood and affect. LABORATORY DATA: White count 6.8, hemoglobin 11.7, platelets 105. Sodium 136, potassium 4.6, bicarbonate 30, lactic acid 1, glucose 125. IMAGING: Chest x-ray: Moderate to large bilateral pleural effusions left greater than right with cardiomegaly and interstitial edema unchanged from prior. INPATIENT MEDICATIONS: - Zosyn 2.25 every 8 - atorvastatin 40 mg every 48 hours - Toprol XL 12.5 mg by mouth daily - Ambien as needed sleep PLAN: 82-year-old male with past medical history of acute renal failure on chronic kidney disease resulting in dialysis dependence, congestive heart failure, atrial fibrillation, peripheral arterial disease, who was admitted for cellulitis of the left lower extremity. 1. End stage renal disease on hemodialysis today. Patient is volume overloaded on exam and requires ultra filtration, however, when we tried to remove fluid on hemodialysis, the patient's blood pressure fell sharply, systolic was persistently in the 70s. We were only able to remove 300 mL of fluid on hemodialysis today. A lactic acid level was checked which came back negative. His blood pressures improved after cessation of fluid removal on hemodialysis. Currently he is comfortable on room air although chest x-ray does reveal moderate to large bilateral pleural effusions and interstitial edema. If the patient is agreeable tomorrow, I will give him an additional hemodialysis session to attempt to remove some fluid. 2. Left lower extremity cellulitis. Patient is on Zosyn per the primary team. He is not scheduled for any interventions for underlying arterial occlusive disease at this time. 3. Congestive heart failure with volume overload and peripheral edema. Chest x-ray shows bilateral moderate to large pleural effusions and edema. We will ultra filtrate the patient with hemodialysis as tolerated by his hemodynamics. I have reduced the dose of his metoprolol. If he stays hemodynamically stable, we can restart him on his Bumex but for now, I have held the same. 4. Anemia of end stage renal disease. Hemoglobin is mildly above target at this time. Aranesp is on hold. Plan of care discussed with Dr. Vang.
[2017-03-03] MEDS: BUMETANIDE 1 MG TAB PO SCH ×2 (12:34→21:08)
--- NOTE | 2017-03-03 15:07 | IPN ---
DATE: 03/03/2017 SUBJECTIVE: The patient is seen this morning out of bed into a wheelchair. His daughter is present. He complains of shortness of breath with exertion and at times even at rest. Overnight his blood pressure ranged from 83/30 to this morning 126/46. He denies any lightheadedness. He reports he ambulated in the hallway today. I discussed with the patient that he has a large left pleural effusion, and I will send him for ultrasound-guided thoracentesis and see how that helps with his breathing. REVIEW OF SYSTEMS: Negative for headache, chest pain, palpitations, nausea, vomiting, diarrhea. Positive for dyspnea on exertion and at times shortness of breath at rest. Positive for lower extremity pains and cellulitis, and lower extremity swelling. Remainder of review of systems is negative. VITAL SIGNS: Temperature 97.2, pulse 66, respiratory rate 20, blood pressure 126/46 this morning. Lowest blood pressure overnight 83/39, saturating 96% on room air. Intake and output: Dialysis yesterday could only remove 300 mL. PHYSICAL EXAMINATION: Patient is out of bed to a wheelchair. He is dressed. He appears in good spirits. GENERAL: Frail body habitus. Moist mucous membranes. Extraocular muscles intact. HEAD AND NECK: Jugular venous distention (JVD) present. Right internal jugular (IJ) Perm-A-Cath. RESPIRATORY: Decreased breath sounds at bilateral bases. ABDOMEN: Soft, nontender. CHEST: S1, S2, regular rate, 2+ radial pulse. Chronic lower extremity pitting edema present bilaterally. EXTREMITIES: Left lower extremity with cellulitis from distal to the knee to the foot with erythema. NEUROLOGIC: Awake, alert, oriented times three. No focal deficits. PSYCHOLOGICAL: Appropriate mood and affect. LABORATORY DATA: White count 6.8, hemoglobin 11.7, platelets 105. Sodium 140, potassium 4.4, bicarbonate 29, corrected calcium 9.8. Microbiology: Blood cultures pending. Chest x-ray done 03/02/2017: Bilateral effusions. Left is large. Right is moderate. INPATIENT MEDICATIONS: Reviewed by myself. Resumed on Bumex 2 mg by mouth twice a day. Continues on Toprol-XL 12.5 mg by mouth daily. Patient remains on intravenous (IV) Zosyn. Remainder of medications are unchanged from prior. PLAN: 1. End-stage renal disease, on hemodialysis. Patient will receive dialysis tomorrow. He refused to go for a treatment today. He is currently off his maintenance schedule. We will continue to ultrafiltrate him as tolerated by his blood pressure. 2. Shortness of breath. Patient has a large left pleural effusion on chest x-ray. We will send him for ultrasound-guided thoracentesis for symptomatic relief. 3. Left lower extremity cellulitis. Patient is on Zosyn. He is not scheduled for any interventions for his underlying arterial occlusive disease. 4. Congestive heart failure with volume overload and peripheral edema. Patient continues on Bumex 2 mg twice a day. We will ultrafiltrate him as tolerated by his hemodynamics on dialysis. His dose of metoprolol was reduced. Tomorrow morning I will hold his morning metoprolol dose predialysis. 5. Anemia of end-stage renal disease. Hemoglobin stable, above target. Aranesp on hold at this time.
--- NOTE | 2017-03-03 15:17 | REP ---
LEFT LOWER EXTREMITY ARTERIAL DOPPLER ULTRASOUND: HISTORY: Left leg pain. FINDINGS: The vessels are heavily calcified and noncompressible. Accordingly, ankle brachial indices could not be obtained. Severe plaquing calcification are seen throughout the lower extremity arteries in the left leg. No vessel demonstrated normal triphasic flow. Biphasic flow pattern is seen from the common femoral artery to the popliteal. Monophasic flow is seen in the tibioperoneal trunk and in the distal posterior tibial and anterior tibial arteries and in the peroneal artery. The peroneal artery appears larger than the other calf run off vessels. The proximal anterior tibial artery and the proximal posterior tibial artery could not be seen. FLOW VELOCITIES FOLLOWS: Velocity chart left leg: PSV Left [employer] CO[employer]ATOR 67 cm/s Profunda 84 cm/s Proximal SFA 80 cm/s Mid SFA 72 cm/s Distal SFA 17 cm/s Popliteal 36 cm/s Tibioperoneal trunk 35 cm/s Distal posterior tibial artery 36 cm/s Distal anterior tibial artery 17 cm/s perineal artery 42 cm/s IMPRESSION: Abnormal phasicity throughout the left lower extremity arteries. Extensive calcific plaquing throughout. We were unable to visualize proximal anterior tibial and proximal posterior tibial artery branches suggesting occlusive disease. Signed by Manish Saavedra MD 03/03/2017 04:38 P
[2017-03-03 16:24] LABS: LDH, BODY FLUID 90 U/L (NOT ESTABLISHED); TOTAL PROTEIN, BODY FLUID 2.4 G/DL (NOT ESTABLISHED)
--- NOTE | 2017-03-03 16:40 | REP ---
Chest x-ray: Two views: History: Status post left thoracentesis. Comparison study is a portable exam from earlier this date. Findings: Moderate cardiomegaly is again noted unchanged. A right-sided tunnel catheter is seen with its tip in the expected location of the superior vena cava. There is blunting of both pleural angles indicating small bilateral effusions. The left pleural effusion is considerably improved post thoracentesis. There is no evidence of pneumothorax or other complication. Impression: Improved left-sided pleural effusion. No evidence of pneumothorax. Signed by Manish Saavedra MD 03/03/2017 04:42 P
--- NOTE | 2017-03-03 16:51 | REP ---
ULTRASOUND GUIDED LEFT THORACENTESIS: The procedure was performed under the direct supervision of Dr. Saavedra. The risks and benefits of the procedure were explained to the patient and informed consent was obtained. The left pleural effusion was localized using ultrasound guidance. The skin was prepped and draped in a sterile fashion. 1% lidocaine was used as a local anesthetic. An #8-Bel[place]ian [id number] catheter was inserted using trocar technique. 1650 mL of yellow colored fluid was withdrawn with a sample sent to the lab for analysis. Once the catheter was removed, the patient did have a vasovagal reaction. His 02 saturations and blood pressure dropped. His O2 saturations dropped to 88%. He was placed on 2 liters of O2 via nasal cannula and placed in the Trendelenburg position. The patient remained responsive. After a few minutes, his blood pressure came back to baseline as it was when he arrived in the department and his O2 saturations came back to baseline as well. The patient tolerated the procedure well and there were no immediate complications. After the appropriate amount of monitored convalescence the patient was discharged from the department. Reviewed by TRAE Weiner 03/06/2017 03:31 PEdited and Signed by Manish Saavedra MD 03/06/2017 03:56 P
[2017-03-03] MEDS: NORCO, ANEXSIA 5/325MG TABLET (HYDROcodone/ACETAMINOPHEN) PO PRN (17:29)
[2017-03-03 20:28] LABS: TNC PLEURAL FLUID 130 cells/uL (0-20)
[2017-03-03 20:29] LABS: BF DIFF IF INDICATED? YES (NO); RBC PLEURAL FLUID < 10 (<10mm3 cells/uL)
[2017-03-03 22:37] LABS: CC BF DIFF EXAM CYTOCENTRIFUGE
[2017-03-03] MEDS: ACETAMINOPHEN TAB 650MG DOSE (2X325MG) PO PRN (23:49)
[2017-03-03] MEDS: zolPIDEM TARTRATE 5 MG TAB PO PRN (23:49)
--- NOTE | 2017-03-03 23:55 | IPNPDOC ---
Date Seen The patient was seen on 03/03/17. Progress Note SUBJECTIVE: Patient is with complaints of left lower extremity pain but this is improving. OBJECTIVE PHYSICAL EXAMINATION: VITAL SIGNS: Please see below. GENERAL: Lying in bed comfortably HEENT: Normal CARDIOVASCULAR: Irregularly irregular. RESPIRATORY: Clear to auscultation bilaterally. ABDOMINAL: soft nontender nondistended EXTREMITIES: Left lower artery cellulitis is slightly improved edema is also slightly improved NEUROLOGICAL: Awake alert oriented x3 PSYCHOLOGICAL: Normal LABORATORY DATA: Please see below. MICROBIOLOGY: Please see below. ASSESSMENT AND PLAN: This is a 82-year-old male with new onset left lower extremities cellulitis secondary to venous insufficiency and probable arterial insufficiency. Patient also has a history of end-stage renal disease, congestive heart failure and right lower extremity atherosclerotic arterial occlusive disease. PROBLEMS: 1. Left lower extremity cellulitis: A she is on an IV antibiotics and will continue with elevation and compressive therapy as tolerated. 2. CHF: Patient has a pleural effusion which will undergo attempted thoracentesis. 3. end-stage renal disease: Patient is currently undergoing hemodialysis. VS, I&O, 24H, [facility] Vital Signs/I&O Vital Signs Date Time Temp Pulse Resp B/P (MAP) Pulse Ox O2 Delivery O2 Flow Rate FiO2 03/03/17 20:00 Room Air 03/03/17 19:55 97.0 72 20 102/58 (73) 95 I&O- Last 24 Hours up to 6 AM 03/03/17 06:00 Intake Total 540 ml Output Total 450 ml Balance 90 ml Laboratory Data 24H LABS Laboratory Tests 2 03/03/17 05:40: Anion Gap 10, Glomerular Filtration Rate 21.4L, Blood Urea Nitrogen 39H, Creatinine 3.01H, Sodium Level 140, Potassium Level 4.4, Chloride Level 101, Carbon Dioxide Level 29, Calcium Level 8.6L, Aspartate Amino Transf (AST/SGOT) 44H, Alanine Aminotransferase (ALT/SGPT) 41, Alkaline Phosphatase 225H, Total Bilirubin 0.8, Total Protein 6.8, Albumin 2.4L, Albumin/Globulin Ratio 0.55L 03/03/17 15:30: Body Fluid Neutrophils 25, Body Fluid Lymphocytes 71, Body Fluid Monocytes/ Macrophages 4, Body Fluid Protein Source PLEURAL, Body Fluid Total Protein 2.4, Body Fluid LDH Source PLEURAL, Body Fluid Lactate Dehydrogenase 90, Pleural Fluid Source PLEURAL, Pleural Fluid Color PALE YELLOW, Pleural Fluid Appearance HAZY, Pleural Fluid RBC (Auto) < 10, Pleural Fluid Total Nucleated Cells 130H CBC/BMP Laboratory Tests 03/03/17 05:40 Calcium Level 8.6 L, Aspartate Amino Transf (AST/SGOT) 44 H, Alanine Aminotransferase (ALT/SGPT) 41, Alkaline Phosphatase 225 H, Total Bilirubin 0.8 , Total Protein 6.8, Albumin 2.4 L Microbiology Microbiology 03/03/17 Blood Culture, Received Pending 03/03/17 Gram Stain, Received Pending 03/03/17 Body Fluid Culture, Received Pending Benedict Vang MD Mar 03, 2017 23:55
[2017-03-04] VITALS: BP 120/56
[2017-03-04] MEDS: NORCO, ANEXSIA 5/325MG TABLET (HYDROcodone/ACETAMINOPHEN) PO PRN (02:09)
[2017-03-04 04:00] VITALS: BP 101/48
[2017-03-04] MEDS: METOPROLOL SUCC *XL* 12.5MG PER 1/2 TAB (TopROL *XL*) PO SCH (04:57)
[2017-03-04] MEDS: PIPERACILLIN/TAZOBACTAM SOD 2.25 GM in D5W MINI-BAG PLUS 50 ML IV SCH ×3 (05:22→21:43)
[2017-03-04] MEDS: SENOKOT S TAB PO SCH ×2 (05:23→21:42)
[2017-03-04 06:02] LABS: ALBUMIN 2.2 GM/DL (3.2-5.2); ALBUMIN/GLOBULIN RATIO 0.54 (1.00-1.93); BILIRUBIN,TOTAL 0.7 MG/DL (0.2-1.0); CALCIUM LEVEL 8.2 MG/DL (8.8-10.2); CREATININE FOR GFR 3.61 MG/DL (0.70-1.30); GLOMERULAR FILTRATION RATE 17.4 (>35); POTASSIUM SERUM 4.5 MEQ/L (3.5-5.1); TOTAL PROTEIN 6.3 GM/DL (6.4-8.2)
[2017-03-04 07:25] VITALS: BP 109/55
[2017-03-04] MEDS: BUMETANIDE 1 MG TAB PO SCH ×2 (09:00→21:42)
[2017-03-04 12:00] VITALS: BP 108/58
[2017-03-04 16:00] VITALS: BP 103/42
--- NOTE | 2017-03-04 17:08 | IPN ---
DATE: 03/04/2017 SUBJECTIVE: The patient is seen this morning at the bedside, and again later on hemodialysis. He had thoracentesis done yesterday with 1650 mL of fluid drained, which he tolerated. He has no new complaints this morning. He has been afebrile, tolerating his diet. He is overall frustrated with how he has been in and out of the hospital and rehabilitation this summer. He wants to get back to his baseline physical strength and is frustrated and saddened that he is back in the hospital. REVIEW OF SYSTEMS: Negative for headache, chest pain, palpitations, shortness of breath at rest, nausea, vomiting, diarrhea. Positive for dyspnea on exertion, positive for lower extremity edema and left lower extremity cellulitis. Remainder of review of systems is negative. OBJECTIVE: VITAL SIGNS: Afebrile. Temperature 98.0, pulse 72, respiratory rate 20, blood pressure 109/55, saturating 95% on room air. INTAKE AND OUTPUT: Thoracentesis yesterday removed 1650 mL. He had a urine output of 300 mL yesterday. He had a urine output of 850 mL today and 1000 mL ultrafiltration with hemodialysis. He is in net-negative fluid balance over the past 24 hours. PHYSICAL EXAMINATION: GENERAL: The patient is sitting in the wheelchair. He is dressed. He is in no acute distress. I had a lengthy conversation with him at the bedside today. HEAD/NECK: Extraocular muscles intact. Moist mucous membranes. Prominent neck veins. Right internal jugular (IJ) PermCath. HEART: S1, S2. 3+ pitting edema on the lower extremities to the hip. 2+ radial pulse. RESPIRATORY: Improved aeration on the left lung today as compared to prior. Comfortable on room air. ABDOMEN: Soft, nontender. EXTREMITIES: Pitting edema to the hip in the lower extremities. His cellulitis is not examined as the patient does have dressings in place. LABORATORY DATA: Sodium 136, potassium 4.5, bicarbonate 26, correct calcium 9.3. MICROBIOLOGY: Blood cultures with no growth for 24 hours. INPATIENT MEDICATIONS: The patient continues on: - intravenous (IV) Zosyn 2.25 IV every eight hours - Bumex 2 mg by mouth twice a day - Toprol XL 12.5 mg by mouth daily; his dose this morning was held pre dialysis Remainder of medications unchanged from prior. PLAN: 1. End-stage renal disease on hemodialysis: The patient was dialyzed today per his maintenance schedule. His Toprol XL was held pre dialysis and he had one liter ultrafiltration. We will continue to ultrafiltrate him as tolerated by his blood pressure and hemodynamics. He remains with significant peripheral edema. 2. Shortness of breath: The patient's large left pleural effusion was drained with 1650 mL removed. I will review his pleural studies. His effusion may recur and he should be monitored for the same as an outpatient. 3. Left lower extremity cellulitis: The patient continues on Zosyn. Dr. Vang is managing. 4. Congestive heart failure with volume overload and peripheral edema: The patient continues on Bumex 2 mg twice a day. He does have significant residual renal function. He continues with ultrafiltration as tolerated by his hemodynamics. I have reduced his dose of metoprolol. His heart rate remains in the 70s. His systolic blood pressure has ranged from 100 to 120, and the patient is asymptomatic.
[2017-03-04 20:00] VITALS: BP 123/60
[2017-03-04] MEDS: zolPIDEM TARTRATE 5 MG TAB PO PRN (21:42)
[2017-03-04] MEDS: ATORVASTATIN 20 MG TAB PO SCH (21:42)
[2017-03-05] VITALS: BP 109/55
[2017-03-05 04:00] VITALS: BP 118/58
[2017-03-05] MEDS: ACETAMINOPHEN TAB 650MG DOSE (2X325MG) PO PRN ×3 (04:03→20:48)
[2017-03-05] MEDS: PIPERACILLIN/TAZOBACTAM SOD 2.25 GM in D5W MINI-BAG PLUS 50 ML IV SCH ×3 (04:03→20:37)
[2017-03-05 05:09] LABS: MEAN CORPUSCULAR HEMOGLOBIN 34.9 pg (27.0-33.0); MEAN CORPUSCULAR HGB CONC 32.1 g/dl (32.0-36.5); RED CELL DISTRIBUTION WIDTH 16.9 % (11.5-14.5); WHITE BLOOD COUNT 5.8 K/mm3 (4.0-10.0)
[2017-03-05 06:13] LABS: ALBUMIN 2.2 GM/DL (3.2-5.2); ALBUMIN/GLOBULIN RATIO 0.5 (1.00-1.93); BILIRUBIN,TOTAL 0.7 MG/DL (0.2-1.0); CALCIUM LEVEL 8.5 MG/DL (8.8-10.2); CREATININE FOR GFR 2.92 MG/DL (0.70-1.30); GLOMERULAR FILTRATION RATE 22.2 (>35); MAGNESIUM LEVEL 2.2 MG/DL (1.8-2.4); PHOSPHORUS LEVEL 3.2 MG/DL (2.5-4.9); POTASSIUM SERUM 4.3 MEQ/L (3.5-5.1); TOTAL PROTEIN 6.6 GM/DL (6.4-8.2)
[2017-03-05 07:30] VITALS: BP 98/46
[2017-03-05] MEDS: METOPROLOL SUCC *XL* 12.5MG PER 1/2 TAB (TopROL *XL*) PO SCH (09:00)
[2017-03-05] MEDS: SENOKOT S TAB PO SCH ×2 (09:52→20:37)
[2017-03-05] MEDS: BUMETANIDE 1 MG TAB PO SCH ×2 (09:53→20:37)
[2017-03-05 12:00] VITALS: BP 99/52
[2017-03-05 16:00] VITALS: BP 102/52
[2017-03-05 20:00] VITALS: BP 120/57
[2017-03-05] MEDS: zolPIDEM TARTRATE 5 MG TAB PO PRN (21:46)
--- NOTE | 2017-03-05 22:54 | IPNPDOC ---
Date Seen The patient was seen on 03/04/17. Progress Note SUBJECTIVE: Patient is without complaints, left lower extremity pain is improving. OBJECTIVE PHYSICAL EXAMINATION: VITAL SIGNS: Please see below. GENERAL: Lying in bed comfortably HEENT: Normal CARDIOVASCULAR: Irregularly irregular. RESPIRATORY: Clear with decreased breath sounds at the bases. ABDOMINAL: Soft nontender nondistended EXTREMITIES: Right lower extremity with adequate perfusion right foot ulcers stable and unchanged. Left lower extremity swelling improved with improvement in his left foot externally cellulitis. NEUROLOGICAL: Awake alert oriented x3 PSYCHOLOGICAL: Normal LABORATORY DATA: Please see below. MICROBIOLOGY: Please see below. ASSESSMENT AND PLAN: This is a 82-year-old male admitted with left lower C cellulitis secondary to venous insufficiency and swelling in the left lower extremity. Patient also has right lower extremity ischemic ulceration and is status post a right femoral endarterectomy with patch angioplasty. Patient has congestive heart failure atrophic fibrillation and end-stage renal disease requiring hemodialysis. PROBLEMS: 1. left lower extremity cellulitis: Left low shoulder is improving with antibiotic therapy and elevation. DISPOSITION: Possible discharge in the next 24-48 hours. VS, I&O, 24H, [facility] Vital Signs/I&O Vital Signs Date Time Temp Pulse Resp B/P (MAP) Pulse Ox O2 Delivery O2 Flow Rate FiO2 03/05/17 20:35 Room Air 03/05/17 20:00 98.6 94 18 120/57 (78) 96 I&O- Last 24 Hours up to 6 AM 03/05/17 06:00 Intake Total 1550 ml Output Total 1325 ml Balance 225 ml Laboratory Data 24H LABS Laboratory Tests 2 03/05/17 04:27: Anion Gap 10, Glomerular Filtration Rate 22.2L, Blood Urea Nitrogen 34H, Creatinine 2.92H, Sodium Level 138, Potassium Level 4.3, Chloride Level 102, Carbon Dioxide Level 26, Calcium Level 8.5L, Phosphorus Level 3.2, Aspartate Amino Transf (AST/SGOT) 37, Alanine Aminotransferase (ALT/SGPT) 34, Alkaline Phosphatase 225H, Total Bilirubin 0.7, Total Protein 6.6, Albumin 2.2L, Magnesium Level 2.2, Albumin/Globulin Ratio 0.50L CBC/BMP Laboratory Tests 03/05/17 04:27 Red Blood Count 3.27 L, Mean Corpuscular Volume 109.0 H, Mean Corpuscular Hemoglobin 34.9 H, Mean Corpuscular Hemoglobin Concent 32.1, Red Cell Distribution Width 16.9 H, Calcium Level 8.5 L, Phosphorus Level 3.2, Aspartate Amino Transf (AST/SGOT) 37, Alanine Aminotransferase (ALT/SGPT) 34, Alkaline Phosphatase 225 H, Total Bilirubin 0.7, Total Protein 6.6, Albumin 2.2 L Microbiology Microbiology 03/03/17 Blood Culture - Preliminary, Resulted No Growth after 48 hours. All Specime... 03/03/17 Gram Stain - Final, Complete 03/03/17 Body Fluid Culture - Final, Complete Benedict Vang MD Mar 05, 2017 22:54
--- NOTE | 2017-03-05 22:58 | IPNPDOC ---
Date Seen The patient was seen on 03/05/17. Progress Note SUBJECTIVE: Patient is without complaints. OBJECTIVE PHYSICAL EXAMINATION: VITAL SIGNS: Please see below. GENERAL: Sitting in the chair comfortably HEENT: Normal CARDIOVASCULAR: Irregularly irregular. RESPIRATORY: Clear to auscultation with decreased breath sounds at the bases. ABDOMINAL: Soft nontender nondistended EXTREMITIES: Left lower extremity cellulitis is improving. NEUROLOGICAL: Awake alert oriented x3 PSYCHOLOGICAL: Normal LABORATORY DATA: Please see below. MICROBIOLOGY: Please see below. ASSESSMENT AND PLAN: This is a 82-year-old male with end-stage renal disease congestive heart failure and bilateral lower extremity arterial atherosclerotic occlusive disease with left lower lundberg be cellulitis secondary to venous insufficiency and atherosclerotic arterial occlusive disease. PROBLEMS: 1. left lower extremity cellulitis: Improving with IV antibiotics and elevation. 2. renal failure, congestive heart failure: Managed by the nephrology team. DISPOSITION: Possible discharge in 24-48 hours. VS, I&O, 24H, [facility] Vital Signs/I&O Vital Signs Date Time Temp Pulse Resp B/P (MAP) Pulse Ox O2 Delivery O2 Flow Rate FiO2 03/05/17 20:35 Room Air 03/05/17 20:00 98.6 94 18 120/57 (78) 96 I&O- Last 24 Hours up to 6 AM 03/05/17 06:00 Intake Total 1550 ml Output Total 1325 ml Balance 225 ml Laboratory Data 24H LABS Laboratory Tests 2 03/05/17 04:27: Anion Gap 10, Glomerular Filtration Rate 22.2L, Blood Urea Nitrogen 34H, Creatinine 2.92H, Sodium Level 138, Potassium Level 4.3, Chloride Level 102, Carbon Dioxide Level 26, Calcium Level 8.5L, Phosphorus Level 3.2, Aspartate Amino Transf (AST/SGOT) 37, Alanine Aminotransferase (ALT/SGPT) 34, Alkaline Phosphatase 225H, Total Bilirubin 0.7, Total Protein 6.6, Albumin 2.2L, Magnesium Level 2.2, Albumin/Globulin Ratio 0.50L CBC/BMP Laboratory Tests 03/05/17 04:27 Red Blood Count 3.27 L, Mean Corpuscular Volume 109.0 H, Mean Corpuscular Hemoglobin 34.9 H, Mean Corpuscular Hemoglobin Concent 32.1, Red Cell Distribution Width 16.9 H, Calcium Level 8.5 L, Phosphorus Level 3.2, Aspartate Amino Transf (AST/SGOT) 37, Alanine Aminotransferase (ALT/SGPT) 34, Alkaline Phosphatase 225 H, Total Bilirubin 0.7, Total Protein 6.6, Albumin 2.2 L Microbiology Microbiology 03/03/17 Blood Culture - Preliminary, Resulted No Growth after 48 hours. All Specime... 03/03/17 Gram Stain - Final, Complete 03/03/17 Body Fluid Culture - Final, Complete Benedict Vang MD Mar 05, 2017 22:58
[2017-03-06] VITALS (7 sets, daily range): BP systolic 104–152; BP diastolic 52–66
[2017-03-06] MEDS: NORCO, ANEXSIA 5/325MG TABLET (HYDROcodone/ACETAMINOPHEN) PO PRN ×2 (03:30→10:31)
[2017-03-06] MEDS: PIPERACILLIN/TAZOBACTAM SOD 2.25 GM in D5W MINI-BAG PLUS 50 ML IV SCH ×3 (04:38→20:22)
[2017-03-06] MEDS: SENOKOT S TAB PO SCH ×2 (05:30→20:21)
[2017-03-06] MEDS: METOPROLOL SUCC *XL* 12.5MG PER 1/2 TAB (TopROL *XL*) PO SCH (08:41)
[2017-03-06] MEDS: BUMETANIDE 1 MG TAB PO SCH ×2 (08:41→20:21)
[2017-03-06] MEDS: ACETAMINOPHEN TAB 650MG DOSE (2X325MG) PO PRN ×2 (10:03→22:32)
--- NOTE | 2017-03-06 11:55 | IPN ---
DATE: 03/06/2017 Mr. Finn is seen during hemodialysis this morning. He was admitted with cellulitis of his lower extremities and also was short of breath. He had a large pleural effusion which was drained. Unfortunately, he remains dialysis dependent due to no significant recovery in his kidney function. He still has significant peripheral edema and remains very weak and short of breath. He is currently being treated for cellulitis with IV antibiotics. PHYSICAL EXAMINATION: Temperature 97.9 degrees Fahrenheit, heart rate 84 per minute and respiratory rate 20 per minute. Blood pressure 100/52 mmHg and oxygen saturation 94% per on room air. Head is atraumatic. Dialysis catheter in internal jugular vein is intact. Neck veins are moderately distended. Oral mucosa is somewhat dry. Heart sounds are without a pericardial friction rub. Lungs with diminished breath sounds at bases. Abdomen is soft and nontender and bowel sounds are normal. Extremities have erythema on the posterior surface of the right lower leg. His left lower leg is wrapped in dressing. There seems to be more edema on the left leg than the right. Neurologically he is awake, alert and oriented times three. Today's labs show WBC 5.8, hemoglobin 11.4 and hematocrit 35.6. Platelets are 67,000. Sodium is 138 and potassium 4.3. BUN 34 and creatinine 2.92. These are labs from yesterday. Today he did not have any labs drawn. PROBLEMS: 1. End-stage renal disease: The patient has been dialysis dependent. We are dialyzing him again today even though he was dialyzed on Monday. He has significant peripheral edema and does not tolerate any significant amount of fluid removal in one treatment. We are trying to remove about 2 liters today. 2. Chronic diastolic congestive heart failure with worsening peripheral edema. His volume status remains decompensated. We will continue frequent short dialysis treatments and try to achieve a negative fluid balance. 3. Cellulitis: The patient remains on IV Zosyn 2.25 grams every 8 hours. He is afebrile and without any leukocytosis. 4. 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 We will make sure that he does not get any heparin during dialysis.
[2017-03-06] MEDS: ATORVASTATIN 20 MG TAB PO SCH (20:21)
[2017-03-06] MEDS: zolPIDEM TARTRATE 5 MG TAB PO PRN (22:32)
--- NOTE | 2017-03-06 23:05 | IPNPDOC ---
Date Seen The patient was seen on 03/06/17. Progress Note SUBJECTIVE: Patient is without complaints. Left leg with less pain. OBJECTIVE PHYSICAL EXAMINATION: VITAL SIGNS: Please see below. GENERAL: Lying in bed comfortably HEENT: Normal CARDIOVASCULAR: Irregularly irregular. RESPIRATORY: Clear with decreased breath sounds at the bases. ABDOMINAL: Soft nontender nondistended EXTREMITIES: Right lower extremities well perfused with no change in the right foot ulcers. Left lower extremity continues to remain edematous with improving cellulitis. NEUROLOGICAL: Awake alert oriented x3 with no focal deficits PSYCHOLOGICAL: Normal LABORATORY DATA: Please see below. MICROBIOLOGY: Please see below. ASSESSMENT AND PLAN: This is a 82-year-old male with left lower extremity cellulitis which is slightly improved. PROBLEMS: 1. left lower extremity Cellulitis: Cellulitis is improving slowly patient continued to have swelling in the left lower extremity and will continue on IV antibiotics and with elevation of his left lower extremity. 2. renal failure: Is currently on hemodialysis. DISPOSITION: Possible discharge next 24-48 hours. VS, I&O, 24H, Fishbone Vital Signs/I&O Vital Signs Date Time Temp Pulse Resp B/P (MAP) Pulse Ox O2 Delivery O2 Flow Rate FiO2 03/06/17 19:52 98.2 69 16 109/53 (71) 97 Room Air I&O- Last 24 Hours up to 6 AM 03/06/17 05:59 Intake Total 1610 ml Output Total 500 ml Balance 1110 ml Laboratory Data Microbiology Microbiology 03/03/17 Blood Culture - Preliminary, Resulted No Growth after 72 hours. All specime... 03/03/17 Gram Stain - Final, Complete 03/03/17 Body Fluid Culture - Final, Complete Benedict Vagn MD Mar 06, 2017 23:05
[2017-03-07 00:24] VITALS: BP 112/56
[2017-03-07] MEDS: ACETAMINOPHEN TAB 650MG DOSE (2X325MG) PO PRN (02:23)
[2017-03-07 05:15] VITALS: BP 105/67
[2017-03-07] MEDS: PIPERACILLIN/TAZOBACTAM SOD 2.25 GM in D5W MINI-BAG PLUS 50 ML IV SCH ×3 (05:18→22:23)
[2017-03-07 08:00] VITALS: BP 112/53
[2017-03-07] MEDS: BUMETANIDE 1 MG TAB PO SCH ×2 (08:34→22:22)
[2017-03-07] MEDS: NORCO, ANEXSIA 5/325MG TABLET (HYDROcodone/ACETAMINOPHEN) PO PRN ×3 (08:34→23:21)
[2017-03-07] MEDS: METOPROLOL SUCC *XL* 12.5MG PER 1/2 TAB (TopROL *XL*) PO SCH ×2 (08:35→08:39)
[2017-03-07] MEDS: SENOKOT S TAB PO SCH ×2 (08:35→22:22)
--- NOTE | 2017-03-07 11:32 | IPN ---
DATE: 03/07/2017 Mr. Finn is seen this morning on his bedside. He is laying in the bed comfortably in supine position. He underwent hemodialysis yesterday. The patient denies any nausea, vomiting, dyspnea or chest pain. He reports that he ate a breakfast this morning and is currently taking a nap. The patient wonders if he is going back to [facility] today. On physical examination, temperature 98 degrees Fahrenheit, heart rate 72 per minute and respiratory rate 20 per minute. Blood pressure 112/53 mmHg and oxygen saturation 97% on room air. His neck veins are not abnormally distended. Hemodialysis catheter is intact in the right internal jugular vein. Head is atraumatic. Ears, nose and throat are unremarkable. Heart sounds are regular. Lungs with diminished breath sounds at bases bilaterally and a few basilar rales bilaterally. Abdomen is soft and nontender. Bowel sounds are normal. Extremities have no cyanosis or clubbing. His left lower leg is wrapped in a dressing and both lower extremities have at least 2+ edema. Neurologically, he is awake, alert and oriented times three. He did not have any new labs today. Most recent labs are from March 05. PROBLEMS: 1. End-stage renal disease. The patient was dialyzed yesterday. His next dialysis will be scheduled for Monday. At this point. we are going to hold off on dialysis today. 2. History of peripheral edema and volume overload. The patient has chronic lower extremity edema; however, he does not have any hypoxemia and is not requiring supplemental oxygen. He does not tolerate fluid removal well. I am going to place him on midodrine 5 mg three times a day with a plan to try to remove fluid aggressively during hemodialysis if we can maintain his blood pressure with midodrine. 3. Anemia. Anemia has been stable and does not need any transfusion. 4. Cellulitis. Cellulitis has improved. The patient remains on Zosyn. I will defer to Dr. Vang to decide about the duration of antibiotic. DISPOSITION: From a renal standpoint, the patient can be transferred back to [facility] if he is considered stable.
[2017-03-07 12:00] VITALS: BP 110/60
[2017-03-07] MEDS: MIDODRINE 5 MG TAB PO SCH ×2 (12:05→16:27)
[2017-03-07 16:00] VITALS: BP 108/63
[2017-03-07 20:00] VITALS: BP 104/44
[2017-03-07] MEDS ORDERED: SLF 3 ML SYR IV PRN (20:00)
[2017-03-07] MEDS: SLF 3 ML SYR IV SCH (22:22)
--- NOTE | 2017-03-07 23:28 | IPNPDOC ---
Date Seen The patient was seen on 03/07/17. Progress Note SUBJECTIVE: Patient is without complaints. OBJECTIVE PHYSICAL EXAMINATION: VITAL SIGNS: Please see below. GENERAL: Lying in bed comfortably HEENT: Normal CARDIOVASCULAR: Irregularly irregular. RESPIRATORY: Clear to auscultation bilaterally with decreased breath sounds at the bases. ABDOMINAL: Soft nontender nondistended EXTREMITIES: Left lower extremity cellulitis is improving. Right lower extremity shows adequate perfusion NEUROLOGICAL: Awake alert oriented x3 PSYCHOLOGICAL: Normal LABORATORY DATA: Please see below. MICROBIOLOGY: Please see below. ASSESSMENT AND PLAN: This is a 82-year-old male with left lower extremity cellulitis secondary to venous hypertension and insufficiency with improving cellulitis on IV antibiotics. PROBLEMS: 1. left lower extremity cellulitis: Patient is improving and is stable for discharge back to [facility]. DISPOSITION: Patient is stable for discharge but bed was unavailable today and he will be discharged on 03/08/2017. VS, I&O, 24H, Fishbone Vital Signs/I&O Vital Signs Date Time Temp Pulse Resp B/P (MAP) Pulse Ox O2 Delivery O2 Flow Rate FiO2 03/07/17 23:21 20 Room Air 03/07/17 20:00 97.8 74 104/44 (64) 95 I&O- Last 24 Hours up to 6 AM 03/07/17 05:59 Intake Total 880 ml Output Total 1550 ml Balance -670 ml Laboratory Data Microbiology Microbiology 03/03/17 Blood Culture - Preliminary, Resulted No Growth after 72 hours. All specime... 03/03/17 Gram Stain - Final, Complete 03/03/17 Body Fluid Culture - Final, Complete Benedict Vang MD Mar 07, 2017 23:27
[2017-03-07] MEDS: zolPIDEM TARTRATE 5 MG TAB PO PRN (23:43)
[2017-03-08] VITALS: BP 91/45
[2017-03-08 04:00] VITALS: BP 119/56
[2017-03-08] MEDS: PIPERACILLIN/TAZOBACTAM SOD 2.25 GM in D5W MINI-BAG PLUS 50 ML IV SCH (04:40)
[2017-03-08] MEDS: SLF 3 ML SYR IV SCH (04:44)
[2017-03-08] MEDS: MIDODRINE 5 MG TAB PO SCH ×2 (06:48→10:56)
[2017-03-08] MEDS: BUMETANIDE 1 MG TAB PO SCH (06:49)
[2017-03-08 08:00] VITALS: BP 108/52
[2017-03-08 09:00] VITALS: BP 108/52
[2017-03-08] MEDS: METOPROLOL SUCC *XL* 12.5MG PER 1/2 TAB (TopROL *XL*) PO SCH (09:00)
--- NOTE | 2017-03-08 10:54 | IPN ---
DATE: 03/08/2017 Mr. Finn was seen this morning on his bedside. He continues to be weak and has difficulty ambulating. He denies any dyspnea or chest pain. Since admission, he underwent a thoracentesis of a large pleural effusion. The patient also received hemodialysis due to end-stage renal disease and fluid overload. His last dialysis was performed on Monday. He has no fever, chills, nausea or vomiting. PHYSICAL EXAMINATION: Temperature 98.9 degrees Fahrenheit, heart rate 72 per minute, respiratory rate 18 per minute. Blood pressure 108/52 mmHg and oxygen saturation 94% on room air. Head is atraumatic. Neck is supple and without jugular venous distention (JVD) or thyroid enlargement. Dialysis catheter in right internal jugular vein is intact. Oral mucosa is dry but no thrush or ulcers noted. Heart sounds are regular and without a pericardial friction rub. Lungs with diminished breath sounds at bases and bibasilar rales. Abdomen is soft and nontender. Extremities are without any cyanosis or clubbing. Left leg is wrapped in a dressing. Lower extremity edema is present at least 1 to 2+ bilaterally. The patient did not have any new labs. ASSESSMENT: 1. End-stage renal disease. The patient is regularly dialyzed on Monday, Monday and Monday schedule. He was last dialyzed on Monday. Today is his regular scheduled day. The patient will be discharged back to care home and he will go to his regular dialysis treatment at 4:00 p.m.. 2. Congestive heart failure and bilateral lower extremity edema. This is a chronic issue, and we will continue our efforts to remove as much fluid as he can tolerate. His next dialysis is today. The patient will also continue with Bumex 2 mg daily. 3. Hypotension. The patient has chronic hypotension for which I have started midodrine 5 mg three times a day. I hope that this will help to maintain his blood pressure during dialysis treatment so we can remove fluid more aggressively. 4. Cellulitis of lower extremities. The patient is doing well and cellulitis has improved. I will defer to Dr. Vang about further antibiotic. He has been on Zosyn so far, which will be stopped today at discharge. DISPOSITION: From a renal standpoint, the patient can be discharged back to [facility]. He will be followed up at outpatient dialysis clinic.
[2017-03-08] MEDS: SENOKOT S TAB PO SCH (10:56)
--- NOTE | 2017-03-08 22:32 | DS.PDOC ---
Discharge Summary General Date of Admission Mar 02, 2017 at 16:28 Date of Discharge March 08, 2017 Attending Physician: Benedict Vang MD Specialist/Consultants Involve: Alfred Rodriguez MD Discharge Summary PROCEDURES PERFORMED DURING STAY: Thoracentesis. ADMITTING DIAGNOSES: 1. End-stage renal disease. 2. left lower extremity cellulitis. 3. 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 4. Congestive heart failure 5. Venous insufficiency DISCHARGE DIAGNOSES: 1. End-stage renal disease. 2. left lower extremity cellulitis. 3. 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 4. Congestive heart failure 5. Venous insufficiency COMPLICATIONS/CHIEF COMPLAINT: L Lower Extremity Cellulitis. HISTORY OF PRESENT ILLNESS: Patient is an 82-year-old male admitted with left lower extremity cellulitis pain and swelling secondary to venous insufficiency. HOSPITAL COURSE: Patient was admitted to the hospital underwent elevation of his left lower extremity as well as antibiotic therapy with improvement in his cellulitis and swelling and pain. The patient also underwent a thoracentesis due to a pleural effusion and continued his hemodialysis during this hospitalization. DISCHARGE MEDICATIONS: Please see below. ALLERGIES: Please see below. PHYSICAL EXAMINATION ON DISCHARGE: VITAL SIGNS: Please see below. GENERAL: Lying in bed comfortably HEENT: Normal NECK: Supple with no carotid bruits CARDIOVASCULAR EXAMINATION: Irregularly irregular RESPIRATORY EXAMINATION: Decreased breath sounds at the bases ABDOMINAL EXAMINATION: Soft nontender nondistended EXTREMITIES: Right lower extremity adequately perfused with ulcers showing signs of healing. Left lower extremity with less swelling and cellulitis and less tender to palpation SKIN: Normal NEUROLOGICAL EXAMINATION: Awake alert oriented x3 with no focal deficits PSYCHIATRIC EXAMINATION: Normal LABORATORY DATA: Please see below. PROGNOSIS: Good ACTIVITY: Tolerated. DIET: Renal diet. DISCHARGE PLAN: Discharged to [facility] with followup in the office in one week DISPOSITION: [facility]. DISCHARGE INSTRUCTIONS: 1. elevate left lower extremity as much as possible. ITEMS TO FOLLOWUP ON ON OUTPATIENT: 1. right lower extremity arterial insufficiency and wounds. 2. left lower extremity swelling cellulitis and discomfort. 3. bilateral lower extremity venous insufficiency and arterial insufficiency. DISCHARGE CONDITION: Stable. TIME SPENT ON DISCHARGE: Greater than 45 minutes. Vital Signs/I&Os Vital Signs Date Time Temp Pulse Resp B/P (MAP) Pulse Ox O2 Delivery O2 Flow Rate FiO2 03/08/17 09:00 72 108/52 03/08/17 08:08 Room Air 03/08/17 08:00 98.9 18 94 I&O- Last 24 Hours up to 6 AM 03/08/17 06:00 Intake Total 1010 ml Output Total 200 ml Balance 810 ml Microbiology Microbiology 03/03/17 Blood Culture - Final, Complete NO GROWTH AFTER 5 DAYS 03/03/17 Gram Stain - Final, Complete 03/03/17 Body Fluid Culture - Final, Complete Discharge Medications Scheduled (Nepro with Carb Steady) 1 Liq Liq, 240 ML PO ASDIRECTED, (Reported) TAKES BID ON MONDAY, MONDAY, MONDAY AND MONDAY @ 1000 AND 1400; TAKES DAILY ON MONDAY, MONDAY AND MONDAY Acetaminophen/Hydrocodone (Hydrocodone/Acetaminophen 5-325 mg) 1 Tab Tab, 1 TAB PO BID, (Reported) Atorvastatin Calcium (Atorvastatin Calcium) 40 Mg Tab, 40 MG PO ASDIRECTED, ( Reported) TAKES AT QHS EVERY OTHER NIGHT Bumetanide (Bumetanide) 2 Mg Tab, 2 MG PO BID, (Reported) TAKES AT 0800 AND 1400 Docusate Sod/Senna (Senna S 8.6-50 mg) 1 Tab Tab, 1 TAB PO QHS, (Reported) Metoprolol Succinate (Metoprolol Succinate ER) 25 Mg Tab, 25 MG PO DAILY, ( Reported) Scheduled PRN Acetaminophen (Acetaminophen) 325 Mg Tab, 650 MG PO Q4HP PRN for PAIN OR FEVER, (Reported) Acetaminophen/Hydrocodone (Hydrocodone/Acetaminophen 5-325 mg) 1 Tab Tab, 1 TAB PO DAILY PRN for PAIN, (Reported) Bisacodyl (Bisacodyl) 10 Mg Sup, 10 MG NH DAILY PRN for CONSTIPATION, (Reported) Nitroglycerin (Nitrostat) 0.4 Mg Subl, 0.4 MG SL NITRO PRN for CHEST PAIN, ( Reported) Sodium Phosphate/Biphosphate (Enema 7-19 gm/118Ml) 1 Mandy Mandy, 1 MANDY NH DAILY PRN for CONSTIPATION, (Reported) Zolpidem Tartrate (Zolpidem Tartrate) 5 Mg Tab, 5 MG PO QHS PRN for INSOMNIA, ( Reported) Allergies Coded Allergies: Heparin (Verified Allergy, Intermediate, 01/31/17) Heparin Induced Thrombocytopenia Unclassified Drugs (Verified Allergy, Unknown, OPTI 180 DIALYZER, 01/31/17) Benedict Vang MD Mar 08, 2017 22:32
--- NOTE | 2017-03-15 17:31 | IPN ---
DATE: 03/05/2017 SUBJECTIVE: The patient is seen this morning at the bedside, out of bed to the wheelchair. He is in fair spirits. He reports no new complaints. He tolerated hemodialysis well yesterday, with 1000 mL ultrafiltration. REVIEW OF SYSTEMS: Negative for headache, chest pain, palpitations, shortness of breath at rest, nausea, vomiting, diarrhea. Positive for dyspnea on exertion, lower extremity edema, left lower extremity cellulitis. Remainder of review of systems is negative. PHYSICAL EXAMINATION: Temperature 98.0, pulse 77, respiratory rate 20, blood pressure 99/52, saturating 94% on room air. INTAKE AND OUTPUT (I AND O): Hemodialysis yesterday removed 1000 mL ultrafiltration. Urine output yesterday: 925 mL. Weight in the bed scale today: 72.8 kg. Oral intake: 1.7 liters. GENERAL: Patient is sitting in the wheelchair. He is dressed, in no distress. He is in good spirits. HEAD AND NECK: Extraocular muscles intact. Moist mucous membranes. Right internal jugular (IJ) PermaCath. HEART: S1, S2. 3+ pitting edema in the lower extremities to the hip. 2+ radial pulse. Normal capillary refill. RESPIRATORY: Bilateral symmetric air entry without wheeze or rhonchi. Comfortable on room air. ABDOMEN: Soft, nontender. EXTREMITIES: Pitting edema to the hip in the bilateral lower extremities. Left lower extremity is wrapped in dressing. NEUROLOGIC: No focal deficits. Appropriately interactive and conversational. PSYCHIATRIC: In good spirits. No depression on visit today. LABORATORIES: WBC 5.8, hemoglobin 11.4, platelets 67. Sodium 138, potassium 4.3, bicarbonate 26, corrected calcium 10, phosphorus 3.2, magnesium 2.2. PROBLEMS: 1. End-stage renal disease on hemodialysis. Patient has significant peripheral edema. He repeatedly requests to cut short his hemodialysis time. He will be dialyzed again tomorrow, if he agrees for the same, with further ultrafiltration as tolerated. 2. Chronic diastolic congestive heart failure with significant peripheral edema. Decompensated volume status. Continue with serial hemodialysis treatments and ultrafiltration. Patient repeatedly requests to cut short hemodialysis time. I discussed with him at length regarding the need for ultrafiltration on hemodialysis for improvement in his volume status. He also continues on oral Bumex. 3. Cellulitis. The patient remains on intravenous (IV) Zosyn. He is afebrile without leukocytosis. Plan of care was discussed with Dr. Vang.
== END 2017-03-08 11:45 | DRG 602 ==
LOC: INTOOBSV 17:07 → M MSPAV 17:07 → M PCU 03-02 15:55 → OBSVTOIN 03-02 16:28
PROVIDERS: ADMIT Surgery Vascular Surgery; ATTEND Surgery Vascular Surgery
PROC: 0W9B3ZZ Drainage of Left Pleural Cavity, Percutaneous Approach (ICD-10-PCS; principal; 2017-03-03)
PROC: 5A1D60Z (ICD-10-PCS; 2017-03-03)
DX: L03.116 Cellulitis of left lower limb (principal); N18.6 End stage renal disease; J90 Pleural effusion, not elsewhere classified; I13.2 Hypertensive heart and chronic kidney disease with heart failure and with stage 5 chronic kidney disease, or end stage renal disease; I50.32 Chronic diastolic (congestive) heart failure; I70.235 Atherosclerosis of native arteries of right leg with ulceration of other part of foot; I87.2 Venous insufficiency (chronic) (peripheral); Z79.899 Other long term (current) drug therapy; Z88.8 Allergy status to other drugs, medicaments and biological substances; I25.10 Atherosclerotic heart disease of native coronary artery without angina pectoris; I48.91 Unspecified atrial fibrillation; M10.9 Gout, unspecified; D63.1 Anemia in chronic kidney disease; D69.6 Thrombocytopenia, unspecified

== ENCOUNTER → 2017-03-15 | Outpatient (REF) ==
[~2017-03-15] MED LIST changes: +ACET1TAB17 PO; +AMIO400T; +BISA10SU4 PR; +BUME2TAB PO; +ENEM1ENE4 PR; +ENEMENE16 PR; +MELA3TAB; +MIDO5TA; +NEPRLIQ3 PO; +NEUR100C PO; +NITR0.4S14; +SENN8.6C PO; +SENN8.6T7 PO; +ZOLP5TAB PO; +ZOSY1SOL4 IV
[2017-03-15 18:44] LABS: CALCIUM LEVEL 8.2 MG/DL (8.8-10.2); CREATININE FOR GFR 3.28 MG/DL (0.70-1.30); GLOMERULAR FILTRATION RATE 19.4 (>35); POTASSIUM SERUM 4.5 MEQ/L (3.5-5.1)
[2017-03-15 19:24] LABS: MEAN CORPUSCULAR HEMOGLOBIN 36.4 pg (27.0-33.0); MEAN CORPUSCULAR HGB CONC 32.5 g/dl (32.0-36.5); RED CELL DISTRIBUTION WIDTH 17.3 % (11.5-14.5); WHITE BLOOD COUNT 5.7 K/mm3 (4.0-10.0)
== END ==
PROVIDERS: ATTEND Internal Medicine
DX: I10 Essential (primary) hypertension (principal)

== ENCOUNTER → 2017-03-20 | Outpatient (REF) | payer MEDICARE | LOC: M LAB REF 16:39 | PROVIDERS: ATTEND Surgery | DX: I70.234 Atherosclerosis of native arteries of right leg with ulceration of heel and midfoot (principal); M86.18 Other acute osteomyelitis, other site; L97.419 Non-pressure chronic ulcer of right heel and midfoot with unspecified severity | CPT/HCPCS: 11042; 11044; 88305; G0463 ==

== ENCOUNTER → 2017-03-22 | Outpatient (REF) ==
[2017-03-22 09:32] LABS: MEAN CORPUSCULAR HEMOGLOBIN 35.4 pg (27.0-33.0); MEAN CORPUSCULAR HGB CONC 32.2 g/dl (32.0-36.5); RED CELL DISTRIBUTION WIDTH 19.6 % (11.5-14.5); WHITE BLOOD COUNT 5.8 10^3/uL (4.0-10.0)
[2017-03-22 10:07] LABS: CALCIUM LEVEL 8.9 MG/DL (8.8-10.2); CREATININE FOR GFR 3.79 MG/DL (0.70-1.30); GLOMERULAR FILTRATION RATE 16.4 (>35); POTASSIUM SERUM 4.8 MEQ/L (3.5-5.1)
== END ==
PROVIDERS: ATTEND Internal Medicine
DX: N18.9 Chronic kidney disease, unspecified (principal)

== ENCOUNTER 2017-04-03 16:03 | Emergency (ER) | payer MEDICARE ==
[~2017-04-03] VITALS: Ht 170.2 cm; Wt 69.5 kg
[~2017-04-03 16:03] MED LIST changes: -AMIO400T; -MELA3TAB; -MIDO5TA; -NEUR100C PO; -NITR0.4S14; -ZOSY1SOL4 IV
[2017-04-03] MEDS ORDERED: MELA3TAB (16:29)
[2017-04-03] MEDS ORDERED: NITR0.4S14 (16:29)
[2017-04-03] MEDS ORDERED: MIDO5TA (16:29)
[2017-04-03] MEDS ORDERED: AMIO400T (16:29)
[2017-04-03] MEDS ORDERED: NEUR100C PO (16:29)
--- NOTE | 2017-04-03 17:54 | REP ---
Duplex extremity venous ultrasound: Bilateral lower extremities. History: Swelling, cellulitis. Question DVT. History of right thigh hematoma. Findings: The deep veins are anechoic and fully compressible from the groin to the popliteal fossa in the right and left lower extremity. Color flow imaging is homogeneous. Spectral Doppler interrogation demonstrates intact respiratory variation in flow and normal manual augmentation of flow. There is no evidence of deep vein thrombosis. Incidental note is made of a 3.9 x 5.0 x 2.8 cm complex fluid collection in the right groin consistent with hematoma. This measured 6.6 cm in greatest diameter on the prior study of 02/23/2017. Impression: Negative bilateral lower extremity duplex venous ultrasound. No evidence of deep vein thrombosis. 5.0 cm right groin hematoma again noted, slightly decreased in size since 02/23/2017. Signed by Manish Saavedra MD 04/03/2017 07:49 P
[2017-04-03 18:02] LABS: BASO % 0.5 % (0.0-1.0); EOS # 0.1 10^3/uL (0.0-0.50); EOS % 1.5 % (0.0-3.0); IMMATURE GRANULOCYTE % 0.5 % (0-0); LYMPH % 11.2 % (24.0-44.0); MEAN CORPUSCULAR HEMOGLOBIN 35.4 pg (27.0-33.0); MEAN CORPUSCULAR HGB CONC 32.1 g/dl (32.0-36.5); MONO # 1.2 10^3/uL (0.0-0.8); MONO % 13.6 % (0.0-5.0); NEUTROPHILS # 6.4 10^3/uL (1.8-7.7); NEUTROPHILS % 72.7 % (36.0-66.0); PLATELET COUNT, AUTOMATED 117 10^3/uL (150-450); RED CELL DISTRIBUTION WIDTH 18.9 % (11.5-14.5); WHITE BLOOD COUNT 8.8 10^3/uL (4.0-10.0)
[2017-04-03 18:06] LABS: ADD MORPHOLOGY? YES; MEAN CORPUSCULAR VOLUME 110.4 fl (80.0-96.0)
[2017-04-03 18:30] LABS: ALBUMIN 2.4 GM/DL (3.2-5.2); ALBUMIN/GLOBULIN RATIO 0.44 (1.00-1.93); BILIRUBIN,DIRECT 0.4 MG/DL (0.0-0.2); BILIRUBIN,TOTAL 0.7 MG/DL (0.2-1.0); CALCIUM LEVEL 8.4 MG/DL (8.8-10.2); CREATININE FOR GFR 3.54 MG/DL (0.70-1.30); GLOMERULAR FILTRATION RATE 17.8 (>35); TOTAL PROTEIN 7.8 GM/DL (6.4-8.2)
[2017-04-03 18:35] LABS: POTASSIUM SERUM 5.4 MEQ/L (3.5-5.1)
[2017-04-03 18:42] LABS: ERYTHROCYTE SEDIMENTATION RATE 69 mm/hr (0-20)
[2017-04-03] MEDS ORDERED: PIPERACILLIN/TAZOBACTAM SOD 2.25 GM in D5W 50 ML IV ONE ×2 (18:45→20:00)
[2017-04-03 18:47] LABS: ANISOCYTOSIS 2+
[2017-04-03] MEDS ORDERED: SOD POLYSTYRENE SULFONATE SUSP 15 GM/60 ML UD PO ONE (20:00)
[2017-04-03] MEDS ORDERED: NORCO, ANEXSIA 5/325MG TABLET (HYDROcodone/ACETAMINOPHEN) PO ONE (20:00)
[2017-04-03] MEDS ORDERED: ZOSY1SOL4 IV (20:21)
[2017-04-03 20:28] VITALS: BP 114/59
== END 2017-04-03 21:34 | disposition home or self-care (01) ==
LOC: EDBD 16:03 → M ED 16:03
DX: L03.115 Cellulitis of right lower limb (principal); L89.152 Pressure ulcer of sacral region, stage 2; I87.2 Venous insufficiency (chronic) (peripheral); I25.10 Atherosclerotic heart disease of native coronary artery without angina pectoris; I10 Essential (primary) hypertension; Z95.5 Presence of coronary angioplasty implant and graft; N18.6 End stage renal disease; Z99.2 Dependence on renal dialysis; Z79.899 Other long term (current) drug therapy; Z88.8 Allergy status to other drugs, medicaments and biological substances
CPT/HCPCS: 80048; 80076; 85025; 85652; 86140; 87040; 93970; 96374; 96376; 99283; J2543